=== PATIENT | female | born 1940 | race Caucasian/White ===

== ENCOUNTER 2024-03-30 16:44 | Inpatient (IN) ==
--- NOTE | 2024-03-30 17:56 | XRay Report ---
EXAM: Radiograph of the Chest 1 View INDICATION: CHF. TECHNIQUE: Frontal view of the chest. COMPARISON: 11/11/2023 FINDINGS: Lungs and pleural spaces: Small to moderate right pleural effusion present. There is moderate prominent pulmonary vasculature. There is compressive consolidation of the lung bases right greater than left. No pneumothorax. Heart: Stable prominent cardiac shadow and mitral annular calcification. Mediastinum: Normal contour. Bones/joints: No fracture, erosion or dislocation. Soft tissues: No abnormality noted. No radiopaque foreign body noted. Upper abdomen: No abnormality noted. IMPRESSION: 1. Small to moderate right pleural effusion with compressive consolidation in the right lung base. Pneumonia with or without airway plugging considered. 2. Mild prominent pulmonary vasculature similar to the previous likely reflects mild congestion. ACT 112: Negative or not required by law. Electronically signed by Lori Hobbs 03-30-2024 5:56 PM
--- NOTE | 2024-03-30 18:01 | Emergency Department Note ---
Impression & Plan Acute decompensated heart failure, Bilateral edema of lower extremity, Moderate sized pleural effusion ED Provider Note NAME: LEWIS CURTIS AGE: 83 SEX: F : 1940 ARRIVES VIA: Walk-In INFORMANT: Patient, ED PROVIDER(S): Suyapa Garcia MD CHIEF COMPLAINT: Fluid overload HPI: This is a 83-year-old female presenting for fluid overload. Patient went to her [employer] office today told that she has 30 extra pounds of fluid. She has noted increasing fluid in her bilateral lower extremities like as well as increasing exertional dyspnea for the past 1 month. She notes that she has had difficulty with ambulation as result of this. She has orthopnea as well. She has no chest pain. No fever, chills, nausea or vomiting. ROS: See above HPI for pertinent positives & negatives. A total of 10 systems reviewed and were otherwise negative. PAST MEDICAL HISTORY: See Below PAST SURGICAL HISTORY: See Below FAMILY HISTORY: See Below SOCIAL HISTORY: See Below HOME MEDICATIONS: See Below ALLERGIES: See Below VITALS: See Below PHYSICAL EXAMINATION: General: Chronically ill-appearing Head: Normocephalic and atraumatic Eyes: Normal inspection, extraocular muscles intact Ear, nose, throat: Normal external exam Neck: Normal range of motion Respiratory: Diminished right lung sounds Cardiovascular: Regular rate/rhythm, no murmur GI: soft, nontender, no guarding or rebound Extremities: nontender, moves all extremities, 2+ pitting edema to bilateral lower extremities Neuro: The patient awake and alert, appropriately conversive, no focal deficits, symmetric faces Skin: Warm, dry, and intact MEDICAL DECISION MAKING: This is an 83-year-old female present for fluid overload. Overall patient appears fluid overloaded in her lungs, lower extremities. Consider CHF. Consider ACS, A-fib, pleural effusion, pneumonia -Will get chest x-ray, basic blood work, BNP -Chest Xray independently interpreted by me showing no pneumothorax, focal opacity, but does reveal a moderate size right pleural effusion - labs reviewed showing no leukocytosis, stable anemia creatinine 1.9.. BNP significant elevated at 576. -Will give IV Lasix here, 40 mg. -Discussed care with hospitalist service, admitted under Dr. Olivas Differential diagnosis: Consider CHF. Consider ACS, A-fib, pleural effusion, pneumonia ER treatment provided: See below Independent History obtained from: Daughter Diagnostics interpreted by me: ECG: ECG independently interpreted by me with atrial fibrillation with a rate of 97, left axis deviation, RBBB, normal QTc, no ST segment elevations consistent with STEMI criteria Cardiac Monitoring: An order was placed for continuous cardiac monitoring. The monitor shows a rate of 81 with atrial fibrillation rhythm. Laboratory studies: As stated above and show below. Imaging studies: See below. Past Med/Surg History Problem List (Updated 03/30/24 @ 19:22 by Suyapa Garcia MD) Moderate sized pleural effusion (Acute) Bilateral edema of lower extremity (Acute) Acute decompensated heart failure (Acute) Medical History Hypothyroidism CKD (chronic kidney disease), stage III Dyslipidemia DM (diabetes mellitus), type 2 Hypertension Atrial fibrillation Surgical History S/P cholecystectomy Family History Other Diabetes Hypertension Social History Smoking Status: Never smoker Hx Alcohol Use: No Hx Substance Use: No Preferred Language: Belarusian Feels Safe at Home: Yes Results & Data (ED) Vital Signs Vital Signs - 24 hr 03/30/24 16:46 03/30/24 19:00 Temperature 36.5 C Temperature Source Temporal Artery Scan Pulse Rate 96 H Pulse Rate [Right Brachial] 81 Pulse Rhythm [Right Brachial] Regular Pulse Strength [Right Brachial] Normal Respiratory Rate 18 22 Respiratory Effort / Characteristics Non-Labored Spontaneous Respiratory Depth Normal Normal Blood Pressure 146/102 H Blood Pressure [Right Arm] 124/78 Blood Pressure Mean 116 Blood Pressure Mean [Right Arm] 93 Blood Pressure Position Sitting Pulse Oximetry 93 90 Oxygen Delivery Method Room Air Room Air Sepsis Recent Fever Within 48 Hours No Sepsis New/Unexplained Change in Mental Status No Sepsis Action Taken by Nursing No Action Required Laboratory Data 03/30/24 18:06 03/30/24 18:06 Lab Results 03/30/24 Range/Units 18:06 WBC 7.48 (4.8-10.8) K/ul RBC 4.98 (4.20-5.40) M/uL Hgb 11.9 L (12.0-16.0) g/dl Hct 38.6 (37.0-47.0) % MCV 77.5 L (80.0-100.0) fL MCH 23.9 L (25.0-34.0) pg MCHC 30.8 L (32.0-36.0) g/dL RDW Std Deviation 49.1 H (36.4-46.3) fL RDW Coeff of Vinny 18.0 H (11.5-14.5) % Plt Count 189 (130-400) K/uL MPV 11.4 (9.4-12.4) fL Immature Gran % (Auto) 0.3 % Neut % (Auto) 69.7 % Lymph % (Auto) 15.9 % [place] % (Auto) 11.8 % Eos % (Auto) 1.6 % Baso % (Auto) 0.7 % Neut # (Auto) 5.22 (1.40-6.50) K/uL Lymph # (Auto) 1.19 L (1.20-3.40) K/uL [place] # (Auto) 0.88 H (0.11-0.59) K/uL Eos # (Auto) 0.12 (0.00-0.50) K/uL Baso # (Auto) 0.05 (0.00-0.20) K/uL Immature Gran # (Auto) 0.02 (0.01-0.20) K/uL Sodium 140 (136-145) mmol/L Potassium 5.1 (3.5-5.1) mmol/L Chloride 103 (98-107) mmol/L Carbon Dioxide 27 (21-32) mmol/L Anion Gap 10 (3-11) BUN 43 H (6-23) mg/dl Creatinine 1.89 H (0.6-1.2) mg/dl Est Cr Clr Drug Dosing Not Reportable eGFR 25.72 BUN/Creatinine Ratio 22.8 H (10-20) Glucose 162 H (70-99(Fasting)) mg/dl Calcium 9.5 (8.6-10.3) mg/dl Total Bilirubin 0.8 (0.2-1.0) mg/dl Direct Bilirubin TNP AST 29 (13-39) U/L ALT 18 (7-52) U/L Alkaline Phosphatase 143 H (34-104) U/L B-Natriuretic Peptide 576 H (0-100) pg/ml Total Protein 7.3 (6.0-8.3) gm/dl Albumin 3.8 (3.4-5.0) gm/dl Administered Medications Discontinued Medications Furosemide (Furosemide 40 Mg/4 Ml Vial) 40 mg IV ONE ONE Stop: 03/30/24 18:46 Last Admin: 03/30/24 18:58 Dose: 40 mg Documented By: NISHI Imaging Data Radiologist's Impression: Chest X-Ray 03/30/24 17:17 EXAM: Radiograph of the Chest 1 View INDICATION: CHF. TECHNIQUE: Frontal view of the chest. COMPARISON: 11/11/2023 FINDINGS: Lungs and pleural spaces: Small to moderate right pleural effusion present. There is moderate prominent pulmonary vasculature. There is compressive consolidation of the lung bases right greater than left. No pneumothorax. Heart: Stable prominent cardiac shadow and mitral annular calcification. Mediastinum: Normal contour. Bones/joints: No fracture, erosion or dislocation. Soft tissues: No abnormality noted. No radiopaque foreign body noted. Upper abdomen: No abnormality noted. IMPRESSION: 1. Small to moderate right pleural effusion with compressive consolidation in the right lung base. Pneumonia with or without airway plugging considered. 2. Mild prominent pulmonary vasculature similar to the previous likely reflects mild congestion. ACT 112: Negative or not required by law. Electronically signed by Lori Hobbs 03-30-2024 5:56 PM Discharge Plan Visit Data Chief Complaint: Swelling/Edema to Extremity Stated Complaint: SWELLING AND FLUID THROUGH OUT BODY ED Provider: Suyapa Garcia Discharge Problem: Acute decompensated heart failure, Bilateral edema of lower extremity, Moderate sized pleural effusion Forms Stand Alone Forms: My [facility] Referrals Referrals: Nadia Cuevas PA-C [Primary Care Provider] -
[2024-03-30 18:29] LABS: Basophils # (auto) 0.05 K/uL (0.00-0.20); Basophils % (auto) 0.7 %; Eosinophils # (auto) 0.12 K/uL (0.00-0.50); Eosinophils % (auto) 1.6 %; Hematocrit (blood only) 38.6 % (37.0-47.0); Hemoglobin 11.9 g/dl (12.0-16.0); Immature Granulocytes # (auto) 0.02 K/uL (0.01-0.20); Immature Granulocytes % (auto) 0.3 %; Lymphocytes # (auto) 1.19 K/uL (1.20-3.40); Lymphocytes % (auto) 15.9 %; Mean Corpuscular Hemoglobin 23.9 pg (25.0-34.0); Mean Corpuscular Hgb Conc 30.8 g/dL (32.0-36.0); Mean Corpuscular Volume 77.5 fL (80.0-100.0); Mean Platelet Volume 11.4 fL (9.4-12.4); Monocytes # (auto) 0.88 K/uL (0.11-0.59); Monocytes % (auto) 11.8 %; Neutrophils # (auto) 5.22 K/uL (1.40-6.50); Neutrophils % (auto) 69.7 %; Platelet Count 189 K/uL (130-400); RDW Standard Deviation 49.1 fL (36.4-46.3); Red Blood Count 4.98 M/uL (4.20-5.40); White Blood Count 7.48 K/ul (4.8-10.8)
[2024-03-30 18:45] LABS: Alanine Aminotransferase 18 U/L (7-52); Albumin Level 3.8 gm/dl (3.4-5.0); Alkaline Phosphatase 143 U/L (34-104); Anion Gap 10 (3-11); Aspartate Aminotransferase 29 U/L (13-39); BUN Creatinine Ratio 22.8 (10-20); Bilirubin,Total 0.8 mg/dl (0.2-1.0); Blood Urea Nitrogen 43 mg/dl (6-23); Calcium 9.5 mg/dl (8.6-10.3); Carbon Dioxide 27 mmol/L (21-32); Chloride 103 mmol/L (98-107); Glucose 162 mg/dl (70-99(Fasting)); Potassium 5.1 mmol/L (3.5-5.1); Sodium 140 mmol/L (136-145); Total Protein 7.3 gm/dl (6.0-8.3)
[2024-03-30] MEDS: FUROSEMIDE 40 MG/4 ML VIAL IV ONE (18:58)
--- NOTE | 2024-03-30 19:11 | History & Physical Report ---
Date of Service March 30, 2024 Assessment & Plan (1) Acute decompensated heart failure: (2) DM (diabetes mellitus), type 2: (3) Atrial fibrillation: (4) Dyslipidemia: (5) CKD (chronic kidney disease), stage III: (6) Hypertension: (7) Hypothyroidism: Plan This is an 83yo F with a PMH of HFpEF, atrial fibrillation on coumadin, bifascicular block, DM II, CKD III and other medical problems listed below who presents with swelling of lower extremities over the past few weeks and was found to have acutely decompensated diastolic heart failure. Acute decompensated diastolic heart failure Sent over from Dr. De Dios's office with profound BLE edema, moderate R pleural effusion on CXR, >20# wt gain Echo from [facility] from Jan 2024 with LV ejection fraction is 55 - 60%, RA and LA severely dilated, severe AV sclerosis without stenosis, severe TR regurg, severe MV regurg Home regimen includes Bumex 1mg BID, Toprol 100mg BID, lisinopril 20mg daily Given 40mg IV Lasix in ED - giving add'l 60mg IV this evening Strict I&Os, daily weights, low sodium diet Cardiology consulted Persistent atrial fibrillation HR controlled Continue diltiazem, Toprol DM II A1c 8.8 in July 2023, repeat in AM Hold home agents Basal/bolus insulin while in-patient BSG AC HS CKD III Cr 1.89 (last known Cr 1.8 in October 2023, unknown baseline) Hold lisinopril for now Repeat BMP in AM Dyslipidemia Continue statin DVT Ppx: coumadin Code status: FULL PCP: [facility] Dispo: admitted to PCU Patient seen in collaboration with Dr. Olivas. Please see addendum. I spent a total of 75 minutes coordinating, documenting, and providing care for this patient excluding time spent in the performance of separately billed services. Admission and Anticipated Discharge Date Admission Date: 03/30/2024 History of Present Illness Chief Complaint: SOB, BLE edema Primary Care Provider: Nadia Cuevas PA-C This is an 83yo F with a PMH of HFpEF, atrial fibrillation on coumadin, DM II, CKD III and other medical problems listed below who presents with swelling of lower extremities over the past few weeks. Patient notes that she has had fluid accumulating in legs over the past month. Endorses SOB at all times, occasional cough. Sleeping in a chair, + orthopnea and PND. Has been compliant with Bumex 1mg PO BID. Was seen by Dr. De Dios in cardiology clinic today and he sent her to ED for diuresis of decompensated heart failure. No F/C, CP, N/V, abd pain, dysuria, diarrhea or constipation. Occasional lightheadedness. Ambulates with a walker at baseline. Per cardiology note today, patient was admitted at [facility] in early February with R heart failure, requiring 11 lb weight loss. Since discharge has continued to have difficulty with>20# from baseline. Home Medications Medication Instructions Recorded Confirmed Type atorvastatin 20 mg tablet 20 mg PO DAILY 03/30/24 03/30/24 History bumetanide 1 mg tablet 1 mg PO BID 03/30/24 03/30/24 History diltiazem HCl 120 mg 240 mg PO DAILY 03/30/24 03/30/24 History capsule,extended release 24 hr, controlled (DILT-XR) insulin aspar prot-insulin aspart 25 unit subcut BID 03/30/24 03/30/24 History 100 unit/mL (70-30) subcutaneous pen (Novolog Mix 70-30FlexPen U-100) levothyroxine 88 mcg tablet 88 mcg PO DAILY 03/30/24 03/30/24 History lisinopril 20 mg tablet 20 mg PO DAILY 03/30/24 03/30/24 History metoprolol succinate 100 mg 100 mg PO BID 03/30/24 03/30/24 History tablet,extended release 24 hr potassium chloride 20 mEq 20 meq PO DAILY 03/30/24 03/30/24 History tablet,extended release warfarin 1 mg tablet 2 mg PO DAILY 03/30/24 03/30/24 History Past Med/Surg History Problem List (Updated 03/30/24 @ 19:22 by Suyapa Garcia MD) Moderate sized pleural effusion (Acute) Bilateral edema of lower extremity (Acute) Acute decompensated heart failure (Acute) Medical History Hypothyroidism CKD (chronic kidney disease), stage III Dyslipidemia DM (diabetes mellitus), type 2 Hypertension Atrial fibrillation Surgical History S/P cholecystectomy Family History Other Diabetes Hypertension Social History Smoking Status: Never smoker Hx Alcohol Use: No Hx Substance Use: No Preferred Language: Faroese Feels Safe at Home: Yes Review of Systems Review of Systems: At least ten systems reviewed and negative except as noted in the HPI. Physical Exam Physical Exam: Please see Dr. Olivas's addendum for physical exam. Results & Data Results & Data Vital Signs (Past 12 Hours) Vital Signs Temp Pulse Pulse Resp BP BP Pulse Ox 03/30/24 19:00 81 22 124/78 90 03/30/24 16:46 36.5 C 96 H 18 146/102 H 93 O2 Del Method 03/30/24 19:00 Room Air 03/30/24 16:46 Room Air Laboratory Results Short CBC 03/30/24 Range/Units 18:06 WBC 7.48 (4.8-10.8) K/ul Hgb 11.9 L (12.0-16.0) g/dl Hct 38.6 (37.0-47.0) % Plt Count 189 (130-400) K/uL BMP 03/30/24 18:06 Sodium 140 Potassium 5.1 Chloride 103 Carbon Dioxide 27 BUN 43 H Creatinine 1.89 H Glucose 162 H Calcium 9.5 Liver Function 03/30/24 Range/Units 18:06 Total Bilirubin 0.8 (0.2-1.0) mg/dl Direct Bilirubin TNP AST 29 (13-39) U/L ALT 18 (7-52) U/L Alkaline Phosphatase 143 H (34-104) U/L Albumin 3.8 (3.4-5.0) gm/dl Diagnostic Findings Chest X-Ray 03/30/24 17:17 EXAM: Radiograph of the Chest 1 View INDICATION: CHF. TECHNIQUE: Frontal view of the chest. COMPARISON: 11/11/2023 FINDINGS: Lungs and pleural spaces: Small to moderate right pleural effusion present. There is moderate prominent pulmonary vasculature. There is compressive consolidation of the lung bases right greater than left. No pneumothorax. Heart: Stable prominent cardiac shadow and mitral annular calcification. Mediastinum: Normal contour. Bones/joints: No fracture, erosion or dislocation. Soft tissues: No abnormality noted. No radiopaque foreign body noted. Upper abdomen: No abnormality noted. IMPRESSION: 1. Small to moderate right pleural effusion with compressive consolidation in the right lung base. Pneumonia with or without airway plugging considered. 2. Mild prominent pulmonary vasculature similar to the previous likely reflects mild congestion. ACT 112: Negative or not required by law. Electronically signed by Lori Hobbs 03-30-2024 5:56 PM ECG Additional Comments: atrial fibrillation at 97 bpm, LAD, RBBB Supervising Physician Co-Signing Physician Notes Patient is an 83-year-old female with history of HFpEF, permanent atrial fibrillation on chronic anticoagulation with Coumadin, CKD stage III, diabetes mellitus on insulin, bifascicular block, hypothyroidism, hyperlipidemia and other medical problems presents with history of worsening shortness of breath associated with worsening leg edema, increased weight gain, intermittent cough, orthopnea and PND which has been worsening over the past 1 month duration. She also reports ongoing palpitations. Patient denies any chest pain, fever, chills. Patient was evaluated by cardiology Dr. De Dios as outpatient and was recommended to go to ED for further evaluation. Patient admits to take her diuretics regularly. Please review HPI for complete details of presentation. I personally reviewed blood work, imaging studies and prior echo. Creatinine elevated at 1.8, glucose elevated 162, BNP 5726. Chest x-ray suggestive of moderate right pleural effusion with possible consolidation of right lung base. EKG showed A-fib, left axis deviation, right bundle branch block, QTc 490. Physical Exam: Vitals signs as noted above General Appearance:Moderately built and nourished, no apparent distress Head: normocephalic, Atraumatic Eyes: normal inspection, EOMI Neck: supple, Trachea midline Respiratory/Chest: Significantly decreased breath sounds, CTA, No accessory muscle use Cardiovascular: Irregularly irregular, +murmur Abdomen/GI:Soft, Non tender, protuberant, bowel sounds present Extremities/Musculoskeletal:normal inspection, 2=3+ B/L LE edema Neurologic/Psych:AAOX3, grossly no focal neurological deficits Skin: normal color, warm Acute on chronic HFpEF Valvular heart disease Right pleural effusion secondary to above CKD stage III Permanent A-fib on Coumadin DM II Supratherapeutic INR Agree with IV Lasix, I's and O's, daily weight, monitor volume status Consult cardiology If poor diuresis, may need thoracentesis Continue fluid restriction Continue metoprolol, diltiazem Hold Coumadin monitor INR Continue insulin for management of diabetes mellitus Check abdomen for ascites Monitor renal function, electrolytes I personally interviewed and examined at bedside. Patient's care is coordinated with Sayra Brewer PA-C. I have reviewed the advanced practitioner's documentation, and I agree with plan of care. Please refer to the documentation above for details of patient's presentation and for discussion of other issues. I spent a total [id number] coordinating, documenting, and providing care for this patient excluding time spent in the performance of separately billed services.
[2024-03-30 20:23] LABS: INR 4.5 (0.9-1.1); Prothrombin Time 42.9 Seconds (9.0-12.0)
[2024-03-30] MEDS ORDERED: GLUCOSE 10 TAB/TUBE PO PRN (21:15)
[2024-03-30] MEDS ORDERED: ACETAMINOPHEN 325 MG TAB PO PRN (21:15)
[2024-03-30] MEDS ORDERED: GLUCAGON FOR INJ 1 MG VIAL SQ PRN (21:15)
[2024-03-30] MEDS ORDERED: CARBOHYDRATES FOR HYPOGLYCEMIA PO PRN (21:15)
[2024-03-30] MEDS ORDERED: DEXTROSE 50% 50 ML SYRINGE IV PRN (21:15)
[2024-03-30] MEDS ORDERED: GLUCOSE 40% GEL 15 GM TUBE PO PRN (21:15)
[2024-03-30] MEDS ORDERED: POLYETHYLENE (MIRALAX) 17 GM PACK PO PRN (21:15)
[2024-03-30] MEDS: METOPROLOL SUCC 50MG EXT REL TAB PO SCH (21:49)
[2024-03-30] MEDS: FUROSEMIDE 40 MG/4 ML VIAL IV SCH (21:49)
[2024-03-30] MEDS: LANTUS PER UNIT CHARGE SQ SCH (21:49)
[2024-03-30] MEDS: INSULIN ASPART PER UNIT CHARGE SC SCH (21:50)
[2024-03-31] MEDS: LEVOTHYROXINE SODIUM 88 MCG TABLET PO SCH (06:11)
[2024-03-31 06:38] LABS: Hematocrit (blood only) 37.2 % (37.0-47.0); Hemoglobin 11.5 g/dl (12.0-16.0); Mean Corpuscular Hgb Conc 30.9 g/dL (32.0-36.0); Mean Corpuscular Volume 77.5 fL (80.0-100.0); Platelet Count 192 K/uL (130-400); RDW Coefficient of Variation 18.1 % (11.5-14.5); RDW Standard Deviation 49.3 fL (36.4-46.3); White Blood Count 7.27 K/ul (4.8-10.8)
[2024-03-31 06:45] LABS: BUN Creatinine Ratio 21.2 (10-20); Calcium 9.6 mg/dl (8.6-10.3); Creatinine Clr Calc Pharmacy 21.3 ml/min; Potassium 4.2 mmol/L (3.5-5.1)
[2024-03-31 06:46] LABS: INR 5.4 (0.9-1.1); Prothrombin Time 50.2 Seconds (9.0-12.0)
[2024-03-31 07:00] LABS: Thyroid Stimulating Hormone 2.957 uIu/ml (0.300-4.500)
[2024-03-31 07:12] LABS: Estimated Average Glucose 160 mg/dl; Hemoglobin A1C 7.2 % (4.5-5.6)
--- OUTSIDE RECORDS SUMMARY | 2024-03-31 07:41 | External Medical Summary ---
Author Name Unknown Address Unknown Organization [facility] [address] [place] [address] Laboratory Report Ordering Provider Test Date Status JORJE EVANS 03/03/2024 11:07:00 Final Observation Date Value Abnormality Reference (Units ) Status WBC 03/03/2024 12:40 7.6 4.0-10.0 (X10E+09/L) Final RBC 03/03/2024 12:40 4.15 3.9-5.2 (X10E+12/L) Final Hemoglobin 03/03/2024 12:40 10.7 Below low normal 11.2-15.7 (g/dL) Final Hematocrit 03/03/2024 12:40 33.2 Below low normal 34-45 (%) Final MCV 03/03/2024 12:40 79.9 79-98 (fL) Final MCH 03/03/2024 12:40 25.8 Below low normal 26.0-32.0 (pg) Final MCHC 03/03/2024 12:40 32.3 32-36 (g/dL) Final Platelets 03/03/2024 12:40 253 150-370 (X10E+09/L) Final RDW 03/03/2024 12:40 17.0 (%) Final Neutrophils 03/03/2024 12:40 76.4 Above high normal 34.0-71.1 (%) Final Lymphocytes 03/03/2024 12:40 11.7 Below low normal 19.3-51.7 (%) Final Monocytes 03/03/2024 12:40 9.5 4.7-12.5 (%) Final Eosinophils 03/03/2024 12:40 1.7 0.7-5.8 (%) Final Basophils 03/03/2024 12:40 0.7 0.1-1.2 (%) Final Absolute Neutrophils 03/03/2024 12:40 5.80 1.6-6.1 (X10E+09/L) Final Absolute Lymphocytes 03/03/2024 12:40 0.90 Below low normal 1.2-3.7 (X10E+09/L) Final Absolute Monocytes 03/03/2024 12:40 0.70 0.2-0.9 (X10E+09/L) Final Absolute Eosinophils 03/03/2024 12:40 0.10 0.0-0.4 (X10E+09/L) Final Absolute Basophils 03/03/2024 12:40 0.10 0.0-0.1 (X10E+09/L) Final Performing Location [facility] [address] [place] [address]
--- OUTSIDE RECORDS SUMMARY | 2024-03-31 07:41 | External Medical Summary | Summary of Care ---
Author Name Unknown Organization [facility] Address [address] [facility] [place] [place] [address] Phone [phone] Care Team Providers Care Operations Inspector Name Role Phone Nura Mckay Primary Care Provider [phone] Reason for Visit * Reason Onset Date Comments Information 03/13/2024 Encounter Details Date Type Department Care Team (Late st Contact Info) Description 03/13/2024 Telephone Cardiology, [facility] [address] [place] [address] Angel De Dios MD [address] [facility] [place] [address] Information Allergies Active Allergy Reactions Criticality Noted Date Comments Sulfa Antibiotics 11/14/2004 documented as of this encounter (statuses as of 03/15/2024) Medications Medication Sig Dispensed Refills Start Date End Date Status levothyroxine (LEVOXYL) 88 MCG Tablet Take 1 Tablet by mouth daily first thing in the morning. 06/28/2018 Active Insulin Syringe 27G X 1/2" 0.5 ML Inject 1 Each under the skin 2 times a day. 04/23/2020 Active Multi-Vitamins Oral Tablet Take 1 Tablet by mouth in the morning. Active [employer] Test In Vitro Strip (Glucose Blood) Inject 1 Strip as directed in the morning and 1 Strip at noon and 1 Strip before bedtime. 02/02/2019 Active Insulin Aspart Prot & Aspart (70-30) 100 UNIT/ML Suspension Pen-injector Inject 25 Units under the skin in the morning. 08/28/2020 Active Fifty50 Pen [place] 32G X 4 MM (Insulin Pen Needle) Inject 1 Each under the skin in the morning. 02/08/2019 Active OneTouch Delica Plus [id number] Inject 1 Each under the skin 3 times a day. 07/05/2020 Active Warfarin Sodium 1 MG Oral Tablet Take 3 Tablets by mouth daily except on . Active Warfarin Sodium 1 MG Oral Tablet (Coumadin) Take 2 Tablets by mouth every . Active Insulin Aspart Prot & Aspart (70-30) 100 UNIT/ML Suspension Pen-injector Inject 25 Units under the skin daily with dinner. Active Lisinopril 20 MG Oral Tablet (Prinivil) Take 1 Tablet by mouth in the morning. Active Vitamin D3 50 MCG (1999 UT) Oral Capsule Take 1 Capsule by mouth in the morning. Active Atorvastatin Calcium 20 MG Oral Tablet (Lipitor) Take 1 Tablet by mouth in the morning. 90 Tablet 3 08/30/2023 Active dilTIAZem HCl ER Coated Beads 240 MG Oral Capsule Extended Release 24 Hour (Cardizem CD) Take 1 Capsule by mouth in the morning. 90 Capsule 3 11/18/2023 Active Bumetanide 1 MG Oral Tablet (Bumex) Take 1 Tablet by mouth in the morning and 1 Tablet before bedtime. 9am and 1pm. 03/02/2024 Active Potassium Chloride ER 20 MEQ Oral Tablet Extended Release Take 1 Tablet by mouth in the morning. 03/03/2024 Active Metoprolol Succinate ER 100 MG Oral Tablet Extended Release 24 Hour (toPROL XL)Indications:(H FpEF) heart failure with preserved ejection fraction (HCC),Essential hypertension with goal blood pressure less than 140/90,Paroxysmal atrial fibrillation (HCC) Take 1 Tablet by mouth in the morning and 1 Tablet before bedtime. 03/13/2024 Active Metoprolol Succinate ER 100 MG Oral Tablet Extended Release 24 Hour (toPROL XL)Indications:(H FpEF) heart failure with preserved ejection fraction (HCC),Essential hypertension with goal blood pressure less than 140/90,Paroxysmal atrial fibrillation (HCC) Take 1.5 Tablets by mouth in the morning. 135 Tablet 3 07/06/2023 03/13/20 24 Discontinued Furosemide 40 MG Oral Tablet (Lasix)Indication s:Hypertensive heart disease with chronic diastolic congestive heart failure (HCC),Chronic right-sided heart failure (HCC),Persistent atrial fibrillation (HCC),HTN, goal below 140/90 Take 1 Tablet by mouth in the morning. 90 Tablet 3 11/18/2023 03/13/20 24 Discontinued(Med ication/Dose Changed) documented as of this encounter (statuses as of 03/15/2024) Active Problems Problem Noted Date Diagnosed Date Paroxysmal atrial fibrillation 05/20/2023 (HFpEF) heart failure with preserved ejection fr action 02/17/2023 Hypertension associated with stage 3 chronic kidney disease due to type 2 diabetes mellitus 11/23/2017 Status post total right knee replacement 018 Generalized osteoarthritis 11/07/2017 Recurrent major depressive disorder, in full rem ission 11/07/2017 Impaired mobility and ADLs 11/07/2017 Abnormality of gait 11/07/2017 Essential hypertension with goal blood pressure less than 140/90 05/12/2016 Kidney disease, chronic, stage III (GFR 30-59 ml /min) 07/17/2013 Overview: Per CKD protocol #1 Obesity, Class II, BMI 35-39.9, isolated (see ac tual BMI) 03/08/2012 Gout 08/21/2010 Dyslipidemia, goal LDL below 100 05/08/2009 Overview: Per Lipid Taxonomy. Type 2 diabetes mellitus wit h hemoglobin A1c goal of less than 7.0% 03/21/2009 Overview: Per Diabetes Taxonomy. ICD-10 update of inactive term Hypothyroidism 02/24/2005 ADVANCE DIRECTIVE INFORMATION 12/01/2004 Overview: No, Advance Directive brochure given to patient. documented as of this encounter (statuses as of 03/15/2024) Resolved Problems Problem Noted Date Diagnosed Date Resolved Date Acute respiratory failure due to COVID-19 05/20/2023 05/25/2023 Pneumonia due to COVID-19 virus 05/20/2023 05/25/2023 Sepsis due to COVID-19 05/20/202305/25 Atrial fibrillation with RVR 02/17/2023 05/25/2023 Pain in both knees 02/17/2023 Hypertensive urgency 02/17/2023 023 Leukocytosis 02/17/2023 03/01/2023 Elevated troponin 02/17/2023 05/20/2023 Anxiety state 11/07/2017 03/02/2023 Nephrolithiasis 11/07/2017 11/08/2017 History of uncontrolled hypertension 11/07/2017 05/20/2023 History of uterine fibroid 11/07/2017 0 11/08/2017 H/O tubal ligation 11/07/2017 8 Generalized weakness 11/07/2017 023 assisted resident 11/07/20172017 HTN, goal below 140/90 11/04/201511/07 Overview: Per HTN Protocol Anxiety 01/16/2015 11/07/2017 Hypertension goal BP (blood pressure) < 140/80 03/08/2012 11/07/2015 Overview: Per HTN Protocol Kidney disease, chronic, sta ge III (GFR 30-59 ml/min) 10/12/2011 06/08/2012 Overview: Per CKD protocol #1 Kidney disease, chronic, sta ge III (GFR 30-59 ml/min) 12/12/2009 08/21/2010 Overview: Per CKD Protocol, #1 HTN, goal below 130/80 06/19/200903/08 Overview: Per HTN Taxonomy. Kidney disease, chronic, sta ge III (GFR 30-59 ml/min) 07/26/2007 10/02/2008 Overview: Added per CKD clinical protocol 1 Type 2 diabetes mellitus wit h hemoglobin A1c goal of less than 7.0% 07/22/2007 03/21/2009 Overview: Per Diabetes Taxonomy. ICD-10 update of inactive term Dyslipidemia, goal to be determined 07/22/2007 05/08/2009 Overview: Per Lipid Taxonomy. DIFFUS CYSTIC MASTOPATHY 03/19/2006 Lichenified Face Rash 12/16/20052017 HTN, goal below 140/90 02/24/200506/19 Overview: Per HTN Taxonomy. documented as of this encounter (statuses as of 03/15/2024) Immunizations Name Administration Dates Next Due Pneumococcal Polysaccharide PPV23 (Pneumovax) 06/10/2012,02/27/2011(Deferred: Patient Refused) Seasonal Influenza Vac., MDV , IM, 0.5 mL (Fluzone) 01/30/2014,05/31/2013,03/08/2012,02/27(Deferred: Patient Refused),03/19/2006 Seasonal Influenza, Quadriva lent, No Preserve, IM 05/18/2017,04/03/2016,03/16/2015 Varicella Zoster Vaccine (Adult) 01/20/2013 documented as of this encounter Social History Tobacco Use Types Packs/Day Years Used Date Smoking Tobacco: Never Smokeless Tobacco: Never Alcohol Use Standard Drinks/Week Comments No 0 (1 standard drink = 0.6 oz pur e alcohol) PHQ-2 Answer Date Recorded PHQ-2 Score -1 03/30/2018 Utilities Answer Date Recorded Do you have trouble paying y our heating, water, or electric bill? (Adult - for ages 18 years and over) Not on file 11/09/2023 Is your family able to pay t he heat, water, or electric bill? (Household - for ages 0-17 years) Not on file 11/09/2023 Does your family have access to good internet? (Household - for ages 0-17 years) Not on file 11/09/2023 Social Connections Answer Date Recorded How often do you feel lonely or isolated from those around you? (Adult - for ages 18 years and over) Not on file 11/09/2023 Sex and Gender Information Value Date Recorded Sex Assigned at Not on file Gender Identity Not on file Sexual Orientation Not on file Job Start Date Occupation Industry Not on file Not on file Not on file documented as of this encounter Functional Status Functional Status Response Date of Assess ment Are you deaf or do you have serious difficulty h earing? No 05/20/2023 Are you blind or do you have serious difficulty seeing, even when wearing glasses? No 05/20/2023 Do you have serious difficul ty walking or climbing stairs? (5 years old or older) No 05/20/2023 Do you have difficulty dress ing or bathing? (5 years old or older) No 05/20/2023 Because of a physical, menta l, or emotional condition, do you have difficulty doing errands alone such as visiting a doctor s office or shopping? (15 years old or older) No 05/20/20 23 Cognitive Status Response Date of Assessm ent Because of a physical, menta l, or emotional condition, do you have serious difficulty concentrating, remembering, or making decisions? (5 years old or older) No 05/20/2023 documented as of this encounter Miscellaneous Notes * Telephone Encounter - Tracie Fuentes LPN - 03/13/2024 10:41 AM EDT Son, Froilan, calling to report pt is having bilateral lower extremity edema and SOB/dyspnea. On 02/20 pt c/o to PCP of edema x3 weeks. Advised to go to ED. Pt admitted to [facility] 02/20to 02/26/24. (Discharge summary from Care Everywhere attached below) Still having difficulty breathing with minimal activity. Cannot walk short distance without becoming SOB, cannot lay down to elevate legs d/t difficulty breathing. Son reports that upon discharge lower extremity edema was just as bad as when she was admitted and the same today. Monitoring SpO2 at home consistently in 90% Currently 96% and HR 76 03/02/24 med changes at PCP appointment (Care Everywhere & attached below) and reported by son. Bumex 1mg twice daily at 9am and 1pm, furosemide discontinued. Metoprolol 100mg was taking 1.5 tabs once daily now taking 100mg twice daily. Potassium Chloride 20 mEq. 1 tab daily Still taking diltiazem 240mg daily Med list updated Weight gain: does not monitor at home weight on 02/25 d/c 177.3 lb. 03/02/24 PCP appt 180.9 lb. Abdminal distention No denies Lack of appetite No good appetite Recent home weights: Does not know her weight today, does not monitor at home. Exacerbating factors: Has the patient missed any medications? No Has there been a change in medications? Yes Has there been any recent steroid use? No Has there been any dietary indiscretions? unknown Patient is currently taking: med list updated per 03/02/24 pcp note. Dose the patient have a DTP (Diuretic Titration Plan? No Yes- Follow DTP and ensure a follow up call is made No- Pend DTP with message to the provider Advised pt to await return call, but if symptoms worsen or become emergent, seek treatment at nearest emergency department. Son agreed 03/02/24 PCP notes from care everywhere Zarina Dang MD - 03/02/2024 3:00 PM EDT Subjective: Patient ID: Lc Cantrell is an 83 year old female. HPI: I saw Lc today for 5 day TCM after a 5 day hospitalization at [facility] secondary to acute on chronic diastolic CHF. She presented to the ER with c/o shortness of breath, leg swellingthat had started 3 weeks earlier. In the ER, she was hemodynamically stable and did not require oxygen supplementation. Her EKG showed atrial fibrillation with a rate of 70 with RBBB. Echocardiogram showed: 1. normal global function of the left ventricle; 2. no left ventricular regional wall motionabnormalities; 3. LV ejection fraction 55 - 60%; 4. normal right ventricular size and systolic function; 5. right atrium severely dilated; 6. left atrium severely dilated; 7. 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 severe tricuspid regurgitation; 9. severe mitral annular calcification; 10. Severe mitral valve regurgitation. Troponin was not elevated. Procalcitonin was not significantlyelevated at 0.14. Chest x-ray showed a right pleural effusion. BNP was elevated to 466. She also had an REFUGIO versus chronic kidney disease, with a creatinine of 1.87. She was given a dose of 40 mg IV Lasix. She was admitted to observation under hospital medicine service for further evaluation and treatment of presumed heart failure exacerbation. She was seen in consultation by Cardiology on hospital day#1 and they recommended bumetanide 1 mg IV bid for diuresis to resolve the fluid overload. Patient lost 11 pounds with diuresis and renal function remained stable. Patient discharged on furosemide 40 mg po bid. Her weight on the day of discharge was 177.3 lbs. She is feeling better but taking furosemide at bedtime as prescribed has kept her up at night. She has been elevated her legs as muchas possible. Assessment & Plan: Diagnosis ICD-10-CM Plan 1. Chronic diastolic CHF (congestive heart failure) (HCC) I50.32 As Cardiology recommended Bumex secondary to CKD and she was given this in the hospital and it worked well, I will change furosemide to Bumex 1 mg po q0900 and q1300. She will continue LE elevation. 2. Stage 3b chronic kidney disease (HCC) N18.32 CBC (INCLUDES DIFFERENTIAL AND PLATELETS) COMPREHENSIVE METABOLIC PANEL (CMP) 3. Chronic atrial fibrillation (HCC) I48.20 MAGNESIUM PROTHROMBIN TIME/INR Nocturnal desaturation study on RA. 4. Other specified hypothyroidism E03.8 THYROID-STIMULATING HORMONE (TSH) T4 (THYROXINE), FREE 02/26/24 - Discharge summary. Document Name: Discharge Summary/Day of DC Note Service Date/Time: 02/26/24 3:50:00 PM EDT Result Status: Final Author: SADIE HERRERA, DARIO GUTHRIE (02/26/24 3:51:01 PM EDT) Signer: DARIO CUNHA MD (02/27/24 11:30:06 AM EDT) Discharge Summary/Day of DC Note [facility] Patient: LC CANTRELL Age: 83 years Sex: Female : 1940 Associated Diagnoses: None Author: DARIO CUNHA MD Discharge Information Discharge Summary: Discharge Date: 02/26/2024. PROVIDERS PCP: Nadia Cuevas Attending: Dario Cunha Referring: Physician Nonassigned Consulting: Cardiology Michael; Discharge Medications: (As of 02/26/24 15:50) ATORVASTATIN (20 MG ORAL TABLET) 1 TAB BY MOUTH EVERY EVENING CHOLECALCIFEROL (25 MCG (1000 INTL UNITS) ORAL CAPSULE) 1 CAP BY MOUTH ONCE A DAY DILTIAZEM ((EQV-CARDIZEM CD) 240 MG/24 HOURS ORAL CAPSULE, EXTENDED RELEASE) 1 CAP BY MOUTH EVERY EVENING; COMMENT: TAKES IN EVENING. CONFIRMED WITH PATIENT 02/21/2024 FUROSEMIDE (LASIX 40 MG ORAL TABLET) 1 TAB BY MOUTH 2 TIMES A DAY; Dispense Quantity: 60 TABS; Prescription Electronically Submitted to [facility] 8540 INSULIN ASPART-INSULIN ASPART PROTAMINE (NOVOLOG MIX 70/30) (RELION NOVOLOG MIX 70/30 FLEXPEN SUBCUTANEOUS SUSPENSION) 25 UNITS BENEATH THE SKIN 2 TIMES A DAY (AFTER MEALS) LEVOTHYROXINE (88 MCG (0.088 MG) ORAL TABLET) 1 TAB BY MOUTH ONCE A DAY LISINOPRIL (20 MG ORAL TABLET) 1 TAB BY MOUTH ONCE A DAY METOPROLOL (SUCCINATE ER 100 MG ORAL TABLET, EXTENDED RELEASE) 1.5 TABS BY MOUTH ONCE A DAY MULTIVITAMIN (MULTI VITAMIN+) 1 TAB ONCE A DAY WARFARIN (1 MG ORAL TABLET) 2 TABS BY MOUTH ONCE A DAY Hospital Course Patient admitted for volume overload, increased LE edema and diastolic heart failure. Seen in consultation by Cardiology. Patient lost 11 pounds with diuresis and renal function remained stable. Patient discharged to care of her daughter in the afternoon. I spoke with daughter on the phone on 02/27/2024 to see how her mother was doing. Patient with continued good response to home Lasix, increased from 40 mg daily to 40 mg BID. Patient has follow up appointment with PCP this week. Instructed daughter for patient to have INR and BMP checked at PCP visit. Please see my progress note for details of her exam and problem list. Call me with any questions or concerns. Document Name: Discharge Summary/Day of DC Note Service Date/Time: 02/26/24 3:50:00 PM EDT Weights (Last 5 in past 7 days) Date / Time Weight(kg) Dosing Wt = 85.8 kg (As of: 02/21 20:30) 02/25 06:00 80.6 02/24 06:33 84.6 02/24 06:00 84.6 02/23 06:00 84.8 02/22 08:00 85.6 documented in this encounter Plan of Treatment Upcoming Encounters Date Type Department Care Team (Late st Contact Info) Description 03/30/2024 3:00 PM EST Office Visit [facility] [address] [place] [address] Angel De Dios MD [address] [place] [address] 05/09/2024 11:00 AM EST Office Visit [facility] [address] [place] [address] Nisha Arellano, ARJUN [address] [place] [address] Health Maintenance Due Date Last Done Comments DTap/Tdap Vaccines (1 - Tdap) 1959 Zoster Vaccines (2 of 3) 03/17/2013 01/20/2013 Pneumococcal Vaccine: 65+ Years (2 of 2 - PCV) 06/10/2013 06/10/2012 Albumin/Creatinine Ratio 10/27/2016 016, 10/05/2014, 09/21/2013, Additional history exists Diabetic Foot Exam 05/12/2017 05/12/2016, 1 07/07/2014, 06/15/2014, Additional history exists Depression Monitoring 11/23/2018 11/23/2017 COVID-19 Vaccine ( season) 2024 07/31/2020, 07/10/2020 Influenza Vaccine (FLU shot) (#1) 2024 02/26/2022, 03/09/2019, 03/11/2018, Additional history exists Diabetic Eye Exam 02/06/2024 02/05/2023, , 11/30/2016, Additional history exists HbA1c 02/17/2024 08/17/2023, 05/25, 05/21/2023, Additional history exists TSH 02/18/2024 02/17/2023, 01/23, 11/10/2017, Additional history exists CKD PHOS USE SMARTSET 13433 02/21/2025 10/0 05/2023, 11/02/2023, 10/30/2023, Additional history exists CKD HGB USE SMARTSET 26593 03/03/202503/03, 02/26/2024, 02/25/2024, Additional history exists HPV (Gardasil) Vaccine Aged Out No lo nger eligible based on patient's age to complete this topic Hepatitis B Vaccine Aged Out No longe r eligible based on patient's age to complete this topic MENINGOCOCCAL (MENACTRA/MENVEO) Aged Out No longer eligible based on patient's age to complete this topic documented as of this encounter Medical Devices Not on filedocumented as of this encounter Visit Diagnoses Diagnosis (HFpEF) heart failure with preserved ejection fraction (HCC) Essential hypertension with goal blood pressure less than 140/90 Paroxysmal atrial fibrillation (HCC) Atrial fibrillation documented in this encounter Advance Directives * Limited Code (Latest Code Status on File) Date Activated Date Inactivated Comments 05/20/2023 1:42 PM 05/25/2023 5:20 PM This order r eflects the patients wishes and were consensually agreed upon. Question Answer Comments Discussion of Advance Directives occurred with: Family Does the patient have a Living Will? No Bag Valve Device? Yes Intubation? No Cardiac Compressions? Yes Defibrillation? Yes Synchronized Cardioversion? Yes External Pacemaker? Yes Cardiac Drugs? Yes * Full Code Date Activated Date Inactivated Comments 02/17/2023 3:58 AM 02/18/2023 9:02 PM This order r eflects the patients wishes and were consensually agreed upon. Question Answer Comments Discussion of Advance Directives occurred with: Patient Does the patient have a Living Will? No Does the patient have Health Care Power of Attor himanshu? No Care Teams Operations Inspector Relationship Specialty Start Date End Date Nura Mckay DO PCP - General Family Medicine 12/15/17 documented as of this encounter
--- OUTSIDE RECORDS SUMMARY | 2024-03-31 07:41 | External Medical Summary | Summary of Care ---
Author Name Unknown Organization [facility] Address [address] [place] [address] Phone [phone] Care Team Providers Care Sports Manager Name Role Phone Nura Mckay Primary Care Provider [phone] Reason for Visit * Reason Onset Date Comments [facility]: Engagement 02/29/2024 Encounter Details Date Type Department Care Team (Late st Contact Info) Description 02/29/2024 Telephone [facility] [place] [address] [place] [address] Марина Gomez VAMSHI [address] [place] [address] [facility]: Engagement Allergies Active Allergy Reactions Criticality Noted Date Comments Sulfa Antibiotics 11/14/2004 documented as of this encounter (statuses as of 02/29/2024) Medications Medication Sig Dispensed Refills Start Date [...] in the morning. 08/28/2020 Active Fifty50 Pen [place] 32G X 4 MM (Insulin Pen Needle) Inject 1 Each under the skin in the morning. 02/08/2019 Active OneTouch Delica Plus [id number] Inject 1 Each under the skin 3 [...] the morning. Active Vitamin D3 50 MCG (2000 UT) Oral Capsule Take 1 Capsule by mouth in the morning. Active Metoprolol Succinate ER 100 MG Oral Tablet Extended Release 24 Hour (toPROL XL)Indications:(HFpEF ) heart failure with preserved ejection fraction (HCC),Essential hypertension with goal blood pressure less than 140/90,Paroxysmal atrial fibrillation (HCC) Take 1.5 Tablets by mouth in the morning. 135 Tablet 3 07/06/2023 Active Atorvastatin Calcium 20 MG Oral Tablet (Lipitor) Take 1 Tablet by mouth in the morning. 90 Tablet 3 08/30/2023 Active Furosemide 40 MG Oral Tablet (Lasix)Indications:Hy pertensive heart disease with chronic diastolic congestive heart failure (HCC),Chronic right-sided heart failure (HCC),Persistent atrial fibrillation (HCC),HTN, goal below 140/90 Take 1 Tablet by mouth in the morning. 90 Tablet 3 11/18/2023 Active dilTIAZem HCl ER Coated Beads 240 MG Oral Capsule Extended Release 24 Hour (Cardizem CD) Take 1 Capsule by mouth in the morning. 90 Capsule 3 11/18/2023 Active documented as of this encounter (statuses as of 02/29/2024) Active Problems Problem Noted Date Diagnosed Date [...] as of this encounter (statuses as of 02/29/2024) Resolved Problems Problem Noted Date Diagnosed Date [...] ligation 11/07/2017 8 Generalized weakness 11/07/2017 023 residential resident 11/07/20172017 HTN, goal below 140/90 11/04/201511/07 [...] as of this encounter (statuses as of 02/29/2024) Immunizations Name Administration Dates Next Due Pneumococcal [...] (15 years old or older) No 05/20/20 Cognitive Status Response Date of Assessm ent Because of a physical, menta l, or emotional condition, do you have serious difficulty concentrating, remembering, or making decisions? (5 years old or older) No 05/20/2023 documented as of this encounter Miscellaneous Notes * Telephone Encounter - Марина Gomez OSA - 02/29/2024 9:22 AM EDT Outreach to patient for [facility] scheduling. Patient declined appointment scheduling at this time documented in this encounter Plan of Treatment Upcoming Encounters Date Type Department Care Team (Late st Contact Info) Description 05/09/2024 11:00 AM EST Office Visit Cardiology, [facility] [address] [place] [address] Nisha Arellano CRNP [address] [place] [address] Health Maintenance Due Date Last Done Comments [...] Additional history exists CKD PHOS USE SMARTSET 01439 02/21/2025 10/0 05/2023, 11/02/2023, 10/30/2023, Additional history exists CKD HGB USE SMARTSET 01022 02/24/202502/24, 02/24/2024, 02/23/2024, Additional history exists HPV (Gardasil) Vaccine Aged [...] Not on filedocumented as of this encounter Advance Directives * Limited Code [...] Power of Attor himanshu? No Care Teams Sports Manager Relationship Specialty Start Date End Date Nura Mckay DO PCP - General Family Medicine 12/15/17 documented as of this encounter
--- OUTSIDE RECORDS SUMMARY | 2024-03-31 07:41 | External Medical Summary ---
Author Name Unknown Address Unknown Organization R1WR:[facility] [address] [place] [address] Laboratory Report Ordering Provider Test Date Status SHELLY GRIFFITH 02/24/2024 04:24:00 Final Observation Date Value Abnormality Reference (Units ) Status Prothrombin Time 02/24/2024 05:11 30.1 Above high alanna l 11.9-14.5 (Sec) Final INR 02/24/2024 05:11 2.8 Fin al Performing Location [facility] [address] [place] [address]
--- OUTSIDE RECORDS SUMMARY | 2024-03-31 07:41 | External Medical Summary ---
Author Name Unknown Address Unknown Organization R4LH:[facility] [address] [place] [address] Laboratory Report Ordering Provider Test Date Status JORJE EVANS 03/03/2024 11:07:00 Final Observation Date Value Abnormality Reference (Units ) Status Prothrombin Time 03/03/2024 11:56 26.4 Above high alanna l 11.9-14.5 (Sec) Final INR 03/03/2024 11:56 2.5 Fin al Performing Location [facility] [address] [place] [address]
--- OUTSIDE RECORDS SUMMARY | 2024-03-31 07:41 | External Medical Summary ---
Author Name Unknown Address Unknown Organization R1WR:[facility] [address] [place] [address] Laboratory Report Ordering Provider Test Date Status SADIE BENAVIDES 02/25/2024 10:37:00 Fin al Observation Date Value Abnormality Reference (Units ) Status Glucose, POC 02/25/2024 10:44 183 Above high normal 70 -99 (mg/dL) Final Performing Location [facility] [address] [place] [address]
--- OUTSIDE RECORDS SUMMARY | 2024-03-31 07:41 | External Medical Summary ---
Author Name Unknown Address Unknown Organization [id number]:[facility] [address] [place] [address] Laboratory Report Ordering Provider Test Date Status JORJE EVANS 03/03/2024 11:07:00 Final Observation Date Value Abnormality Reference (Units ) Status Magnesium 03/03/2024 12:54 1.8 1.7-2.8 (mg/d L) Final Performing Location [facility] [address] [place] [address]
--- OUTSIDE RECORDS SUMMARY | 2024-03-31 07:41 | External Medical Summary ---
Author Name Unknown Address Unknown Organization R4:[facility] [address] [place] [address] Laboratory Report Ordering Provider Test Date Status JORJE EVANS 03/03/2024 11:07:00 Final Observation Date Value Abnormality Reference (Units ) Status Glucose 03/03/2024 12:54 190 Above high normal 70-99 (mg/dL) Final BUN 03/03/2024 12:54 31 Above high normal 7-18 (mg/dL) Final Creatinine 03/03/2024 12:54 1.52 Above high normal 0.60 -1.30 (mg/dL) Final eGFR 03/03/2024 12:54 33 Below low normal >59 (m L/min/1.73m2) Final eGFR = 142 X [min(Scr/k,1)]* *a [max(Scr/k,1)-1.200x0.9938age X 1.012 [if female] Where Scr is serum creatinine; k is 0.7 for females and 0.9 males; a is -0.241 for females and -0.302 for males; min indicates the minimum of Scr/k or 1, max indicates the maximum of Scr/k or 1 Sodium 03/03/2024 12:54 139 136-145 (mmol /L) Final Potassium 03/03/2024 12:54 3.1 Below low normal 3.6-5. 0 (mmol/L) Final Chloride 03/03/2024 12:54 97 Below low normal 101-11 1 (mmol/L) Final CO2 03/03/2024 12:54 29 21-31 (mmol/L ) Final Anion Gap 03/03/2024 12:54 16 6-16 (mmol/L) Final Calcium 03/03/2024 12:54 8.9 8.4-10.5 (mg/ dL) Final Total Protein 03/03/2024 12:54 6.9 6.0-8.3 ( g/dL) Final Albumin 03/03/2024 12:54 3.4 3.2-5.5 (g/dL ) Final Bilirubin, Total 03/03/2024 12:54 0.8 0.2-1. 0 (mg/dL) Final AST 03/03/2024 12:54 35 10-42 (U/L) F inal ALT 03/03/2024 12:54 31 10-60 (U/L) F inal Alkaline Phosphatase 03/03/2024 12:54 136 Above high n ormal 42-121 (U/L) Final Performing Location [facility] [address] [place] [address]
--- OUTSIDE RECORDS SUMMARY | 2024-03-31 07:41 | External Medical Summary ---
Author Name Unknown Address Unknown Organization R1WR:[facility] [address] [place] [address] Laboratory Report Ordering Provider Test Date Status SADIE BENAVIDES 02/24/2024 10:46:00 Fin al Observation Date Value Abnormality Reference (Units ) Status Glucose, POC 02/24/2024 10:52 156 Above high normal 70 -99 (mg/dL) Final Performing Location [facility] [address] [place] [address]
--- OUTSIDE RECORDS SUMMARY | 2024-03-31 07:41 | External Medical Summary ---
Author Name Unknown Address Unknown Organization R4LH:[facility] [address] [place] [address] Laboratory Report Ordering Provider Test Date Status JORJE EVANS 03/13/2024 11:49:00 Final Observation Date Value Abnormality Reference (Units ) Status Prothrombin Time 03/13/2024 12:22 26.1 Above high alanna l 11.9-14.5 (Sec) Final INR 03/13/2024 12:22 2.5 Fin al Performing Location [facility] [address] [place] [address]
--- OUTSIDE RECORDS SUMMARY | 2024-03-31 07:41 | External Medical Summary ---
Author Name Unknown Address Unknown Organization R1WR:[facility] [address] [place] [address] Laboratory Report Ordering Provider Test Date Status SADIE BENAVIDES 02/24/2024 07:05:00 Fin al Observation Date Value Abnormality Reference (Units ) Status Glucose, POC 02/24/2024 07:11 78 70-99 (mg/ dL) Final Performing Location [facility] [address] [place] [address]
--- OUTSIDE RECORDS SUMMARY | 2024-03-31 07:41 | External Medical Summary ---
Author Name Unknown Address Unknown Organization R4:[facility] [address] [place] [address] Laboratory Report Ordering Provider Test Date Status JORJE EVANS 03/13/2024 11:49:00 Final Observation Date Value Abnormality Reference (Units ) Status Glucose 03/13/2024 12:30 160 Above high normal 70-99 (mg/dL) Final BUN 03/13/2024 12:30 35 Above high normal 7-18 (mg/dL) Final Creatinine 03/13/2024 12:30 1.93 Above high normal 0.60 -1.30 (mg/dL) Final eGFR 03/13/2024 12:30 25 Below low normal >59 (m L/min/1.73m2) Final eGFR = 142 X [min(Scr/k,1)]* *a [max(Scr/k,1)-1.200x0.9938age X 1.012 [if female] Where Scr is serum creatinine; k is 0.7 for females and 0.9 males; a is -0.241 for females and -0.302 for males; min indicates the minimum of Scr/k or 1, max indicates the maximum of Scr/k or 1 Sodium 03/13/2024 12:30 139 136-145 (mmol /L) Final Potassium 03/13/2024 12:30 4.3 3.6-5.0 (mmol /L) Final Chloride 03/13/2024 12:30 100 Below low normal 101-11 1 (mmol/L) Final CO2 03/13/2024 12:30 29 21-31 (mmol/L ) Final Anion Gap 03/13/2024 12:30 14 6-16 (mmol/L) Final Calcium 03/13/2024 12:30 9.4 8.4-10.5 (mg/ dL) Final Total Protein 03/13/2024 12:30 7.2 6.0-8.3 ( g/dL) Final Albumin 03/13/2024 12:30 3.6 3.2-5.5 (g/dL ) Final Bilirubin, Total 03/13/2024 12:30 0.7 0.2-1. 0 (mg/dL) Final AST 03/13/2024 12:30 27 10-42 (U/L) F inal ALT 03/13/2024 12:30 23 10-60 (U/L) F inal Alkaline Phosphatase 03/13/2024 12:30 144 Above high n ormal 42-121 (U/L) Final Performing Location [facility] [address] [place], [place] [address]
--- OUTSIDE RECORDS SUMMARY | 2024-03-31 07:41 | External Medical Summary ---
Author Name Unknown Address Unknown Organization R1WR:[facility] [address] [place] [address] Laboratory Report Ordering Provider Test Date Status SADIE BENAVIDES 02/25/2024 06:08:00 Fin al Observation Date Value Abnormality Reference (Units ) Status Glucose, POC 02/25/2024 06:14 69 Below low normal 70- 99 (mg/dL) Final Performing Location [facility] [address] [place] [address]
--- OUTSIDE RECORDS SUMMARY | 2024-03-31 07:41 | External Medical Summary | Summary of Care ---
Author Name Unknown Organization [facility] Ambulatory Address [address] [place] [address] Phone Care Team Providers Care Critical Care Nurse Name Role Phone Nadia VerduzcoC Primary Care Provider Provider, Abstract Unavailable Unavailabl rocio Garber Jr., MD, Arthur Toscano Unavailable [phone] Provider, Generic External Data Unavailable Unavailable Yousif Pedraza MD Unavailable [phone] Benson Lutz MD Unavailable [phone] Iram Duong Unavailable External, Provider Unavailable Unavailable Tracie Griggs Unavailable Cecelia Florian Unavailable Serge Mayers MD Unavailable [phone] Berta SchmidtC Unavailable [phone] Troy Corley MD Unavailable Darleen Barrera Unavailable Nura Mckay DO Unavailable [phone] Candy Moreno PA-C Unavailable [phone] Source Comments This information has been disclosed to you from records protected by federal confidentiality rules (42 CFR part 2). The federal rules prohibit you from making any further disclosure of information inthis record that identifies a patient as having or having had a substance use disorder either directly, by reference to publicly available information, or through verification of such identification by another person unless further disclosure is expressly permitted by the written consent of the individual whose information is being disclosed or as otherwise permitted by 42 CFR part 2. A general authorization for the release of medical or other information is NOT sufficient for this purpose (seesection 2.31). The federal rules restrict any use of the information to investigate or prosecute with regard to a crime any patient with a substance use disorder, except as provided at sections 2.12(c)(5) and 2.65.[facility] Ambulatory Reason for Visit * Reason Comments Transitional Care Management Encounter Details Date Type Department Care Team (Late st Contact Info) Description 03/02/2024 3:00 PM EDT Office Visit Family [facility] [address] [place] [address] [employer] Supervisor: Tiffanie Crump Rosemary A, MD [address] [facility] [address] Chronic diastolic CHF (congestive heart failure) (HCC) (Primary Dx); Stage 3b chronic kidney disease (HCC); Chronic atrial fibrillation (HCC); Other specified hypothyroidism Allergies Active Allergy Reactions Criticality Noted Date Comments Sulfa (Sulfonamide Antibiotics) Nausea & Vomiting,Dizziness Low 11/14/2004 documented as of this encounter (statuses as of 03/02/2024) Medications Medication Sig Dispensed Refills Start Date End Date Status multivitamin (MULTIPLE VITAMINS DAILY ORAL) Take 1 tablet by mouth daily Active cholecalciferol, vitamin D3, 1,000 unit oral capsule Take 1 capsule by mouth daily Active B-D 0.3 ML ULTRA FINE INSULIN SYRINGE SHORTIndications: Type 2 diabetes mellitus with hemoglobin A1c goal of less than 7.0% ([facility]) Use as directed 1 Box 1 04/23/2020 Active ONETOUCH ULTRA2 METER [facility] USE DIRECTED 12/16/2020 Active acetaminophen (TYLENOL) 500 mg oral tablet Take 1,000 mg by mouth every 8 hours as needed Active atorvastatin (LIPITOR) 20 mg oral tablet Take 1 tablet by mouth once daily 90 tablet 3 07/31/2022 Active diltiazem 240 mg oral extended-release capsule Take 1 capsule by mouth once daily 90 capsule 3 04/19/2023 Active blood glucose test strip (ONETOUCH ULTRA TEST) USE 1 STRIP BY MISCELLANEOUS ROUTE THREE TIMES DAILY BEFORE MEALS DX E11.9 300 each 1 04/22/2023 Active lancets (ONE TOUCH DELICA) 33 gauge USE TO TEST BLOOD SUGARS THREE TIMES DAILY BEFORE MEALS 300 each 1 04/22/2023 Active warfarin (COUMADIN) 1 mg oral tablet Take 2 tablets by mouth daily TAKE 2 TABLETS BY MOUTH DAILY 60 tablet 3 11/26/2023 Active insulin [place], Disposable, (BD SAMIRA 2ND GEN PEN NEEDLE) 32 gauge x 5/32" [facility] needleIndications :Type 2 diabetes mellitus with hemoglobin A1c goal of less than 7.0% (HCC) USE 1 TWICE DAILY DIRECTED 100 each 1 12/01/2023 Active levothyroxine 88 mcg oral tablet TAKE 1 TABLET BY MOUTH ONCE DAILY BEFORE A MEAL 90 tablet 1 01/21/2024 Active insulin aspar prot-insulin aspart 100 unit/mL (70-30) subcutaneous pen (NovoLOG Mix 70-30FlexPen U-100)Indications :Type 2 diabetes mellitus with hemoglobin A1c goal of less than 7.0% (HCC) Inject 25 units with breakfast and 25 units with supper subQ 45 mL 2 02/16/2024 Active lisinopriL 20 mg oral tablet Take 1 tablet by mouth once daily 90 tablet 1 02/16/2024 Active metoprolol succinate (TOPROL-XL) 100 mg oral extended-release tablet Take 1 tablet by mouth see admin instructions Take 1 tablet by mouth twice a day 90 tablet 3 03/02/2024 Active bumetanide (BUMEX) 1 mg oral tablet Take 1 tablet by mouth 2 times a day Take at 9 am and 1 pm daily 180 tablet 3 03/02/2024 Active furosemide (LASIX) 40 mg oral tablet Take 40 mg by mouth 2 times a day 4 Discontinu ed(Dose adjustment ) metoprolol tartrate (LOPRESSOR) 50 mg oral tablet Take 100 mg by mouth 2 times a day 11/05/2023 4 Discontinu ed(Dose adjustment ) metoprolol succinate (TOPROL-XL) 100 mg oral extended-release tablet Take 150 mg by mouth daily Take one and a half tablets in am 12/24/2023 4 Discontinu ed(Dose adjustment ) documented as of this encounter (statuses as of 03/02/2024) Active Problems Patient Care Coordination No te Formatting of this note migh t be different from the original. Please address these codes for accuracy, including them in the office visit note if current. Leanne Westbrook RN, NN 1. K74.60, R18.8 - Cirrhosis of liver with ascites (HCC) 2. F33.42 - Recurrent major depressive disorder, in full remission (HCC) 3. I24.89 - Other forms of acute ischemic heart disease (HCC) Problem Noted Date Diagnosed Date Vitamin D deficiency 01/20/2024 Chronic diastolic CHF (congestive heart failure) 01/20/2024 Chronic atrial fibrillation 01/20/2024 Anxiety and depression 01/20/2024 Hypertension associated with stage 3 chronic kidney disease due to type 2 diabetes mellitus 11/23/2017 Generalized osteoarthritis 11/07/2017 Status post total right knee replacement 018 Essential hypertension with goal blood pressure less than 140/90 05/12/2016 Kidney disease, chronic, stage III (GFR 30-59 ml /min) 07/17/2013 Overview (06/30/2018): Overview: Per CKD protocol #1 Gout 08/21/2010 Dyslipidemia, goal LDL below 100 05/08/2009 Overview (06/30/2018): Overview: Per Lipid Taxonomy. Type 2 diabetes mellitus wit h hemoglobin A1c goal of less than 7.0% 03/21/2009 Overview (06/30/2018): Overview: Per Diabetes Taxonomy. ICD-10 update of inactive term Hypothyroidism 02/24/2005 documented as of this encounter (statuses as of 03/02/2024) Resolved Problems Problem Noted Date Diagnosed Date Resolved Date Anxiety state 11/07/2017 01/20/2024 Generalized weakness 11/07/2017 024 Recurrent major depressive d isorder, in full remission 11/07/2017 01/20/2024 documented as of this encounter (statuses as of 03/02/2024) Immunizations Name Administration Dates Next Due Influenza 02/26/2022, 8,05/18/2017,2015,03/16/2015,01/30/2014,05/31/2013,1 Influenza (Flublok) 03/09/2019,03/11/2018 Influenza Quad 0.5mL Preserv e Free Syringe 05/18/2017,04/03/2016,03/16/2015 Pneumococcal PPSV 23 06/10/2012 SARS-CoV-2 (Purple Cap, With Diluent) Pfizer 07/31/2020,07/10/2020 Zoster Live Vaccine (Zostavax) 01/20/2013 documented as of this encounter Social History Tobacco Use Types Packs/Day Years Used Date Smoking Tobacco: Never Passive Smoke Exposure: Never Smokeless Tobacco: Never Alcohol Use Standard Drinks/Week Comments Not Currently 0 (1 standard drink = 0.6 oz pur e alcohol) B1300 Health Literacy Answer Date Recor ded How often do you need to hav e someone help you when you read instructions, pamphlets, or other written material from your doctor or pharmacy? Sometimes 09/28/2023 AUDIT-C Answer Date Recorded Q1: How often do you have a drink containing alcohol? Never 09/28/2023 Q2: How many drinks containi ng alcohol do you have on a typical day when you are drinking? Patient does not drink Q3: How often do you have si x or more drinks on one occasion? Never 09/28/2023 Overall Financial Resource Strain (CARDIA) Answe r Date Recorded How hard is it for you to pa y for the very basics like food, housing, medical care, and heating? Not hard at all 09/28/2023 [facility] of Occupat ional Health - Occupational Stress Questionnaire Answer Date Recorded Do you feel stress - tense, restless, nervous, or anxious, or unable to sleep at night because your mind is troubled all the time - these days? Not at all 09/30/2020 Exercise Vital Sign Answer Date Recorde d On average, how many days pe r week do you engage in moderate to strenuous exercise (like a brisk walk)? 0 days 09/30/2020 On average, how many minutes do you engage in exercise at this level? 0 min 09/30/2020 Hunger Vital Sign Answer Date Recorded Within the past 12 months, y ou worried that your food would run out before you got the money to buy more. Never true 09/28/19 24 Within the past 12 months, t he food you bought just didn't last and you didn't have money to get more. Never true 09/28/2023 PRAPARE - Transportation Answer Date Re corded In the past 12 months, has l ack of transportation kept you from medical appointments or from getting medications? No 11/2023 In the past 12 months, has l ack of transportation kept you from meetings, work, or from getting things needed for daily living? No 09/28/2023 Depression Answer Date Recorded PHQ-2 Screening Result Negative PHQ Result Negative 01/21/2024 Substance Use Answer Date Recorded DAST Result Not on file 09/28/2023 How many times in the past y ear have you used an illegal drug or used a prescription medication for non-medical reasons (for example, because of the experience or feeling it caused)? 0 09/28/2023 Sex and Gender Information Value Date Recorded Sex Assigned at Not on file Gender Identity Not on file Sexual Orientation Not on file documented as of this encounter Last Filed Vital Signs Vital Sign Reading Time Taken Comments Blood Pressure 120/74 03/02/2024 3:17 PM EDT Pulse 74 03/02/2024 3:17 PM EDT Temperature 35.6 C (96.1 F) 03/02/2024 3:17 PM ED T Respiratory Rate 18 03/02/2024 3:17 PM EDT Oxygen Saturation 98% 03/02/2024 3:17 PM EDT Inhaled Oxygen Concentration - - Weight 81.9 kg (180 lb 9.6 oz) 03/02/2024 3:17 P M EDT Height - - Body Mass Index 33.03 01/21/2024 12:41 PM EDT documented in this encounter Progress Notes * Zarina Dang MD - 03/02/2024 3:00 PM EDT Subjective: Patient ID: Lc Cantrell is an 83 year old female. HPI: I saw Lc today for 5 day TCM after a 5 day hospitalization at [facility] secondary to acute on chronic [...] been elevated her legs as muchas possible. Review of Systems Constitutional: Positive for weakness. Negative for chills, diaphoresis and fever. Skin: Negative for itching and rash. Cardiovascular: Positive for palpitations (no change in baseline) and leg swelling. Negative for chest pain. Respiratory: Positive for cough. Negative for sputum production, wheezing and shortness of breath. Gastrointestinal: Negative for abdominal pain, constipation, diarrhea, heartburn, nausea and vomiting. Genitourinary: Positive for frequency. Negative for dysuria, hematuria and urgency. Neurological: Positive for dizziness, difficulty balancing and Confusion. Negative for headaches. Musculoskeletal: Positive for decreased range of motion and walking unsteadily. Negative for falls. Objective: BP 120/74 | Pulse 74 | Temp 96.1 F (35.6 C) (Temporal) | Resp 18 | Wt 180 lb 9.6 oz (81.9 kg) |SpO2 98% | BMI 33.03 kg/m Physical Exam Vitals and nursing note reviewed. Constitutional: General: She is not in acute distress. Appearance: Normal appearance. She is not ill-appearing. HENT: Head: Normocephalic and atraumatic. Eyes: General: No scleral icterus. Conjunctiva/sclera: Conjunctivae normal. Neck: Vascular: No carotid bruit. Cardiovascular: Rate and Rhythm: Rhythm irregular. Heart sounds: Murmur (2/6 holosystolic murmur LUSB) heard. No friction rub. No gallop. Pulmonary: Effort: Pulmonary effort is normal. No respiratory distress. Breath sounds: Normal breath sounds. No wheezing, rhonchi or rales. Abdominal: General: Bowel sounds are normal. There is no distension. Palpations: Abdomen is soft. There is no mass. Tenderness: There is no abdominal tenderness. Musculoskeletal: Cervical back: Neck supple. Right lower leg: Edema (+1) present. Left lower leg: Edema (+1) present. Neurological: Mental Status: She is alert. Psychiatric: Mood and Affect: Mood normal. Behavior: Behavior normal. Thought Content: Thought content normal. Judgment: Judgment normal. Assessment & Plan: Diagnosis ICD-10-CM Plan 1. [...] E03.8 THYROID-STIMULATING HORMONE (TSH) T4 (THYROXINE), FREE No follow-ups on file. documented in this encounter Nursing Notes * Moon Abdi LPN - 03/02/2024 3:00 PM EDT Transitional care management Feeling better documented in this encounter Plan of Treatment Scheduled Orders Name Type Priority Associated Diagnoses Orde r Schedule CBC (INCLUDES DIFFERENTIAL AND PLATELETS) Lab Routine Stage 3b chronic kidney disease (HCC) 1 Occurrences starting 03/02/2024 until 03/01/2025 MAGNESIUM Lab Routine Chronic atrial fibrillation (HCC) 1 Occurrences starting 03/02/2024 until 03/01/2025 THYROID-STIMULATING HORMONE (TSH) Lab Routine Other specified hypothyroidism 1 Occurrences starting 03/02/2024 until 03/01/2025 PROTHROMBIN TIME/INR Lab Routine Chronic atrial fibrillation (HCC) 1 Occurrences starting 03/02/2024 until 03/01/2025 COMPREHENSIVE METABOLIC PANEL (CMP) Lab Routine Stage 3b chronic kidney disease (HCC) 1 Occurrences starting 03/02/2024 until 03/01/2025 T4 (THYROXINE), FREE Lab Routine Other specified hypothyroidism 1 Occurrences starting 03/02/2024 until 03/01/2025 Health Maintenance Due Date Last Done Comments Hepatitis B Vaccine (1 of 3 - Risk 3-dose series) 1998 25-OH Vitamin D 06/03/2023 06/03/2022, 01/23, 10/17/2021, Additional history exists Urine Albumin Battery 07/20/2023 07/20/2022 , 05/27/2021, 04/05/2021, Additional history exists Billable Depression Screen 12/04/202312/03, 10/23/2021, 07/02/2020 COVID-19 Vaccine ( season) 2024 07/31/2020, 07/10/2020 HbA1c 02/17/2024 08/17/2023, 05/25, 11/23/2022, Additional history exists Flu Vaccine (#1) 02/22/2024 02/26/2022, , 03/11/2018, Additional history exists Diabetic Foot Exam 08/05/2024 08/06/2023, 0 12/03/2022, 06/04/2021, Additional history exists Lipid Profile 08/16/2024 08/17/2023, 07/0 07/2022, 06/03/2022, Additional history exists Advance Directives 09/27/2024 09/28/2023, 0 12/31/2022, 07/06/2022, Additional history exists DTaP/Tdap/Td Vaccine (1 - Tdap) 09/27/2024 Postponed from 1959 (Recommended Yet Declined) Medicare Annual Wellness Visit 09/27/2024 09/28/2023, 09/28/2023, 12/03/2022, Additional history exists Shingles Vaccine (Recombinant) (1 of 2) 09/27/2024 Postponed from 03/17/2013 (Recommended Yet Declined) TSH 12/09/2024 12/10/2023, 0612/2023, 10/30/2023, Additional history exists Diabetic Retinal Exam 01/20/2025 10/01/2020 , 12/07/2019, 08/26/2018 Postponed from 10/01/2021 (Recommended) Pneumococcal Vaccine (2 of 2 - PCV) 01/20/2025 06/10/2012 Postponed from 06/10/2013 (Recommended Yet Declined) Basic Metabolic Panel 02/25/2025 02/26/2024 , 02/25/2024, 02/24/2024, Additional history exists Creatinine Serum 02/25/2025 02/26/2024, 08/2023, 02/24/2024, Additional history exists Hemoglobin 02/25/2025 02/26/2024, 10/0 08/2023, 02/24/2024, Additional history exists Potassium 02/25/2025 02/26/2024, 10/0 08/2023, 02/24/2024, Additional history exists Vision Exam 04/02/2025 04/02/2020 Dexa Scan 12/23/2027 12/22/2022, 02/10/2019 Hearing Screening 09/27/2028 09/28/2023, 02/07/2019 Controlled Substance Agreement Discontinued 06/04/2022, 06/04/2022, 04/10/2021 Depression Screening Completed 01/21/2024, 09/28/2023, 12/03/2022 Colorectal Cancer Screening Discussion Discontinued Full Body Skin Exam Discontinued documented as of this encounter Visit Diagnoses Diagnosis Chronic diastolic CHF (congestive heart failure) (HCC)- Primary Chronic diastolic heart failure Stage 3b chronic kidney disease (HCC) Chronic atrial fibrillation (HCC) Atrial fibrillation Other specified hypothyroidism documented in this encounter Care Teams Critical Care Nurse Relationship Specialty Start Date End Date Nadia Verduzco PAZaneC [address] [place] [address] PCP - General Family Medicine 03/11/18 Provider, MD VALARIE Fitzgerald PROVIDER 09/08/18 Arthur Garber Jr., MD [address] [facility] [address] [place] [address] Orthopaedic Surgery 11/15/18 Provider, Generic External Data 01/30/20 Yousif Pedraza MD [address] [facility] [address] [place] [address] Cardiology 02/05/20 Benson Lutz MD [address] [place] [phone] Endocrinology 04/02/20 Iram Duong [address] [place] [phone] Nutrition 04/29/20 External, Provider 05/08/20 Tracie Griggs [address] [place] [address] Nutrition 07/03/20 Cecelia Florian CRNP [address] [place] [address] Endocrinology 07/05/20 Serge Mayers MD [address] [place] [facility] Allergy 09/29/21 Berta Schmidt PA-C [address] [place] [phone] General Surgery 02/03/22 Troy Corley MD [address] [place] [address] Nephrology 07/02/22 Darleen Barrera [address] [place] [facility] Registered Nurse 05/11/23 Nura Mckay DO [address] [place] [address] Family Medicine 06/01/23 Candy Mroeno PA-C [address] [place] [address] Cardiology 11/15/23 documented as of this encounter
--- OUTSIDE RECORDS SUMMARY | 2024-03-31 07:41 | External Medical Summary ---
Author Name Unknown Address Unknown Organization [id number]:[facility] [address] [place] [address] Laboratory Report Ordering Provider Test Date Status JORJE EVANS 03/03/2024 11:07:00 Final Observation Date Value Abnormality Reference (Units ) Status Free T4 03/03/2024 12:20 1.50 0.89-1.76 (ng /dL) Final Performing Location [facility] [address] [place] [address]
--- OUTSIDE RECORDS SUMMARY | 2024-03-31 07:41 | External Medical Summary | Summary of Care ---
Author Name Unknown Organization [facility] Address [address] [place] [address] Phone [phone] Care Team Providers Care Motorcycle Riding Instructor Name Role Phone Nura Mckay Primary Care Provider [phone] Reason for Visit * Reason Onset Date Comments Appointment 02/23/2024 Encounter Details Date Type Department Care Team (Late st Contact Info) Description 02/23/2024 Telephone [facility] [place] [address] [place] [address] Pradeep Mendez, VAMSHI [address] [place] [address] Appointment (/) Allergies Active Allergy Reactions Criticality Noted Date Comments Sulfa Antibiotics 11/14/2004 documented as of this encounter (statuses as of 02/23/2024) Medications Medication Sig Dispensed Refills Start Date [...] in the morning. 08/28/2020 Active Fifty50 [place] 32G X 4 MM (Insulin Pen Needle) Inject 1 Each under the skin in the morning. 02/08/2019 Active OneTouch Delica Plus [id number] Inject 1 Each under the skin 3 [...] as of this encounter (statuses as of 02/23/2024) Active Problems Problem Noted Date Diagnosed Date [...] as of this encounter (statuses as of 02/23/2024) Resolved Problems Problem Noted Date Diagnosed Date [...] ligation 11/07/2017 8 Generalized weakness 11/07/2017 023 custodial resident 11/07/20172017 HTN, goal below 140/90 11/04/201511/07 [...] as of this encounter (statuses as of 02/23/2024) Immunizations Name Administration Dates Next Due Pneumococcal [...] encounter Miscellaneous Notes * Telephone Encounter - Pradeep Mendez OSA - 02/23/2024 8:29 AM EDT Call to son about [employer] enrollment, he stated his mother is still admitted to [facility] documented in this encounter Plan of Treatment Upcoming Encounters Date Type Department Care Team (Escobar st Contact Info) Description 05/09/2024 11:00 AM EST Office Visit Cardiology, [facility] [address] [place] [address] Nisha Arellano CRNP [address] [place] [address] Health Maintenance Due Date Last Done Comments [...] Additional history exists CKD PHOS USE SMARTSET 07563 11/01/202410/22, 10/30/2023, 02/16/2023, Additional history exists CKD HGB USE SMARTSET 76983 11/04/202411/04, 11/04/2023, 11/03/2023, Additional history exists HPV (Gardasil) Vaccine Aged [...] Power of Attor himanshu? No Care Teams Motorcycle Riding Instructor Relationship Specialty Start Date End Date Nura Mckay DO PCP - General Family Medicine 12/15/17 documented as of this encounter
--- OUTSIDE RECORDS SUMMARY | 2024-03-31 07:41 | External Medical Summary ---
Author Name Unknown Address Unknown Organization R1WR:[facility] [address] [place] [address] Laboratory Report Ordering Provider Test Date Status SHELLY GRIFFITH 02/24/2024 04:24:00 Final Observation Date Value Abnormality Reference (Units ) Status WBC 02/24/2024 05:02 8.0 4.0-10.0 (X10 E+09/L) Final RBC 02/24/2024 05:02 4.35 3.9-5.2 (X10E +12/L) Final Hemoglobin 02/24/2024 05:02 11.2 11.2-15.7 (g /dL) Final Hematocrit 02/24/2024 05:02 35.5 34-45 (%) Fi nal MCV 02/24/2024 05:02 81.6 79-98 (fL) Fi nal MCH 02/24/2024 05:02 25.7 Below low normal 26.0-3 2.0 (pg) Final MCHC 02/24/2024 05:02 31.5 Below low normal 32-36 (g/dL) Final Platelets 02/24/2024 05:02 189 150-370 (X10E +09/L) Final RDW 02/24/2024 05:02 15.5 Above high normal 11.7- 14.4 (%) Final Performing Location [facility] [address] [place] [address]
--- OUTSIDE RECORDS SUMMARY | 2024-03-31 07:41 | External Medical Summary ---
Author Name Unknown Address Unknown Organization R1WR:[facility] [address] [place] [address] Laboratory Report Ordering Provider Test Date Status SADIE BENAVIDES 02/23/2024 20:47:00 Fin al Observation Date Value Abnormality Reference (Units ) Status Glucose, POC 02/23/2024 20:53 173 Above high normal 70 -99 (mg/dL) Final Performing Location [facility] [address] [place] [address]
--- OUTSIDE RECORDS SUMMARY | 2024-03-31 07:41 | External Medical Summary ---
Author Name Unknown Address Unknown Organization R1WR:[facility] [address] [place] [address] Laboratory Report Ordering Provider Test Date Status SADIE BENAVIDES 02/24/2024 21:33:00 Fin al Observation Date Value Abnormality Reference (Units ) Status Glucose, POC 02/24/2024 21:40 73 70-99 (mg/ dL) Final Performing Location [facility] [address] [place] [address]
--- OUTSIDE RECORDS SUMMARY | 2024-03-31 07:41 | External Medical Summary | Summary of Care ---
Author Name Unknown Organization [facility] Address [address] [place] [address] Phone [phone] Care Team Providers Care Snowblower Mechanic Name Role Phone Nura Mckay Primary Care Provider [phone] Reason for Visit * Reason Onset Date Comments [facility]: Engagement 02/28/2024 Encounter Details Date Type Department Care Team (Late st Contact Info) Description 02/28/2024 Telephone [facility] [place] [address] [place] [address] Марина Gomez VAMSHI [address] [place] [address] [facility]: Engagement Allergies Active Allergy Reactions Criticality Noted Date Comments Sulfa Antibiotics 11/14/2004 documented as of this encounter (statuses as of 02/28/2024) Medications Medication Sig Dispensed Refills Start Date [...] in the morning. 08/28/2020 Active Fifty50 Pen [place] 32G X 4 MM (Insulin Pen Needle) Inject 1 Each under the skin in the morning. 02/08/2019 Active OneTouch Delica Plus [id number] Inject 1 Each under the skin 3 [...] as of this encounter (statuses as of 02/28/2024) Active Problems Problem Noted Date Diagnosed Date [...] as of this encounter (statuses as of 02/28/2024) Resolved Problems Problem Noted Date Diagnosed Date [...] ligation 11/07/2017 8 Generalized weakness 11/07/2017 023 senior care resident 11/07/20172017 HTN, goal below 140/90 11/04/201511/07 [...] as of this encounter (statuses as of 02/28/2024) Immunizations Name Administration Dates Next Due Pneumococcal [...] Telephone Encounter - Марина Gomez OSA - 02/28/2024 10:51 AM EDT [facility] outreach 02/27 - [facility] 1 Looking at [place] 03/03 documented in this encounter Plan of Treatment Upcoming Encounters Date Type Department Care Team (Late st Contact Info) Description 05/09/2024 11:00 AM EST Office Visit Cardiology, [facility] [address] [place] [address] Nisha Arellano CRNP [address] [place] [address] Health Maintenance Due Date Last Done Comments DTap/Tdap Vaccines (1 - Tdap) 1959 Zoster Vaccines (2 of 3) 03/17/2013 01/20/2013 Pneumococcal Vaccine: 65+ Years (2 of 2 - PCV) 06/10/2013 06/10/2012 Albumin/Creatinine Ratio 10/27/2016 016, 10/05/2014, 09/21/2013, Additional history exists Diabetic Foot Exam 05/12/2017 05/12/2016, 1 07/07/2014, 06/15/2014, Additional history exists Depression Monitoring 11/23/2018 11/23/2017 COVID-19 Vaccine ( - season) 2024 07/31/2020, 07/10/2020 Influenza Vaccine (FLU shot) (#1) 2024 02/26/2022, 03/09/2019, 03/11/2018, Additional history exists Diabetic Eye Exam 02/06/2024 02/05/2023, , 11/30/2016, Additional history exists HbA1c 02/17/2024 08/17/2023, 05/25, 05/21/2023, Additional history exists TSH 02/18/2024 02/17/2023, 01/23, 11/10/2017, Additional history exists CKD PHOS USE SMARTSET 21360 02/21/2025 10/0 05/2023, 11/02/2023, 10/30/2023, Additional history exists CKD HGB USE SMARTSET 22438 02/24/202502/24, 02/24/2024, 02/23/2024, Additional history exists HPV [...] Power of Attor himanshu? No Care Teams Snowblower Mechanic Relationship Specialty Start Date End Date Nura Mckay DO PCP - General Family Medicine 12/15/17 documented as of this encounter
--- OUTSIDE RECORDS SUMMARY | 2024-03-31 07:41 | External Medical Summary ---
Author Name Unknown Address Unknown Organization R1WR:[facility] [address] [place] [address] Laboratory Report Ordering Provider Test Date Status SADIE BENAVIDES 02/23/2024 15:55:00 Fin al Observation Date Value Abnormality Reference (Units ) Status Glucose, POC 02/23/2024 16:01 186 Above high normal 70 -99 (mg/dL) Final Performing Location [facility] [address] [place] [address]
--- OUTSIDE RECORDS SUMMARY | 2024-03-31 07:41 | External Medical Summary ---
Author Name Unknown Address Unknown Organization R1WR:[facility] [address] [place] [facility] [place] [address] Laboratory Report Ordering Provider Test Date Status SHELLY GRIFFITH 02/25/2024 06:46:00 Final Observation Date Value Abnormality Reference (Units ) Status Glucose 02/25/2024 07:19 77 70-99 (mg/dL) Final The reference interval for F asting glucose is 70 to 99. The reference interval for Random Glucose is 70 to 139. BUN 02/25/2024 07:19 24 Above high normal 9-23 (mg/dL) Final Creatinine 02/25/2024 07:19 1.57 Above high normal 0.55 -1.02 (mg/dL) Final eGFR 02/25/2024 07:19 32 Below low normal >59 (m L/min/1.73m2) Final eGFR = 142 X [min(Scr/k,1)]* *a [max(Scr/k,1)-1.200x0.9938age X 1.012 [if female] Where Scr is serum creatinine; k is 0.7 for females and 0.9 males; a is -0.241 for females and -0.302 for males; min indicates the minimum of Scr/k or 1, max indicates the maximum of Scr/k or 1 Sodium 02/25/2024 07:19 140 136-145 (mmol /L) Final Potassium 02/25/2024 07:19 3.6 3.4-5.0 (mmol /L) Final Chloride 02/25/2024 07:19 101 98-112 (mmol/ L) Final CO2 02/25/2024 07:19 31 20-31 (mmol/L ) Final Anion Gap 02/25/2024 07:19 12 6-15 (mmol/L) Final Calcium 02/25/2024 07:19 9.8 8.3-10.6 (mg/ dL) Final Performing Location [facility] [address] [place] [address]
--- OUTSIDE RECORDS SUMMARY | 2024-03-31 07:41 | External Medical Summary ---
Author Name Unknown Address Unknown Organization R1WR:[facility] [address] [place] [address] Laboratory Report Ordering Provider Test Date Status SHELLY GRIFFITH 02/24/2024 04:24:00 Final Observation Date Value Abnormality Reference (Units ) Status Glucose 02/24/2024 05:17 94 70-99 (mg/dL) Final The reference interval for F asting glucose is 70 to 99. The reference interval for Random Glucose is 70 to 139. BUN 02/24/2024 05:17 26 Above high normal 9-23 (mg/dL) Final Creatinine 02/24/2024 05:17 1.57 Above high normal 0.55 -1.02 (mg/dL) Final eGFR 02/24/2024 05:17 32 Below low normal >59 (m L/min/1.73m2) Final eGFR = 142 X [min(Scr/k,1)]* *a [max(Scr/k,1)-1.200x0.9938age X 1.012 [if female] Where Scr is serum creatinine; k is 0.7 for females and 0.9 males; a is -0.241 for females and -0.302 for males; min indicates the minimum of Scr/k or 1, max indicates the maximum of Scr/k or 1 Sodium 02/24/2024 05:17 140 136-145 (mmol /L) Final Potassium 02/24/2024 05:17 3.7 3.4-5.0 (mmol /L) Final Chloride 02/24/2024 05:17 102 98-112 (mmol/ L) Final CO2 02/24/2024 05:17 32 Above high normal 20-31 (mmol/L) Final Anion Gap 02/24/2024 05:17 10 6-15 (mmol/L) Final Calcium 02/24/2024 05:17 9.2 8.3-10.6 (mg/ dL) Final Performing Location [facility] [address] [place] [address]
--- OUTSIDE RECORDS SUMMARY | 2024-03-31 07:41 | External Medical Summary ---
Author Name Unknown Address Unknown Organization R4LH:[facility] [address] [place] [address] Laboratory Report Ordering Provider Test Date Status JORJE EVANS 03/03/2024 11:07:00 Final Observation Date Value Abnormality Reference (Units ) Status TSH 03/03/2024 12:19 2.04 0.45-5.33 (uI U/mL) Final Performing Location [facility] [address] [place] [address]
--- OUTSIDE RECORDS SUMMARY | 2024-03-31 07:41 | External Medical Summary ---
Author Name Unknown Address Unknown Organization R1WR:[facility] [address] [place] [address] Laboratory Report Ordering Provider Test Date Status SHELLY GRIFFITH 02/25/2024 06:46:00 Final Observation Date Value Abnormality Reference (Units ) Status WBC 02/25/2024 07:01 10.0 4.0-10.0 (X10 E+09/L) Final RBC 02/25/2024 07:01 4.45 3.9-5.2 (X10E +12/L) Final Hemoglobin 02/25/2024 07:01 11.6 11.2-15.7 (g /dL) Final Hematocrit 02/25/2024 07:01 36.7 34-45 (%) Fi nal MCV 02/25/2024 07:01 82.5 79-98 (fL) Fi nal MCH 02/25/2024 07:01 26.1 26.0-32.0 (pg ) Final MCHC 02/25/2024 07:01 31.6 Below low normal 32-36 (g/dL) Final Platelets 02/25/2024 07:01 201 150-370 (X10E +09/L) Final RDW 02/25/2024 07:01 15.7 Above high normal 11.7- 14.4 (%) Final Performing Location [facility] [address] [place] [address]
--- OUTSIDE RECORDS SUMMARY | 2024-03-31 07:41 | External Medical Summary ---
Author Name Unknown Address Unknown Organization [facility] [address] [place] [address] Laboratory Report Ordering Provider Test Date Status JORJE EVANS 03/13/2024 11:49:00 Final Observation Date Value Abnormality Reference (Units ) Status WBC 03/13/2024 12:10 6.7 4.0-10.0 (X10E+09/L) Final RBC 03/13/2024 12:10 4.60 3.9-5.2 (X10E+12/L) Final Hemoglobin 03/13/2024 12:10 11.8 11.2-15.7 (g/dL) Final Hematocrit 03/13/2024 12:10 36.2 34-45 (%) Final MCV 03/13/2024 12:10 78.6 Below low normal 79-98 (fL) Final MCH 03/13/2024 12:10 25.6 Below low normal 26.0-32.0 (pg) Final MCHC 03/13/2024 12:10 32.6 32-36 (g/dL) Final Platelets 03/13/2024 12:10 273 150-370 (X10E+09/L) Final RDW 03/13/2024 12:10 17.0 (%) Final Neutrophils 03/13/2024 12:10 73.8 Above high normal 34.0-71.1 (%) Final Lymphocytes 03/13/2024 12:10 12.9 Below low normal 19.3-51.7 (%) Final Monocytes 03/13/2024 12:10 10.6 4.7-12.5 (%) Final Eosinophils 03/13/2024 12:10 1.4 0.7-5.8 (%) Final Basophils 03/13/2024 12:10 1.3 Above high normal 0.1-1.2 (%) Final Absolute Neutrophils 03/13/2024 12:10 4.90 1.6-6.1 (X10E+09/L) Final Absolute Lymphocytes 03/13/2024 12:10 0.90 Below low normal 1.2-3.7 (X10E+09/L) Final Absolute Monocytes 03/13/2024 12:10 0.70 0.2-0.9 (X10E+09/L) Final Absolute Eosinophils 03/13/2024 12:10 0.10 0.0-0.4 (X10E+09/L) Final Absolute Basophils 03/13/2024 12:10 0.10 0.0-0.1 (X10E+09/L) Final Performing Location [facility] [address] [place] [address]
--- OUTSIDE RECORDS SUMMARY | 2024-03-31 07:41 | External Medical Summary ---
Author Name Unknown Address Unknown Organization R1WR:[facility] [address] [place] [address] Laboratory Report Ordering Provider Test Date Status SADIE BENAVIDES 02/25/2024 15:51:00 Fin al Observation Date Value Abnormality Reference (Units ) Status Glucose, POC 02/25/2024 15:58 102 Above high normal 70 -99 (mg/dL) Final Performing Location [facility] [address] [place] [address]
--- OUTSIDE RECORDS SUMMARY | 2024-03-31 07:41 | External Medical Summary | Summary of Care ---
Author Name Unknown Organization [facility] Address [address] [place] [address] Phone [phone] Care Team Providers Care Information Security Specialist Name Role Phone Nura Mckay Primary Care Provider [phone] Reason for Visit * Reason Onset Date Comments [facility]: Maintenance 02/28/2024 Encounter Details Date Type Department Care Team (Late st Contact Info) Description 02/28/2024 Telephone [facility], [place] [address] [place] [address] Viri Nugent, JERI [address] [place] [address] [facility]: Maintenance Allergies Active Allergy Reactions Criticality Noted Date [...] in the morning. 08/28/2020 Active Fifty50 Pen [place] 32G X 4 MM (Insulin Pen Needle) Inject 1 Each under the skin in the morning. 02/08/2019 Active OneTouch Delica Plus [id number] Inject 1 Each under the skin 3 [...] ligation 11/07/2017 8 Generalized weakness 11/07/2017 023 [facility] resident 11/07/20172017 HTN, goal below 140/90 11/04/201511/07 [...] encounter Miscellaneous Notes * Telephone Encounter - Viri Nugent LPN - 02/28/2024 7:53 AM EDT Call to [facility] States she was d/c Changed to DREW on [employer]IC[employer] dashboard documented in this encounter Plan of Treatment Upcoming Encounters Date Type Department Care Team (Late st Contact Info) Description 05/09/2024 11:00 AM EST Office Visit Cardiology, [facility] [address] [place] [address] Nisha Arellano CRNP [address] [place] [address] Health Maintenance Due Date Last Done Comments [...] Additional history exists CKD PHOS USE SMARTSET 32887 02/21/2025 10/0 05/2023, 11/02/2023, 10/30/2023, Additional history exists CKD HGB USE SMARTSET 31858 02/24/202502/24, 02/24/2024, 02/23/2024, Additional history exists HPV [...] Power of Attor himanshu? No Care Teams Information Security Specialist Relationship Specialty Start Date End Date Nura Mckay DO PCP - General Family Medicine 12/15/17 documented as of this encounter
--- OUTSIDE RECORDS SUMMARY | 2024-03-31 07:42 | External Medical Summary ---
Author Name Unknown Address Unknown Organization R1WR:[facility] [address] [place] [address] Laboratory Report Ordering Provider Test Date Status SHELLY GRIFFITH 02/22/2024 11:03:00 Final Observation Date Value Abnormality Reference (Units ) Status Glucose, POC 02/22/2024 11:10 185 Above high normal 70 -99 (mg/dL) Final Performing Location [facility] [address] [place] [address]
--- OUTSIDE RECORDS SUMMARY | 2024-03-31 07:42 | External Medical Summary ---
Author Name Unknown Address Unknown Organization R1WR:[facility] [address] [place] [address] Laboratory Report Ordering Provider Test Date Status SHELLY GRIFFITH 02/22/2024 15:37:00 Final Observation Date Value Abnormality Reference (Units ) Status Glucose, POC 02/22/2024 15:54 169 Above high normal 70 -99 (mg/dL) Final Performing Location [facility] [address] [place] [address]
--- OUTSIDE RECORDS SUMMARY | 2024-03-31 07:42 | External Medical Summary ---
Author Name Unknown Address Unknown Organization R1WR:[facility] [address] [place] [address] Laboratory Report Ordering Provider Test Date Status VIKTOR CABRAL 02/21/2024 07:14:00 Final Observation Date Value Abnormality Reference (Units ) Status WBC 02/21/2024 07:23 7.0 4.0-10.0 (X10E+09/L) Final RBC 02/21/2024 07:23 4.46 3.9-5.2 (X10E+12/L) Final Hemoglobin 02/21/2024 07:23 11.4 11.2-15.7 (g/dL) Final Hematocrit 02/21/2024 07:23 37.2 34-45 (%) Final MCV 02/21/2024 07:23 83.4 79-98 (fL) Final MCH 02/21/2024 07:23 25.6 Below low normal 26.0-32.0 (pg) Final MCHC 02/21/2024 07:23 30.6 Below low normal 32-36 (g/dL) Final Platelets 02/21/2024 07:23 204 150-370 (X10E+09/L) Final RDW 02/21/2024 07:23 15.5 Above high normal 11.7-14.4 (%) Final Neutrophils 02/21/2024 07:23 68.7 34.0-71.1 (%) Final Lymphocytes 02/21/2024 07:23 16.7 Below low normal 19.3-51.7 (%) Final Monocytes 02/21/2024 07:23 12.5 4.7-12.5 (%) Final Eosinophils 02/21/2024 07:23 1.4 0.7-5.8 (%) Final Basophils 02/21/2024 07:23 0.7 0.1-1.2 (%) Final Absolute Neutrophils 02/21/2024 07:23 4.77 1.6-6.1 (X10E+09/L) Final Absolute Lymphocytes 02/21/2024 07:23 1.16 Below low normal 1.2-3.7 (X10E+09/L) Final Absolute Monocytes 02/21/2024 07:23 0.87 0.2-0.9 (X10E+09/L) Final Absolute Eosinophils 02/21/2024 07:23 0.10 0.0-0.4 (X10E+09/L) Final Absolute Basophils 02/21/2024 07:23 0.05 0.0-0.1 (X10E+09/L) Final Absolute NRBC 02/21/2024 07:23 0.00 0 (X10E+09/L) Final Nucleated RBC 02/21/2024 07:23 0.0 0.0-0.2 (/100 WBC) Final Performing Location [facility] [address] [place] [address]
--- OUTSIDE RECORDS SUMMARY | 2024-03-31 07:42 | External Medical Summary ---
Author Name Unknown Address Unknown Organization R1WR:[facility] [address] [place] [address] Laboratory Report Ordering Provider Test Date Status SHELLY GRIFFITH 02/23/2024 08:22:00 Final Observation Date Value Abnormality Reference (Units ) Status Prothrombin Time 02/23/2024 09:12 30.5 Above high alanna l 11.9-14.5 (Sec) Final INR 02/23/2024 09:12 2.9 Fin al Performing Location [facility] [address] [place] [address]
--- OUTSIDE RECORDS SUMMARY | 2024-03-31 07:42 | External Medical Summary ---
Author Name Unknown Address Unknown Organization R1WR:[facility] [address] [facility] [place] [address] Laboratory Report Ordering Provider Test Date Status SHELLY GRIFFITH 02/23/2024 08:22:00 Final Observation Date Value Abnormality Reference (Units ) Status Glucose 02/23/2024 09:21 100 Above high normal 70-99 (mg/dL) Final The reference interval for F asting glucose is 70 to 99. The reference interval for Random Glucose is 70 to 139. BUN 02/23/2024 09:21 24 Above high normal 9-23 (mg/dL) Final Creatinine 02/23/2024 09:21 1.63 Above high normal 0.55 -1.02 (mg/dL) Final eGFR 02/23/2024 09:21 31 Below low normal >59 (m L/min/1.73m2) Final eGFR = 142 X [min(Scr/k,1)]* *a [max(Scr/k,1)-1.200x0.9938age X 1.012 [if female] Where Scr is serum creatinine; k is 0.7 for females and 0.9 males; a is -0.241 for females and -0.302 for males; min indicates the minimum of Scr/k or 1, max indicates the maximum of Scr/k or 1 Sodium 02/23/2024 09:21 138 136-145 (mmol /L) Final Potassium 02/23/2024 09:21 4.2 3.4-5.0 (mmol /L) Final Hemolysis: Results may be ad versely affected. Recommend recollect. Chloride 02/23/2024 09:21 101 98-112 (mmol/ L) Final CO2 02/23/2024 09:21 26 20-31 (mmol/L ) Final Anion Gap 02/23/2024 09:21 15 6-15 (mmol/L) Final Calcium 02/23/2024 09:21 9.7 8.3-10.6 (mg/ dL) Final Performing Location [facility] [address] [facility] [place] [address]
--- OUTSIDE RECORDS SUMMARY | 2024-03-31 07:42 | External Medical Summary | Summary of Care ---
Author Name Unknown Organization [facility] Address [address] [place] [address] Phone [phone] Care Team Providers Care Projection Technician Name Role Phone Nely Nura Knowles DO Primary Care Provider [phone] [phone] Reason for Visit * Reason Onset Date Comments [facility]: Screening 02/22/2024 Encounter Details Date Type Department Care Team (Late st Contact Info) Description 02/22/2024 Telephone [facility] [place] [address] [place], [place] [id number] Viri Nugent, UPFITTER [address] [place] [address] [facility]: Screening Allergies Active Allergy Reactions Criticality Noted Date Comments Sulfa Antibiotics 11/14/2004 documented as of this encounter (statuses as of 02/22/2024) Medications Medication Sig Dispensed Refills Start Date [...] in the morning. 08/28/2020 Active Fifty50 Pen [place] 32G X 4 MM (Insulin Pen Needle) Inject 1 Each under the skin in the morning. 02/08/2019 Active OneTouch Delica Plus [id number] Inject 1 Each under the skin 3 [...] as of this encounter (statuses as of 02/22/2024) Active Problems Problem Noted Date Diagnosed Date [...] as of this encounter (statuses as of 02/22/2024) Resolved Problems Problem Noted Date Diagnosed Date [...] ligation 11/07/2017 8 Generalized weakness 11/07/2017 023 [facility] 11/07/20172017 HTN, goal below 140/90 11/04/201511/07 [...] as of this encounter (statuses as of 02/22/2024) Immunizations Name Administration Dates Next Due Pneumococcal [...] Telephone Encounter - Viri Nugent LPN - 02/22/2024 10:34 AM EDT [facility] in the past for [facility] Will try again Lc Cantrell was referred as a potential candidate for enrollment for [facility]. A review of this chart was completed and: Lc meets criteria for [facility]. Jump to Initiation Referring care team was notified via : Epic communication documented in this encounter Plan of Treatment Upcoming Encounters Date Type Department Care Team (Late st Contact Info) Description 05/09/2024 11:00 AM EST Office Visit Cardiology, [facility] [address] [place] [address] Nisha Arellano CRNP [address] [place] [address] Health Maintenance Due Date Last Done Comments DTap/Tdap Vaccines (1 - Tdap) 1959 Zoster Vaccines (2 of 3) 03/17/2013 01/20/2013 Pneumococcal Vaccine: 65+ Years (2 of 2 - PCV) 06/10/2013 06/10/2012 Albumin/Creatinine Ratio 10/27/2016 016, 10/05/2014, 09/21/2013, Additional history exists Diabetic Foot Exam 05/12/2017 05/12/2016, 1 07/07/2014, 06/15/2014, Additional history exists Depression Monitoring 11/23/2018 11/23/2017 COVID-19 Vaccine (3 - season) 2024 07/31/2020, 07/10/2020 Influenza Vaccine (FLU shot) (#1) 2024 02/26/2022, 03/09/2019, 03/11/2018, Additional history exists Diabetic Eye Exam 02/06/2024 02/05/2023, , 11/30/2016, Additional history exists HbA1c 02/17/2024 08/17/2023, 05/25, 05/21/2023, Additional history exists TSH 02/18/2024 02/17/2023, 01/23, 11/10/2017, Additional history exists CKD PHOS USE SMARTSET 34751 11/01/202410/22, 10/30/2023, 02/16/2023, Additional history exists CKD HGB USE SMARTSET 78769 11/04/202411/04, 11/04/2023, 11/03/2023, Additional history exists HPV [...] Power of Attor himanshu? No Care Teams Projection Technician Relationship Specialty Start Date End Date Nura Mckay DO PCP - General Family Medicine 12/15/17 documented as of this encounter
--- OUTSIDE RECORDS SUMMARY | 2024-03-31 07:42 | External Medical Summary ---
Author Name Unknown Address Unknown Organization R1WR:[facility] [address] [place] [address] Laboratory Report Ordering Provider Test Date Status SHELLY GRIFFITH 02/23/2024 06:52:00 Final Observation Date Value Abnormality Reference (Units ) Status Glucose, POC 02/23/2024 06:58 65 Below low normal 70- 99 (mg/dL) Final Performing Location [facility] [address] [place] [address]
--- OUTSIDE RECORDS SUMMARY | 2024-03-31 07:42 | External Medical Summary ---
Author Name Unknown Address Unknown Organization R1WR:[facility] [address] [place] [address] Laboratory Report Ordering Provider Test Date Status SHELLY GRIFFITH 02/23/2024 07:15:00 Final Observation Date Value Abnormality Reference (Units ) Status Glucose, POC 02/23/2024 07:22 74 70-99 (mg/ dL) Final Performing Location [facility] [address] [place] [address]
--- OUTSIDE RECORDS SUMMARY | 2024-03-31 07:42 | External Medical Summary ---
Author Name Unknown Address Unknown Organization R1WR:[facility] [address] [place] [address] Laboratory Report Ordering Provider Test Date Status SHELLY GRIFFITH 02/22/2024 21:04:00 Final Observation Date Value Abnormality Reference (Units ) Status Glucose, POC 02/22/2024 21:10 135 Above high normal 70 -99 (mg/dL) Final Performing Location [facility] [address] [place] [address]
--- OUTSIDE RECORDS SUMMARY | 2024-03-31 07:42 | External Medical Summary | Summary of Care ---
Author Name Unknown Organization [facility] Address [address] [place] [address] Phone [phone] Care Team Providers Care Barge Worker Name Role Phone Nura Mckay DO Primary Care Provider [phone] [phone] Encounter Details Date Type Department Care Team (Late st Contact Info) Description 02/22/2024 Population Health External Data Unspecified Department Allergies Active Allergy Reactions Criticality Noted Date [...] in the morning. 08/28/2020 Active Fifty50 Pen [place] 32G X 4 MM (Insulin Pen Needle) Inject 1 Each under the skin in the morning. 02/08/2019 Active OneTouch Delica Plus [id number] Inject 1 Each under the skin 3 [...] ligation 11/07/2017 8 Generalized weakness 11/07/2017 023 [facility] resident 11/07/20172017 HTN, goal below 140/90 11/04/201511/07 [...] Polysaccharide PPV23 (Pneumovax) 06/10/2012,02/27/2011(Deferred: Patient Refused) Seasonal Influenza, Quadriva lent, No Preserve, IM 05/18/2017,04/03/2016,03/16/2015 Seasonal Influenza, Trivalen t, (IIV3), with Preserv, (Fluzone) 01/30/2014,05/31/2013,03/08/2012,02/27(Deferred: Patient Refused),03/19/2006 Varicella Zoster Vaccine (Adult) 01/20/2013 documented as [...] No 05/20/2023 documented as of this encounter Plan of Treatment Upcoming Encounters Date Type Department Care Team (Late st Contact Info) Description 05/09/2024 11:00 AM EST Office Visit Cardiology, [facility] [address] [place] [address] Nisha Arellano CRNP [address] [place] [address] Health Maintenance Due Date Last Done Comments DTap/Tdap Vaccines ( Tdap) 1959 Zoster Vaccines (2 of 3) [...] Additional history exists CKD PHOS USE SMARTSET 12008 11/01/202410/22, 10/30/2023, 02/16/2023, Additional history exists CKD HGB USE SMARTSET 16061 11/04/202411/04, 11/04/2023, 11/03/2023, Additional history exists HPV [...] Power of Attor himanshu? No Care Teams Barge Worker Relationship Specialty Start Date End Date Nura Mckay DO PCP - General Family Medicine 12/15/17 documented as of this encounter
--- OUTSIDE RECORDS SUMMARY | 2024-03-31 07:42 | External Medical Summary ---
Author Name Unknown Address Unknown Organization R1WR:[facility] [address] [place] [address] Laboratory Report Ordering Provider Test Date Status SHELLY GRIFFITH 02/23/2024 08:22:00 Final Observation Date Value Abnormality Reference (Units ) Status WBC 02/23/2024 09:00 11.4 Above high normal 4.0-1 0.0 (X10E+09/L) Final RBC 02/23/2024 09:00 4.73 3.9-5.2 (X10E +12/L) Final Hemoglobin 02/23/2024 09:00 12.3 11.2-15.7 (g /dL) Final Hematocrit 02/23/2024 09:00 40.0 34-45 (%) Fi nal MCV 02/23/2024 09:00 84.6 79-98 (fL) Fi nal MCH 02/23/2024 09:00 26.0 26.0-32.0 (pg ) Final MCHC 02/23/2024 09:00 30.8 Below low normal 32-36 (g/dL) Final Platelets 02/23/2024 09:00 216 150-370 (X10E +09/L) Final RDW 02/23/2024 09:00 15.7 Above high normal 11.7- 14.4 (%) Final Performing Location [facility] [address] [place] [address]
--- OUTSIDE RECORDS SUMMARY | 2024-03-31 07:42 | External Medical Summary ---
Author Name Unknown Address Unknown Organization R1WR:[facility] [address] [place] [address] Laboratory Report Ordering Provider Test Date Status SHELLY GRIFFITH 02/23/2024 07:41:00 Final Observation Date Value Abnormality Reference (Units ) Status Glucose, POC 02/23/2024 07:48 110 Above high normal 70 -99 (mg/dL) Final Performing Location [facility] [address] [place] [address]
--- OUTSIDE RECORDS SUMMARY | 2024-03-31 07:42 | External Medical Summary ---
Author Name Unknown Address Unknown Organization R1WR:[facility] [address] [place] [address] Laboratory Report Ordering Provider Test Date Status SADIE BENAVIDES 02/23/2024 11:09:00 Fin al Observation Date Value Abnormality Reference (Units ) Status Glucose, POC 02/23/2024 11:15 163 Above high normal 70 -99 (mg/dL) Final Performing Location [facility] [address] [place] [address]
--- OUTSIDE RECORDS SUMMARY | 2024-03-31 07:42 | External Medical Summary | Summary of Care ---
Author Name Unknown Organization [facility] Address [address] [place] [address] Phone [phone] Care Team Providers Care Director Peoplesoft Name Role Phone Nura Mckay Primary Care Provider [phone] Reason for Visit * Reason Onset Date Comments [facility]: Engagement 02/22/2024 Encounter Details Date Type Department Care Team (Late st Contact Info) Description 02/22/2024 Telephone [facility], [place] [address] [place] [id number] Марина Gomez VAMSHI [address] [place] [address] [facility]: Engagement Allergies [...] in the morning. 08/28/2020 Active Fifty50 Pen Mcclelland 32G X 4 MM (Insulin Pen Needle) Inject 1 Each under the skin in the morning. 02/08/2019 Active OneTouch Delica Plus [id number] Inject 1 Each under the skin 3 [...] Telephone Encounter - Марина Gomez OSA - 02/22/2024 11:53 AM EDT [facility] outreach 02/21 - [facility] 1 [place] at [place] 02/27 documented in this encounter Plan of Treatment Upcoming Encounters Date Type Department Care Team (Late st Contact Info) Description 05/09/2024 11:00 AM EST Office Visit Cardiology, [facility] [address] [place] [address] Nisha Arellano CRNP [address] [place] [address] Health Maintenance Due Date Last Done Comments [...] Additional history exists CKD PHOS USE SMARTSET 85929 11/01/202410/22, 10/30/2023, 02/16/2023, Additional history exists CKD HGB USE SMARTSET 71352 11/04/202411/04, 11/04/2023, 11/03/2023, Additional history exists HPV [...] Power of Attor himanshu? No Care Teams Director Peoplesoft Relationship Specialty Start Date End Date Nura Mckay DO PCP - General Family Medicine 12/15/17 documented as of this encounter
--- OUTSIDE RECORDS SUMMARY | 2024-03-31 07:42 | External Medical Summary ---
Author Name Unknown Address Unknown Organization R1WR:[facility] [address] [place] [address] Laboratory Report Ordering Provider Test Date Status SHELLY GRIFFITH 02/22/2024 08:19:00 Final Observation Date Value Abnormality Reference (Units ) Status Glucose, POC 02/22/2024 08:26 132 Above high normal 70 -99 (mg/dL) Final Performing Location [facility] [address] [place] [address]
--- OUTSIDE RECORDS SUMMARY | 2024-03-31 07:43 | External Medical Summary | Summary of Care ---
Author Name Unknown Organization [facility] Ambulatory Address [address] [place] [address] Phone Care Team Providers Care Claims Examiner Name Role Phone Nadia VerduzcoC Primary Care Provider Provider, Abstract Unavailable Unavailabl rocio Garber Jr., MD, Arthur Toscano Unavailable [phone] Provider, Generic External Data Unavailable Unavailable Yousif Pedraza MD Unavailable Benson Lutz MD Unavailable Iram Duong Unavailable External, Provider Unavailable Unavailable Tracie Griggs Unavailable Cecelia Florian Unavailable Serge Mayers MD Unavailable [phone] Berta SchmidtC Unavailable [phone] Troy Corley MD Unavailable Darleen Barrera Unavailable Nura Mckay DO Unavailable [phone] Candy Moreno PA-C Unavailable [phone] Source Comments This information has been disclosed [...] except as provided at sections 2.12(c)(5) and 2.65.[facility] Ambulatory Reason for Visit * Reason Comments Diabetes Fall Encounter Details Date Type Department Care Team (Late st Contact Info) Description 01/21/2024 12:30 PM EDT Office Visit Family [facility] [address] [place] [address] Crusher And Binder Operator: Tiffanie Crump Rosemary A, MD [address] [place] [address] Dyslipidemia, goal LDL below 100 (Primary Dx); Type 2 diabetes mellitus with hemoglobin A1c goal of less than 7.0% (HCC); Hypertension associated with stage 3 chronic kidney disease due to type 2 diabetes mellitus (HCC); Other specified hypothyroidism; Vitamin D deficiency; Generalized osteoarthritis; Chronic diastolic CHF (congestive heart failure) (HCC); Chronic atrial fibrillation (HCC); Anxiety and depression; History of fall Allergies Active Allergy Reactions Criticality Noted Date Comments Sulfa (Sulfonamide Antibiotics) Nausea & Vomiting,Dizziness Low 11/14/2004 documented as of this encounter (statuses as of 01/21/2024) Medications Medication Sig Dispensed Refills Start Date End Date Status multivitamin (MULTIPLE VITAMINS DAILY ORAL) Take 1 tablet by mouth daily Active cholecalciferol, vitamin D3, 1,000 unit oral capsule Take 1 capsule by mouth daily Active B-D 0.3 ML ULTRA FINE INSULIN SYRINGE SHORTIndications: Type 2 diabetes mellitus with hemoglobin A1c goal of less than 7.0% (HCC) Use as directed 1 Box 1 0 Active ONETOUCH ULTRA2 METER misc USE DIRECTED 1 Active acetaminophen (TYLENOL) 500 mg oral tablet Take 1,000 mg by mouth every 8 hours as needed Active atorvastatin (LIPITOR) 20 mg oral tablet Take 1 tablet by mouth once daily 90 tablet 3 3 Active insulin aspar prot-insulin aspart 100 unit/mL (70-30) subcutaneous pen (NovoLOG Mix 70-30FlexPen U-100)Indications :Type 2 diabetes mellitus with hemoglobin A1c goal of less than 7.0% (HCC) Inject 43 units with breakfast and 45 units with supper subQ 75 mL 3 3 Active Additional Information Patient taking differently: Inject 25 units with breakfast and 25 units with supper subQ, Reported on 06/11/2023 lisinopriL 20 mg oral tablet Take 20 mg by mouth daily In the am 3 Active diltiazem 240 mg oral extended-release capsule Take 1 capsule by mouth once daily 90 capsule 3 3 Active blood glucose test strip (OKDJ.fm ULTRA TEST) USE 1 STRIP BY MISCELLANEOUS ROUTE THREE TIMES DAILY BEFORE MEALS DX E11.9 300 each 1 3 Active lancets (ONE TOUCH DELICA) 33 gauge USE TO TEST BLOOD SUGARS THREE TIMES DAILY BEFORE MEALS 300 each 1 3 Active furosemide (LASIX) 40 mg oral tablet Take 40 mg by mouth daily Twice weekly, not sure of exact dose Active metoprolol tartrate (LOPRESSOR) 50 mg oral tablet Take 100 mg by mouth 2 times a day 4 Active warfarin (COUMADIN) 1 mg oral tablet Take 2 tablets by mouth daily TAKE 2 TABLETS BY MOUTH DAILY 60 tablet [address], Disposable, (BD SAMIRA 2ND GEN PEN NEEDLE) 32 gauge x 5/32" [facility] [place] needleIndications :Type 2 diabetes mellitus with hemoglobin A1c goal of less than 7.0% (HCC) USE 1 TWICE DAILY DIRECTED 100 each 1 4 Active levothyroxine 88 mcg oral tablet TAKE 1 TABLET BY MOUTH ONCE DAILY BEFORE A MEAL 90 tablet 1 4 01/21/20 24 Discontinued documented as of this encounter (statuses as of 01/21/2024) Active Problems Patient Care Coordination No te Formatting of this note migh t be different from the original. Please address these codes for accuracy, including them in the office visit note if current. Thanks, Leanne RN, NN 1. K74.60, R18.8 - Cirrhosis [...] as of this encounter (statuses as of 01/21/2024) Resolved Problems Problem Noted Date Diagnosed Date Resolved Date Anxiety state 11/07/2017 01/20/2024 Generalized weakness 11/07/2017 024 Recurrent major depressive d isorder, in full remission 11/07/2017 01/20/2024 documented as of this encounter (statuses as of 01/21/2024) Immunizations Name Administration Dates Next Due Influenza [...] and heating? Not hard at all 09/28/2023 [facility] - Occupational Stress [...] Sign Reading Time Taken Comments Blood Pressure 118/64 01/21/2024 12:41 PM EDT Pulse 66 01/21/2024 12:41 PM EDT Temperature 36.9 C (98.4 F) 01/21/2024 12:41 PM E DT Respiratory Rate 18 01/21/2024 12:41 PM EDT Oxygen Saturation 98% 01/21/2024 12:41 PM EDT Inhaled Oxygen Concentration - - Weight 82.6 kg (182 lb) 01/21/2024 12:41 PM EDT Height 157.5 cm (5' 2") 01/21/2024 12:41 PM EDT Body Mass Index 33.29 01/21/2024 12:41 PM EDT documented in this encounter Progress Notes * Zarina Dang MD - 01/21/2024 12:30 PM EDT Subjective: Patient ID: Lc Cantrell is an 83 year old female. HPI: I saw Lc today for f/u of HTN, vitamin D deficiency, osteoarthritis, anxiety and depression. She is followed by Endocrinology for type 2 DM, hypothyroidism and hyperlipidemia and by Cardiology for CAF and chronic diastolic CHF. 9 days ago she fell when she was at the hospital to have herINR done. She hit her chin and did have some bleeding. She was taken to the ER and CT scans of her head, C-spine and facial bones were negative. She is now having very painful flank pain, both in thefront and the back. She has been taking acetaminophen with little improvement in the pain. Since the fall, the LE edema has worsened slightly. Review of Systems Constitutional: Negative for chills, diaphoresis, fever, malaise/fatigue, weight gain, weight loss and weakness. HENT: Negative for congestion and nosebleeds. Eyes: Negative for discharge. Cardiovascular: Positive for chest pain (musculoskeletal secondary to fall), palpitations (occasional with no recent changes) and leg swelling. Respiratory: Negative for cough, wheezing and shortness of breath. Psychiatric/Behavioral: Negative for depression, hallucinations, substance abuse, suicidal ideas, eating problems and mood swings. The patient has insomnia (no change from baseline). The patient is not nervous/anxious. Gastrointestinal: Negative for abdominal pain, blood in stool, change in bowel habit, constipation,diarrhea, heartburn, nausea, vomiting, Change in appetite and change in stool. Genitourinary: Positive for Flank pain (from the fall). Negative for dysuria, frequency, hematuria and urgency. Endo: Negative for polydipsia, polyphagia and hair changes. Heme: Negative for adenopathy and bruises/bleeds easily. Neurological: Positive for dizziness and difficulty balancing. Negative for tingling, tremors, sensory change, speech change, focal weakness, seizures and headaches. Musculoskeletal: Positive for back pain, falls, joint pain, myalgias, decreased range of motion andwalking unsteadily. Negative for neck pain. Objective: BP 118/64 | Pulse 66 | Temp 98.4 F (36.9 C) (Temporal) | Resp 18 | Ht 5' 2" (157.5 cm) | Wt 182lb (82.6 kg) | SpO2 98% | No | BMI 33.29 kg/m Physical Exam Vitals and nursing note reviewed. Constitutional: General: She is not in acute distress. Appearance: Normal appearance. HENT: Head: Normocephalic. Comments: Resolving ecchymosis over chin Eyes: General: No scleral icterus. Conjunctiva/sclera: Conjunctivae normal. Neck: Vascular: No carotid bruit. Cardiovascular: Rate and Rhythm: Normal rate. Rhythm irregular. Heart sounds: Normal heart sounds. No murmur heard. No friction rub. No gallop. Comments: Carotid pulses +1 bilaterally, DP pulses trace bilaterally Pulmonary: Effort: Pulmonary effort is normal. No respiratory distress. Breath sounds: Normal breath sounds. No wheezing, rhonchi or rales. Abdominal: General: Bowel sounds are normal. There is no distension. Palpations: Abdomen is soft. There is no mass. Tenderness: There is no abdominal tenderness. Musculoskeletal: Cervical back: Neck supple. No rigidity. Right lower leg: Edema (+1 in ankle) present. Left lower leg: Edema (+1 in ankle) present. Comments: + tenderness to lateral aspect of mid-ribs bilaterally, no crepitus, no ecchymosis, no erythema, no edema. Lymphadenopathy: Cervical: No cervical adenopathy. Skin: General: Skin is warm and dry. Neurological: Mental Status: She is alert and oriented to person, place, and time. Psychiatric: Mood and Affect: Mood normal. Behavior: Behavior normal. Thought Content: Thought content normal. Judgment: Judgment normal. Assessment & Plan: Diagnosis ICD-10-CM Plan 1. Dyslipidemia, goal LDL below 100 E78.5 Continue atorvastatin and f/u with Endocrinology. 2. Type 2 diabetes mellitus with hemoglobin A1c goal of less than 7.0% ([facility]) E11.9 Continue Jnuenrt28/30 insulin and f/u with Endocrinology. 3. Hypertension associated with stage 3 chronic kidney disease due to type 2 diabetes mellitus ([facility]) E11.22 Her last GFR was stable at 32. Continue furosemide, lisinopril, diltiazem ER and metoprololtartrate. I12.9 N18.30 4. Other specified hypothyroidism E03.8 Continue levothyroxine and f/u with Endocrinology. 5. Vitamin D deficiency E55.9 Continue vitamin D supplement. 6. Generalized osteoarthritis M15.9 Continue supportive care. 7. Chronic diastolic CHF (congestive heart failure) ([facility]) I50.32 Continue furosemide and LE elevation and add compression stocking while she is less active. 8. Chronic atrial fibrillation ([facility]) I48.20 Continue metoprolol tartrate, diltiazem ER and warfarin. F/U as scheduled with Cardiology. 9. Anxiety and depression F41.9 Stable at present, call if new symptoms develop. F32.A 10. History of fall Z91.81 I recommended lidocaine patches for the rib contusions. She declined further x-rays. Return in about 3 months (around 04/22/2024) for 30 min f/u of medical problems. . documented in this encounter Nursing Notes * Rhonda Urban LPN - 01/21/2024 12:30 PM EDT Patient her for 3 month follow up. On 01-12-24 was at the [facility]LAB and fell. Was taken to the [facility]/ED,CT scan of head and spine was done, no fractures. C/o pain bilateral ribs and back. Bruises are fading. Patient takes Lasix 40 mg, daily and continues to c/o edema BLE. documented in this encounter Plan of Treatment Health Maintenance Due Date Last Done Comments Hepatitis B Vaccine (1 of 3 - Risk 3-dose series) 1998 25-OH Vitamin D 06/03/2023 06/03/2022, 01/23, 10/17/2021, Additional history exists Urine Albumin Battery 07/20/2023 07/20/2022 , 05/27/2021, 04/05/2021, Additional history exists Billable Depression Screen 12/04/202312/03, 10/23/2021, 07/02/2020 HbA1c 02/17/2024 08/17/2023, 05/25, 11/23/2022, Additional history exists Flu Vaccine (#1) 02/22/2024 02/26/2022, , 03/11/2018, Additional history exists Diabetic Foot Exam 08/05/2024 08/06/2023, 0 12/03/2022, 06/04/2021, Additional history exists Lipid Profile 08/16/2024 08/17/2023, 07/0 07/2022, 06/03/2022, Additional history exists Advance Directives 09/27/2024 09/28/2023, 0 12/31/2022, 07/06/2022, Additional history exists COVID-19 Vaccine (3 - 2022- season) 2024 07/31/2020, 07/10/2020 Postponed from 01/22/2023 (Recommended Yet Declined) DTaP/Tdap/Td Vaccine (1 - Tdap) 09/27/2024 Postponed from 1959 (Recommended Yet Declined) Medicare Annual Wellness Visit 09/27/2024 09/28/2023, 09/28/2023, 12/03/2022, Additional history exists Shingles Vaccine (Recombinant) (1 of 2) 09/27/2024 Postponed from 03/17/2013 (Recommended Yet Declined) Basic Metabolic Panel 11/04/2024 11/05/2023 , 11/04/2023, 11/03/2023, Additional history exists Creatinine Serum 11/04/2024 11/05/2023, , 11/03/2023, Additional history exists Hemoglobin 11/04/2024 11/05/2023, 10/22, 11/03/2023, Additional history exists Potassium 11/04/2024 11/05/2023, 10/22, 11/03/2023, Additional history exists TSH 12/09/2024 12/10/2023, 06/0 12/2023, 10/30/2023, Additional history exists Diabetic Retinal Exam 01/20/2025 10/01/2020 , 12/07/2019, 08/26/2018 Postponed from 10/01/2021 (Recommended) Pneumococcal Vaccine (2 of 2 - PCV) 01/20/2025 06/10/2012 Postponed from 06/10/2013 (Recommended Yet Declined) Vision Exam 04/02/2025 04/02/2020 Dexa Scan 12/23/2027 12/22/2022, 02/10/2019 Hearing Screening 09/27/2028 09/28/2023, 02/07/2019 Controlled Substance Agreement Discontinued 06/04/2022, 06/04/2022, 04/10/2021 Depression Screening Completed 01/21/2024, 09/28/2023, 12/03/2022 Colorectal Cancer Screening Discussion Discontinued Full Body Skin Exam Discontinued documented as of this encounter Visit Diagnoses Diagnosis Dyslipidemia, goal LDL below 100- Primary Other and unspecified hyperlipidemia Type 2 diabetes mellitus with hemoglobin A1c goal of less than 7.0% (HCC) Hypertension associated with stage 3 chronic kidney disease due to type 2 diabetes mellitus (HCC) Other specified hypothyroidism Vitamin D deficiency Unspecified vitamin D deficiency Generalized osteoarthritis Generalized osteoarthrosis, unspecified site Chronic diastolic CHF (congestive heart failure) (HCC) Chronic diastolic heart failure Chronic atrial fibrillation (HCC) Atrial fibrillation Anxiety and depression Dysthymic disorder History of fall Personal history of fall documented in this encounter Care Teams Claims Examiner Relationship Specialty Start Date End Date Nadia Verduzco PA-C [address] [facility] [place] [address] PCP - General Family Medicine 03/11/18 Provider, MD VALARIE Fitzgerald PROVIDER 09/08/18 Arthur Garber Jr., MD [address] [facility] [phone] [place] [address] Orthopaedic Surgery 11/15/18 Provider, Generic External Data 01/30/20 Yousif Pedraza MD [address] [facility] [address] [place] [address] Cardiology 02/05/20 Benson Lutz MD [address] [facility] [place] [address] Endocrinology 04/02/20 Iram Duong [address] [facility] [place] [address] Nutrition 04/29/20 External, Provider 05/08/20 Tracie Griggs [address] [facility] [place] [address] Nutrition 07/03/20 Cecelia Florian CRNP [address] [place] [address] Endocrinology 07/05/20 Serge Mayers MD [address] [place] [facility] Allergy 09/29/21 Berta Schmidt PA-C [address] [facility] [address] [place] [id number] General Surgery 02/03/22 Troy Corley MD [address] [place] [address] Nephrology 07/02/22 Darleen Barrera [address] [place] [facility] Registered Nurse 05/11/23 Nura Mckay DO [address] [place] [facility] Family Medicine 06/01/23 Candy Moreno PA-C [address] [facility] [facility] [facility] [address] [place] [address] Cardiology 11/15/23 documented as of this encounter
--- OUTSIDE RECORDS SUMMARY | 2024-03-31 07:43 | External Medical Summary ---
Author Name Unknown Address Unknown Organization R1WR:[facility] [address] [place] [address] Laboratory Report Ordering Provider Test Date Status VIKTOR CABRAL 02/21/2024 07:14:00 Final Observation Date Value Abnormality Reference (Units ) Status High Sensitivity Troponin I 02/21/2024 07:40 21 <45 (ng/L) Final [employer] hs-Trop onin I assay measured using the Siemens immunoassay. (Atellica analyzer, Siemens, [facility]) Performing Location [facility] [address] [place] [address]
--- OUTSIDE RECORDS SUMMARY | 2024-03-31 07:43 | External Medical Summary ---
Author Name Unknown Address Unknown Organization R1WR:[facility] [address] [place] [address] Laboratory Report Ordering Provider Test Date Status VIKTOR CABRAL 02/21/2024 07:14:00 Final Observation Date Value Abnormality Reference (Units ) Status Prothrombin Time 02/21/2024 07:33 29.6 Above high alanna l 11.9-14.5 (Sec) Final INR 02/21/2024 07:33 2.8 Fin al Performing Location [facility] [address] [place] [address]
--- OUTSIDE RECORDS SUMMARY | 2024-03-31 07:43 | External Medical Summary ---
Author Name Unknown Address Unknown Organization R4LH:[facility] [address] [place] [address] Laboratory Report Ordering Provider Test Date Status LINUS VeenaYAIMAMARCELL 12/29/2023 10:23:00 Final Observation Date Value Abnormality Reference (Units ) Status Prothrombin Time 12/29/2023 10:45 20.5 Above high alanna l 11.9-14.5 (Sec) Final INR 12/29/2023 10:45 1.8 Fin al Performing Location [facility] [address] [place] [address]
--- OUTSIDE RECORDS SUMMARY | 2024-03-31 07:43 | External Medical Summary | Summary of Care ---
Author Name Unknown Organization [facility] Address [address] [address] Phone [phone] Care Team Providers Care Asian Art Curator Name Role Phone NelyNura Primary Care Provider [phone] Reason for Visit * Reason Comments Hospital Follow-Up ER follow up. Pt rep orted feeling sick when Cardizem dose was lowered from 240mg to 120mg. Pt continued to take 240mg. Pt denies SOB, angina, edema, palps. Encounter Details Date Type Department Care Team (Late st Contact Info) Description 11/18/2023 10:00 AM EDT Office Visit Cardiology, [facility] [address] [place] [address] Nisha Arellano CRNP [address] [place] [address] Hospital discharge follow-up*; Persistent atrial fibrillation (HCC); Hypertensive heart disease with chronic diastolic congestive heart failure (HCC); Chronic right-sided heart failure (HCC); HTN, goal below 140/90 Allergies Active Allergy Reactions Criticality Noted Date Comments Sulfa Antibiotics 11/14/2004 documented as of this encounter (statuses as of 11/25/2023) Medications Medication Sig Dispensed Refills Start Date [...] in the morning. 08/28/2020 Active Fifty50 Pen [place] 32G X 4 MM (Insulin Pen Needle) Inject 1 Each under the skin in the morning. 02/08/2019 Active OneTouch Delica Plus [id number] Inject 1 Each under the skin 3 [...] Oral Tablet Extended Release 24 Hour (toPROL XL)Indications:(HF pEF) heart failure with preserved ejection fraction (HCC),Essential hypertension with goal blood pressure less than 140/90,Paroxysmal atrial fibrillation (HCC) Take 1.5 Tablets by mouth in the morning. 135 Tablet 3 07/06/2023 Active Atorvastatin Calcium 20 MG Oral Tablet (Lipitor) Take 1 Tablet by mouth in the morning. 90 Tablet 3 08/30/2023 Active Furosemide 40 MG Oral Tablet (Lasix)Indications :Hypertensive heart disease with chronic diastolic congestive heart failure (HCC),Chronic right-sided heart failure (HCC),Persistent atrial fibrillation (HCC),HTN, goal below 140/90 Take 1 Tablet by mouth in the morning. 90 Tablet 3 11/18/2023 Active dilTIAZem HCl ER Coated Beads 240 MG Oral Capsule Extended Release 24 Hour (Cardizem CD) Take 1 Capsule by mouth in the morning. 90 Capsule 3 11/18/2023 Active cloNIDine HCl 0.2 MG Oral Tablet (Catapres) Take 1 Tablet by mouth in the morning and 1 Tablet at noon and 1 Tablet before bedtime. 90 Tablet 3 02/18/2023 11/18/2023 Discontinue d(Medicatio n List Clean Up) Spironolactone 25 MG Oral Tablet (Aldactone) Take 0.5 Tablets by mouth in the morning. 45 Tablet 5 04/08/2023 11/18/2023 Discontinue d(Medicatio n List Clean Up) guaiFENesin-DM 100-10 MG/5ML Oral Syrup (Robitussin DM) Take 10 mL by mouth 4 times a day as needed for Cough. 120 mL 05/25/2023 11/18/2023 Discontinue d(Medicatio n List Clean Up) Furosemide 40 MG Oral Tablet (Lasix)Indications :Hypertensive heart disease with chronic diastolic congestive heart failure (HCC),Chronic right-sided heart failure (HCC),Persistent atrial fibrillation (HCC),HTN, goal below 140/90 TAKE 20 MG BY MOUTH EVERY DAY 10/11/2023 11/18/2023 Discontinue d(Refill) dilTIAZem HCl ER 120 MG Oral Capsule Extended Release 24 HourIndications:Pe rsistent atrial fibrillation (HCC) Take 1 Capsule by mouth in the morning. 90 Capsule 3 10/22/2023 11/18/2023 Discontinue d(Medicatio n/Dose Changed) documented as of this encounter (statuses as of 11/25/2023) Active Problems Problem Noted Date Diagnosed Date [...] as of this encounter (statuses as of 11/25/2023) Resolved Problems Problem Noted Date Diagnosed Date [...] ligation 11/07/2017 8 Generalized weakness 11/07/2017 023 [facility] resident 11/07/20172017 HTN, goal below 140/90 11/04/201511/07 [...] as of this encounter (statuses as of 11/25/2023) Immunizations Name Administration Dates Next Due Pneumococcal Polysaccharide PPV23 (Pneumovax) 06/10/2012,02/27/2011(Deferred: Patient Refused) Seasonal Influenza, Quadriva lent, No Preserve, IM 05/18/2017,04/03/2016,03/16/2015 Seasonal Influenza, Split, I IV3, With Preserve, Inj 01/30/2014,05/31/2013,03/08/2012,02/27(Deferred: Patient Refused),03/19/2006 Varicella Zoster Vaccine (Adult) [...] Sign Reading Time Taken Comments Blood Pressure 108/64 11/18/2023 10:03 AM EDT Pulse 52 11/18/2023 10:03 AM EDT Temperature - - Respiratory Rate 12 11/18/2023 10:03 AM EDT Oxygen Saturation - - Inhaled Oxygen Concentration - - Weight - - Height - - Body Mass Index - - documented in this encounter Functional Status Functional Status Response [...] No 05/20/2023 documented as of this encounter Progress Notes * Nisha Arellano CRNP - 11/18/2023 10:00 AM EDT 11/18/2023 Cardiology Follow Up Primary Review Assistant: Dr. 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 Last seen in our office 10/01/23 by ARJUN Bowers with complaints of fatigue, "very low HR at home", and Labile BP readings. EKG at that time demonstrated A- fib with slow ventriclar response, Right BBB, LAFB, bifascicular block and HR of 48 bpm. Plan at that time with to obtain an echocardiogram for surveillance, continue Metoprolol and Cardizem, but discontinue Digoxin. Continue Coumadin [id number] score of 4, and have a 7 day ZIO. Echo as noted below suggested concern for fluid overload and she was to increase her diuretic to 3 x per week and have labs. Since that time, patient ended up hospitalized at [facility] due taking increased Cardizem. Patient had thought that it would bring her HR up and clearly did quite the opposite. Patient's HR and symptoms improved after a wash out and eventually she was restarted on Cardizem, initially 120mg ER daily and then 240mg Daily. She is no longer on her Digoxin or her Spironolactone. She is on Metoprolol EKG today demonstrates A-fib, Right BBB, Left anterior fascicular block Rate 86 bpm She presents today feeling well overall. She has since remained in persistent A- fib, rate controlled. She does report that for some reason the 120mg tabs make her very sick in the stomach. She is asking since she is back at 240mg if she can have the 240mg capsule instead. BP well controlled. Denies chest pain, pressure, palpitations, SOB, PND, pre-syncope, syncope or edema REVIEW OF SYSTEMS: See HPI for pertinent positives. All others negative other than those noted in the HPI. CONSTITUTIONAL: No change in weight, No weakness, No fatigue and No fevers, No sweats or chills. PULMONARY: No cough, sputum, or hemoptysis, No wheezing, No shortness or breath and No recent change in breathing. CARDIOVASCULAR: No chest pain, No dyspnea on exertion, No edema, No palpitations and No syncope. GASTROINTESTINAL: No abdominal pain, No change in bowel habits, No significant heartburn, No nausea, No vomiting, No diarrhea, No constipation, No blood in stools or black tarry stools. No dysphagia. HEMATOLOGIC: No abnormal bleeding and No bruising. NEUROLOGICAL: Normal balance, No headaches and No weakness. Review of patient's allergies indicates: Allergen Reactions Sulfa [Sulfa Antibiotics] Current Outpatient Medications Medication Sig Dispense Refill levothyroxine (LEVOXYL) 88 MCG Tablet Take 1 Tablet by mouth daily first thing in the morning. Multi-Vitamins Oral Tablet Take 1 Tablet by mouth in the morning. Warfarin Sodium 1 MG Oral Tablet Take 3 Tablets by mouth daily except on . Warfarin Sodium 1 MG Oral Tablet (Coumadin) Take 2 Tablets by mouth every . Lisinopril 20 MG Oral Tablet (Prinivil) Take 1 Tablet by mouth in the morning. Vitamin D3 50 MCG (2000 UT) Oral Capsule Take 1 Capsule by mouth in the morning. Metoprolol Succinate ER 100 MG Oral Tablet Extended Release 24 Hour (toPROL XL) Take 1.5 Tablets bymouth in the morning. 135 Tablet 3 Atorvastatin Calcium 20 MG Oral Tablet (Lipitor) Take 1 Tablet by mouth in the morning. 90 Tablet 3 Furosemide 40 MG Oral Tablet (Lasix) Take 1 Tablet by mouth in the morning. 90 Tablet 3 dilTIAZem HCl ER Coated Beads 240 MG Oral Capsule Extended Release 24 Hour (Cardizem CD) Take 1 Capsule by mouth in the morning. 90 Capsule 3 Insulin Syringe 27G X 1/2" 0.5 ML Inject 1 Each under the skin 2 times a day. [employer] Test In Vitro Strip (Glucose Blood) Inject 1 Strip as directed in the morning and 1 Strip atnoon and 1 Strip before bedtime. Insulin Aspart Prot & Aspart (70-30) 100 UNIT/ML Suspension Pen-injector Inject 25 Units under the skin in the morning. Fifty50 Pen [place] 32G X 4 MM (Insulin Pen Needle) Inject 1 Each under the skin in the morning. [employer] Plus [id number] Inject 1 Each under the skin 3 times a day. Insulin Aspart Prot & Aspart (70-30) 100 UNIT/ML Suspension Pen-injector Inject 25 Units under the skin daily with dinner. No current facility-administered medications for this visit. 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 H/O tubal ligation 11/07/2017 History of uterine fibroid 11/07/2017 HTN, goal below 140/90 Hypothyroidism Lichenified Face Rash 12/16/2005 Nephrolithiasis 11/07/2017 Pain in both knees 02/17/2023 Family History Problem Relation Name Age of Onset Arthritis Mother Diabetes Mother Heart Disorder Mother Cancer Grandmother (Maternal) stomach Social History Socioeconomic History Marital status: Tobacco Use Smoking status: Never Smokeless tobacco: Never Vaping Use Vaping status: Never Used Substance and Sexual Activity Alcohol use: No Drug use: No Sexual activity: Yes Social Determinants of Health Financial Resource Strain: Low Risk (09/28/2023) [facility] Overall Financial Resource Strain (CARDIA) Difficulty of Paying Living Expenses: Not hard at all Food Insecurity: No Food Insecurity (09/28/2023) Re[facility] from [facility] Hunger Vital Sign Worried About Running Out of Food in the Last Year: Never true Ran Out of Food in the Last Year: Never true Transportation Needs: No Transportation Needs (09/28/2023) Received from [facility], [facility] PRAPARE - Transportation Lack of Transportation (Medical): No Lack of Transportation (Non-Medical): No Social Connections OBJECTIVE/PHYSICAL EXAMINATION: BP 108/64 | Pulse 52 | Resp 12 General: No acute distress. A+Ox3. HEENT: Normocephalic. Atraumatic. PERRL. EOMI. Conjunctiva and sclera clear. NECK: No carotid bruits. No JVD. Carotid upstrokes are brisk. Heart: Irregularly irregular. S1 and S2 noted. No murmur. No rubs or gallops. PMI non displaced. Lungs: Clear to auscultation. No wheezes.No rhonchi. No rales. Abdomen: Normal bowel sounds. Soft. Nontender. No masses or organomegaly. No abdominal bruits. Extremities: No edema. No clubbing or cyanosis. Pulses: radial=2/4, posterior tibial=2/4, dorsalis pedis = 2/4. NEURO: No focal deficits. PSYCH: Appropriate affect and insight. DATA Labs & Imagng Reviewed Below: ZIO Monitor 09/2023 CONCLUSIONS: Duration: 7 days, 12 hours Atrial Fibrillation occurred continuously (100% burden), ranging from 33- 97 bpm (avg of 56 bpm). Isolated VEs were rare (<1.0%), VE Couplets were rare (<1.0%), and no VE Triplets were present. MD notification criteria for Slow Atrial Fibrillation met - report posted prior to notification per account request(MC). Three symptomatic events reported correlating with atrial fibrillation, heart rate 39-82 beats per minute. Echo 10/06/2023 LVEF hyperdynamic >70%. Severe concentric LVH Biatrial enlargement consistent with persistent AFIB Moderate to severe mitral insufficiency Severe tricuspid regurgitation is present. (Previously moderate) Severe pulmonary hypertension is present. The estimated pulmonary artery systolic pressure is >60mm Hg. (Similar to prior). BP elevated during study. Echo 02/17/2023 The examination is adequate to evaluate the referral indication. The qualitative LV ejection fraction is 65-69% (normal). No LV segmental wall motion abnormalities. The right ventricular cavity is mildly dilated. The right ventricular systolic function is qualitatively normal. Moderate secondary mitral regurgitation is present. Moderate tricuspid regurgitation is present. The estimated pulmonary artery systolic pressure is 60mm Hg ASSESSMENT/PLAN: 83 year old year old female 1. Hospital discharge follow-up 2. Persistent atrial fibrillation (HCC) -Continue Diltiazem 240mg Daily, Metoprolol and Warfarin - Furosemide 40 MG Oral Tablet (Lasix); Take 1 Tablet by mouth in the morning. Dispense: 90 Tablet;Refill: 3 - BASIC METABOLIC PANEL; Future 3. Hypertensive heart disease with chronic diastolic congestive heart failure (HCC) 4. Chronic right-sided heart failure (HCC) - Continue Furosemide 40mg Daily -labs, pended to assess renal function and electrolytes - Furosemide 40 MG Oral Tablet (Lasix); Take 1 Tablet by mouth in the morning. Dispense: 90 Tablet;Refill: 3 - BASIC METABOLIC PANEL; Future 5. HTN, goal below 140/90 -Well controlled. -Continue Furosemide, Diltiazem, Metoprolol, and Lisinopril - Furosemide 40 MG Oral Tablet (Lasix); Take 1 Tablet by mouth in the morning. Dispense: 90 Tablet;Refill: 3 DISPOSITION: Follow up 6 months or if symptoms worsen/fail to improve. All questions were answered to the patients satisfaction. Patient advised to report to ED with any and all emergencies. The patient agrees to the above plan and will call with additional questions or concerns. ARJUN Kapoor [facility], [address] [place] [address] I spent a total of 35 minutes on the date of service in preparation, delivery, and documentation ofthe care provided to Lc Cantrell excluding any time spent in the performance of separately billed services. This chart was completed in part utilizing [employer] Speech Voice Recognition Software. Grammatical errors, random word insertions, pronoun errors, and incomplete sentences are an occasional consequence of this system due to software limitations, ambient noise, and hardware issues. Any formal questions or concerns about the content, text, or information contained within the body of this dictation should be directly addressed to the provider for clarification. documented in this encounter Procedure Notes * Angel De Dios MD - 11/18/2023 10:14 AM EDTAssociated Order(s): EKG REASON FOR STUDY: ER discharge;ER discharge CONCLUSIONS: Atrial fibrillation Right bundle branch block Left anterior fascicular block Bifascicular block Left ventricular hypertrophy When compared with ECG of 01-Oct-2023 14:49, slow ventricular response has resolved Ventricular Rate: 86 Atrial Rate: 147 QRS Duration: 156 QT/QTc: 432/516 ms P-R-T [place]: 0 : -64 : 6 degrees documented in this encounter Nursing Notes * Chantal Woods MED ASSIST - 11/18/2023 9:58 AM EDT Chief Complaint Patient presents with Hospital Follow-Up ER follow up. Pt reported feeling sick when Cardizem dose was lowered from 240mg to 120mg. Pt continued to take 240mg. Pt denies SOB, angina, edema, palps. Examination Room: 2 Name: Lc Cantrell Date of : (1940). Reason for Visit: ER follow up Interim Hospitalization(s): ER 11/04 cardizem OD Problems/Concerns: denies Chest Pain/SOB: denies [facility] Discussed: Not applicable [facility] is a way you can talk to your provider online through e-mail. Would you like to sign up? I can activate it for you? ALREADY ACTIVE Patient was instructed to not get up on the exam table until directed and assisted by their provider; patient is to remain seated in the chair/ wheelchair/ exam table for fall prevention and safety reasons. Patient is aware to have assistance to step down off exam table with personnel. Patient voiced full comprehension of instructions. documented in this encounter Plan of Treatment Upcoming Encounters Date Type Department Care Team (Late st Contact Info) Description 05/09/2024 11:00 AM EST Office Visit Cardiology, [facility] [address] [place] [address] Nisha Arellano CRNP [address] [place] [address] Scheduled Orders Name Type Priority Associated Diagnoses Orde r Schedule BASIC METABOLIC PANEL Lab Routine Chronic right-sided heart failure (HCC) Persistent atrial fibrillation (HCC) Expected: 11/18/2023, Expires: 11/17/2024 Health Maintenance Due Date Last Done Comments DTaP,Tdap,and Td Vaccines (1 - Tdap) 1959 Zoster Vaccines (2 of 3) 03/17/2013 01/20/2013 Pneumococcal Vaccine: 65+ Years (2 of 2 - PCV) 06/10/2013 06/10/2012 Albumin/Creatinine Ratio 10/27/2016 016, 10/05/2014, 09/21/2013, Additional history exists Diabetic Foot Exam 05/12/2017 05/12/2016, 1 07/07/2014, 06/15/2014, Additional history exists Depression Monitoring 11/23/2018 11/23/2017 COVID-19 Vaccine ( season) 2023 07/31/2020, 07/10/2020 Influenza Vaccine (FLU shot) (#1) 2024 02/26/2022, 03/09/2019, 03/11/2018, Additional history exists Diabetic Eye Exam 02/06/2024 02/05/2023, , 11/30/2016, Additional history exists HbA1c 02/17/2024 08/17/2023, 05/25, 05/21/2023, Additional history exists TSH 02/18/2024 02/17/2023, 01/23, 11/10/2017, Additional history exists CKD PHOS USE SMARTSET 56358 11/01/202410/22, 10/30/2023, 02/16/2023, Additional history exists CKD HGB USE SMARTSET 52683 11/04/202411/04, 11/04/2023, 11/03/2023, Additional history exists HPV [...] Not on filedocumented as of this encounter Procedures Procedure Name Priority Date/Time Associated Diagnosis Comments TX ECG ROUTINE ECG W/LEAST 12 LDS W/I&R Routine 11/18/2023 10:14 AM EDT documented in this encounter Results * EKG (11/18/2023 10:14 AM EDT) 11/18/2023 10:1 4 AM EDT Narrative Procedure Note Angel De Dios MD - 11/18/2023 10:14 AM EDT REASON FOR STUDY: ER discharge;ER discharge CONCLUSIONS: Atrial fibrillation Right bundle branch block Left anterior fascicular block Bifascicular block Left ventricular hypertrophy When compared with ECG of 01-Oct-2023 14:49, slow ventricular response has resolved Ventricular Rate: 86 Atrial Rate: 147 QRS Duration: 156 QT/QTc: 432/516 ms P-R-T [place]: 0 : -64 : 6 degrees Nisha Arellano ARJUN EKG [facility] documented in this encounter Visit Diagnoses Diagnosis Hospital discharge follow-up- Primary Other follow-up examination Persistent atrial fibrillation (HCC) Atrial fibrillation Hypertensive heart disease with chronic diastolic congestive heart failure (HCC) Chronic right-sided heart failure (HCC) Congestive heart failure, unspecified HTN, goal below 140/90 Unspecified essential hypertension documented in this encounter Advance Directives * [...] Power of Attor himanshu? No Care Teams Asian Art Curator Relationship Specialty Start Date End Date Nura Mckay DO [address] [address] [place] [address] PCP - General Family Medicine 12/15/17 documented as of this encounter
--- OUTSIDE RECORDS SUMMARY | 2024-03-31 07:43 | External Medical Summary | Summary of Care ---
Author Name Unknown Organization [facility] Ambulatory Address [address] [place] [address] Phone Care Team Providers Care Technologist Infectious Disease Name Role Phone Nadia VerduzcoC Primary Care Provider Provider, Lia HERRERA Unavailable Unavailabl rocio Garber Jr., MD, Arthur Toscano Unavailable [phone] Provider, Generic External Data Unavailable Unavailable Yousif Pedraza MD Unavailable [phone] Benson Lutz MD Unavailable [phone] Iram Duong Unavailable External, Provider Unavailable Unavailable Tracie Griggs Unavailable Cecelia Florian Unavailable Serge Mayers MD Unavailable [phone] Berta SchmidtC Unavailable [phone] Troy Corley MD Unavailable Darleen Barrera Unavailable Nura Mckay DO Unavailable [phone] Candy MorenoC Unavailable [phone] Source Comments This information has been disclosed [...] except as provided at sections 2.12(c)(5) and 2.65.[facility] Ambulatory Reason for Visit * Reason Comments Transitional Care Management Was in Hosp ital and then had to go to ER after . Encounter Details Date Type Department Care Team (Latest Contact Info) Description 11/15/2023 10:00 AM EDT Office Visit Family [facility] [address] Jennifer, [address] [place] [address] Stained Glass Glazier: Tiffanie Crump Chelsea M, PA-C [address] [place] [address] Inpatient hospitalization within last 30 days (Primary Dx); Atrial fibrillation, unspecified type (HCC); Bradycardia; Acute hypoxemic respiratory failure (HCC); Acute kidney injury (HCC); Hypothyroidism, unspecified type; Type 2 diabetes mellitus with hemoglobin A1c goal of less than 7.0% (HCC); Acute diastolic CHF (congestive heart failure) (HCC); Essential hypertension with goal blood pressure less than 140/90; Hyperkalemia Allergies Active Allergy Reactions Criticality Noted Date Comments Sulfa (Sulfonamide Antibiotics) Nausea & Vomiting,Dizziness Low 11/14/2004 documented as of this encounter (statuses as of 11/18/2023) Medications Medication Sig Dispensed Refills Start Date End Date Status multivitamin (MULTIPLE VITAMINS DAILY ORAL) Take 1 tablet by mouth daily Active cholecalciferol, vitamin D3, 1,000 unit oral capsule Take 1 capsule by mouth daily Active B-D 0.3 ML ULTRA FINE INSULIN SYRINGE SHORTIndications:T ype 2 diabetes mellitus with hemoglobin A1c goal of less than 7.0% (HCC) Use as directed 1 Box 1 04/23/2020 Active ONETOUCH ULTRA2 METER misc USE DIRECTED 12/16/2020 Active acetaminophen (TYLENOL) 500 mg oral tablet Take 1,000 mg by mouth every 8 hours as needed Active atorvastatin (LIPITOR) 20 mg oral tablet Take 1 tablet by mouth once daily 90 tablet 3 07/31/2022 Active insulin aspar prot-insulin aspart 100 unit/mL (70-30) subcutaneous pen (NovoLOG Mix 70-30FlexPen U-100)Indications: Type 2 diabetes mellitus with hemoglobin A1c goal of less than 7.0% (HCC) Inject 43 units with breakfast and 45 units with supper subQ 75 mL 3 11/23/2022 Active Additional Information Patient taking differently: Inject 25 units with breakfast and 25 units with supper subQ, Reported on 06/11/2023 BD SAMIRA 2ND GEN PEN NEEDLE 32 gauge x 5/32" [facility] needle[place]ications: Type 2 diabetes mellitus with hemoglobin A1c goal of less than 7.0% (HCC) USE TWICE DAILY DIRECTED 100 each 5 01/11/2023 Active lisinopriL 20 mg oral tablet Take 20 mg by mouth daily In the am 03/02/2023 Active diltiazem 240 mg oral extended-release capsule Take 1 capsule by mouth once daily 90 capsule 3 04/19/2023 Active warfarin (COUMADIN) 1 mg oral tablet TAKE 3 TABLETS BY MOUTH ON WEDNESDAY, WEDNESDAY, WEDNESDAY, WEDNESDAY, WEDNESDAY, AND WEDNESDAY. TAKE 2 TABLETS ON WEDNESDAY. 225 tablet 04/16/2023 Active Additional Information Patient taking differently: 2 mg oral Daily, TAKE 2 TABLETS BY MOUTH DAILY, Reported on 11/15/2023 blood glucose test strip (ONETOUCH ULTRA TEST) USE 1 STRIP BY MISCELLANEOUS ROUTE THREE TIMES DAILY BEFORE MEALS DX E11.9 300 each 1 04/22/2023 Active lancets (ONE TOUCH DELICA) 33 gauge USE TO TEST BLOOD SUGARS THREE TIMES DAILY BEFORE MEALS 300 each 1 04/22/2023 Active furosemide (LASIX) 40 mg oral tablet Take 40 mg by mouth daily Twice weekly, not sure of exact dose Active levothyroxine 88 mcg oral tablet TAKE 1 TABLET BY MOUTH ONCE DAILY BEFORE A MEAL 90 tablet 1 09/03/2023 Active metoprolol tartrate (LOPRESSOR) 50 mg oral tablet Take 100 mg by mouth 2 times a day 11/05/2023 Active documented as of this encounter (statuses as of 11/18/2023) Active Problems Patient Care Coordination No te Formatting of this note migh t be different from the original. Please address these codes for accuracy, including them in the office visit note if current. Thanks, Chop[place] RN, NN Previous Diagnoses 1. F33.42 - Recurrent major depressive disorder, in full remission (HCC) Problem Noted Date Diagnosed Date Hypertension associated with stage 3 chronic kidney disease due to type 2 diabetes mellitus 11/23/2017 Anxiety state 11/07/2017 Generalized osteoarthritis 11/07/2017 Generalized weakness 11/07/2017 Status post total right knee replacement 018 Recurrent major depressive disorder, in full rem ission 11/07/2017 Essential hypertension with goal blood pressure less than 140/90 05/12/2016 Kidney disease, chronic, stage III (GFR 30-59 ml /min) 07/17/2013 Overview: Overview: Per CKD protocol #1 Gout 08/21/2010 Dyslipidemia, goal LDL below 100 05/08/2009 Overview: Overview: Per Lipid Taxonomy. Type 2 diabetes mellitus wit h hemoglobin A1c goal of less than 7.0% 03/21/2009 Overview: Overview: Per Diabetes Taxonomy. ICD-10 update of inactive term Hypothyroidism 02/24/2005 documented as of this encounter (statuses as of 11/18/2023) Immunizations Name Administration Dates Next Due Influenza [...] and heating? Not hard at all 09/28/2023 [facility] - Occupational Stress Questionnaire Answer Date Recorded [...] PHQ-2 Screening Result Negative PHQ Result Negative 09/28/2023 Substance Use Answer Date Recorded DAST Result [...] Sign Reading Time Taken Comments Blood Pressure 120/60 11/15/2023 10:01 AM EDT Pulse 94 11/15/2023 10:01 AM EDT Temperature 36.3 C (97.4 F) 11/15/2023 10:01 AM E DT Respiratory Rate 18 11/15/2023 10:01 AM EDT Oxygen Saturation 98% 11/15/2023 10:01 AM EDT Inhaled Oxygen Concentration - - Weight 73 kg (161 lb) 11/15/2023 10:01 AM EDT Height 157.5 cm (5' 2") 11/15/2023 10:01 AM EDT Body Mass Index 29.45 11/15/2023 10:01 AM EDT documented in this encounter Progress Notes * Nadia Verduzco PA-C - 11/15/2023 10:00 AM EDT CC: Lc Cantrell 83 year old year old female who is coming to see me today for their first officevisit after hospitalization for bradycardia and CCB overdose (unintentional). Date of discharge: 11/05/23. Hospital Course: patient presented to [place] ED with complaint of feeling unwell, nausea and abdominal pian. She was found to be in slow afib with HR in 30's. Per her hx, she recently had cardizem dose decreased from 240mg to 120mg by cardiology but pt continued to take 240mg daily in additiaon to toprol-XL 150mg daily and clonidine 0.2mg twice daily. Her labs revewed REFUGIO with creatinine of2.5 as well as hyperkalemia with K of 5.7. she was also noted to have elevated troponins with an elevated leukocytosis of 14.7. she was given 1mg of atropine as EKG showed slow afib. Overnight she went from slow afib to afib with RVR. She was also noted to become hypoxic due to decompensated heart f ailure. She had cardiology consult and at present toprol-xl had been d/c'd and switched to metoprolol tartrate 100mg BID, cardizem was also increased to 240mg with improved HR. Given hyperkalemia andborderline low BP, her spironolactone was d/c'd and all other medications including lisinopril and clonidine were also held. She was diureses with IV lasix, seen in consult by nephro for SKI. She was started on lasix 40mg daily. She had suspected pneumonia and was treated with 5 day course of abx. She was subsequently weaned off oxygen and was fine on room air. She was discharged home in stable condition. She did end up in [facility] ER on 11/11/23 due to suspect high heart rate from home health and elevated blood glucose. After further evaluation at [facility] ED, her vitals were stable and no medicationchanges were made at that time. She was advised to follow up with cardiology as directed. Tests/Studies: Tests done while in the hospital:blood work, EKG, blood cultures, CT chest without contrast, retroperitoneal US, chest xray, CT abd/pelvis Tests/Results pending at the time of discharge: none; however, she did have BMP and INR drawn Wednesday11/13/23 and there are no results back for this yet. Course Since Hospitalization: She notes that she feels "warn out" however, is slowly recovering. She is getting services with home health and home PT and this has been going well for her. She is currently staying at her daughter's house. She notes that she has been having trouble with her freestyle mari and her son has called the company to get a refill and she still hasn't had it. She and son are aware to talk to Dr. Lutz about this. She's not sure what her fasting labs were for this morning, but I did confirm with her that she does have a glucometer if she needs to check and advised she should when freestyle mari notattached. When asked what she ate yesterday she reports maxim[employer] cereal for breakfast, nothing f or lunch and a hot dog/pasta salad/few pieces of zucchini for dinner. Home Care: The following home care services were ordered on discharge: PT and Home nursing. Community Base Services: I am referring the patient to the following community- based resources: No community based resources indicated at this time. Medication reconciliation: I reviewed the hospital discharge medication list and reconciled it withthe patient's outpatient active medication list, updating the medical record. Physical Exam: BP 120/60 | Pulse 94 | Temp 97.4 F (36.3 C) (Temporal) | Resp 18 | Ht 5' 2" (157.5 cm) | Wt 161lb (73 kg) | SpO2 98% | No | BMI 29.45 kg/m Body mass index is 29.45 kg/m. Physical Exam Constitutional: Comments: Fatigued and lethargic, but getting around ok HENT: Head: Normocephalic and atraumatic. Right Ear: Tympanic membrane, ear canal and external ear normal. Left Ear: Tympanic membrane, ear canal and external ear normal. Eyes: Conjunctiva/sclera: Conjunctivae normal. Pupils: Pupils are equal, round, and reactive to light. Cardiovascular: Rate and Rhythm: Normal rate and regular rhythm. Heart sounds: Normal heart sounds. Pulmonary: Effort: Pulmonary effort is normal. Breath sounds: Normal breath sounds. Abdominal: General: Bowel sounds are normal. Palpations: Abdomen is soft. Musculoskeletal: General: Normal range of motion. Cervical back: Normal range of motion and neck supple. Skin: General: Skin is warm and dry. Neurological: Mental Status: She is oriented to person, place, and time. She is lethargic. Psychiatric: Mood and Affect: Mood normal. *patient's daughter present with her at today's appt. A/P: Diagnosis ICD-10-CM Plan 1. Inpatient hospitalization within last 30 days Z78.9 2. Atrial fibrillation, unspecified type ([facility]) -f/u with cardiology today for phone visit. Our office to call for BMP/INR results I48.91 3. Bradycardia -improved. R00.1 4. Acute hypoxemic respiratory failure ([facility]) -improved J96.01 5. Acute kidney injury ([facility]) -improved N17.9 6. Hypothyroidism, unspecified type -stable E03.9 7. Type 2 diabetes mellitus with hemoglobin A1c goal of less than 7.0% ([facility]) - uncontrolled; discussed trying to avoid excess sugar/carbs. Encouraged more protein in daily regimen. Advised to continueto follow with endocrinology as directed. E11.9 8. Acute diastolic CHF (congestive heart failure) ([facility]) -stable I50.31 9. Essential hypertension with goal blood pressure less than 140/90 -stable on present medication regimen; continue as rx'd I10 10. Hyperkalemia -[facility] on BMP [facility] E[facility].5 Goals of Care: If appropriate, was the [employer] Wishes Packet given? no Was code status discussed? no Was a POLST completed? no Note: The patient received a successfully completed transition phone call or two attempts at outreach from a staff person under my supervision within 2 business days of discharge. No follow-ups on file. documented in this encounter Nursing Notes * Juju Gresham LPN - 11/15/2023 10:00 AM EDT She is here for her TCM today after going to hospital for CCB overdose and Bradycardia . Then she also went to ER after getting out for BS , levels off just not feeling well . She states she is stillwar out . documented in this encounter Plan of Treatment Health Maintenance Due Date Last Done Comments 25-OH Vitamin D 06/03/2023 06/03/2022, 01/23, 10/17/2021, Additional history exists Urine Albumin Battery 07/20/2023 07/20/2022 , 05/27/2021, 04/05/2021, Additional history exists Billable Depression Screen 12/04/202312/03, 10/23/2021, 07/02/2020 Hepatitis B Vaccine (1 of 3 - Risk 3-dose series) 12/04/2023 Postponed from 1998 (Recommended Yet Declined) Pneumococcal Vaccine (2 of 2 - PCV) 12/04/2023 06/10/2012 Postponed from 06/10/2013 (Recommended Yet Declined) Diabetic Retinal Exam 01/04/2024 10/01/2020 , 12/07/2019, 08/26/2018 Postponed from 10/01/2021 (Medical Reason) HbA1c 02/17/2024 08/17/2023, 05/25, 11/23/2022, Additional history exists Flu Vaccine (Season Ended) 02/22/202402/26, 03/09/2019, 03/11/2018, Additional history exists Diabetic Foot Exam 08/05/2024 08/06/2023, 0 12/03/2022, 06/04/2021, Additional history exists Lipid Profile 08/16/2024 08/17/2023, 07/0 07/2022, 06/03/2022, Additional history exists Advance Directives 09/27/2024 09/28/2023, 0 12/31/2022, 07/06/2022, Additional history exists COVID-19 Vaccine ( season) 2024 07/31/2020, 07/10/2020 Postponed from 01/22/2023 (Recommended Yet Declined) DTaP/Tdap/Td Vaccine (1 - Tdap) 09/27/2024 Postponed from 1957 (Recommended Yet Declined) Medicare Annual Wellness Visit 09/27/2024 09/28/2023, 09/28/2023, 12/03/2022, Additional history exists Shingles Vaccine (Recombinant) (1 of 2) 09/27/2024 Postponed from 03/17/2013 (Recommended Yet Declined) TSH 10/29/2024 10/30/2023, 06/0 12/2023, 08/17/2023, Additional history exists Basic Metabolic Panel 11/04/2024 11/05/2023 , 11/04/2023, 11/03/2023, Additional history exists Creatinine Serum 11/04/2024 11/05/2023, , 11/03/2023, Additional history exists Hemoglobin 11/04/2024 11/05/2023, 10/22, 11/03/2023, Additional history exists Potassium 11/04/2024 11/05/2023, 10/22, 11/03/2023, Additional history exists Vision Exam 04/02/2025 04/02/2020 Dexa Scan 12/23/2027 12/22/2022, 02/10/2019 Hearing Screening 09/27/2028 09/28/2023, 02/07/2019 Controlled Substance Agreement Discontinued 06/04/2022, 06/04/2022, 04/10/2021 Depression Screening Completed 09/28/2023, 12/04/19 23 Colorectal Cancer Screening Discussion Discontinued Full Body Skin Exam Discontinued documented as of this encounter Visit Diagnoses Diagnosis Inpatient hospitalization within last 30 days- Primary Atrial fibrillation, unspecified type (HCC) Bradycardia Other specified cardiac dysrhythmias Acute hypoxemic respiratory failure (HCC) Acute kidney injury (HCC) Acute kidney failure, unspecified Hypothyroidism, unspecified type Type 2 diabetes mellitus with hemoglobin A1c goal of less than 7.0% (HCC) Acute diastolic CHF (congestive heart failure) (HCC) Acute diastolic heart failure Essential hypertension with goal blood pressure less than 140/90 Hyperkalemia Hyperpotassemia documented in this encounter Care Teams Technologist Infectious Disease Relationship Specialty Start Date End Date Nadia Verduzco PAZaneC [address] [place] [address] PCP - General Family Medicine 03/11/18 Provider, MD VALARIE Fitzgerald PROVIDER 09/08/18 Arthur Garber Jr., MD [address] [facility] [address] [place] [address] Orthopaedic Surgery 11/15/18 Provider, Generic External Data 01/30/20 Yousif Pedraza MD [address] [place] [address] Cardiology 02/05/20 Benson Lutz MD [address] [place] [id number] Endocrinology 04/02/20 Iram Duong [address] [place] [phone] Nutrition 04/29/20 External, Provider 05/08/20 Tracie Griggs [address] [place] [address] Nutrition 07/03/20 Cecelia Florian CRNP [address] [place] [address] Endocrinology 07/05/20 Serge Mayers MD [address] [place] [address] Allergy 09/29/21 Berta Schmidt PA-C [address] [facility] [address] [place] [phone] General Surgery 02/03/22 Troy Corley MD [address] [place] [address] Nephrology 07/02/22 Darleen Barrera [address] [place] [address] Registered Nurse 05/11/23 Nura Mckay DO [address] [facility] [address] [place] [phone] Family Medicine 06/01/23 Candy Moreno PA-C [address] [place] [address] Cardiology 11/15/23 documented as of this encounter
--- OUTSIDE RECORDS SUMMARY | 2024-03-31 07:43 | External Medical Summary ---
Author Name Unknown Address Unknown Organization [facility] [address] [facility] [place] [address] Laboratory Report Ordering Provider Test Date Status VIKTOR CABRAL 02/21/2024 07:14:00 Final Observation Date Value Abnormality Reference (Units ) Status Glucose 02/21/2024 07:40 192 Above high normal 70-99 (mg/dL) Final The reference interval for F asting glucose is 70 to 99. The reference interval for Random Glucose is 70 to 139. BUN 02/21/2024 07:40 28 Above high normal 9-23 (mg/dL) Final Creatinine 02/21/2024 07:40 1.87 Above high normal 0.55 -1.02 (mg/dL) Final eGFR 02/21/2024 07:40 26 Below low normal >59 (m L/min/1.73m2) Final eGFR = 142 X [min(Scr/k,1)]* *a [max(Scr/k,1)-1.200x0.9938age X 1.012 [if female] Where Scr is serum creatinine; k is 0.7 for females and 0.9 males; a is -0.241 for females and -0.302 for males; min indicates the minimum of Scr/k or 1, max indicates the maximum of Scr/k or 1 Sodium 02/21/2024 07:40 139 136-145 (mmol /L) Final Potassium 02/21/2024 07:40 3.9 3.4-5.0 (mmol /L) Final Chloride 02/21/2024 07:40 103 98-112 (mmol/ L) Final CO2 02/21/2024 07:40 29 20-31 (mmol/L ) Final Anion Gap 02/21/2024 07:40 11 6-15 (mmol/L) Final Calcium 02/21/2024 07:40 9.9 8.3-10.6 (mg/ dL) Final Total Protein 02/21/2024 07:40 7.3 5.7-8.2 ( g/dL) Final Albumin 02/21/2024 07:40 3.6 3.4-5.0 (g/dL ) Final Bilirubin, Total 02/21/2024 07:40 0.8 0.0-0. 8 (mg/dL) Final AST 02/21/2024 07:40 31 13-40 (U/L) F inal ALT 02/21/2024 07:40 30 7-40 (U/L) Fi nal Alkaline Phosphatase 02/21/2024 07:40 177 Above high n ormal 46-116 (U/L) Final Performing Location [facility] [address] [place] [address]
--- OUTSIDE RECORDS SUMMARY | 2024-03-31 07:43 | External Medical Summary | Summary of Care ---
Author Name Unknown Organization [facility] Address [address] [place] [place] [address] Phone [phone] Care Team Providers Care Operator Cavity Pump Name Role Phone NelyCarlinNurachaka Knowles DO Primary Care Provider [phone] Reason for Visit * Reason Onset Date Comments Test Results 11/08/2023 Encounter Details Date Type Department Care Team (Late st Contact Info) Description 11/08/2023 Telephone Cardiology, [facility] [address] [place] [address] Renee Quintana CRNP [address] [facility] [place] [address] Test Results Allergies Active Allergy Reactions Criticality Noted Date Comments Sulfa Antibiotics 11/14/2004 documented as of this encounter (statuses as of 02/07/2024) Medications Medication Sig Dispensed Refills Start Date [...] in the morning. 08/28/2020 Active Fifty50 Pen Joliet 32G X 4 MM (Insulin Pen Needle) Inject 1 Each under the skin in the morning. 02/08/2019 Active OneTouch Delica Plus [id number] Inject 1 Each under the skin 3 [...] the morning. 90 Tablet 3 08/30/2023 Active cloNIDine HCl 0.2 MG Oral Tablet [...] as of this encounter (statuses as of 02/07/2024) Active Problems Problem Noted Date Diagnosed Date [...] as of this encounter (statuses as of 02/07/2024) Resolved Problems Problem Noted Date Diagnosed Date [...] 11/07/2017 8 Generalized weakness 11/07/2017 023 senior living resident 11/07/20172017 HTN, goal below 140/90 11/04/201511/07 [...] as of this encounter (statuses as of 02/07/2024) Immunizations Name Administration Dates Next Due Pneumococcal [...] encounter Miscellaneous Notes * Telephone Encounter - Nisha Arellano CRNP - 11/09/2023 3:14 PM EDT Oh my gosh, no wonder she felt so terrible. Thank you for confirming med dosage with daughter. We will plan to follow up at her scheduled appointment, will plan for EKG at that time of that visit to check on her HR response with prescribed doses. Thank you, Nisha * Telephone Encounter - Darrick Cotto RN - 11/09/2023 11:49 AM EDT Patient's daughter returned call to the clinic and stated she will notify her mother's PCP in regards to her blood sugar. She stated her mother was admitted to [facility] last week due to taking 240 mg Cardizem instead of 120 mg as ordered. He hert rate was in the 20's when she arrived at ED. Daughter states she is doing much better now and is at home. Explained she is to be only taking the 120 mg Cardizem. Daughter stated that I what she is doing. * Telephone Encounter - Cachorro Cadena LPN - 11/08/2023 1:40 PM EDT Called and left a message for a return call on an unidentified voicemail. Awaiting call back. ----- Message from Nisha Arellano sent at 11/08/2023 1:34 PM EDT ----- Labs reviewed in coverage or ARJUN Bowers Kidney function is declined and blood sugar is way above target. Has seen been having blood sugar issues? If so, is her family doctor aware?? I saw that she was to urgent care of 10/29 for dizziness and shortness of breath. Is she still having these symptoms? The same? Worse? documented in this encounter Plan of Treatment Upcoming Encounters Date Type Department Care Team (Late st Contact Info) Description 05/09/2024 11:00 AM EST Office Visit Cardiology, [facility] [address] [place] [address] Nisha Arellano CRNP [address] [place] [address] Health Maintenance Due Date Last Done Comments [...] Additional history exists CKD PHOS USE SMARTSET 77983 11/01/202410/22, 10/30/2023, 02/16/2023, Additional history exists CKD HGB USE SMARTSET 14778 11/04/202411/04, 11/04/2023, 11/03/2023, Additional history exists HPV [...] Power of Attor himanshu? No Care Teams Operator Cavity Pump Relationship Specialty Start Date End Date Nura Mckay DO PCP - General Family Medicine 12/15/17 documented as of this encounter
--- OUTSIDE RECORDS SUMMARY | 2024-03-31 07:43 | External Medical Summary ---
Author Name UNSPECIFIED Address Unknown Organization [facility] History of Encounters Reason for Assessment: Start of care - f urther visits planned Inpatient discharge facility: Past 14 Da ys: Discharged From Short Stay Acute Hospital Most Recent Inpatient Discharge Date: Functional Assessment Patient Living Situation: Patient lives with other person(s) in the home: Around the clock Bowel Incontinence Frequency: Very rarel y or never has bowel incontinence When Anxious (Reported or Observed): Les s often than daily Cognitive and Behavioral and Psychiatric Symptoms: None Current Ability: Bathing: able to partic ipate in bathing self in shower or tub, but requires presence of another person throughout the bath for assistance or supervision. Current Ability: Ambulation: Able to wal k only with the supervision or assistance of another person at all times. Current: Management Of Oral Medications: Able to take medication(s) at the correct times if: (a) individual dosages are prepared in advance by another person; OR (b) another person develops a drug diary or chart Current: Management Of Injec table Medications: Able to take injectable medication(s) at the correct times if: (a) individual syringes are prepared in advance by another person; OR (b) another person develops a drug diary or chart. 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
--- OUTSIDE RECORDS SUMMARY | 2024-03-31 07:43 | External Medical Summary ---
Author Name Unknown Address Unknown Organization R4LH:[place] [address] [address] [place] [address] Laboratory Report Ordering Provider Test Date Status YAIMA FORRESTERMARCELL 12/15/2023 10:12:00 Final Observation Date Value Abnormality Reference (Units ) Status Prothrombin Time 12/15/2023 11:07 17.7 Above high alanna l 11.9-14.5 (Sec) Final INR 12/15/2023 11:07 1.5 Fin al Performing Location [place] [address] [place] [address]
--- OUTSIDE RECORDS SUMMARY | 2024-03-31 07:43 | External Medical Summary | Summary of Care ---
Author Name Unknown Organization [facility] Address [address] [place] [address] Phone [phone] Care Team Providers Care Grain And Yeast Plants Supervisor Name Role Phone Nely Nura Knowles DO Primary Care Provider +1 [phone] Encounter Details Date Type Department Care Team (Late st Contact Info) Description 01/14/2024 Population Health External Data Unspecified Department Allergies Active Allergy Reactions Criticality Noted Date Comments Sulfa Antibiotics 11/14/2004 documented as of this encounter (statuses as of 01/14/2024) Medications Medication Sig Dispensed Refills Start Date [...] in the morning. 08/28/2020 Active Fifty50 Pen [place] 32G X 4 MM (Insulin Pen Needle) Inject 1 Each under the skin in the morning. 02/08/2019 Active OneTouch Delica Plus [id number] Inject 1 Each under the skin 3 [...] as of this encounter (statuses as of 01/14/2024) Active Problems Problem Noted Date Diagnosed Date [...] as of this encounter (statuses as of 01/14/2024) Resolved Problems Problem Noted Date Diagnosed Date [...] ligation 11/07/2017 8 Generalized weakness 11/07/2017 023 shelter resident 11/07/20172017 HTN, goal below 140/90 11/04/201511/07 [...] as of this encounter (statuses as of 01/14/2024) Immunizations Name Administration Dates Next Due Pneumococcal [...] 05/09/2024 11:00 AM EST Office Visit Cardiology, [facility] [address] [place] [address] Nisha Arellano CRNP [address] [place] [address] Health Maintenance Due Date Last Done Comments [...] Additional history exists CKD PHOS USE SMARTSET 64298 11/01/202410/22, 10/30/2023, 02/16/2023, Additional history exists CKD HGB USE SMARTSET 31850 11/04/202411/04, 11/04/2023, 11/03/2023, Additional history exists HPV [...] Power of Attor himanshu? No Care Teams Grain And Yeast Plants Supervisor Relationship Specialty Start Date End Date Nura Mckay DO PCP - General Family Medicine 12/15/17 documented as of this encounter
--- OUTSIDE RECORDS SUMMARY | 2024-03-31 07:43 | External Medical Summary ---
Author Name Unknown Address Unknown Organization R1WR:[facility] [address] [place] [address] Laboratory Report Ordering Provider Test Date Status VIKTOR CABRAL 02/21/2024 07:14:00 Final Observation Date Value Abnormality Reference (Units ) Status B-Type Natriuretic Peptide 02/21/2024 07:48 466 Above high normal <100 (pg/mL) Final Performing Location [facility] [address] [place] [address]
--- OUTSIDE RECORDS SUMMARY | 2024-03-31 07:43 | External Medical Summary ---
Author Name Unknown Address Unknown Organization R1WR:[facility] [address] [place] [address] Laboratory Report Ordering Provider Test Date Status VIKTOR CABRAL 02/21/2024 07:14:00 Final Observation Date Value Abnormality Reference (Units ) Status aPTT 02/21/2024 07:34 38.9 Above high normal 22.6- 34.3 (SEC) Final Performing Location [facility] [address] [place] [address]
--- OUTSIDE RECORDS SUMMARY | 2024-03-31 07:43 | External Medical Summary ---
Author Name Unknown Address Unknown Organization R1WR:[facility] [address] [place] [address] Laboratory Report Ordering Provider Test Date Status VIKTOR CABRAL 02/21/2024 07:14:00 Final Observation Date Value Abnormality Reference (Units ) Status Procalcitonin 02/21/2024 07:46 0.14 Above high normal < 0.10 (ng/mL) Final Performing Location [facility] [address] [place] [address]
--- OUTSIDE RECORDS SUMMARY | 2024-03-31 07:43 | External Medical Summary ---
Author Name Unknown Address Unknown Organization R4LH:[facility] [address] [place] [address] Laboratory Report Ordering Provider Test Date Status DIANE FORRESTER 01/12/2024 11:46:00 Final Observation Date Value Abnormality Reference (Units ) Status Prothrombin Time 01/12/2024 12:05 24.4 Above high alanna l 11.9-14.5 (Sec) Final INR 01/12/2024 12:05 2.3 Fin al Performing Location [facility] [address] [place] [address]
--- OUTSIDE RECORDS SUMMARY | 2024-03-31 07:43 | External Medical Summary ---
Author Name Unknown Address Unknown Organization R1WR:[facility] [address] [place] [address] Laboratory Report Ordering Provider Test Date Status HUEY PAPPAS 12/10/2023 13:17:00 Final Observation Date Value Abnormality Reference (Units ) Status TSH 12/10/2023 17:17 2.45 0.550-4.780 ( uIU/mL) Final Performing Location [facility] [address] [place] [address]
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
--- OUTSIDE RECORDS SUMMARY | 2024-03-31 07:43 | External Medical Summary ---
Author Name Unknown Address Unknown Organization R4LH:[facility] [address] [place] [address] Laboratory Report Ordering Provider Test Date Status DIANE FORRESTER 02/14/2024 09:22:00 Final Observation Date Value Abnormality Reference (Units ) Status Prothrombin Time 02/14/2024 10:01 29.4 Above high alanna l 11.9-14.5 (Sec) Final INR 02/14/2024 10:01 2.9 Fin al Performing Location [facility] [address] [place] [address]
--- OUTSIDE RECORDS SUMMARY | 2024-03-31 07:43 | External Medical Summary | Summary of Care ---
Author Name Unknown Organization [facility] Address [address] [facility] [place] [address] Phone [phone] Care Team Providers Care Director Of Teacher Education Name Role Phone Nura Mckay DO Primary Care Provider [phone] [phone] Encounter Details Date Type Department Care Team (Late st Contact Info) Description 11/20/2023 Orders Only PATIENT PORTAL DO NOT DELETE THIS DEPT USED BY [place] [address] Allergies Active Allergy Reactions Criticality Noted Date Comments Sulfa Antibiotics 11/14/2004 documented as of this encounter (statuses as of 11/20/2023) Medications Medication Sig Dispensed Refills Start Date [...] in the morning. 08/28/2020 Active Fifty50 Pen [place] 32G X 4 MM (Insulin Pen Needle) Inject 1 Each under the skin in the morning. 02/08/2019 Active OneTouch Delica Plus Endwif14T Inject 1 Each under the skin 3 [...] Oral Capsule Extended Release 24 Hour (Cardizem CD)Indications:Atrial fibrillation with RVR (HCC) Take 1 Capsule by mouth in the morning. 90 Capsule 3 11/18/2023 Active documented as of this encounter (statuses as of 11/20/2023) Active Problems Problem Noted Date Diagnosed Date [...] as of this encounter (statuses as of 11/20/2023) Resolved Problems Problem Noted Date Diagnosed Date [...] ligation 11/07/2017 8 Generalized weakness 11/07/2017 023 jail resident 11/07/20172017 HTN, goal below 140/90 11/04/201511/07 [...] as of this encounter (statuses as of 11/20/2023) Immunizations Name Administration Dates Next Due Pneumococcal [...] 05/09/2024 11:00 AM EST Office Visit Cardiology, [facility] [address] [address] Nisha Arellano CRNP [address] [address] Health Maintenance Due Date Last Done Comments [...] 2023 07/31/2020, 07/10/2020 Influenza Vaccine (FLU shot) (Season Ended) 2024 02/26/2022, 03/09/2019, 03/11/2018, Additional history exists Diabetic Eye Exam 02/06/2024 02/05/2023, , 11/30/2016, Additional history exists HbA1c 02/17/2024 08/17/2023, 05/25, 05/21/2023, Additional history exists TSH 02/18/2024 02/17/2023, 01/23, 11/10/2017, Additional history exists CKD PHOS USE SMARTSET 39562 11/01/202410/22, 10/30/2023, 02/16/2023, Additional history exists CKD HGB USE SMARTSET 30497 11/04/202411/04, 11/04/2023, 11/03/2023, Additional history exists GARDASIL-HPV IMMUNIZATION SERIES Aged Out No longer eligible based on patient's age to complete this topic Hepatitis B Aged Out No longer eligi ble based on patient's age to complete this [...] of Attor himanshu? No Care Teams Director Of Teacher Education Relationship Specialty Start Date End Date Nura Mckay DO [address] [place] [address] [place] [address] PCP - General Family Medicine 12/15/17 documented as of this encounter
--- OUTSIDE RECORDS SUMMARY | 2024-03-31 07:43 | External Medical Summary ---
Author Name UNSPECIFIED Address Unknown Organization [facility] History of Encounters Reason for Assessment: Discharge from [facility] Inpatient Facility where the patient been admitted: No inpatient facility admission Discharge Disposition: Patient remained in the community (without formal assistive services) Functional Assessment Bowel Incontinence Frequency: Very rarel y or never has bowel incontinence Cognitive and Behavioral and Psychiatric Symptoms: None Current: Management Of Oral Medications: Able to take medication(s) at the correct times if: (a) individual dosages are prepared in advance by another person; OR (b) another person develops a drug diary or chart
--- OUTSIDE RECORDS SUMMARY | 2024-03-31 07:44 | External Medical Summary ---
Author Name Unknown Address Unknown Organization R1WR:[facility] [address] [place] [address] Laboratory Report Ordering Provider Test Date Status KELSEA GÓMEZ 11/05/2023 04:37:00 Final Observation Date Value Abnormality Reference (Units ) Status Glucose 11/05/2023 06:09 134 Above high normal 70-99 (mg/dL) Final The reference interval for F asting glucose is 70 to 99. The reference interval for Random Glucose is 70 to 139. BUN 11/05/2023 06:09 50 Above high normal 9-23 (mg/dL) Final Creatinine 11/05/2023 06:09 1.57 Above high normal 0.55 -1.02 (mg/dL) Final eGFR 11/05/2023 06:09 32 Below low normal >59 (m L/min/1.73m2) Final eGFR = 142 X [min(Scr/k,1)]* *a [max(Scr/k,1)-1.200x0.9938age X 1.012 [if female] Where Scr is serum creatinine; k is 0.7 for females and 0.9 males; a is -0.241 for females and -0.302 for males; min indicates the minimum of Scr/k or 1, max indicates the maximum of Scr/k or 1 Sodium 11/05/2023 06:09 137 136-145 (mmol /L) Final Potassium 11/05/2023 06:09 3.8 3.4-5.0 (mmol /L) Final Chloride 11/05/2023 06:09 96 Below low normal 98-112 (mmol/L) Final CO2 11/05/2023 06:09 32 Above high normal 20-31 (mmol/L) Final Anion Gap 11/05/2023 06:09 12 7-15 (mmol/L) Final Calcium 11/05/2023 06:09 9.6 8.3-10.6 (mg/ dL) Final Phosphorus 11/05/2023 06:09 4.0 2.5-4.6 (mg/ dL) Final Albumin 11/05/2023 06:09 3.1 Below low normal 3.4-5. 0 (g/dL) Final Performing Location [facility] [address] [place] [address]
--- OUTSIDE RECORDS SUMMARY | 2024-03-31 07:44 | External Medical Summary ---
Author Name Unknown Address Unknown Organization R1WR:[facility] [address] [place] [address] Laboratory Report Ordering Provider Test Date Status MARK MILLS 11/04/2023 11:11:00 Final Observation Date Value Abnormality Reference (Units ) Status Glucose, POC 11/04/2023 11:17 255 Above high normal 70 -99 (mg/dL) Final Performing Location [facility] [address] [place] [address]
--- OUTSIDE RECORDS SUMMARY | 2024-03-31 07:44 | External Medical Summary | Summary of Care ---
Author Name Unknown Organization [facility] Address [address] [place] [address] Phone [phone] Care Team Providers Care Medical Receptionist Assistant Name Role Phone NelyCarlinNurachaka Knowles DO Primary Care Provider [phone] [phone] Encounter Details Date Type Department Care Team (Late st Contact Info) Description 11/11/2023 Population Health External Data Unspecified Department Allergies Active Allergy Reactions Criticality Noted Date Comments Sulfa Antibiotics 11/14/2004 documented as of this encounter (statuses as of 11/11/2023) Medications Medication Sig Dispensed Refills Start Date [...] in the morning. 08/28/2020 Active Fifty50 Pen [place] 32G X 4 MM (Insulin Pen Needle) Inject 1 Each under the skin in the morning. 02/08/2019 Active OneTouch Delica Plus [id number] Inject 1 Each under the skin 3 [...] Capsule by mouth in the morning. Active cloNIDine HCl 0.2 MG Oral Tablet (Catapres) Take 1 Tablet by mouth in the morning and 1 Tablet at noon and 1 Tablet before bedtime. 90 Tablet 3 02/18/2023 Active Spironolactone 25 MG Oral Tablet (Aldactone) Take 0.5 Tablets by mouth in the morning. 45 Tablet 5 04/08/2023 Active guaiFENesin-DM 100-10 MG/5ML Oral Syrup (Robitussin DM) Take 10 mL by mouth 4 times a day as needed for Cough. 120 mL 05/25/2023 Active Additional Information Patient not taking.Reported on 10/01/2023 Metoprolol Succinate ER 100 MG Oral Tablet Extended Release 24 Hour (toPROL XL)Indications:(HFp EF) heart failure with preserved ejection fraction (HCC),Essential hypertension with goal blood pressure less than 140/90,Paroxysmal atrial fibrillation (HCC) Take 1.5 Tablets by mouth in the morning. 135 Tablet 3 07/06/2023 Active Atorvastatin Calcium 20 MG Oral Tablet (Lipitor) Take 1 Tablet by mouth in the morning. 90 Tablet 3 08/30/2023 Active Furosemide 40 MG Oral Tablet (Lasix)Indications: Hypertensive heart disease with chronic diastolic congestive heart failure (HCC),Chronic right-sided heart failure (HCC),Persistent atrial fibrillation (HCC),HTN, goal below 140/90 TAKE 20 MG BY MOUTH THREE DAYS PER WEEK 10/11/2023 Active dilTIAZem HCl ER 120 MG Oral Capsule Extended Release 24 HourIndications:Per sistent atrial fibrillation (HCC) Take 1 Capsule by mouth in the morning. 90 Capsule 3 10/22/2023 Active documented as of this encounter (statuses as of 11/11/2023) Active Problems Problem Noted Date Diagnosed Date [...] as of this encounter (statuses as of 11/11/2023) Resolved Problems Problem Noted Date Diagnosed Date [...] ligation 11/07/2017 8 Generalized weakness 11/07/2017 023 [facility] resident 11/07/20172017 HTN, goal below 140/90 11/04/201511/07 [...] as of this encounter (statuses as of 11/11/2023) Immunizations Name Administration Dates Next Due Pneumococcal [...] 11/18/2023 10:00 AM EDT Office Visit Cardiology, [facility] [address] [place] [address] Nisha Arellano CRNP [address] [place] [address] Health Maintenance Due Date Last Done Comments [...] 02/06/2024 02/05/2023, , 11/30/2016, Additional history exists CKD PHOS USE SMARTSET 57196 02/17/202401/23, 01/13/2022, 01/12/2022, Additional history exists HbA1c 02/17/2024 08/17/2023, 05/25, 05/21/2023, Additional history exists TSH 02/18/2024 02/17/2023, 01/23, 11/10/2017, Additional history exists CKD HGB USE SMARTSET 66604 09/02/202409/02, 06/08/2023, 05/20/2023, Additional history exists GARDASIL-HPV IMMUNIZATION SERIES Aged [...] Power of Attor himanshu? No Care Teams Medical Receptionist Assistant Relationship Specialty Start Date End Date Nura Mckay DO [address] [place] [address] [place] [address] PCP - General Family Medicine 12/15/17 documented as of this encounter
--- OUTSIDE RECORDS SUMMARY | 2024-03-31 07:44 | External Medical Summary ---
Author Name Unknown Address Unknown Organization K0G:[facility] [address] [place] [address] Laboratory Report Ordering Provider Test Date Status DYLAN TORREZKYRIE 11/06/2023 11:38:10 Final Warfarin Therapy
INR: 2 .0-3.0 conventional anticoagulation
INR: 2.5- 3.5 high intensity anticoagulation Observation Date Value Abnormality Reference (Units ) Status PT 11/06/2023 11:38:10 23.3 Above high normal 11 .6-15.2 (seconds) Final INR 11/06/2023 11:38:10 2.1 Above high normal 0. 8-1.2 Final Performing Location [facility] [address] [place] [address]
--- OUTSIDE RECORDS SUMMARY | 2024-03-31 07:44 | External Medical Summary | Summary of Care ---
Author Name Unknown Organization [facility] Address [address] [place] [address] Phone [phone] Care Team Providers Care C.O.D. Audit Clerk Name Role Phone Nely Nura Knowles DO Primary Care Provider +1 [phone] Reason for Visit * Reason Onset Date Comments Appointment 11/11/2023 Encounter Details Date Type Department Care Team (Late st Contact Info) Description 11/11/2023 Telephone [facility] [place] [address] [place], [place] [id number] Services, Scheduling [address] [place] [address] Appointment (//) Allergies Active Allergy Reactions Criticality Noted Date [...] in the morning. 08/28/2020 Active Fifty50 Pen [place] 32G X 4 MM (Insulin Pen Needle) Inject 1 Each under the skin in the morning. 02/08/2019 Active OneTouch Delica Plus [id number] Inject 1 Each under the skin 3 [...] Telephone Encounter - Pradeep Mendez OSA - 11/11/2023 4:17 PM EDT [facility] Eng[facility] Attempt Engagement: Engagement Attempt 1: Unable to contact Engagement Attempt 2: No data was found Home Information: No data was found Advance Care Planning (ACP): No data was found Has Living Will or Advance Directive: No data was found Anticipated Sub-Program: Focused Care Management (3-9 months) Confirmation of Sub-Program Type (by care steam crane operator): No data was found Handoff Information: Current care team notified via: in[employer]arvo communication, [employer] Current telemonitoring equipment: No data was found 11/10-lmom Looking at [place] 11/15 documented in this encounter Plan of Treatment Upcoming Encounters Date Type Department Care Team (Late st Contact Info) Description 11/18/2023 10:00 AM EDT Office Visit Cardiology, [facility] [address] [place] [address] Nisha Arellano CRNP [address] [place] [address] Health Maintenance Due Date Last Done Comments [...] Additional history exists CKD PHOS USE SMARTSET 51030 11/01/202410/22, 10/30/2023, 02/16/2023, Additional history exists CKD HGB USE SMARTSET 46578 11/04/202411/04, 11/04/2023, 11/03/2023, Additional history exists GARDASIL-HPV [...] Power of Attor himanshu? No Care Teams C.O.D. Audit Clerk Relationship Specialty Start Date End Date Nura Mckay DO [address] [place] [address] [place] [address] PCP - General Family Medicine 12/15/17 documented as of this encounter
--- OUTSIDE RECORDS SUMMARY | 2024-03-31 07:44 | External Medical Summary ---
Author Name Unknown Address Unknown Organization R1WR:[facility] [address] [place] [address] Laboratory Report Ordering Provider Test Date Status MARK MILLS 11/05/2023 10:42:00 Final Observation Date Value Abnormality Reference (Units ) Status Glucose, POC 11/05/2023 10:49 216 Above high normal 70 -99 (mg/dL) Final Performing Location [facility] [address] [place] [address]
--- OUTSIDE RECORDS SUMMARY | 2024-03-31 07:44 | External Medical Summary ---
Author Name Unknown Address Unknown Organization K01:[facility] [place][note 2] [address] [facility] [address] Laboratory Report Ordering Provider Test Date Status JN HINKLE 11/06/2023 11:38:10 Final Observation Date Value Abnormality Reference (Units ) Status BUN 11/06/2023 11:38:10 54 Above high normal 6-20 (mg/dL) Final Creatinine 11/06/2023 11:38:10 1.8 Above high normal 0.5-1.0 (mg/dL) Final Glomerular filtration rate/1.73 sq M.predicted [Volume Rate/Area] in Serum, Plasma or Blood by Creatinine-based formula (CKD-EPI) 11/06/2023 11:38:10 28 Below low normal >=60 (mL/min) Final eGFR is calculated based on the CKD-EPI 2020 equation Sodium 11/06/2023 11:38:10 138 135-146 (m mol/L) Final Potassium 11/06/2023 11:38:10 3.9 3.5-5.1 (m mol/L) Final Cl 11/06/2023 11:38:10 91 Below low normal 98- 107 (mmol/L) Final CO2 11/06/2023 11:38:10 31 22-32 (mmo l/L) Final Anion gap 11/06/2023 11:38:10 16 Above high normal 7- 15 (mmol/L) Final Glucose 11/06/2023 11:38:10 256 Above high normal 70 -120 (mg/dL) Final Calcium 11/06/2023 11:38:10 9.7 8.4-10.2 ( mg/dL) Final Performing Location [facility] - [address] [facility] [address]
--- OUTSIDE RECORDS SUMMARY | 2024-03-31 07:44 | External Medical Summary ---
Author Name Unknown Address Unknown Organization R1WR:[facility] [address] [place] [address] Laboratory Report Ordering Provider Test Date Status MARK MILLS 11/05/2023 07:00:00 Final Observation Date Value Abnormality Reference (Units ) Status Glucose, POC 11/05/2023 07:06 160 Above high normal 70 -99 (mg/dL) Final Performing Location [facility] [address] [place] [address]
--- OUTSIDE RECORDS SUMMARY | 2024-03-31 07:44 | External Medical Summary ---
Author Name Unknown Address Unknown Organization R1WR:[facility] [address] [place] [address] Laboratory Report Ordering Provider Test Date Status MARK MILLS 11/04/2023 04:43:00 Final Observation Date Value Abnormality Reference (Units ) Status WBC 11/04/2023 04:57 14.2 Above high normal 4.0-10.0 (X10E+09/L) Final RBC 11/04/2023 04:57 4.74 3.9-5.2 (X10E+12/L) Final Hemoglobin 11/04/2023 04:57 13.4 11.2-15.7 (g/dL) Final Hematocrit 11/04/2023 04:57 41.0 34-45 (%) Final MCV 11/04/2023 04:57 86.5 79-98 (fL) Final MCH 11/04/2023 04:57 28.3 26.0-32.0 (pg) Final MCHC 11/04/2023 04:57 32.7 32-36 (g/dL) Final Platelets 11/04/2023 04:57 224 150-370 (X10E+09/L) Final RDW 11/04/2023 04:57 15.7 Above high normal 11.7-14.4 (%) Final Neutrophils 11/04/2023 04:57 77.5 Above high normal 34.0-71.1 (%) Final Lymphocytes 11/04/2023 04:57 12.5 Below low normal 19.3-51.7 (%) Final Monocytes 11/04/2023 04:57 9.0 4.7-12.5 (%) Final Eosinophils 11/04/2023 04:57 0.8 0.7-5.8 (%) Final Basophils 11/04/2023 04:57 0.2 0.1-1.2 (%) Final Absolute Neutrophils 11/04/2023 04:57 10.97 Above high normal 1.6-6.1 (X10E+09/L) Final Absolute Lymphocytes 11/04/2023 04:57 1.77 1.2-3.7 (X10E+09/L) Final Absolute Monocytes 11/04/2023 04:57 1.27 Above high normal 0.2-0.9 (X10E+09/L) Final Absolute Eosinophils 11/04/2023 04:57 0.11 0.0-0.4 (X10E+09/L) Final Absolute Basophils 11/04/2023 04:57 0.03 0.0-0.1 (X10E+09/L) Final Absolute NRBC 11/04/2023 04:57 0.00 0 (X10E+09/L) Final Nucleated RBC 11/04/2023 04:57 0.0 0.0-0.2 (/100 WBC) Final Performing Location [facility] [address] [place] [address]
--- OUTSIDE RECORDS SUMMARY | 2024-03-31 07:44 | External Medical Summary ---
Author Name Unknown Address Unknown Organization R1WR:[facility] [address] [place] [address] Laboratory Report Ordering Provider Test Date Status MARK MILLS 11/04/2023 04:43:00 Final Observation Date Value Abnormality Reference (Units ) Status Glucose 11/04/2023 05:05 151 Above high normal 70-99 (mg/dL) Final The reference interval for F asting glucose is 70 to 99. The reference interval for Random Glucose is 70 to 139. BUN 11/04/2023 05:05 46 Above high normal 9-23 (mg/dL) Final Creatinine 11/04/2023 05:05 1.63 Above high normal 0.55 -1.02 (mg/dL) Final eGFR 11/04/2023 05:05 31 Below low normal >59 (m L/min/1.73m2) Final eGFR = 142 X [min(Scr/k,1)]* *a [max(Scr/k,1)-1.200x0.9938age X 1.012 [if female] Where Scr is serum creatinine; k is 0.7 for females and 0.9 males; a is -0.241 for females and -0.302 for males; min indicates the minimum of Scr/k or 1, max indicates the maximum of Scr/k or 1 Sodium 11/04/2023 05:05 136 136-145 (mmol /L) Final Potassium 11/04/2023 05:05 4.1 3.4-5.0 (mmol /L) Final Hemolysis: Results may be ad versely affected. Recommend recollect. Chloride 11/04/2023 05:05 100 98-112 (mmol/ L) Final CO2 11/04/2023 05:05 29 20-31 (mmol/L ) Final Anion Gap 11/04/2023 05:05 11 7-15 (mmol/L) Final Calcium 11/04/2023 05:05 9.4 8.3-10.6 (mg/ dL) Final Performing Location [facility] [address] [place] [address]
--- OUTSIDE RECORDS SUMMARY | 2024-03-31 07:44 | External Medical Summary ---
Author Name Unknown Address Unknown Organization R1WR:[facility] [address] [place] [address] Laboratory Report Ordering Provider Test Date Status MARK MILLS 11/04/2023 20:31:00 Final Observation Date Value Abnormality Reference (Units ) Status Glucose, POC 11/04/2023 20:38 156 Above high normal 70 -99 (mg/dL) Final Performing Location [facility] [address] [place] [address]
--- OUTSIDE RECORDS SUMMARY | 2024-03-31 07:44 | External Medical Summary | Summary of Care ---
Author Name Unknown Organization [facility] Address [address] [place] [address] Phone [phone] Care Team Providers Care Director Of Media Name Role Phone Nura Mckay Primary Care Provider [phone] [phone] Reason for Visit * Reason Onset Date Comments [facility]: Screening 11/11/2023 Encounter Details Date Type Department Care Team ([facility] st Contact Info) Description 11/11/2023 Telephone [facility], [facility] [address] [place] [address] [facility], Nurse [facility] [address] [place] [address] [facility]: Screening Allergies Active Allergy [...] in the morning. 08/28/2020 Active Fifty50 Pen [place] 32G X 4 MM (Insulin Pen Needle) Inject 1 Each under the skin in the morning. 02/08/2019 Active OneTouch Delica Plus [id number] Inject 1 Each under the skin 3 [...] ligation 11/07/2017 8 Generalized weakness 11/07/2017 023 snf resident 11/07/20172017 HTN, goal below 140/90 11/04/201511/07 [...] encounter Miscellaneous Notes * Telephone Encounter - Bárbara France LPN - 11/11/2023 2:13 PM EDT Lc Cantrell was referred as a potential candidate for enrollment for [facility]. A review of this chart was completed and: Lc meets criteria for [facility]. Jump to Initiation Referring care team was notified via : [employer] and [employer] Received TT from Ju Atwood for referral. Bárbara France LPN [facility] 11/11/2023 documented in this encounter Plan of Treatment Upcoming Encounters Date Type Department Care Team (Late st Contact Info) Description 11/18/2023 10:00 AM EDT Office Visit Cardiology, [facility] [address] [place] [address] Nisha Arellano CRNP [address] [facility] [place] [address] Health Maintenance Due Date Last Done Comments [...] Additional history exists CKD PHOS USE SMARTSET 09621 11/01/202410/22, 10/30/2023, 02/16/2023, Additional history exists CKD HGB USE SMARTSET 40067 11/04/202411/04, 11/04/2023, 11/03/2023, Additional history exists GARDASIL-HPV [...] Attor himanshu? No Care Teams Director Of Media Relationship Specialty Start Date End Date Nura Mckay DO [address] [address] [place] [address] PCP - General Family Medicine 12/15/17 documented as of this encounter
--- OUTSIDE RECORDS SUMMARY | 2024-03-31 07:44 | External Medical Summary | Summary of Care ---
Author Name Unknown Organization [facility] Address [address] [place] [address] Phone [phone] Care Team Providers Care Gas Station Operator Name Role Phone NelyCarlinNurachaka Knowles DO Primary Care Provider [phone] Reason for Visit * Reason Onset Date Comments Appointment 11/12/2023 Encounter Details Date Type Department Care Team (Late st Contact Info) Description 11/12/2023 Telephone [facility], [place] [address] [place], [place] [id number] Services, Scheduling [address] [place] [address] Appointment Allergies Active Allergy Reactions Criticality Noted Date Comments Sulfa Antibiotics 11/14/2004 documented as of this encounter (statuses as of 11/12/2023) Medications Medication Sig Dispensed Refills Start Date [...] in the morning. 08/28/2020 Active Fifty50 Pen [place] 32G X 4 MM (Insulin Pen Needle) Inject 1 Each under the skin in the morning. 02/08/2019 Active OneTouch Delica Plus [id number] Inject 1 Each under the skin 3 [...] as of this encounter (statuses as of 11/12/2023) Active Problems Problem Noted Date Diagnosed Date [...] as of this encounter (statuses as of 11/12/2023) Resolved Problems Problem Noted Date Diagnosed Date [...] ligation 11/07/2017 8 Generalized weakness 11/07/2017 023 skilled nursing resident 11/07/20172017 HTN, goal below 140/90 11/04/201511/07 [...] as of this encounter (statuses as of 11/12/2023) Immunizations Name Administration Dates Next Due Pneumococcal [...] Telephone Encounter - Pradeep Mendez OSA - 11/12/2023 8:07 AM EDT [facility] Engagement Attempt Engagement: Engagement Attempt 1: Unable to contact Engagement Attempt 2: Unable to contact Engagement Attempt 3: No data was found Home Information: No data was found Advance Care Planning (ACP): No data was found Has Living Will or Advance Directive: No data was found Anticipated Sub-Program: Focused Care Management (3-9 months) Confirmation of Sub-Program Type (by care cleaning team member): No data was found Handoff Information: Current care team notified via: [employer], [employer] Current telemonitoring equipment: No data was found 11/11-lmom Looking at zephyr 11/15 documented in this encounter Plan of Treatment Upcoming Encounters Date Type Department Care Team (Late st Contact Info) Description 11/18/2023 10:00 AM EDT Office Visit Cardiology, [facility] [address] [place] [address] Nisha Arellano CRNP [address] [facility] [place] [address] Health Maintenance Due Date Last Done Comments [...] Additional history exists CKD PHOS USE SMARTSET 22903 11/01/202410/22, 10/30/2023, 02/16/2023, Additional history exists CKD HGB USE SMARTSET 05538 11/04/202411/04, 11/04/2023, 11/03/2023, Additional history exists GARDASIL-HPV [...] Power of Attor himanshu? No Care Teams Gas Station Operator Relationship Specialty Start Date End Date Nura Mckay DO [address] [address] [place] [address] PCP - General Family Medicine 12/15/17 documented as of this encounter
--- OUTSIDE RECORDS SUMMARY | 2024-03-31 07:44 | External Medical Summary ---
Author Name Unknown Address Unknown Organization R1WR:[facility] [address] [place] [address] Laboratory Report Ordering Provider Test Date Status MARK MILLS 11/04/2023 07:06:00 Final Observation Date Value Abnormality Reference (Units ) Status Glucose, POC 11/04/2023 07:13 156 Above high normal 70 -99 (mg/dL) Final Performing Location [facility] [address] [place] [address]
--- OUTSIDE RECORDS SUMMARY | 2024-03-31 07:44 | External Medical Summary | Summary of Care ---
Author Name Unknown Organization [facility] Address [address] [place] [address] Phone [phone] Care Team Providers Care Dining Room Host Name Role Phone Nura Mckay Primary Care Provider [phone] Reason for Visit * Reason Onset Date Comments [facility]: Screening 11/11/2023 Encounter Details Date Type Department Care Team ([facility] st Contact Info) Description 11/11/2023 Telephone [facility], [facility] [address] [place] [facility] [place] [address] [facility], Nurse [facility] [address] [place] [address] [facility]: Screening Allergies Active Allergy [...] in the morning. 08/28/2020 Active Fifty50 Pen [place] 32G X 4 MM (Insulin Pen Needle) Inject 1 Each under the skin in the morning. 02/08/2019 Active OneTouch Delica Plus [id number] Inject 1 Each under the skin 3 [...] ligation 11/07/2017 8 Generalized weakness 11/07/2017 023 prison resident 11/07/20172017 HTN, goal below 140/90 11/04/201511/07 [...] Referring care team was notified via : [employer] Received TT from Ju Atwood for referral. Bárbara France LPN [facility] 11/11/2023 documented in this encounter Plan of Treatment Upcoming Encounters Date Type Department Care Team (Late st Contact Info) Description 11/18/2023 10:00 AM EDT Office Visit Cardiology, [facility] [address] [place] [address] Nisha Arellano CRNP [address] [facility] [place] [address] Health Maintenance Due Date Last Done Comments [...] Additional history exists CKD PHOS USE SMARTSET 17601 11/01/202410/22, 10/30/2023, 02/16/2023, Additional history exists CKD HGB USE SMARTSET 31764 11/04/202411/04, 11/04/2023, 11/03/2023, Additional history exists GARDASIL-HPV [...] Power of Attor himanshu? No Care Teams Dining Room Host Relationship Specialty Start Date End Date Nura Mckay DO [address] [address] [place] [address] PCP - General Family Medicine 12/15/17 documented as of this encounter
--- OUTSIDE RECORDS SUMMARY | 2024-03-31 07:44 | External Medical Summary ---
Author Name Unknown Address Unknown Organization R1WR:[facility] [address] [place] [address] Laboratory Report Ordering Provider Test Date Status MARK MILLS 11/05/2023 04:37:00 Final Observation Date Value Abnormality Reference (Units ) Status WBC 11/05/2023 05:42 12.8 Above high normal 4.0-10.0 (X10E+09/L) Final RBC 11/05/2023 05:42 4.90 3.9-5.2 (X10E+12/L) Final Hemoglobin 11/05/2023 05:42 14.2 11.2-15.7 (g/dL) Final Hematocrit 11/05/2023 05:42 42.0 34-45 (%) Final MCV 11/05/2023 05:42 85.7 79-98 (fL) Final MCH 11/05/2023 05:42 29.0 26.0-32.0 (pg) Final MCHC 11/05/2023 05:42 33.8 32-36 (g/dL) Final Platelets 11/05/2023 05:42 255 150-370 (X10E+09/L) Final RDW 11/05/2023 05:42 15.8 Above high normal 11.7-14.4 (%) Final Neutrophils 11/05/2023 05:42 71.7 Above high normal 34.0-71.1 (%) Final Lymphocytes 11/05/2023 05:42 16.4 Below low normal 19.3-51.7 (%) Final Monocytes 11/05/2023 05:42 10.0 4.7-12.5 (%) Final Eosinophils 11/05/2023 05:42 1.6 0.7-5.8 (%) Final Basophils 11/05/2023 05:42 0.3 0.1-1.2 (%) Final Absolute Neutrophils 11/05/2023 05:42 9.16 Above high normal 1.6-6.1 (X10E+09/L) Final Absolute Lymphocytes 11/05/2023 05:42 2.09 1.2-3.7 (X10E+09/L) Final Absolute Monocytes 11/05/2023 05:42 1.28 Above high normal 0.2-0.9 (X10E+09/L) Final Absolute Eosinophils 11/05/2023 05:42 0.20 0.0-0.4 (X10E+09/L) Final Absolute Basophils 11/05/2023 05:42 0.04 0.0-0.1 (X10E+09/L) Final Absolute NRBC 11/05/2023 05:42 0.02 Above high normal 0 (X10E+09/L) Final Nucleated RBC 11/05/2023 05:42 0.2 0.0-0.2 (/100 WBC) Final Performing Location [facility] [address] [place] [address]
--- OUTSIDE RECORDS SUMMARY | 2024-03-31 07:44 | External Medical Summary | Summary of Care ---
Author Name Unknown Organization [facility] Address [address] [place] [address] Phone [phone] Care Team Providers Care Iuss Acoustic Analyst Name Role Phone NelyCarlinNurachaka Knowles DO Primary Care Provider [phone] Reason for Visit * Reason Onset Date Comments Appointment 11/15/2023 Encounter Details Date Type Department Care Team (Late st Contact Info) Description 11/15/2023 Telephone [facility], [place] [address] [place], [place] [id number] Services, Scheduling [address] [place] [address] Appointment Allergies Active Allergy Reactions Criticality Noted Date Comments Sulfa Antibiotics 11/14/2004 documented as of this encounter (statuses as of 11/15/2023) Medications Medication Sig Dispensed Refills Start Date [...] in the morning. 08/28/2020 Active Fifty50 Pen [place] 32G X 4 MM (Insulin Pen Needle) Inject 1 Each under the skin in the morning. 02/08/2019 Active OneTouch Delica Plus [id number] Inject 1 Each under the skin 3 [...] as of this encounter (statuses as of 11/15/2023) Active Problems Problem Noted Date Diagnosed Date [...] as of this encounter (statuses as of 11/15/2023) Resolved Problems Problem Noted Date Diagnosed Date [...] as of this encounter (statuses as of 11/15/2023) Immunizations Name Administration Dates Next Due Pneumococcal [...] encounter Miscellaneous Notes * Telephone Encounter - Moon Ledbetter OSA - 11/15/2023 12:13 PM EDT [facility] Engagement Attempt Engagement: Engagement Attempt 1: Unable to contact Engagement Attempt 2: Unable to contact Engagement Attempt 3: No data was found Left message, will close out and send letter Home Information: No data was found Advance Care Planning (ACP): No data was found Has Living Will or Advance Directive: No data was found Anticipated Sub-Program: Focused Care Management (3-9 months) Confirmation of Sub-Program Type (by care meat service team member): No data was found Handoff Information: Current care team notified via: [employer], [employer] Current telemonitoring equipment: No data was found documented in this encounter Plan of Treatment Upcoming Encounters Date Type Department Care Team (Late st Contact Info) Description 11/18/2023 10:00 AM EDT Office Visit Cardiology, [facility] [address] [place] [address] Nisha Arellano CRNP [address] [place] [address] Health Maintenance Due Date Last Done Comments [...] Additional history exists CKD PHOS USE SMARTSET 26465 11/01/202410/22, 10/30/2023, 02/16/2023, Additional history exists CKD HGB USE SMARTSET 04330 11/04/202411/04, 11/04/2023, 11/03/2023, Additional history exists GARDASIL-HPV [...] Power of Attor himanshu? No Care Teams Iuss Acoustic Analyst Relationship Specialty Start Date End Date Nura Mckay DO [address] [address] [place] [address] PCP - General Family Medicine 12/15/17 documented as of this encounter
--- OUTSIDE RECORDS SUMMARY | 2024-03-31 07:44 | External Medical Summary ---
Author Name Unknown Address Unknown Organization R1WR:[facility] [address] [place] [address] Laboratory Report Ordering Provider Test Date Status SHAN ACHARANMADIHA 11/05/2023 04:37:00 Final Observation Date Value Abnormality Reference (Units ) Status Prothrombin Time 11/05/2023 06:02 28.8 Above high alanna l 11.9-14.5 (Sec) Final INR 11/05/2023 06:02 2.7 Fin al Performing Location [facility] [address] [place] [address]
--- OUTSIDE RECORDS SUMMARY | 2024-03-31 07:44 | External Medical Summary | Summary of Care ---
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 08/28/2020 Active Fifty50 Pen [place] 32G X 4 MM (Insulin Pen Needle) Inject 1 Each under the skin in the morning. 02/08/2019 Active OneTouch Delica Plus [id number] Inject 1 Each under the skin 3 [...] MG Oral Capsule Extended Release 24 HourIndications:Per francescatent atrial fibrillation (HCC) Take 1 Capsule by mouth in the morning. 90 Capsule 3 10/22/2023 Active documented as of this encounter (statuses as of 11/06/2023) Active Problems Problem Noted Date Diagnosed Date [...] as of this encounter (statuses as of 11/06/2023) Resolved Problems Problem Noted Date Diagnosed Date [...] as of this encounter (statuses as of 11/06/2023) Immunizations Name Administration Dates Next Due Pneumococcal [...] Answer Date Recorded PHQ-2 Score -1 03/30/2018 Sex and Gender Information Value Date Recorded [...] 11/18/2023 10:00 AM EDT Office Visit Cardiology, [facility] [address] [place] [address] Nisha Arellano CRNP [address] [place] [address] Pending Results Name Type Priority Associated Diagnoses Date /Time BASIC METABOLIC PANEL Lab Routine Hypertensive heart disease with chronic diastolic congestive heart failure (HCC) Chronic right-sided heart failure (HCC) Persistent atrial fibrillation (HCC) HTN, goal below 140/90 11/06/2023 11:38 AM EDT PT INR Lab Routine Chronic kidney disease (CKD) Anticoagulation management encounter 11/06/2023 11:38 AM EDT Health Maintenance Due Date Last Done Comments DTaP,Tdap,and Td Vaccines (1 - Tdap) 1959 Zoster Vaccines (2 of 3) 03/17/2013 01/20/2013 Pneumococcal Vaccine: 65+ Years (2 of 2 - PCV) 06/10/2013 06/10/2012 Albumin/Creatinine Ratio 10/27/2016 016, 10/05/2014, 09/21/2013, Additional history exists Diabetic Foot Exam 05/12/2017 05/12/2016, 1 07/07/2014, 06/15/2014, Additional history exists Depression Monitoring 11/23/2018 11/23/2017 COVID-19 Vaccine ( - season) 2023 07/31/2020, 07/10/2020 Influenza Vaccine (FLU shot) (Season Ended) 2024 02/26/2022, 03/09/2019, 03/11/2018, Additional history exists Diabetic Eye Exam 02/06/2024 02/05/2023, , 11/30/2016, Additional history exists CKD PHOS USE SMARTSET 72491 02/17/2024 09/2 10/2022, 01/13/2022, 01/12/2022, Additional history exists HbA1c 02/17/2024 08/17/2023, 05/25, 05/21/2023, Additional history exists TSH 02/18/2024 02/17/2023, 01/23, 11/10/2017, Additional history exists CKD HGB USE SMARTSET 79812 09/02/202409/02, 06/08/2023, 05/20/2023, Additional history exists GARDASIL-HPV [...] as of this encounter Visit Diagnoses Diagnosis 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 No Care Teams Lozenge Maker Relationship Specialty Start Date End Date Nura Mckay DO [address] [place] [address] [place] [address] PCP - General Family Medicine 12/15/17 documented as of this encounter
--- OUTSIDE RECORDS SUMMARY | 2024-03-31 07:44 | External Medical Summary ---
Author Name Unknown Address Unknown Organization R1WR:[facility] [address] [place] [address] Laboratory Report Ordering Provider Test Date Status MARK MILLS 11/03/2023 20:39:00 Final Observation Date Value Abnormality Reference (Units ) Status Glucose, POC 11/03/2023 20:45 120 Above high normal 70 -99 (mg/dL) Final Performing Location [facility] [address] [place] [address]
--- OUTSIDE RECORDS SUMMARY | 2024-03-31 07:44 | External Medical Summary ---
Author Name Unknown Address Unknown Organization R1WR:[facility] [address] [place] [address] Laboratory Report Ordering Provider Test Date Status MARK MILLS 11/04/2023 16:01:00 Final Observation Date Value Abnormality Reference (Units ) Status Glucose, POC 11/04/2023 16:08 226 Above high normal 70 -99 (mg/dL) Final Performing Location [facility] [address] [place] [address]
--- OUTSIDE RECORDS SUMMARY | 2024-03-31 07:44 | External Medical Summary | Summary of Care ---
Author Name Unknown Organization [facility] Address [address] [place] [address] Phone [phone] Care Team Providers Care Theatre Manager Name Role Phone Nura Mckay DO Primary Care Provider [phone] Encounter Details Date Type Department Care Team (Late st Contact Info) Description 11/06/2023 Orders Only Laboratory, [facility] [address] [facility] [address] Wilmer Parnell MD [address] [place], [place] [id number] Chronic kidney disease (CKD)*; Anticoagulation management encounter Allergies Active Allergy Reactions [...] in the morning. 08/28/2020 Active Fifty50 Pen [place] 32G X 4 MM (Insulin Pen Needle) Inject 1 Each under the skin in the morning. 02/08/2019 Active OneTouch Delica Plus [id number] Inject 1 Each under the skin 3 [...] ligation 11/07/2017 8 Generalized weakness 11/07/2017 023 group home resident 11/07/20172017 HTN, goal below 140/90 11/04/201511/07 [...] 11/18/2023 10:00 AM EDT Office Visit Cardiology, [facility] [address] [place] [address] Nisha Arellano CRNP [address] [place] [address] Pending Results Name Type Priority Associated Diagnoses Date /Time PT INR Lab Routine Chronic kidney disease (CKD) Anticoagulation management encounter 11/06/2023 11:38 AM EDT Scheduled Orders Name Type Priority Associated Diagnoses Orde r Schedule PT INR Lab Routine Chronic kidney disease (CKD) Anticoagulation management encounter Expected: 11/06/2023, Expires: 11/05/2024 Health Maintenance Due Date Last Done Comments [...] Additional history exists CKD PHOS USE SMARTSET 93802 02/17/202401/23, 01/13/2022, 01/12/2022, Additional history exists HbA1c 02/17/2024 08/17/2023, 05/25, 05/21/2023, Additional history exists TSH 02/18/2024 02/17/2023, 01/23, 11/10/2017, Additional history exists CKD HGB USE SMARTSET 60534 09/02/202409/02, 06/08/2023, 05/20/2023, Additional history exists GARDASIL-HPV [...] of this encounter Visit Diagnoses Diagnosis Chronic kidney disease (CKD)- Primary Chronic kidney disease, unspecified Anticoagulation management encounter [...] Power of Attor himanshu? No Care Teams Theatre Manager Relationship Specialty Start Date End Date Nura Mckay DO [address] [facility] [address] [facility] [place] [address] PCP - General Family Medicine 12/15/17 documented as of this encounter
--- OUTSIDE RECORDS SUMMARY | 2024-03-31 07:44 | External Medical Summary ---
Author Name Unknown Address Unknown Organization R1WR:[facility] [address] [place] [address] Laboratory Report Ordering Provider Test Date Status SHAN NileshCHARANMADIHA 11/04/2023 04:43:00 Final Observation Date Value Abnormality Reference (Units ) Status Prothrombin Time 11/04/2023 05:21 31.0 Above high alanna l 11.9-14.5 (Sec) Final INR 11/04/2023 05:21 2.9 Fin al Performing Location [facility] [address] [place] [address]
--- OUTSIDE RECORDS SUMMARY | 2024-03-31 07:45 | External Medical Summary ---
Author Name Unknown Address Unknown Organization R1WR:[facility] [address] [place] [address] Laboratory Report Ordering Provider Test Date Status MARK MILLS 11/03/2023 07:25:00 Final Observation Date Value Abnormality Reference (Units ) Status Glucose, POC 11/03/2023 07:33 169 Above high normal 70 -99 (mg/dL) Final Performing Location [facility] [address] [place] [address]
--- OUTSIDE RECORDS SUMMARY | 2024-03-31 07:45 | External Medical Summary ---
Author Name Unknown Address Unknown Organization R1WR[facility] [address] [place] [address] Laboratory Report Ordering Provider Test Date Status MARK MILLS 11/03/2023 16:15:00 Final Observation Date Value Abnormality Reference (Units ) Status Glucose, POC 11/03/2023 16:22 195 Above high normal 70 -99 (mg/dL) Final Performing Location [facility] [address] [place] [address]
--- OUTSIDE RECORDS SUMMARY | 2024-03-31 07:45 | External Medical Summary ---
Author Name Unknown Address Unknown Organization R1WR:[facility] [address] [place] [address] Laboratory Report Ordering Provider Test Date Status SHELLY GRIFFITH 10/31/2023 14:13:00 Final Observation Date Value Abnormality Reference (Units ) Status Glucose, POC 10/31/2023 14:20 133 Above high normal 70 -99 (mg/dL) Final Performing Location [facility] [address] [place] [address]
--- OUTSIDE RECORDS SUMMARY | 2024-03-31 07:45 | External Medical Summary ---
Author Name Unknown Address Unknown Organization R1WR:[facility] [address] [facility] [place] [address] Laboratory Report Ordering Provider Test Date Status REMA SHIRLEY 11/01/2023 07:23:00 Final Observation Date Value Abnormality Reference (Units ) Status Glucose 11/01/2023 08:37 237 Above high normal 70-99 (mg/dL) Final The reference interval for F asting glucose is 70 to 99. The reference interval for Random Glucose is 70 to 139. BUN 11/01/2023 08:37 41 Above high normal 9-23 (mg/dL) Final Creatinine 11/01/2023 08:37 2.42 Above high normal 0.55 -1.02 (mg/dL) Final eGFR 11/01/2023 08:37 19 Below low normal >59 (m L/min/1.73m2) Final eGFR = 142 X [min(Scr/k,1)]* *a [max(Scr/k,1)-1.200x0.9938age X 1.012 [if female] Where Scr is serum creatinine; k is 0.7 for females and 0.9 males; a is -0.241 for females and -0.302 for males; min indicates the minimum of Scr/k or 1, max indicates the maximum of Scr/k or 1 Sodium 11/01/2023 08:37 139 136-145 (mmol /L) Final Potassium 11/01/2023 08:37 4.8 3.4-5.0 (mmol /L) Final Chloride 11/01/2023 08:37 104 98-112 (mmol/ L) Final CO2 11/01/2023 08:37 23 20-31 (mmol/L ) Final Anion Gap 11/01/2023 08:37 17 Above high normal 7-15 (mmol/L) Final Calcium 11/01/2023 08:37 9.1 8.3-10.6 (mg/ dL) Final Total Protein 11/01/2023 08:37 7.0 5.7-8.2 ( g/dL) Final Albumin 11/01/2023 08:37 3.6 3.4-5.0 (g/dL ) Final Bilirubin, Total 11/01/2023 08:37 0.5 0.0-0. 8 (mg/dL) Final AST 11/01/2023 08:37 46 Above high normal 13-40 (U/L) Final ALT 11/01/2023 08:37 76 Above high normal 7-40 (U/L) Final Alkaline Phosphatase 11/01/2023 08:37 170 Above high n ormal 46-116 (U/L) Final Performing Location [facility] [address] [place] [id number]
--- OUTSIDE RECORDS SUMMARY | 2024-03-31 07:45 | External Medical Summary ---
Author Name Unknown Address Unknown Organization R1WR:[facility] [address] [place] [address] Laboratory Report Ordering Provider Test Date Status REMA SHIRLEY 11/01/2023 07:23:00 Final Observation Date Value Abnormality Reference (Units ) Status WBC 11/01/2023 08:14 15.8 Above high normal 4.0-10.0 (X10E+09/L) Final RBC 11/01/2023 08:14 4.49 3.9-5.2 (X10E+12/L) Final Hemoglobin 11/01/2023 08:14 12.8 11.2-15.7 (g/dL) Final Hematocrit 11/01/2023 08:14 40.2 34-45 (%) Final MCV 11/01/2023 08:14 89.5 79-98 (fL) Final MCH 11/01/2023 08:14 28.5 26.0-32.0 (pg) Final MCHC 11/01/2023 08:14 31.8 Below low normal 32-36 (g/dL) Final Platelets 11/01/2023 08:14 202 150-370 (X10E+09/L) Final RDW 11/01/2023 08:14 15.0 Above high normal 11.7-14.4 (%) Final Neutrophils 11/01/2023 08:14 87.5 Above high normal 34.0-71.1 (%) Final Lymphocytes 11/01/2023 08:14 6.4 Below low normal 19.3-51.7 (%) Final Monocytes 11/01/2023 08:14 5.8 4.7-12.5 (%) Final Eosinophils 11/01/2023 08:14 0.0 Below low normal 0.7-5.8 (%) Final Basophils 11/01/2023 08:14 0.3 0.1-1.2 (%) Final Absolute Neutrophils 11/01/2023 08:14 13.86 Above high normal 1.6-6.1 (X10E+09/L) Final Absolute Lymphocytes 11/01/2023 08:14 1.01 Below low normal 1.2-3.7 (X10E+09/L) Final Absolute Monocytes 11/01/2023 08:14 0.92 Above high normal 0.2-0.9 (X10E+09/L) Final Absolute Eosinophils 11/01/2023 08:14 0.00 0.0-0.4 (X10E+09/L) Final Absolute Basophils 11/01/2023 08:14 0.04 0.0-0.1 (X10E+09/L) Final Absolute NRBC 11/01/2023 08:14 0.00 0 (X10E+09/L) Final Nucleated RBC 11/01/2023 08:14 0.0 0.0-0.2 (/100 WBC) Final Performing Location [facility] [address] [place] [address]
--- OUTSIDE RECORDS SUMMARY | 2024-03-31 07:45 | External Medical Summary ---
Author Name Unknown Address Unknown Organization R1WR:[facility] [address] [place] [address] Laboratory Report Ordering Provider Test Date Status SHELLY GRIFFITH 10/31/2023 21:40:00 Final Observation Date Value Abnormality Reference (Units ) Status Glucose, POC 10/31/2023 21:47 252 Above high normal 70 -99 (mg/dL) Final Performing Location [facility] [address] [place] [address]
--- OUTSIDE RECORDS SUMMARY | 2024-03-31 07:45 | External Medical Summary ---
Author Name Unknown Address Unknown Organization R1WR:[facility] [address] [place] [address] Laboratory Report Ordering Provider Test Date Status SHELLY GRIFFITH 10/31/2023 17:24:00 Final Observation Date Value Abnormality Reference (Units ) Status Glucose, POC 10/31/2023 17:31 128 Above high normal 70 -99 (mg/dL) Final Performing Location [facility] [address] [place] [address]
--- OUTSIDE RECORDS SUMMARY | 2024-03-31 07:45 | External Medical Summary ---
Author Name Unknown Address Unknown Organization R1WR:[facility] [address] [place] [address] Laboratory Report Ordering Provider Test Date Status LARRY BROWNLEE 11/03/2023 07:42:00 Final Observation Date Value Abnormality Reference (Units ) Status Magnesium 11/03/2023 08:47 2.0 1.6-2.6 (mg/d L) Final Performing Location [facility] [address] [place] [address]
--- OUTSIDE RECORDS SUMMARY | 2024-03-31 07:45 | External Medical Summary ---
Author Name Unknown Address Unknown Organization R1WR:[facility] [address] [place] [address] Laboratory Report Ordering Provider Test Date Status SHELLY GRIFFITH 11/02/2023 16:25:00 Final Observation Date Value Abnormality Reference (Units ) Status Glucose, POC 11/02/2023 16:32 216 Above high normal 70 -99 (mg/dL) Final Performing Location [facility] [address] [place] [address]
--- OUTSIDE RECORDS SUMMARY | 2024-03-31 07:45 | External Medical Summary ---
Author Name Unknown Address Unknown Organization R1WR:[facility] [address] [place] [address] Laboratory Report Ordering Provider Test Date Status SHELLY GRIFFITH 11/01/2023 12:13:00 Final Observation Date Value Abnormality Reference (Units ) Status Glucose, POC 11/01/2023 12:34 192 Above high normal 70 -99 (mg/dL) Final Performing Location [facility] [address] [place] [address]
--- OUTSIDE RECORDS SUMMARY | 2024-03-31 07:45 | External Medical Summary ---
Author Name Unknown Address Unknown Organization R1WR:[facility] [address] [place] [address] Laboratory Report Ordering Provider Test Date Status MARK MILLS 11/03/2023 13:15:00 Final Observation Date Value Abnormality Reference (Units ) Status SOURCE: 11/03/2023 10:10 Urine Fin al Legionella Urinary Antige 11/05/2023 10:27 SEE NOTE Final LEGIONELLA ANTIGEN, EIA, URI NE Micro Number: [id number] Test Status: Final Specimen Source: Urine Specimen Quality: Adequate Legionella Ur Ag: Not Detected Legionella pneumophila is responsible for 80-85% of reported cases of Legionella infections in the [place], and most of these cases are caused by L. pneumophila serogroup 1. Detection of L. pneumophila serogroup 1. soluble antigen in urine is a highly sensitive and specific method for the laboratory diagnosis of infection in these cases. L pneumophila serogroup 1 urinary antigen levels typically peak 6-14 days after infection. Elevated antigen levels may persist for several months, depending on the patient's treatment regimen and any underlying illness. A negative result does not rule out infection by other L. pneumophila serogroups or other Legionella species. Other laboratory tools useful in the diagnosis of Legionella infection include culture of respiratory specimens, direct detection of Legionella by DFA or genetic probes, and Legionella antibody detection by IFA. Test performed at [facility] [address] Director: RUPESH AZAR MD Performing Location [facility] [address] [place] [address]
--- OUTSIDE RECORDS SUMMARY | 2024-03-31 07:45 | External Medical Summary ---
Author Name Unknown Address Unknown Organization R1WR:[facility] [address] [place] [address] Laboratory Report Ordering Provider Test Date Status SHELLY GRIFFITH 11/01/2023 21:09:00 Final Observation Date Value Abnormality Reference (Units ) Status Glucose, POC 11/01/2023 21:16 142 Above high normal 70 -99 (mg/dL) Final Performing Location [facility] [address] [place] [address]
--- OUTSIDE RECORDS SUMMARY | 2024-03-31 07:45 | External Medical Summary | Summary of Care ---
Author Name Unknown Organization [facility] Address [address] [facility] [address] Phone [phone] Care Team Providers Care Estimating Engineer Name Role Phone Nura Mckay DO Primary Care Provider [phone] Reason for Visit * Reason Onset Date Comments Advice 10/29/2023 Concern w/Diltia zem Encounter Details Date Type Department Care Team (Late st Contact Info) Description 10/29/2023 Telephone [address]iology, [facility] [address] [place] [address] Renee Quintana CRNP [address] [place] [address] Advice (Concern w/Diltiazem ) Allergies Active Allergy Reactions Criticality Noted Date Comments Sulfa Antibiotics 11/14/2004 documented as of this encounter (statuses as of 11/01/2023) Medications Medication Sig Dispensed Refills Start Date [...] in the morning. 08/28/2020 Active Fifty50 Pen [place] 32G X 4 MM (Insulin Pen Needle) Inject 1 Each under the skin in the morning. 02/08/2019 Active OneTouch Delica Plus [id number] Inject 1 Each under the skin 3 [...] as of this encounter (statuses as of 11/01/2023) Active Problems Problem Noted Date Diagnosed Date [...] as of this encounter (statuses as of 11/01/2023) Resolved Problems Problem Noted Date Diagnosed Date [...] ligation 11/07/2017 8 Generalized weakness 11/07/2017 023 half-way resident 11/07/20172017 HTN, goal below 140/90 11/04/201511/07 [...] as of this encounter (statuses as of 11/01/2023) Immunizations Name Administration Dates Next Due Pneumococcal [...] encounter Miscellaneous Notes * Telephone Encounter - Darrick Cotto RN - 11/01/2023 1:33 PM EDT Called left message on phone to return call too the clinic. * Telephone Encounter - Lydia Dyer OSA - 10/29/2023 2:41 PM EDT Person calling: Lc Relationship to patient: Self Number to return call: [phone] Reason for call (brief): Diltiazem Pharmacy: N/A Provider Name: Renee Detailed message to office: Pt is calling to say she can't take this medication & only wanted to speak to the nurse. Please call her back thank you Outcome: Sent TE documented in this encounter Plan of Treatment Upcoming Encounters Date Type Department Care Team (Late st Contact Info) Description 11/18/2023 10:00 AM EDT Office Visit Cardiology, [facility] [address] [place] [address] Nisha Arellano CRNP [address] [place] [address] Health Maintenance Due Date Last Done Comments [...] Additional history exists CKD PHOS USE SMARTSET 98905 02/17/202401/23, 01/13/2022, 01/12/2022, Additional history exists HbA1c 02/17/2024 08/17/2023, 05/25, 05/21/2023, Additional history exists TSH 02/18/2024 02/17/2023, 01/23, 11/10/2017, Additional history exists CKD HGB USE SMARTSET 58285 09/02/202409/02, 06/08/2023, 05/20/2023, Additional history exists GARDASIL-HPV [...] Power of Attor himanshu? No Care Teams Estimating Engineer Relationship Specialty Start Date End Date Nura Mckay DO [address] [place] [address] [place] [address] PCP - General Family Medicine 12/15/17 documented as of this encounter
--- OUTSIDE RECORDS SUMMARY | 2024-03-31 07:45 | External Medical Summary ---
Author Name Unknown Address Unknown Organization R1WR:[facility] [address] [place] [address] Laboratory Report Ordering Provider Test Date Status SHELLY GRIFFITH 10/31/2023 15:58:00 Final Observation Date Value Abnormality Reference (Units ) Status Glucose 10/31/2023 16:40 57 Below low normal 70-99 (mg/dL) Final The reference interval for F asting glucose is 70 to 99. The reference interval for Random Glucose is 70 to 139. BUN 10/31/2023 16:40 42 Above high normal 9-23 (mg/dL) Final Creatinine 10/31/2023 16:40 2.81 Above high normal 0.55 -1.02 (mg/dL) Final eGFR 10/31/2023 16:40 16 Below low normal >59 (m L/min/1.73m2) Final eGFR = 142 X [min(Scr/k,1)]* *a [max(Scr/k,1)-1.200x0.9938age X 1.012 [if female] Where Scr is serum creatinine; k is 0.7 for females and 0.9 males; a is -0.241 for females and -0.302 for males; min indicates the minimum of Scr/k or 1, max indicates the maximum of Scr/k or 1 Sodium 10/31/2023 16:40 140 136-145 (mmol /L) Final Potassium 10/31/2023 16:40 4.3 3.4-5.0 (mmol /L) Final Chloride 10/31/2023 16:40 105 98-112 (mmol/ L) Final CO2 10/31/2023 16:40 24 20-31 (mmol/L ) Final Anion Gap 10/31/2023 16:40 15 7-15 (mmol/L) Final Calcium 10/31/2023 16:40 9.6 8.3-10.6 (mg/ dL) Final Performing Location [facility] [address] [place] [address]
--- OUTSIDE RECORDS SUMMARY | 2024-03-31 07:45 | External Medical Summary ---
Author Name Unknown Address Unknown Organization R1WR:[facility] [address] [place] [address] Laboratory Report Ordering Provider Test Date Status MARK MILLS 11/03/2023 11:05:00 Final Observation Date Value Abnormality Reference (Units ) Status Glucose, POC 11/03/2023 11:12 263 Above high normal 70 -99 (mg/dL) Final Performing Location [facility] [address] [place] [address]
--- OUTSIDE RECORDS SUMMARY | 2024-03-31 07:45 | External Medical Summary ---
Author Name Unknown Address Unknown Organization R1WR:[facility] [address] [place] [address] Laboratory Report Ordering Provider Test Date Status ERICK MARISSA VillaltaCANDACE 11/03/2023 06:45:00 Final Observation Date Value Abnormality Reference (Units ) Status Prothrombin Time 11/03/2023 07:10 32.7 Above high alanna l 11.9-14.5 (Sec) Final INR 11/03/2023 07:10 3.1 Fin al Performing Location [facility] [address] [place] [address]
--- OUTSIDE RECORDS SUMMARY | 2024-03-31 07:45 | External Medical Summary | Summary of Care ---
Author Name Unknown Organization [facility] Address [address] [facility] [place] [address] Phone [phone] Care Team Providers Care Garbage Collector Name Role Phone Nely Nura Knowles DO Primary Care Provider [phone] Reason for Visit * Reason Comments Other SOB blood pressure i s low Nausea Encounter Details Date Type Department Care Team (Late st Contact Info) Description 10/30/2023 4:00 PM EDT [facility] [address] [place] [address] Lauren Bhatt PA-C [address] [place] [phone] Dizziness*; SOB (shortness of breath); Hypotension, unspecified hypotension type; Bradycardia Allergies Active Allergy Reactions Criticality Noted Date Comments Sulfa Antibiotics 11/14/2004 documented as of this encounter (statuses as of 10/31/2023) Medications Medication Sig Dispensed Refills Start Date [...] in the morning. 08/28/2020 Active Fifty50 Pen Naco 32G X 4 MM (Insulin Pen Needle) Inject 1 Each under the skin in the morning. 02/08/2019 Active OneTouch Delica Plus [id number] Inject 1 Each under the skin 3 [...] MG Oral Capsule Extended Release 24 HourIndications:Per maurizio atrial fibrillation (HCC) Take 1 Capsule by mouth in the morning. 90 Capsule 3 10/22/2023 Active documented as of this encounter (statuses as of 10/31/2023) Active Problems Problem Noted Date Diagnosed Date [...] as of this encounter (statuses as of 10/31/2023) Resolved Problems Problem Noted Date Diagnosed Date [...] ligation 11/07/2017 8 Generalized weakness 11/07/2017 023 longterm resident 11/07/20172017 HTN, goal below 140/90 11/04/201511/07 [...] as of this encounter (statuses as of 10/31/2023) Immunizations Name Administration Dates Next Due Pneumococcal [...] Sign Reading Time Taken Comments Blood Pressure 97/54 10/30/2023 4:15 PM EDT Pulse - - Temperature 36.1 C (97 F) 10/30/2023 4:15 PM EDT Respiratory Rate 18 10/30/2023 4:15 PM EDT Oxygen Saturation - - Inhaled Oxygen [...] as of this encounter Progress Notes * Lauren Bhatt PA-C - 10/30/2023 5:13 PM EDT Subjective: Lc Cantrell is a 83 year old female. Chief Complaint Patient presents with Other SOB blood pressure is low Nausea HPI: Here with her son for complaint of weakness, dizziness, nausea and SOB. Started this morning while her and her family were on their way to [place]. They stopped at a rest stop when she felt very dizzy and had a hard time walking into the store. [place] a little better after resting so she decided to continue on their trip. Once at the park she was very weak and could not walk. Her son brought her home this afternoon and in the car she was slow to respond and nauseous, prompting them to come here to [facility] for eval. She thinks her BP is dropping, and is concerned it is related to her recent medchange. She has heart failure, a fib, HTN, CKD, and DM on insulin. She is on coumadin, takes diltiaz em, lisinopril, metoprolol and spironolactone daily, and takes lasix 3 x per week. Per cardiology notes, she recently had a Zio patch and she was in a fib 100% of the time with her HR ranging from 80s to 39. Her digoxin was discontinued last month and her diltiazem was decreased from 240 mg to 120 mg daily last week. Patient Active Problem List Diagnosis ADVANCE DIRECTIVE INFORMATION Hypothyroidism Type 2 diabetes mellitus with hemoglobin A1c goal of less than 7.0% (HCC) Dyslipidemia, goal LDL below 100 Gout Obesity, Class II, BMI 35-39.9, isolated (see actual BMI) Kidney disease, chronic, stage III (GFR 30-59 ml/min) Essential hypertension with goal blood pressure less than 140/90 Status post total right knee replacement Generalized osteoarthritis Recurrent major depressive disorder, in full remission (HCC) Impaired mobility and ADLs Abnormality of gait Hypertension associated with stage 3 chronic kidney disease due to type 2 diabetes mellitus (HCC) (HFpEF) heart failure with preserved ejection fraction (HCC) Paroxysmal atrial fibrillation (HCC) Current Outpatient Medications Medication Sig Dispense Refill Atorvastatin Calcium 20 MG Oral Tablet (Lipitor) Take 1 Tablet by mouth in the morning. 90 Tablet 3 cloNIDine HCl 0.2 MG Oral Tablet (Catapres) Take 1 Tablet by mouth in the morning and 1 Tablet at noon and 1 Tablet before bedtime. 90 Tablet 3 dilTIAZem HCl ER 120 MG Oral Capsule Extended Release 24 Hour Take 1 Capsule by mouth in the morning. 90 Capsule 3 Fifty50 Pen Naco 32G X 4 MM (Insulin Pen Needle) Inject 1 Each under the skin in the morning. Furosemide 40 MG Oral Tablet (Lasix) TAKE 20 MG BY MOUTH THREE DAYS PER WEEK guaiFENesin-DM 100-10 MG/5ML Oral Syrup (Robitussin DM) Take 10 mL by mouth 4 times a day as neededfor Cough. (Patient not taking: Reported on 10/01/2023) 120 mL 0 Insulin Aspart Prot & Aspart (70-30) 100 UNIT/ML Suspension Pen-injector Inject 25 Units under the skin in the morning. Insulin Aspart Prot & Aspart (70-30) 100 UNIT/ML Suspension Pen-injector Inject 25 Units under the skin daily with dinner. Insulin Syringe 27G X 1/2" 0.5 ML Inject 1 Each under the skin 2 times a day. [employer] Test In Vitro Strip (Glucose Blood) Inject 1 Strip as directed in the morning and 1 Strip atnoon and 1 Strip before bedtime. levothyroxine (LEVOXYL) 88 MCG Tablet Take 1 Tablet by mouth daily first thing in the morning. Lisinopril 20 MG Oral Tablet (Prinivil) Take 1 Tablet by mouth in the morning. Metoprolol Succinate ER 100 MG Oral Tablet Extended Release 24 Hour (toPROL XL) Take 1.5 Tablets bymouth in the morning. 135 Tablet 3 Multi-Vitamins Oral Tablet Take 1 Tablet by mouth in the morning. OneTouch Delica Plus [id number] Inject 1 Each under the skin 3 times a day. Spironolactone 25 MG Oral Tablet (Aldactone) Take 0.5 Tablets by mouth in the morning. 45 Tablet 5 Vitamin D3 50 MCG (2000 UT) Oral Capsule Take 1 Capsule by mouth in the morning. Warfarin Sodium 1 MG Oral Tablet (Coumadin) Take 2 Tablets by mouth every . Warfarin Sodium 1 MG Oral Tablet Take 3 Tablets by mouth daily except on . No current facility-administered medications for this visit. Review of patient's allergies indicates: Allergen Reactions Sulfa [Sulfa Antibiotics] ROS: all areas negative except as mentioned under HPI Physical Exam: BP 97/54 (BP Site: Left Arm, BP Position: Sitting, BP Cuff Size: Regular) | Temp 36.1 C (97 F) (Tympanic) | Resp 18 Physical Exam Vitals and nursing note reviewed. Constitutional: General: She is not in acute distress. Appearance: Normal appearance. She is ill-appearing. Cardiovascular: Rate and Rhythm: Normal rate and regular rhythm. Heart sounds: Normal heart sounds. Pulmonary: Effort: Pulmonary effort is normal. No respiratory distress. Breath sounds: Normal breath sounds. No wheezing, rhonchi or rales. Neurological: Mental Status: She is alert and oriented to person, place, and time. Assessment/Plan: Lc was seen today for other and nausea. Diagnoses and all orders for this visit: Dizziness SOB (shortness of breath) Hypotension, unspecified hypotension type Bradycardia BP is low here and HR in the 40s. Recommend ED eval, pt declines EMS transport, son will drive her via [place]. Will call 911 with any changes en route. Sent to [facility] ED, ER staff made aware. Lauren Bhatt PA-C [facility] [address] [place] [id number] documented in this encounter Nursing Notes * Judie Fang LPN - 10/30/2023 4:10 PM EDT Nursing Notes: CC: Chief Complaint Patient presents with Other SOB blood pressure is low Nausea Brief Hx: Patient is here with complaint of SOB, BP is low and she is nauseated. Patient stated shesaw a new table games manager and they cut her ditiazem from 240 mg a day to 120 mg a day. Patient said that made her really sick. Patient said this morning she felt fine and had breakfast. Patient said they went to [facility] today and when she got there she couldn't walk was having trouble breathing and felt sick. Patient said that she called cardiology yesterday asking to speak with the nurse because the dosage change made her sick at 2:41 and they never called her back. On the way here she tried to eat some crackers and she almost vomited. Her son said she felt the same way last night so she took one of her 240 mg pills and she felt better. Then this morning she took the 240 mg again instead of the 120 mg. Duration/Onset: Patient said this started after they changed their dosage OTC meds: nothing Accompanied by: son documented in this encounter Plan of Treatment Upcoming Encounters Date Type Department Care Team (Late st Contact Info) Description 11/18/2023 10:00 AM EDT Office Visit Cardiology, [facility] [address] [place] [phone] Nisha Arellano CRNP [address] [place] [address] Health Maintenance Due Date Last Done Comments DTaP,Tdap,and Td Vaccines (1 - Tdap) 1959 Zoster Vaccines (2 of 3) 03/17/2013 01/20/2013 Pneumococcal Vaccine: 65+ Years (2 of 2 - PCV) 06/10/2013 06/10/2012 Albumin/Creatinine Ratio 10/27/2016 016, 10/05/2014, 09/21/2013, Additional history exists Diabetic Foot Exam 05/12/2017 05/12/2016, 1 07/07/2014, 06/15/2014, Additional history exists COVID-19 Vaccine (3 - 2022- season) 2023 07/31/2020, 07/10/2020 Influenza Vaccine (FLU shot) (Season Ended) 2024 02/26/2022, 03/09/2019, 03/11/2018, Additional history exists Diabetic Eye Exam 02/06/2024 02/05/2023, , 11/30/2016, Additional history exists CKD PHOS USE SMARTSET 30774 02/17/202401/23, 01/13/2022, 01/12/2022, Additional history exists HbA1c 02/17/2024 08/17/2023, 05/25, 05/21/2023, Additional history exists TSH 02/18/2024 02/17/2023, 01/23, 11/10/2017, Additional history exists CKD HGB USE SMARTSET 52544 09/02/202409/02, 06/08/2023, 05/20/2023, Additional history exists GARDASIL-HPV [...] as of this encounter Visit Diagnoses Diagnosis Dizziness- Primary Dizziness and giddiness SOB (shortness of breath) Shortness of breath Hypotension, unspecified hypotension type Bradycardia Other specified cardiac dysrhythmias documented in this encounter Advance Directives * [...] Power of Attor himanshu? No Care Teams Garbage Collector Relationship Specialty Start Date End Date Nura Mckay DO [address] [place] [address] [place] [address] PCP - General Family Medicine 12/15/17 documented as of this encounter
--- OUTSIDE RECORDS SUMMARY | 2024-03-31 07:45 | External Medical Summary ---
Author Name Unknown Address Unknown Organization R1WR:[facility] [address] [place] [address] Laboratory Report Ordering Provider Test Date Status ERICK AmbarREMA 11/02/2023 04:51:00 Final Observation Date Value Abnormality Reference (Units ) Status Prothrombin Time 11/02/2023 05:53 31.9 Above high alanna l 11.9-14.5 (Sec) Final INR 11/02/2023 05:53 3.0 Fin al Performing Location [facility] [address] [place] [address]
--- OUTSIDE RECORDS SUMMARY | 2024-03-31 07:45 | External Medical Summary ---
Author Name Unknown Address Unknown Organization R1WR:[facility] [address] [place] [address] Laboratory Report Ordering Provider Test Date Status LARRY BROWNLEE 11/03/2023 07:42:00 Final Observation Date Value Abnormality Reference (Units ) Status Glucose 11/03/2023 08:47 190 Above high normal 70-99 (mg/dL) Final The reference interval for F asting glucose is 70 to 99. The reference interval for Random Glucose is 70 to 139. BUN 11/03/2023 08:47 47 Above high normal 9-23 (mg/dL) Final Creatinine 11/03/2023 08:47 1.80 Above high normal 0.55 -1.02 (mg/dL) Final eGFR 11/03/2023 08:47 27 Below low normal >59 (m L/min/1.73m2) Final eGFR = 142 X [min(Scr/k,1)]* *a [max(Scr/k,1)-1.200x0.9938age X 1.012 [if female] Where Scr is serum creatinine; k is 0.7 for females and 0.9 males; a is -0.241 for females and -0.302 for males; min indicates the minimum of Scr/k or 1, max indicates the maximum of Scr/k or 1 Sodium 11/03/2023 08:47 138 136-145 (mmol /L) Final Potassium 11/03/2023 08:47 3.9 3.4-5.0 (mmol /L) Final Chloride 11/03/2023 08:47 99 98-112 (mmol/ L) Final CO2 11/03/2023 08:47 28 20-31 (mmol/L ) Final Anion Gap 11/03/2023 08:47 14 7-15 (mmol/L) Final Calcium 11/03/2023 08:47 9.5 8.3-10.6 (mg/ dL) Final Phosphorus 11/03/2023 08:47 3.8 2.5-4.6 (mg/ dL) Final Albumin 11/03/2023 08:47 3.4 3.4-5.0 (g/dL ) Final Performing Location [facility] [address] [place] [id number]
--- OUTSIDE RECORDS SUMMARY | 2024-03-31 07:45 | External Medical Summary ---
Author Name Unknown Address Unknown Organization R1WR:[facility] [address] [place] [address] Laboratory Report Ordering Provider Test Date Status SHELLY GRIFFITH 11/02/2023 11:28:00 Final Observation Date Value Abnormality Reference (Units ) Status Glucose, POC 11/02/2023 11:34 174 Above high normal 70 -99 (mg/dL) Final Performing Location [facility] [address] [place] [address]
--- OUTSIDE RECORDS SUMMARY | 2024-03-31 07:45 | External Medical Summary ---
Author Name Unknown Address Unknown Organization R1WR:[facility] [address] [place] [address] Laboratory Report Ordering Provider Test Date Status SHELLY GRIFFITH 11/01/2023 16:57:00 Final Observation Date Value Abnormality Reference (Units ) Status Glucose, POC 11/01/2023 17:03 127 Above high normal 70 -99 (mg/dL) Final Performing Location [facility] [address] [place] [address]
--- OUTSIDE RECORDS SUMMARY | 2024-03-31 07:45 | External Medical Summary ---
Author Name Unknown Address Unknown Organization R1WR:[facility] [address] [place] [address] Laboratory Report Ordering Provider Test Date Status REMA SHIRLEY 11/03/2023 06:45:00 Final Observation Date Value Abnormality Reference (Units ) Status WBC 11/03/2023 07:04 14.2 Above high normal 4.0-1 0.0 (X10E+09/L) Final RBC 11/03/2023 07:04 5.08 3.9-5.2 (X10E +12/L) Final Hemoglobin 11/03/2023 07:04 14.2 11.2-15.7 (g /dL) Final Hematocrit 11/03/2023 07:04 44.0 34-45 (%) Fi nal MCV 11/03/2023 07:04 86.6 79-98 (fL) Fi nal MCH 11/03/2023 07:04 28.0 26.0-32.0 (pg ) Final MCHC 11/03/2023 07:04 32.3 32-36 (g/dL) Final Platelets 11/03/2023 07:04 201 150-370 (X10E +09/L) Final RDW 11/03/2023 07:04 15.8 Above high normal 11.7- 14.4 (%) Final Performing Location [facility] [address] [place] [address]
--- OUTSIDE RECORDS SUMMARY | 2024-03-31 07:45 | External Medical Summary ---
Author Name Unknown Address Unknown Organization R1WR:[facility] [address] [place] [address] Laboratory Report Ordering Provider Test Date Status LARRY BROWNLEE 11/02/2023 10:36:00 Final Observation Date Value Abnormality Reference (Units ) Status Phosphorus 11/02/2023 10:59 4.4 2.5-4.6 (mg/ dL) Final Performing Location [facility] [address] [place] [address]
--- OUTSIDE RECORDS SUMMARY | 2024-03-31 07:45 | External Medical Summary ---
Author Name Unknown Address Unknown Organization R1WR:[facility] [address] [place] [address] Laboratory Report Ordering Provider Test Date Status ERICK AmbarREMA 11/01/2023 07:23:00 Final Observation Date Value Abnormality Reference (Units ) Status Prothrombin Time 11/01/2023 08:21 25.0 Above high alanna l 11.9-14.5 (Sec) Final INR 11/01/2023 08:21 2.2 Fin al Performing Location [facility] [address] [place] [address]
--- OUTSIDE RECORDS SUMMARY | 2024-03-31 07:45 | External Medical Summary ---
Author Name Unknown Address Unknown Organization R1WR:[facility] [address] [place] [address] Laboratory Report Ordering Provider Test Date Status DYLAN MILLSKYRIE 11/03/2023 13:15:00 Final Observation Date Value Abnormality Reference (Units ) Status Strep Pneumo AG 11/06/2023 14:21 SEE NOTE Final S. PNEUMONIAE ANTIGENS, URIN E Micro Number: [id number] Test Status: Final Specimen Source: Urine Specimen Quality: Adequate S.pneumo. Ur Ag: Not Detected Reference Range: Not Detected Test performed at [facility] [address] [place] [id number] Director: KERI BONILLA MD SOURCE 11/03/2023 18:27 Urine Fin al Performing Location [facility] [address] [place] [address]
--- OUTSIDE RECORDS SUMMARY | 2024-03-31 07:45 | External Medical Summary ---
Author Name Unknown Address Unknown Organization R1WR:[facility] [address] [place] [address] Laboratory Report Ordering Provider Test Date Status REMA SHIRLEY 11/02/2023 04:51:00 Final Observation Date Value Abnormality Reference (Units ) Status WBC 11/02/2023 05:44 17.2 Above high normal 4.0-10.0 (X10E+09/L) Final RBC 11/02/2023 05:44 4.63 3.9-5.2 (X10E+12/L) Final Hemoglobin 11/02/2023 05:44 13.3 11.2-15.7 (g/dL) Final Hematocrit 11/02/2023 05:44 42.3 34-45 (%) Final MCV 11/02/2023 05:44 91.4 79-98 (fL) Final MCH 11/02/2023 05:44 28.7 26.0-32.0 (pg) Final MCHC 11/02/2023 05:44 31.4 Below low normal 32-36 (g/dL) Final Platelets 11/02/2023 05:44 223 150-370 (X10E+09/L) Final RDW 11/02/2023 05:44 15.2 Above high normal 11.7-14.4 (%) Final Neutrophils 11/02/2023 05:44 82.9 Above high normal 34.0-71.1 (%) Final Lymphocytes 11/02/2023 05:44 7.0 Below low normal 19.3-51.7 (%) Final Monocytes 11/02/2023 05:44 9.7 4.7-12.5 (%) Final Eosinophils 11/02/2023 05:44 0.1 Below low normal 0.7-5.8 (%) Final Basophils 11/02/2023 05:44 0.3 0.1-1.2 (%) Final Absolute Neutrophils 11/02/2023 05:44 14.27 Above high normal 1.6-6.1 (X10E+09/L) Final Absolute Lymphocytes 11/02/2023 05:44 1.20 1.2-3.7 (X10E+09/L) Final Absolute Monocytes 11/02/2023 05:44 1.67 Above high normal 0.2-0.9 (X10E+09/L) Final Absolute Eosinophils 11/02/2023 05:44 0.01 0.0-0.4 (X10E+09/L) Final Absolute Basophils 11/02/2023 05:44 0.05 0.0-0.1 (X10E+09/L) Final Absolute NRBC 11/02/2023 05:44 0.02 Above high normal 0 (X10E+09/L) Final Nucleated RBC 11/02/2023 05:44 0.1 0.0-0.2 (/100 WBC) Final Performing Location [facility] [address] [place] [address]
--- OUTSIDE RECORDS SUMMARY | 2024-03-31 07:45 | External Medical Summary ---
Author Name Unknown Address Unknown Organization R1WR:[facility] [address] [place] [address] Laboratory Report Ordering Provider Test Date Status LARRY BROWNLEE 11/02/2023 10:36:00 Final Observation Date Value Abnormality Reference (Units ) Status Magnesium 11/02/2023 10:59 1.7 1.6-2.6 (mg/d L) Final Performing Location [facility] [address] [place] [address]
--- OUTSIDE RECORDS SUMMARY | 2024-03-31 07:45 | External Medical Summary ---
Author Name Unknown Address Unknown Organization R1WR:[facility] [address] [place] [address] Laboratory Report Ordering Provider Test Date Status SHELLY GRIFFITH 11/01/2023 07:25:00 Final Observation Date Value Abnormality Reference (Units ) Status Glucose, POC 11/01/2023 07:35 226 Above high normal 70 -99 (mg/dL) Final Performing Location [facility] [address] [place] [address]
--- OUTSIDE RECORDS SUMMARY | 2024-03-31 07:45 | External Medical Summary ---
Author Name Unknown Address Unknown Organization R1WR:[facility] [address] [place] [address] Laboratory Report Ordering Provider Test Date Status SHELLY GRIFFITH 11/02/2023 07:27:00 Final Observation Date Value Abnormality Reference (Units ) Status Glucose, POC 11/02/2023 07:33 142 Above high normal 70 -99 (mg/dL) Final Performing Location [facility] [address] [place] [address]
--- OUTSIDE RECORDS SUMMARY | 2024-03-31 07:45 | External Medical Summary ---
Author Name Unknown Address Unknown Organization R1WR:[facility] [address] [place] [address] Laboratory Report Ordering Provider Test Date Status SHELLY GRIFFITH 10/31/2023 16:38:00 Final Observation Date Value Abnormality Reference (Units ) Status Glucose, POC 10/31/2023 16:45 63 Below low normal 70- 99 (mg/dL) Final Performing Location [facility] [address] [place] [address]
--- OUTSIDE RECORDS SUMMARY | 2024-03-31 07:45 | External Medical Summary ---
Author Name Unknown Address Unknown Organization R1WR:[facility] [address] [place] [address] Laboratory Report Ordering Provider Test Date Status SHELLY GRIFFITH 11/01/2023 07:22:00 Final Observation Date Value Abnormality Reference (Units ) Status B-Type Natriuretic Peptide 11/01/2023 08:44 1110 Above high normal <100 (pg/mL) Final Performing Location [facility] [address] [place] [address]
--- OUTSIDE RECORDS SUMMARY | 2024-03-31 07:45 | External Medical Summary ---
Author Name Unknown Address Unknown Organization R1WR:[facility] [address] [place] [address] Laboratory Report Ordering Provider Test Date Status MARK MILLS 11/03/2023 10:50:00 Final Observation Date Value Abnormality Reference (Units ) Status Procalcitonin 11/03/2023 11:43 0.20 Above high normal < 0.10 (ng/mL) Final Performing Location [facility] [address] [place] [address]
--- OUTSIDE RECORDS SUMMARY | 2024-03-31 07:46 | External Medical Summary ---
Author Name Unknown Address Unknown Organization R1WR:[facility] [address] [place] [address] Laboratory Report Ordering Provider Test Date Status JANES JUAREZ 10/30/2023 19:08:00 Final Observation Date Value Abnormality Reference (Units ) Status High Sensitivity Troponin I 10/30/2023 19:43 491 Above upper panic limits <45 (ng/L) Final [facility] CALLED CRITICAL RESUL TS AT 30Oct2023. THE RESULTS WERE READ BACK AND VERIFIED BY: Radha ANTHONY ED [facility] [employer] [facility] hs-Troponin I assay measured using the Siemens immunoassay. (Atellica analyzer, Siemens, [facility]) Performing Location [facility] [address] [place] [address]
--- OUTSIDE RECORDS SUMMARY | 2024-03-31 07:46 | External Medical Summary ---
Author Name Unknown Address Unknown Organization R1WR:[facility] [address] [place] [address] Laboratory Report Ordering Provider Test Date Status JANES JUAREZ 10/30/2023 18:03:00 Final Observation Date Value Abnormality Reference (Units ) Status Phosphorus 10/30/2023 18:47 5.3 Above high normal 2.5- 4.6 (mg/dL) Final Performing Location [facility] [address] [place] [address]
--- OUTSIDE RECORDS SUMMARY | 2024-03-31 07:46 | External Medical Summary ---
Author Name Unknown Address Unknown Organization R1WR:[facility] [address] [place] [address] Laboratory Report Ordering Provider Test Date Status JANES JUAREZ 10/30/2023 18:03:00 Final Observation Date Value Abnormality Reference (Units ) Status Lipase 10/30/2023 18:47 29 12-53 (U/L) F inal Lipase measured using the Si emens colorimetric assay (Atellica analyzer, Siemens, [facility]) Performing Location [facility] [address] [place] [address]
--- OUTSIDE RECORDS SUMMARY | 2024-03-31 07:46 | External Medical Summary ---
Author Name Unknown Address Unknown Organization R1WR:[facility] [address] [place] [address] Laboratory Report Ordering Provider Test Date Status SHELLY GRIFFITH 10/31/2023 10:24:00 Final Observation Date Value Abnormality Reference (Units ) Status Glucose, POC 10/31/2023 10:30 307 Above high normal 70 -99 (mg/dL) Final Performing Location [facility] [address] [place] [address]
--- OUTSIDE RECORDS SUMMARY | 2024-03-31 07:46 | External Medical Summary ---
Author Name Unknown Address Unknown Organization R1WR:[facility] [address] [place] [address] Laboratory Report Ordering Provider Test Date Status JANES JUAREZ 10/30/2023 18:03:00 Final Observation Date Value Abnormality Reference (Units ) Status B-Type Natriuretic Peptide 10/30/2023 18:55 294 Above high normal <100 (pg/mL) Final Performing Location [facility] [address] [place] [address]
--- OUTSIDE RECORDS SUMMARY | 2024-03-31 07:46 | External Medical Summary ---
Author Name Unknown Address Unknown Organization R1WR:[facility] [address] [place] [address] Laboratory Report Ordering Provider Test Date Status REMA SHIRLEY 10/30/2023 19:08:00 Final Observation Date Value Abnormality Reference (Units ) Status Procalcitonin 10/30/2023 21:22 0.10 Above high normal < 0.10 (ng/mL) Final Performing Location [facility] [address] [place] [address]
--- OUTSIDE RECORDS SUMMARY | 2024-03-31 07:46 | External Medical Summary ---
Author Name Unknown Address Unknown Organization R1WR:[facility] [address] [place] [address] Laboratory Report Ordering Provider Test Date Status SHELLY GRIFFITH 10/31/2023 07:28:00 Final Observation Date Value Abnormality Reference (Units ) Status Glucose, POC 10/31/2023 07:44 250 Above high normal 70 -99 (mg/dL) Final Performing Location [facility] [address] [place] [address]
--- OUTSIDE RECORDS SUMMARY | 2024-03-31 07:46 | External Medical Summary ---
Author Name Unknown Address Unknown Organization R1WR:[facility] [address] [place] [address] Laboratory Report Ordering Provider Test Date Status JANES JUAREZ 10/30/2023 18:33:00 Final Observation Date Value Abnormality Reference (Units ) Status ABO/Rh (D) 10/30/2023 19:34 O POSITIVE F inal Antibody Screen 10/30/2023 19:34 NEGATIVE Final Performing Location [facility] [address] [place] [address]
--- OUTSIDE RECORDS SUMMARY | 2024-03-31 07:46 | External Medical Summary ---
Author Name Unknown Address Unknown Organization R1WR:[facility] [address] [place] [address] Laboratory Report Ordering Provider Test Date Status JANES JUAREZ 10/30/2023 18:33:00 Final Observation Date Value Abnormality Reference (Units ) Status Lactic Acid 10/30/2023 18:56 2.5 Above high normal 0.4 -2.0 (mmol/L) Final Clinical correlation advised by the CMS Early Management Bundle for Severe Sepsis and Septic Shock guidelines. If the time between specimen collection and laboratory receipt is 30 minutes or greater, the lactate result may be falsely elevated. The laboratory recommends sample recollection and analysis. Performing Location [facility] [address] [place] [address]
--- OUTSIDE RECORDS SUMMARY | 2024-03-31 07:46 | External Medical Summary ---
Author Name Unknown Address Unknown Organization R1WR:[facility] [address] [place] [place] [address] Laboratory Report Ordering Provider Test Date Status SHELLY GRIFFITH 10/31/2023 10:12:00 Final Observation Date Value Abnormality Reference (Units ) Status UA Culture Screen 10/31/2023 10:24 Positive screen. Culture to be done. Final Urine Clarity 10/31/2023 10:24 Cloudy Abnormal CLER Final Urine Color 10/31/2023 10:24 Yellow YELL Final Specific [place], Urine 10/31/2023 10:24 1.021 1.000-1.025 Final Urine pH 10/31/2023 10:24 5.0 5.0-8.0 Final Urine Leukocyte Esterase 10/31/2023 10:24 Moderate Abnormal NEGAT Final Urine Nitrites 10/31/2023 10:24 Negative NEGAT Final Protein, Urine 10/31/2023 10:24 Small Abnormal NEGAT (mg/dL) Final Glucose, Urine 10/31/2023 10:24 Negative NEGAT (mg/dL) Final Urine Ketones 10/31/2023 10:24 Trace Abnormal NEGAT Final Urine Urobilinogen 10/31/2023 10:24 1.0 0.0-1.0 (mg/dL) Final The total absence of urobili nogen cannot be detected. Values up to 1 mg/dL are usually considered normal. Urine Bilirubin 10/31/2023 10:24 Negative NEGAT Final Blood, Urine 10/31/2023 10:24 Small Abnormal NEGAT Final Urine RBC 10/31/2023 10:24 6 Above high normal 0-4 ( /hpf) Final Urine WBC 10/31/2023 10:24 > 100 0-5 (/hpf) Fi nal Urine Bacteria 10/31/2023 10:24 Rare Abnormal NONE (/h pf) Final Epithelial Cells 10/31/2023 10:24 Greater than 36 0-5 (/lpf) Final Urine Casts 10/31/2023 10:24 14 Above high normal 0 ( /lpf) Final Casts are considered Hyaline Casts unless otherwise noted. Urine Source 10/31/2023 10:12 Straight Cath Final Performing Location [facility] [address] [place] [id number]
--- OUTSIDE RECORDS SUMMARY | 2024-03-31 07:46 | External Medical Summary ---
Author Name Unknown Address Unknown Organization R1WR:[facility] [address] [place] [address] Laboratory Report Ordering Provider Test Date Status ERICK AmbarREMA 10/30/2023 18:03:00 Final Observation Date Value Abnormality Reference (Units ) Status Digoxin 10/30/2023 21:25 0.10 Below low normal 0.80-2 .00 (ng/mL) Final Performing Location [facility] [address] [place] [address]
--- OUTSIDE RECORDS SUMMARY | 2024-03-31 07:46 | External Medical Summary ---
Author Name Unknown Address Unknown Organization R1WR:[facility] [address] [facility] [place] [address] Laboratory Report Ordering Provider Test Date Status JANES JUAREZ 10/30/2023 18:03:00 Final Observation Date Value Abnormality Reference (Units ) Status Glucose 10/30/2023 18:47 305 Above high normal 70-99 (mg/dL) Final The reference interval for F asting glucose is 70 to 99. The reference interval for Random Glucose is 70 to 139. BUN 10/30/2023 18:47 38 Above high normal 9-23 (mg/dL) Final Creatinine 10/30/2023 18:47 2.53 Above high normal 0.55 -1.02 (mg/dL) Final eGFR 10/30/2023 18:47 18 Below low normal >59 (m L/min/1.73m2) Final eGFR = 142 X [min(Scr/k,1)]* *a [max(Scr/k,1)-1.200x0.9938age X 1.012 [if female] Where Scr is serum creatinine; k is 0.7 for females and 0.9 males; a is -0.241 for females and -0.302 for males; min indicates the minimum of Scr/k or 1, max indicates the maximum of Scr/k or 1 Sodium 10/30/2023 18:47 136 136-145 (mmol /L) Final Potassium 10/30/2023 18:47 5.7 Above high normal 3.4-5 .0 (mmol/L) Final Chloride 10/30/2023 18:47 103 98-112 (mmol/ L) Final CO2 10/30/2023 18:47 24 20-31 (mmol/L ) Final Anion Gap 10/30/2023 18:47 15 7-15 (mmol/L) Final Calcium 10/30/2023 18:47 10.1 8.3-10.6 (mg/ dL) Final Total Protein 10/30/2023 18:47 7.8 5.7-8.2 ( g/dL) Final Albumin 10/30/2023 18:47 3.9 3.4-5.0 (g/dL ) Final Bilirubin, Total 10/30/2023 18:47 0.6 0.0-0. 8 (mg/dL) Final AST 10/30/2023 18:47 45 Above high normal 13-40 (U/L) Final ALT 10/30/2023 18:47 63 Above high normal 7-40 (U/L) Final Alkaline Phosphatase 10/30/2023 18:47 170 Above high n ormal 46-116 (U/L) Final Performing Location [facility] [address] [place] [address]
--- OUTSIDE RECORDS SUMMARY | 2024-03-31 07:46 | External Medical Summary ---
Author Name Unknown Address Unknown Organization R1WR:[facility] [address] [place] [address] Laboratory Report Ordering Provider Test Date Status REMA SHIRLEY 10/30/2023 22:23:00 Final Observation Date Value Abnormality Reference (Units ) Status Glucose, POC 10/30/2023 22:30 295 Above high normal 70 -99 (mg/dL) Final Performing Location [facility] [address] [place] [address]
--- OUTSIDE RECORDS SUMMARY | 2024-03-31 07:46 | External Medical Summary ---
Author Name Unknown Address Unknown Organization R1WR:[facility] [address] [place] [address] Laboratory Report Ordering Provider Test Date Status JANES JUAREZ 10/30/2023 19:08:00 Final Observation Date Value Abnormality Reference (Units ) Status Prothrombin Time 10/30/2023 19:27 23.8 Above high alanna l 11.9-14.5 (Sec) Final INR 10/30/2023 19:27 2.1 Fin al Performing Location [facility] [address] [place] [address]
--- OUTSIDE RECORDS SUMMARY | 2024-03-31 07:46 | External Medical Summary | Summary of Care ---
Author Name Unknown Organization [facility] [address] [facility] [address] Phone [phone] Care Team Providers Care School Library Media Program Director Name Role Phone NelyCarlinNurachaka Knowles DO Primary Care Provider [phone] Reason for Visit * Reason Onset Date Comments Test Results 10/21/2023 Medication Management 10/21/2023 Encounter Details Date Type Department Care Team (Late st Contact Info) Description 10/21/2023 Telephone Cardiology, [facility] [address] [place] [id number] Arin Ragsdale CRNP [address] [place] [address] Test Results; Medication Management Allergies Active Allergy Reactions Criticality Noted Date Comments Sulfa Antibiotics 11/14/2004 documented as of this encounter (statuses as of 10/22/2023) Medications Medication Sig Dispensed Refills Start Date [...] in the morning. 08/28/2020 Active Fifty50 Pen [place] 32G X 4 MM (Insulin Pen Needle) Inject 1 Each under the skin in the morning. 02/08/2019 Active OneTouch Delica Plus [id number] Inject 1 Each under the skin 3 [...] 08/30/2023 Active Furosemide 40 MG Oral Tablet (Lasix)Indication s:Hypertensive heart disease with chronic diastolic congestive heart failure (HCC),Chronic right-sided heart failure (HCC),Persistent atrial fibrillation (HCC),HTN, goal below 140/90 TAKE 20 MG BY MOUTH THREE DAYS PER WEEK 10/11/2023 Active dilTIAZem HCl ER 120 MG Oral Capsule Extended Release 24 HourIndications:P ersistent atrial fibrillation (HCC) Take 1 Capsule by mouth in the morning. 90 Capsule 3 10/22/2023 Active dilTIAZem HCl ER 240 MG Oral Capsule Extended Release 24 HourIndications:H ypertensive heart disease with chronic diastolic congestive heart failure (HCC),Chronic right-sided heart failure (HCC),Persistent atrial fibrillation (HCC),HTN, goal below 140/90 Take 1 Capsule by mouth in the morning. 90 Capsule 3 10/01/2023 10/21/19 24 Discontinued dilTIAZem HCl 120 MG Oral Tablet Take 1 Tablet by mouth in the morning. in the morning. Do not cut, crush or chew.. 30 Tablet 11 10/21/2023 10/22/19 24 Discontinued documented as of this encounter (statuses as of 10/22/2023) Active Problems Problem Noted Date Diagnosed Date [...] as of this encounter (statuses as of 10/22/2023) Resolved Problems Problem Noted Date Diagnosed Date [...] as of this encounter (statuses as of 10/22/2023) Immunizations Name Administration Dates Next Due Pneumococcal [...] encounter Miscellaneous Notes * Telephone Encounter - Benito Fuentes LPN - 10/22/2023 3:43 PM EDT Spoke with patient by phone, gave information in this encounter. Verbalized understanding Agreed to plan of care. * Addendum Note - Arin Ragsdale CRNP - 10/22/2023 2:15 PM EDTAddended by: ARIN RAGSDALE on: 10/22/2023 02:15 PM Modules accepted: Orders * Telephone Encounter - Arin Ragsdale CRNP - 10/22/2023 2:15 PM EDT Rx signed. ARJUN Momin * Addendum Note - Benito Fuentes LPN - 10/22/2023 1:59 PM EDTAddended by: BENITO FUENTES on: 10/22/2023 01:59 PM Modules accepted: Orders * Telephone Encounter - Benito Fuentes LPN - 10/22/2023 1:59 PM EDT Attempted pt again. Left add'l message on machine * Telephone Encounter - Jessy Garg sewer contractor - 10/22/2023 11:13 AM EDT [facility] pharmacy calling to request Diltiazem resent as Diltiazem HCL ER 120 mg Oral Capsules Thank You, Jessy Garg, [facility] Field Ironworker III [facility] ([facility]) * Telephone Encounter - Benito Fuentes LPN - 10/21/2023 2:29 PM EDT Attempted pt at both home and mobile numbers. No answers, LMOM at both numbers. * Telephone Encounter - Arin Ragsdale CRNP - 10/21/2023 2:15 PM EDT Please let the patient know that I reviewed her Zio monitor. She was in AFib 100% of the time, thisis known. Her average heart rates are slow in the 50s, but as low as 39 beats per minute. Triggeredsymptoms correlated with atrial fibrillation, rates between 39 and 82 beats per minute. She is on multiple AV aimee blocking agents. At her last appointment I discontinued digoxin. Please make sure she has not taking this medication. I want her to reduce diltiazem to 120 mg daily, I called in a new prescription to the [facility] in [place]. I want her to keep her appointment with Nisha on 11/17--consider discontinuation of diltiazem altogether at this time. ARJUN Momin documented in this encounter Plan of Treatment Upcoming Encounters Date Type Department Care Team (Late st Contact Info) Description 11/18/2023 10:00 AM EDT Office Visit Cardiology, [address] [place] [address] Nisha Arellano CRNP [address] [place] [address] Health Maintenance Due Date Last Done Comments DTaP,Tdap,and Td Vaccines (1 - Tdap) 1959 Zoster Vaccines (2 of 3) 03/17/2013 01/20/2013 Pneumococcal Vaccine: 65+ Years (2 of 2 - PCV) 06/10/2013 06/10/2012 Albumin/Creatinine Ratio 10/27/2016 016, 10/05/2014, 09/21/2013, Additional history exists Diabetic Foot Exam 05/12/2017 05/12/2016, 1 07/07/2014, 06/15/2014, Additional history exists COVID-19 Vaccine ( season) 2023 07/31/2020, 07/10/2020 Influenza Vaccine (FLU shot) (Season Ended) 2024 02/26/2022, 03/09/2019, 03/11/2018, Additional history exists Diabetic Eye Exam 02/06/2024 02/05/2023, , 11/30/2016, Additional history exists CKD PHOS USE SMARTSET 53729 02/17/202401/23, 01/13/2022, 01/12/2022, Additional history exists HbA1c 02/17/2024 08/17/2023, 05/25, 05/21/2023, Additional history exists TSH 02/18/2024 02/17/2023, 01/23, 11/10/2017, Additional history exists CKD HGB USE SMARTSET 47804 09/02/202409/02, 06/08/2023, 05/20/2023, Additional history exists GARDASIL-HPV [...] as of this encounter Visit Diagnoses Diagnosis Persistent atrial fibrillation (HCC)- Primary Atrial fibrillation Hypertensive heart disease with chronic [...] Power of Attor himanshu? No Care Teams School Library Media Program Director Relationship Specialty Start Date End Date Nura Mckay DO [address] [address] [place] [address] PCP - General Family Medicine 12/15/17 documented as of this encounter
--- OUTSIDE RECORDS SUMMARY | 2024-03-31 07:46 | External Medical Summary ---
Author Name Unknown Address Unknown Organization R1WR:[facility] [address] [place] [address] Laboratory Report Ordering Provider Test Date Status REMA SUAREZ 10/31/2023 07:40:00 Final Observation Date Value Abnormality Reference (Units ) Status Specimen Description 10/31/2023 06:53 Blood Final Special Requests 10/31/2023 06:53 None Final Culture 11/05/2023 07:04 No Growth 5 Days Final Report Status 11/05/2023 07:04 Final Result 11/05/2023 Final Performing Location [facility] [address] [place] [address]
--- OUTSIDE RECORDS SUMMARY | 2024-03-31 07:46 | External Medical Summary ---
Author Name Unknown Address Unknown Organization R1WR:[facility] [address] [place] [address] Laboratory Report Ordering Provider Test Date Status REMA SHIRLEY 10/30/2023 18:03:00 Final Observation Date Value Abnormality Reference (Units ) Status Free T4 10/30/2023 21:41 1.35 0.89-1.76 (ng /dL) Final Performing Location [facility] [address] [place] [address]
--- OUTSIDE RECORDS SUMMARY | 2024-03-31 07:46 | External Medical Summary ---
Author Name Unknown Address Unknown Organization R1WR:[facility] [address] [place] [place] [address] Laboratory Report Ordering Provider Test Date Status REMA SUAREZ 10/31/2023 07:47:00 Final Observation Date Value Abnormality Reference (Units ) Status Specimen Description 10/31/2023 06:53 Blood Final Special Requests 10/31/2023 06:53 None Final Culture 11/05/2023 07:04 No Growth 5 Days Final Report Status 11/05/2023 07:04 Final Result 11/05/2023 Final Performing Location [facility] [address] [place] [place] [address]
--- OUTSIDE RECORDS SUMMARY | 2024-03-31 07:46 | External Medical Summary ---
Author Name Unknown Address Unknown Organization R1WR:[facility] [address] [place] [address] Laboratory Report Ordering Provider Test Date Status REMA SHIRLEY 10/30/2023 18:03:00 Final Observation Date Value Abnormality Reference (Units ) Status TSH w/ reflex to Free T4 10/30/2023 21:25 6.66 Above high normal 0.550-4.780 (uIU/mL) Final Performing Location [facility] [address] [place] [address]
--- OUTSIDE RECORDS SUMMARY | 2024-03-31 07:46 | External Medical Summary ---
Author Name Unknown Address Unknown Organization R1WR:[facility] [address] [place] [address] Laboratory Report Ordering Provider Test Date Status JANES JUAREZ 10/30/2023 18:03:00 Final Observation Date Value Abnormality Reference (Units ) Status WBC 10/30/2023 18:34 14.7 Above high normal 4.0-10.0 (X10E+09/L) Final RBC 10/30/2023 18:34 4.86 3.9-5.2 (X10E+12/L) Final Hemoglobin 10/30/2023 18:34 13.7 11.2-15.7 (g/dL) Final Hematocrit 10/30/2023 18:34 43.4 34-45 (%) Final MCV 10/30/2023 18:34 89.3 79-98 (fL) Final MCH 10/30/2023 18:34 28.2 26.0-32.0 (pg) Final MCHC 10/30/2023 18:34 31.6 Below low normal 32-36 (g/dL) Final Platelets 10/30/2023 18:34 259 150-370 (X10E+09/L) Final RDW 10/30/2023 18:34 15.0 Above high normal 11.7-14.4 (%) Final Neutrophils 10/30/2023 18:34 80.2 Above high normal 34.0-71.1 (%) Final Lymphocytes 10/30/2023 18:34 12.7 Below low normal 19.3-51.7 (%) Final Monocytes 10/30/2023 18:34 6.3 4.7-12.5 (%) Final Eosinophils 10/30/2023 18:34 0.3 Below low normal 0.7-5.8 (%) Final Basophils 10/30/2023 18:34 0.5 0.1-1.2 (%) Final Absolute Neutrophils 10/30/2023 18:34 11.76 Above high normal 1.6-6.1 (X10E+09/L) Final Absolute Lymphocytes 10/30/2023 18:34 1.86 1.2-3.7 (X10E+09/L) Final Absolute Monocytes 10/30/2023 18:34 0.93 Above high normal 0.2-0.9 (X10E+09/L) Final Absolute Eosinophils 10/30/2023 18:34 0.05 0.0-0.4 (X10E+09/L) Final Absolute Basophils 10/30/2023 18:34 0.07 0.0-0.1 (X10E+09/L) Final Absolute NRBC 10/30/2023 18:34 0.00 0 (X10E+09/L) Final Nucleated RBC 10/30/2023 18:34 0.0 0.0-0.2 (/100 WBC) Final Performing Location [facility] [address] [place] [address]
--- OUTSIDE RECORDS SUMMARY | 2024-03-31 07:46 | External Medical Summary | Summary of Care ---
Author Name Unknown Organization [facility] Address [address] [facility] [address] Phone [phone] Care Team Providers Care Manager City Name Role Phone NelyCarlinNurachaka Knowles DO Primary Care Provider [phone] Reason for Visit * Reason Onset Date Comments Test Results 10/21/2023 Medication Management 10/21/2023 Encounter Details Date Type Department Care Team (Late st Contact Info) Description 10/21/2023 Telephone Cardiology, [facility] [address] [place] [phone] Arin Ragsdale CRNP [address] [place] [address] Test Results; Medication Management Allergies Active Allergy [...] in the morning. 08/28/2020 Active Fifty50 Pen [place] 32G X 4 MM (Insulin Pen Needle) Inject 1 Each under the skin in the morning. 02/08/2019 Active OneTouch Delica Plus [id number] Inject 1 Each under the skin 3 [...] as of this encounter Miscellaneous Notes * Addendum Note - Arin Ragsdale CRNP - 10/22/2023 2:15 PM EDTAddended by: ARIN RAGSDALE on: 10/22/2023 02:15 PM Modules accepted: Orders * Telephone Encounter - Arin Ragsdale CRNP - 10/22/2023 2:15 PM EDT Rx signed. ARJUN Momin * Addendum Note - Benito Nation LPN - 10/22/2023 1:59 PM EDTAddended by: BENITO NATION on: 10/22/2023 01:59 PM Modules accepted: Orders * Telephone Encounter - Benito Nation LPN - 10/22/2023 1:59 PM EDT Attempted pt again. Left add'l message on machine * Telephone Encounter - Jessy Garg silk weaver - 10/22/2023 11:13 AM EDT [facility] pharmacy calling to request Diltiazem resent as Diltiazem HCL ER 120 mg Oral Capsules Thank You, Jessy Garg, [facility] [employer] Shop Inspector III [facility] ([facility]) * Telephone Encounter - Benito Nation LPN - 10/21/2023 2:29 PM EDT Attempted [...] called in a new prescription to the [facility] in [place]. I want her to keep her appointment with Nisha on 11/17--consider discontinuation of diltiazem altogether at this time. ARJUN Momin documented in this encounter Plan of Treatment Upcoming Encounters Date Type Department Care Team (Late st Contact Info) Description 11/18/2023 10:00 AM EDT Office Visit Cardiology, [facility] [address] [place] [address] Nisha Arellano CRNP [address] [place] [address] Health Maintenance Due Date Last Done Comments [...] Additional history exists CKD PHOS USE SMARTSET 39112 02/17/202401/23, 01/13/2022, 01/12/2022, Additional history exists HbA1c 02/17/2024 08/17/2023, 05/25, 05/21/2023, Additional history exists TSH 02/18/2024 02/17/2023, 01/23, 11/10/2017, Additional history exists CKD HGB USE SMARTSET 48703 09/02/202409/02, 06/08/2023, 05/20/2023, Additional history exists GARDASIL-HPV [...] Power of Attor himanshu? No Care Teams Manager City Relationship Specialty Start Date End Date Nura Mckay DO [address] [place], [place] [address] [address] PCP - General Family Medicine 12/15/17 documented as of this encounter
--- OUTSIDE RECORDS SUMMARY | 2024-03-31 07:47 | External Medical Summary ---
Author Name Unknown Address Unknown Organization R4LH:[facility] [address] [place] [address] Laboratory Report Ordering Provider Test Date Status DIANE FORRESTER 10/07/2023 10:41:00 Final Observation Date Value Abnormality Reference (Units ) Status Prothrombin Time 10/07/2023 11:21 25.4 Above high alanna l 11.9-14.5 (Sec) Final INR 10/07/2023 11:21 2.4 Fin al Performing Location [facility] [address] [place] [address]
--- OUTSIDE RECORDS SUMMARY | 2024-03-31 07:47 | External Medical Summary | Summary of Care ---
Author Name Unknown Organization [facility] [address] [address] Phone [phone] Care Team Providers Care Snaker Name Role Phone NelyCarlinNurachaka Knowles DO Primary Care Provider [phone] Reason for Visit * Reason Onset Date Comments Test Results 10/21/2023 Medication Management 10/21/2023 Encounter Details Date Type Department Care Team (Late st Contact Info) Description 10/21/2023 Telephone Cardiology, [facility] [address] [place] [id number] Renee Quintana CRNP [address] [place] [address] Test Results; Medication Management Allergies Active Allergy [...] in the morning. 08/28/2020 Active Fifty50 Pen Coello 32G X 4 MM (Insulin Pen Needle) Inject 1 Each under the skin in the morning. 02/08/2019 Active OneTouch Delica Plus [id number] Inject 1 Each under the skin 3 [...] DAYS PER WEEK 10/11/2023 Active dilTIAZem HCl 120 MG Oral Tablet Take 1 Tablet by mouth in the morning. in the morning. Do not cut, crush or chew.. 30 Tablet 11 10/21/2023 Active dilTIAZem HCl ER 240 MG Oral Capsule Extended Release 24 HourIndications:H ypertensive heart disease with chronic diastolic congestive heart failure (HCC),Chronic right-sided heart failure (HCC),Persistent atrial fibrillation (HCC),HTN, goal below 140/90 Take 1 Capsule by mouth in the morning. 90 Capsule 3 10/01/2023 10/21/19 24 Discontinued documented as of this encounter [...] ligation 11/07/2017 8 Generalized weakness 11/07/2017 023 alf resident 11/07/20172017 HTN, goal below 140/90 11/04/201511/07 [...] encounter Miscellaneous Notes * Addendum Note - Benito Fuentes LPN - 10/22/2023 1:59 PM EDTAddended by: BENITO FUENTES on: 10/22/2023 01:59 PM Modules accepted: Orders * Telephone Encounter - Benito Fuentes LPN - 10/22/2023 1:59 PM EDT Attempted pt again. Left add'l message on machine * Telephone Encounter - Jessy Garg automobile carpets molder - 10/22/2023 11:13 AM EDT [facility] pharmacy calling to request Diltiazem resent as Diltiazem HCL ER 120 mg Oral Capsules Thank You, Jessy Garg, [facility] Child Nutrition Director III [facility] ([facility]) * Telephone Encounter - Benito Fuentes LPN - 10/21/2023 2:29 PM EDT Attempted pt at both home and mobile numbers. No answers, LMOM at both numbers. * Telephone Encounter - Renee Quintana CRNP - 10/21/2023 2:15 PM EDT Please [...] called in a new prescription to the [facility] in [place]. I want her to keep her appointment with Nisha on 11/17--consider discontinuation of diltiazem altogether at this time. ARJUN Momin documented in this encounter Plan of Treatment Upcoming Encounters Date Type Department Care Team (Late st Contact Info) Description 11/18/2023 10:00 AM EDT Office Visit Cardiology, [facility] [address] [place] [address] Nisha Arellano CRNP [address] [facility] [place] [address] Health Maintenance Due Date Last Done Comments DTaP,Tdap,and Td Vaccines (1 - Tdap) 1959 Zoster Vaccines (2 of 3) 03/17/2013 01/20/2013 Pneumococcal Vaccine: 65+ Years (2 of 2 - PCV) 06/10/2013 06/10/2012 Albumin/Creatinine Ratio 10/27/2016 016, 10/05/2014, 09/21/2013, Additional history exists Diabetic Foot Exam 05/12/2017 05/12/2016, 1 07/07/2014, 06/15/2014, Additional history exists COVID-19 Vaccine (3 - season) 2023 07/31/2020, 07/10/2020 Influenza Vaccine (FLU shot) (Season Ended) 2024 02/26/2022, 03/09/2019, 03/11/2018, Additional history exists Diabetic Eye Exam 02/06/2024 02/05/2023, , 11/30/2016, Additional history exists CKD PHOS USE SMARTSET 16949 02/17/2024 0910/2022, 01/13/2022, 01/12/2022, Additional history exists HbA1c 02/17/2024 08/17/2023, 05/25, 05/21/2023, Additional history exists TSH 02/18/2024 02/17/2023, 01/23, 11/10/2017, Additional history exists CKD HGB USE SMARTSET 24832 09/02/202409/02, 06/08/2023, 05/20/2023, Additional history exists GARDASIL-HPV [...] Power of Attor himanshu? No Care Teams Snaker Relationship Specialty Start Date End Date Nura Mckay DO [address] [place] [address] [place] [address] PCP - General Family Medicine 12/15/17 documented as of this encounter
--- OUTSIDE RECORDS SUMMARY | 2024-03-31 07:47 | External Medical Summary | Summary of Care ---
Author Name Unknown Organization [facility] Address [address] [place] [address] Phone Care Team Providers Care Sportspersons Name Role Phone Nadia Verduzco PA-C Primary Care Provider Provider, Abstract Unavailable Unavailabl rocio Garber Jr., MD, Arthur Toscano Unavailable [phone] Provider, Generic External Data Unavailable Unavailable Yousif Pedraza MD Unavailable [phone] Benson Lutz MD Unavailable [phone] Iram Duong Unavailable External, Provider Unavailable Unavailable Tracie Griggs Unavailable Cecelia Florian Unavailable [phone] Serge Mayers MD Unavailable [phone] Berta Schmidt PA-C Unavailable [phone] Troy Corley MD Unavailable Darleen Barrera Unavailable Nura Mckay DO Unavailable [phone] Source Comments This information has been disclosed [...] except as provided at sections 2.12(c)(5) and 2.65.[facility] Reason for Visit * Reason Comments Wellness Visit Encounter Details Date Type Department Care Team (Latest Contact Info) Description 09/28/2023 1:00 PM EDT Office Visit [facility] [place] [address] [place] [address] Credit Control Administrator: Tiffanie Crump Chelsea M, PA-C [address] [place] [address] Medicare annual wellness visit, subsequent (Primary Dx); Atrial fibrillation, new onset (HCC); termination clerk current use of anticoagulant therapy; Type 2 diabetes mellitus with hemoglobin A1c goal of less than 7.0% (HCC); Gait instability; Congestive heart failure, unspecified HF chronicity, unspecified heart failure type (HCC); Dyslipidemia, goal LDL below 100; Hypothyroidism, unspecified type; Anxiety state; Other fatigue; Essential hypertension with goal blood pressure less than 140/90; Stage 3 chronic kidney disease, unspecified whether stage 3a or 3b CKD (HCC) Allergies Active Allergy Reactions Criticality Noted Date Comments Sulfa (Sulfonamide Antibiotics) Nausea & Vomiting,Dizziness Low 11/14/2004 documented as of this encounter (statuses as of 10/11/2023) Medications Medication Sig Dispensed Refills Start Date [...] mouth every 8 hours as needed Active metoprolol succinate (TOPROL-XL) 100 mg oral extended-release tablet TAKE 1 & 1/2 (ONE & ONE-HALF) TABLETS BY MOUTH DAILY 135 tablet 3 06/26/2022 Active atorvastatin (LIPITOR) 20 mg oral tablet [...] 2ND GEN PEN NEEDLE 32 gauge x " [facility] needleIndications: Type 2 diabetes mellitus with hemoglobin A1c goal of less than 7.0% (HCC) USE TWICE DAILY DIRECTED 100 each 5 01/11/2023 Active lisinopriL 20 mg oral tablet Take 20 mg by mouth daily In the am 03/02/2023 Active digoxin (LANOXIN) 125 mcg oral tablet Take 1 tablet by mouth once daily 90 tablet 03/30/2023 Active diltiazem 240 mg oral extended-release capsule Take 1 capsule by mouth once daily 90 capsule 3 04/19/2023 Active warfarin (COUMADIN) 1 mg oral tablet TAKE 3 TABLETS BY MOUTH ON WEDNESDAY, WEDNESDAY, WEDNESDAY, WEDNESDAY, WEDNESDAY, AND WEDNESDAY. TAKE 2 TABLETS ON WEDNESDAY. 225 tablet 04/16/2023 Active Additional Information Patient taking differently: TAKE 3 TABLETS BY MOUTH ON WEDNESDAY, WEDNESDAY. TAKE 2 TABLETS ON ALL OTHER DAY, Reported on 05/28/2023 blood glucose test strip (ONETOUCH ULTRA TEST) USE 1 STRIP BY MISCELLANEOUS ROUTE THREE TIMES DAILY BEFORE MEALS DX E11.9 300 each 1 04/22/2023 Active lancets (ONE TOUCH DELICA) 33 gauge USE TO TEST BLOOD SUGARS THREE TIMES DAILY BEFORE MEALS 300 each 1 04/22/2023 Active spironolactone (ALDACTONE) 25 mg oral tablet Take 12.5 mg by mouth daily 04/08/2023 Active cloNIDine HCL (CATAPRES) 0.2 mg oral tablet Take 1 tablet by mouth 3 times a day TAKE 1 TABLET BY MOUTH THREE TIMES DAILY (MORNING, NOON & BEFORE BEDTIME) 180 tablet 2 07/10/2023 Active furosemide (LASIX) 40 mg oral tablet Take 20 mg by mouth daily Twice weekly, not sure of exact dose Active levothyroxine 88 mcg oral tablet TAKE 1 TABLET BY MOUTH ONCE DAILY BEFORE A MEAL 90 tablet 1 09/03/2023 Active documented as of this encounter (statuses as of 10/11/2023) Active Problems Patient Care Coordination No te Formatting of this note migh t be different from the original. Please address these codes for accuracy, including them in the office visit note if current. Thanks, Leanne RN, NN Previous Diagnoses 1. F33.42 - [...] as of this encounter (statuses as of 10/11/2023) Immunizations Name Administration Dates Next Due Influenza [...] and heating? Not hard at all 09/28/2023 [facility] [place] [facility] - Occupational Stress [...] Sign Reading Time Taken Comments Blood Pressure 157/66 09/28/2023 2:16 PM EDT dinmap confirmed Pulse 50 09/28/2023 2:16 PM EDT Temperature 36.5 C (97.7 F) 09/28/2023 1 :00 PM EDT Respiratory Rate 16 09/28/2023 1:00 PM EDT Oxygen Saturation 98% 09/28/2023 1:0 0 PM EDT Inhaled Oxygen Concentration - - Weight 70.5 kg (155 lb 8 oz) 09/28/2023 1:00 PM EDT Height 157.5 cm (5' 2") 09/28/2023 1:00 PM EDT Wearing sandals Body Mass Index 28.44 09/28/2023 1:00 PM EDT documented in this encounter Progress Notes * Nadia Verduzco PA-C - 09/28/2023 1:00 PM EDT Name: Lc Cantrell Date of : 1940 Chief Complaint Wellness Visit History of Present Illness Lc Cantrell is a 83 year old female who presents for routine follow up of multiple medical problems and MWV. 1) hyperlipidemia - taking atorvastatin as rx'd. Labs UTD 2) hypothyroidism - taking medication as rx'd. Labs UTD 3) HTN/CHF/A.fib - has been stable. Following with cardiology. We are managing INR though. HR and BP irregular today which hasn't been normal. 4) Type 2 DM - has been doing better with diet and following with endocrinology. 5) OA - stable 6) fatigue - multifactorial, but overall continues to improve. Doing some more things around the house. 7) anemia - labs UTD 8) vit d def - labs UTD. 9) edema - b/l ankles however, hasn't had any issues for quite some time. 10) CKD - stable ; labs UTD I have personally reviewed and updated the patient's problem list, past medical, surgical, family histories, review of systems as well as the patient's medications and allergies. Please refer to the patient's chart for further details. Review of Systems Review of Systems Constitutional: Positive for malaise/fatigue. Skin: Negative for itching, rash and Lumps. HENT: Negative for congestion, ear discharge, ear pain, hoarse voice, sore throat and trouble swallowing. Eyes: Negative for blurred vision, double vision, pain and discharge Cardiovascular: Negative for chest pain, palpitations and leg swelling. Respiratory: Negative for sputum production, wheezing and shortness of breath. Psychiatric/Behavioral: Negative. Gastrointestinal: Negative for constipation, diarrhea, heartburn, nausea and vomiting and pain. Genitourinary: (+) frequency; Negative for dysuria, Flank pain, hematuria and urgency. Endo: Negative. Heme: Negative. Allergies: Positive for environmental allergies. Neurological:Negative for dizziness/lightheadedness and headaches. Negative for tingling, loss of consciousness. Musculoskeletal: Positive for back pain and joint pain; right foot pain. Negative for myalgias, neck pain and walking unsteadily. Social History Socioeconomic History Marital status: Number of children: 4 Years of education: 12 Tobacco Use Smoking status: Never Passive exposure: Never Smokeless tobacco: Never Vaping Use Vaping status: never used Substances: DOES NOT VAPE Substance and Sexual Activity Alcohol use: Not Currently Drug use: Never Sexual activity: Not Currently Current Outpatient Prescriptions Medication Sig acetaminophen (TYLENOL) 500 mg oral tablet Take 1,000 mg by mouth every 8 hours as needed atorvastatin (LIPITOR) 20 mg oral tablet Take 1 tablet by mouth once daily B-D 0.3 ML ULTRA FINE INSULIN SYRINGE SHORT Use as directed BD SAMIRA 2ND GEN PEN NEEDLE 32 gauge x 5/32" misc needle USE TWICE DAILY DIRECTED blood glucose test strip (ONETOUCH ULTRA TEST) USE 1 STRIP BY MISCELLANEOUS ROUTE THREE TIMES DAILYBEFORE MEALS DX E11.9 cholecalciferol, vitamin D3, 1,000 unit oral capsule Take 1 capsule by mouth daily cloNIDine HCL (CATAPRES) 0.2 mg oral tablet Take 1 tablet by mouth 3 times a day TAKE 1 TABLET BY MOUTH THREE TIMES DAILY (MORNING, NOON & BEFORE BEDTIME) digoxin (LANOXIN) 125 mcg oral tablet Take 1 tablet by mouth once daily diltiazem 240 mg oral extended-release capsule Take 1 capsule by mouth once daily furosemide (LASIX) 40 mg oral tablet Take 20 mg by mouth daily Twice weekly, not sure of exact dose insulin aspar prot-insulin aspart 100 unit/mL (70-30) subcutaneous pen (NovoLOG Mix 70-30FlexPen U-100) Inject 43 units with breakfast and 45 units with supper subQ (Patient taking differently: Inject 25 units with breakfast and 25 units with supper subQ) lancets (ONE TOUCH DELZhilian Zhaopin) 33 gauge USE TO TEST BLOOD SUGARS THREE TIMES DAILY BEFORE MEALS levothyroxine 88 mcg oral tablet TAKE 1 TABLET BY MOUTH ONCE DAILY BEFORE A MEAL lisinopriL 20 mg oral tablet Take 20 mg by mouth daily In the am metoprolol succinate (TOPROL-XL) 100 mg oral extended-release tablet TAKE 1 & 1/2 (ONE & ONE-HALF) TABLETS BY MOUTH DAILY multivitamin (MULTIPLE VITAMINS DAILY ORAL) Take 1 tablet by mouth daily ONETOUCH ULTRA2 METER misc USE DIRECTED spironolactone (ALDACTONE) 25 mg oral tablet Take 12.5 mg by mouth daily warfarin (COUMADIN) 1 mg oral tablet TAKE 3 TABLETS BY MOUTH ON WEDNESDAY, WEDNESDAY, WEDNESDAY, WEDNESDAY,WEDNESDAY, AND WEDNESDAY. TAKE 2 TABLETS ON WEDNESDAY. (Patient taking differently: TAKE 3 TABLETS BY MOUTH ON WEDNESDAY, WEDNESDAY. TAKE 2 TABLETS ON ALL OTHER DAY) Physical Exam BP 157/66 | Pulse 50 | Temp 97.7 F (36.5 C) (Temporal) | Resp 16 | Ht 5' 2" (157.5 cm) | Wt 155lb 8 oz (70.5 kg) | SpO2 98% | BMI 28.44 kg/m Physical Exam Constitutional: She is oriented to person, place, and time. She appears well- developed and well-nourished. Eyes: PERRLA w/ EOM B/L Neck: Normal range of motion. Neck supple. Cardiovascular: Normal rate, irregular rhythm and normal heart sounds. Pulmonary/Chest: Effort normal and breath sounds normal. Abdominal: Soft. Bowel sounds are normal. Nontender. Musculoskeletal: Normal range of motion. She exhibits no edema. Neurological: She is alert and oriented to person, place, and time. She has normal reflexes. Skin: Skin is warm and dry. Psychiatric: She has a normal mood and affect. Her behavior is normal. Judgment and thought contentnormal. Extensive counseling discussion; greater than 75% of OV spent counseling of medical problems, personal issues, medication regimen, possible SE/AR and coordinating plan of care. Total time spent 30min. Assessment/Plan Diagnosis ICD-10-CM Plan 1. Medicare annual wellness visit, subsequent Z00.00 SCREENING PERFORMED AND NEGATIVE 2. Atrial fibrillation, new onset (HCC) -stable on present medication regimen; continue as rx'd I48.91 3. termination clerk current use of anticoagulant therapy -recheck INR in 2 weeks Z79.01 4. Type 2 diabetes mellitus with hemoglobin A1c goal of less than 7.0% (HCC) - stable on present medication regimen; continue as rx'd E11.9 5. Gait instability R26.81 6. Congestive heart failure, unspecified HF chronicity, unspecified heart failure type (HCC) I50.9 7. Dyslipidemia, goal LDL below 100 -stable E78.5 8. Hypothyroidism, unspecified type -stable on present medication regimen; continue as rx'd E03.9 9. Anxiety state F41.1 10. Other fatigue R53.83 11. Essential hypertension with goal blood pressure less than 140/90 -recheck of BP after giving her juice there was improvement in this and HR. I10 12. Stage 3 chronic kidney disease, unspecified whether stage 3a or 3b CKD (HCC) -stable, continue to follow with Dr. Corley N18.30 Orders Placed This Encounter SCREENING PERFORMED AND NEGATIVE Return in about 3 months (around 12/29/2023) for routine follow-up. * Nadia Verduzco PA-C - 09/28/2023 1:00 PM EDT Patient Name: Lc Cantrell DOB: 1940 Chief Complaint: Medicare wellness and f/u of chronic complaints History of Present Illness: Patient presents for routine MWV and f/u of chronic conditions. Medicare Preventative Measures - Immunizations: Prevnar (N/A ) Pneumovax (06/10/12 ) Flu (02/26/22) Shingles (decline) COVID-19 (07/10/20 and 07/31/20) - Cancer Screening: Colonoscopy ( decline) Lung (N/A ) Breast (02/07/19 ) Cervical (aged out ) - Other Screenings: DEXA (12/22/22) Diabetes (08/17/23 ) Lipid (08/17/23) Hep C (N/A ) Glaucoma (04/02/20 ) - Advanced directives Discussed advance care plans -- see Advance Directives Snap Shot for details - Tobacco cessation discussion (nonsmoker) Chronic Problems: 1) Type 2 DM 2) A Fib 3)Hypothyroidism 4)Dyslipidemia 5) CKD Review of Systems: Risk Screening: I have reviewed the depression, safety (including fall risk), and functional assessments as completed by the patient on the Patient Self-Assessment Form. The paper version is signed by the patient and provider, and has been scanned to the chart. Fall Risk Screening: Patient was given a fall risk assessment. No history of falls or 1 fall without injury in past year. No plan of care required. Urinary Incontinence Assessment/Plan of Care: Patient was given a UI assessment. Problem with urinary incontinence. The causes of incontinence and plan for evaluation and treatment were discussed. Discussed planned voiding. Depression Screenin09/28/2023 12/03/2022 06/04/2022 10/23/2021 PHQ-9 DOC FLOWSHEET Little interest or pleasure in doing things 0: None 0: None 0: None 0: None Feeling down, depressed, or hopeless 0: None 0: None 0: None 0: None Code Status / Advanced Directives Discussion: Do you have an advanced directive / living will?: yes Patient wishes to be Other: not yet specified; she will bring in copy . Physical Examination: BP 157/66 | Pulse 50 | Temp 97.7 F (36.5 C) (Temporal) | Resp 16 | Ht 5' 2" (157.5 cm) | Wt 155lb 8 oz (70.5 kg) | SpO2 98% | BMI 28.44 kg/m Functional Assessment: Get up and go: Normal Whisper test: Normal Eye Examination: eye exam completed with specialist Cognitive Assessment: Minicog: Pass Assessment/Plan 1) Medicare Wellness: Diagnosis ICD-10-CM Plan 1. Medicare annual wellness visit, subsequent Z00.00 SCREENING PERFORMED AND NEGATIVE 2. Atrial fibrillation, new onset (HCC) I48.91 3. residential current use of anticoagulant therapy Z79.01 4. Type 2 diabetes mellitus with hemoglobin A1c goal of less than 7.0% (HCC) E11.9 5. Gait instability R26.81 6. Congestive heart failure, unspecified HF chronicity, unspecified heart failure type ([facility]) I50.9 7. Dyslipidemia, goal LDL below 100 E78.5 8. Hypothyroidism, unspecified type E03.9 9. Anxiety state F41.1 10. Other fatigue R53.83 11. Essential hypertension with goal blood pressure less than 140/90 I10 12. Stage 3 chronic kidney disease, unspecified whether stage 3a or 3b CKD (HCC) N18.30 Orders Placed This Encounter SCREENING PERFORMED AND NEGATIVE Return in about 3 months (around 12/29/2023) for routine follow-up. Reviewed Medicare Self Assessment, patient was given MPPS. I reviewed and updated the Problem List, Past Medical History, Past Surgical History, Family History, Smoking and Alcohol History nieves and Immunizations in the eRecord. Health Maintenance, which isthe 5 to 10 year Prevention Plan, was reviewed and updated. Race and ethnicity can be found in the demographic section of the electronic health record. Diagnoses that correspond to Risk Factors (such as diabetes, hypertension, etc) are noted in the Problem List. Past Medical History and Family History include diagnoses of depression and other mental illness, if applicable. Interventions for thoserisk factors as needed and for preventative services that are due are noted in the Assessment and Plan section below. The office routinely provides information to patients on how to obtain those services not provided here. documented in this encounter Nursing Notes * Poonam Claire LPN - 09/28/2023 1:00 PM EDT Medicare wellness visit. Pt has no energy at all. Need records for eye exam from Dr Butts at [facility]. documented in this encounter Plan of Treatment [...] 08/17/2023, 07/0 07/2022, 06/03/2022, Additional history exists TSH 08/16/2024 08/17/2023, 07/0 07/2022, 07/20/2022, Additional history exists Basic Metabolic Panel 09/02/2024 09/03/2023 , 08/17/2023, 06/08/2023, Additional history exists Creatinine Serum 09/02/2024 09/03/2023, , 06/08/2023, Additional history exists Hemoglobin 09/02/2024 09/03/2023, 05/24, 07/15/2022, Additional history exists Potassium 09/02/2024 09/03/2023, 07/23, 06/08/2023, Additional history exists Advance Directives 09/27/2024 09/28/2023, 0 12/31/2022, 07/06/2022, Additional history exists COVID-19 Vaccine (3 - season) 2024 07/31/2020, 07/10/2020 Postponed from 01/22/2023 (Recommended Yet Declined) DTaP/Tdap/Td Vaccine (1 - Tdap) 09/27/2024 Postponed from 1959 (Recommended Yet Declined) Medicare Annual Wellness Visit 09/27/2024 09/28/2023, 09/28/2023, 12/03/2022, Additional history exists Shingles Vaccine (Recombinant) (1 of 2) 09/27/2024 Postponed from 03/17/2013 (Recommended Yet Declined) Vision Exam 04/02/2025 04/02/2020 Dexa Scan 12/23/2027 12/22/2022, 02/10/2019 Hearing Screening 09/27/2028 09/28/2023, 02/07/2019 Controlled Substance Agreement Discontinued 06/04/2022, 06/04/2022, 04/10/2021 Depression Screening Completed 09/28/2023, 12/04/19 23 Colorectal Cancer Screening Discussion Discontinued Full Body Skin Exam Discontinued documented as of this encounter Visit Diagnoses Diagnosis Medicare annual wellness visit, subsequent- Primary Routine general medical examination at a [facility] care facility Atrial fibrillation, new onset (HCC) Atrial fibrillation termination clerk current use of anticoagulant therapy Type 2 diabetes mellitus with hemoglobin A1c goal of less than 7.0% (HCC) Gait instability Abnormality of gait Congestive heart failure, unspecified HF chronicity, unspecified heart failure type (HCC) Dyslipidemia, goal LDL below 100 Other and unspecified hyperlipidemia Hypothyroidism, unspecified type Anxiety state Anxiety state, unspecified Other fatigue Essential hypertension with goal blood pressure less than 140/90 Stage 3 chronic kidney disease, unspecified whether stage 3a or 3b CKD (HCC) documented in this encounter Care Teams Sportspersons Relationship Specialty Start Date End Date Nadia Verduzco PAZaneC [address] [place] [address] PCP - General Family Medicine 03/11/18 Provider, MD VALARIE Fitzgerald PROVIDER 09/08/18 Arthur Garber Jr., MD [address] [facility] [phone] [place] [address] Orthopaedic Surgery 11/15/18 Provider, Generic External Data 01/30/20 Yousif Pedraza MD [address] [facility] [address] [place] [address] Cardiology 02/05/20 Benson Lutz MD [address] [place] [address] Endocrinology 04/02/20 Iram Duong [address] [place] [address] Nutrition 04/29/20 External, Provider 05/08/20 Tracie Griggs [address] [place] [address] Nutrition 07/03/20 Cecelia Florian CRNP [address] [place] [address] Endocrinology 07/05/20 Serge Mayers MD [address] [place] [address] Allergy 09/29/21 Berta Schmidt PA-C [address] [facility] [address] [place] [id number] General Surgery 02/03/22 Troy Corley MD [address] [place] [address] Nephrology 07/02/22 Darleen Barrera [address] [place] [address] Registered Nurse 05/11/23 Nura Mckay DO [address] [facility] [address] [place] [id number] Family Medicine 06/01/23 documented as of this encounter
--- OUTSIDE RECORDS SUMMARY | 2024-03-31 07:47 | External Medical Summary | Summary of Care ---
Author Name Unknown Organization [facility] Address [address] [place] [address] Phone [phone] Care Team Providers Care Advanced Seal Delivery System Name Role Phone Nura Mckay DO Primary Care Provider [phone] [phone] Encounter Details Date Type Department Care Team (Late st Contact Info) Description 10/07/2023 Telephone Access Center, [facility] [address] [facility] *DO NOT REMOVE THIS DEPARTMENT* [place] [address] Services, Scheduling [address] [place] [address] Allergies Active Allergy Reactions Criticality Noted Date Comments Sulfa Antibiotics 11/14/2004 documented as of this encounter (statuses as of 10/07/2023) Medications Medication Sig Dispensed Refills Start Date End Date Status levothyroxine (LEVOXYL) 88 MCG Tablet Take 1 Tablet by mouth daily first thing in the morning. 0 06/28/2018 Active Insulin Syringe 27G X 1/2" 0.5 ML Inject 1 Each under the skin 2 times a day. 0 04/23/2020 Active Multi-Vitamins Oral Tablet Take 1 Tablet by mouth in the morning. 0 Active [employer] Test In Vitro Strip (Glucose Blood) Inject 1 Strip as directed in the morning and 1 Strip at noon and 1 Strip before bedtime. 0 02/02/2019 Active Insulin Aspart Prot & Aspart (70-30) 100 UNIT/ML Suspension Pen-injector Inject 25 Units under the skin in the morning. 0 08/28/2020 Active Fifty50 Pen [place] 32G X 4 MM (Insulin Pen Needle) Inject 1 Each under the skin in the morning. 0 02/08/2019 Active OneTouch Delica Plus [id number] Inject 1 Each under the skin 3 times a day. 0 07/05/2020 Active Warfarin Sodium 1 MG Oral Tablet Take 3 Tablets by mouth daily except on . 0 Active Warfarin Sodium 1 MG Oral Tablet (Coumadin) Take 2 Tablets by mouth every . 0 Active Insulin Aspart Prot & Aspart (70-30) 100 UNIT/ML Suspension Pen-injector Inject 25 Units under the skin daily with dinner. 0 Active Lisinopril 20 MG Oral Tablet (Prinivil) Take 1 Tablet by mouth in the morning. 0 Active Vitamin D3 50 MCG (2000 UT) Oral Capsule Take 1 Capsule by mouth in the morning. 0 Active cloNIDine HCl 0.2 MG Oral Tablet [...] day as needed for Cough. 120 mL 0 05/25/2023 Active Additional Information Patient not taking.Reported [...] Tablet 3 08/30/2023 Active dilTIAZem HCl ER 240 MG Oral Capsule Extended Release 24 HourIndications:Hyp ertensive heart disease with chronic diastolic congestive heart failure (HCC),Chronic right-sided heart failure (HCC),Persistent atrial fibrillation (HCC),HTN, goal below 140/90 Take 1 Capsule by mouth in the morning. 90 Capsule 3 10/01/2023 Active Furosemide 40 MG Oral Tablet (Lasix)Indications: Hypertensive heart disease with chronic diastolic congestive heart failure (HCC),Chronic right-sided heart failure (HCC),Persistent atrial fibrillation (HCC),HTN, goal below 140/90 TAKE 20 MG BY MOUTH TWO DAYS PER WEEK 90 Tablet 3 10/01/2023 Active documented as of this encounter (statuses as of 10/07/2023) Active Problems Problem Noted Date Diagnosed Date [...] as of this encounter (statuses as of 10/07/2023) Resolved Problems Problem Noted Date Diagnosed Date [...] as of this encounter (statuses as of 10/07/2023) Immunizations Name Administration Dates Next Due Pneumococcal [...] 11/18/2023 10:00 AM EDT Office Visit Cardiology, [facility] [address] [place] [address] Nisha Arellano CRNP [address] [place] [address] Health Maintenance Due Date Last Done Comments [...] Additional history exists CKD PHOS USE SMARTSET 83731 02/17/202401/23, 01/13/2022, 01/12/2022, Additional history exists HbA1c 02/17/2024 08/17/2023, 05/25, 05/21/2023, Additional history exists TSH 02/18/2024 02/17/2023, 01/23, 11/10/2017, Additional history exists CKD HGB USE SMARTSET 33877 09/02/202409/02, 06/08/2023, 05/20/2023, Additional history exists GARDASIL-HPV [...] filedocumented as of this encounter Advance Directives Latest Code Status on File Code Status Date Activated Date Inactivated Comments Limited Code 05/20/2023 1:42 PM 05/25/2023 5:20 PM This order reflects the patients wishes and were consensually agreed upon. Question Answer Comments Discussion of Advance Directives occurred with: Family Does the patient have a Living Will? No Bag Valve Device? Yes Intubation? No Cardiac Compressions? Yes Defibrillation? Yes Synchronized Cardioversion? Yes External Pacemaker? Yes Cardiac Drugs? Yes Code Status History Code Status Date Activated Date Inactivated Comments Full Code 02/17/2023 3:58 AM 02/18/2023 9:02 PM This order reflects the patients wishes and were consensually agreed upon. Question Answer Comments Discussion of Advance Directives occurred with: Patient Does the patient have a Living Will? No Does the patient have Health Care Power of Strap Machine Operator? No Care Teams Advanced Seal Delivery System Relationship Specialty Start Date End Date Nura Mckay DO [address] [address] [place] [address] PCP - General Family Medicine 12/15/17 documented as of this encounter
--- OUTSIDE RECORDS SUMMARY | 2024-03-31 07:47 | External Medical Summary ---
Author Name Unknown Address Unknown Organization [id number] [address] [place] [address] Laboratory Report Ordering Provider Test Date Status TAMMY DE OLIVEIRA 10/15/2023 09:54:00 Final Observation Date Value Abnormality Reference (Units ) Status Glucose 10/15/2023 10:31 244 Above high normal 70-99 (mg/dL) Final BUN 10/15/2023 10:31 25 Above high normal 7-18 (mg/dL) Final Creatinine 10/15/2023 10:31 1.32 Above high normal 0.60 -1.30 (mg/dL) Final eGFR 10/15/2023 10:31 39 Below low normal >59 (m L/min/1.73m2) Final eGFR = 142 X [min(Scr/k,1)]* *a [max(Scr/k,1)-1.200x0.9938age X 1.012 [if female] Where Scr is serum creatinine; k is 0.7 for females and 0.9 males; a is -0.241 for females and -0.302 for males; min indicates the minimum of Scr/k or 1, max indicates the maximum of Scr/k or 1 Sodium 10/15/2023 10:31 136 136-145 (mmol /L) Final Potassium 10/15/2023 10:31 4.8 3.6-5.0 (mmol /L) Final Chloride 10/15/2023 10:31 97 Below low normal 101-11 1 (mmol/L) Final CO2 10/15/2023 10:31 27 21-31 (mmol/L ) Final Anion Gap 10/15/2023 10:31 17 Above high normal 6-16 (mmol/L) Final Calcium 10/15/2023 10:31 9.4 8.4-10.5 (mg/ dL) Final Performing Location [facility] [address] [place] [address]
--- OUTSIDE RECORDS SUMMARY | 2024-03-31 07:47 | External Medical Summary | Summary of Care ---
Author Name Unknown Organization [facility] Address [address] [place] [address] Phone [phone] Care Team Providers Care Consulting Nurse Name Role Phone NelyNura Benson HOWARD Primary Care Provider [phone] [phone] Reason for Visit * Reason Onset Date Comments Test Results 10/07/2023 Encounter Details Date Type Department Care Team (Late st Contact Info) Description 10/07/2023 Telephone Cardiology, [facility] [address] [place] [place] [address] Renee Quintana CRNP [address] [facility] [place] [address] Test Results Allergies Active Allergy Reactions Criticality [...] in the morning. 08/28/2020 Active Fifty50 Pen [place] 32G X 4 MM (Insulin Pen Needle) Inject 1 Each under the skin in the morning. 02/08/2019 Active OneTouch Delica Plus [id number] Inject 1 Each under the skin 3 [...] 10/01/2023 Active Furosemide 40 MG Oral Tablet (Lasix)Indication s:Hypertensive heart disease with chronic diastolic congestive heart failure (HCC),Chronic right-sided heart failure (HCC),Persistent atrial fibrillation (HCC),HTN, goal below 140/90 TAKE 20 MG BY MOUTH THREE DAYS PER WEEK 10/11/2023 Active Furosemide 40 MG Oral Tablet (Lasix)Indication s:Hypertensive heart disease with chronic diastolic congestive heart failure (HCC),Chronic right-sided heart failure (HCC),Persistent atrial fibrillation (HCC),HTN, goal below 140/90 TAKE 20 MG BY MOUTH TWO DAYS PER WEEK 90 Tablet 3 10/01/2023 10/11/19 24 Discontinued documented as of this encounter (statuses as of 10/11/2023) Active Problems Problem Noted Date Diagnosed Date [...] of this encounter (statuses as of 10/11/2023) Resolved Problems Problem Noted Date Diagnosed Date [...] ligation 11/07/2017 8 Generalized weakness 11/07/2017 023 intermediate resident 11/07/20172017 HTN, goal below 140/90 11/04/201511/07 [...] 10/11/2023) Immunizations Name Administration Dates Next Due Pneumococcal [...] Telephone Encounter - Tracie Fuentes LPN - 10/11/2023 1:31 PM EDT Spoke with patient by phone, gave information in this encounter. Verbalized understanding Agreed to plan of care. * Telephone Encounter - Cachorro Cadena LPN - 10/07/2023 3:56 PM EDT Called and left patient a message to return call on an unidentified voicemail. Awaiting call back. ----- Message from ARJUN Barger sent at 10/06/2023 1:18 PM EDT ----- LVEF hyperdynamic >70%. Severe concentric LVH Biatrial enlargement consistent with persistent AFIB Moderate to severe mitral insufficiency Severe tricuspid regurgitation is present. (Previously moderate) Severe pulmonary hypertension is present. The estimated pulmonary artery systolic pressure is >60mm Hg. (Similar to prior). BP elevated during study. I am concerned patient is holding onto fluid. At her last appt she was hesitant to increase diuretic dose however, I recommend that she increases lasix to 20 mg MWF (currently only taking 2x per week). Repeat a BMP in 1 week. documented in this encounter Plan of Treatment Upcoming Encounters Date Type Department Care Team (Late st Contact Info) Description 11/18/2023 10:00 AM EDT Office Visit Cardiology, [facility] [address] [place] [address] Nisha Arellano CRNP [address] [place] [address] Scheduled Orders Name Type Priority Associated Diagnoses Orde r Schedule BASIC METABOLIC PANEL Lab Routine Hypertensive heart disease with chronic diastolic congestive heart failure (HCC) Chronic right-sided heart failure (HCC) Persistent atrial fibrillation (HCC) HTN, goal below 140/90 Expected: 10/18/2023 (Approximate), Expires: 10/10/2024 Health Maintenance Due Date Last Done Comments [...] Additional history exists CKD PHOS USE SMARTSET 88598 02/17/202401/23, 01/13/2022, 01/12/2022, Additional history exists HbA1c 02/17/2024 08/17/2023, 05/25, 05/21/2023, Additional history exists TSH 02/18/2024 02/17/2023, 01/23, 11/10/2017, Additional history exists CKD HGB USE SMARTSET 05421 09/02/202409/02, 06/08/2023, 05/20/2023, Additional history exists GARDASIL-HPV [...] as of this encounter Visit Diagnoses Diagnosis Hypertensive heart disease with chronic diastolic congestive [...] Power of Attor himanshu? No Care Teams Consulting Nurse Relationship Specialty Start Date End Date Nura Mckay DO [address] [place] [address] [place] [address] PCP - General Family Medicine 12/15/17 documented as of this encounter
--- OUTSIDE RECORDS SUMMARY | 2024-03-31 07:47 | External Medical Summary | Summary of Care ---
Author Name Unknown Organization [facility] Address [address] [facility] [address] Phone [phone] Care Team Providers Care Chief Of Production Name Role Phone NelyCarlinNurachaka Knowles DO Primary Care Provider [phone] [phone] Reason for Visit * Reason Onset Date Comments Test Results 10/21/2023 Medication Management 10/21/2023 Encounter Details Date Type Department Care Team (Late st Contact Info) Description 10/21/2023 Telephone Cardiology, [facility] [address] [place] [id number] Renee Quintana CRNP [address] [place] [address] Test Results; Medication Management Allergies Active Allergy [...] in the morning. 08/28/2020 Active Fifty50 Pen Oc[place] 32G X 4 MM (Insulin Pen Needle) Inject 1 Each under the skin in the morning. 02/08/2019 Active OneTouch Delica Plus [id number] Inject 1 Each under the skin 3 [...] ligation 11/07/2017 8 Generalized weakness 11/07/2017 023 [facility] resident 11/07/20172017 HTN, goal below 140/90 11/04/201511/07 [...] encounter Miscellaneous Notes * Telephone Encounter - Jessy Garg booth usher - 10/22/2023 11:13 AM EDT [facility] pharmacy calling to request Diltiazem resent as Diltiazem HCL ER 120 mg Oral Capsules Thank You, Jessy Garg, [facility] ([facility]) * Telephone Encounter - Tracie Fuentes LPN - 10/21/2023 2:29 PM EDT [...] a new prescription to the [facility] in [place]. I want her to keep her appointment with Nisha on 11/17--consider discontinuation of diltiazem altogether at this time. ARJUN Momin documented in this encounter Plan of Treatment Upcoming Encounters Date Type Department Care Team (Late st Contact Info) Description 11/18/2023 10:00 AM EDT Office Visit Cardiology, [facility] [address] [place] [address] Nisha Arellano CRNP [address] [place] [address] Health Maintenance Due Date Last Done Comments [...] Additional history exists CKD PHOS USE SMARTSET 17352 02/17/202401/23, 01/13/2022, 01/12/2022, Additional history exists HbA1c 02/17/2024 08/17/2023, 05/25, 05/21/2023, Additional history exists TSH 02/18/2024 02/17/2023, 01/23, 11/10/2017, Additional history exists CKD HGB USE SMARTSET 19465 09/02/202409/02, 06/08/2023, 05/20/2023, Additional history exists GARDASIL-HPV [...] Power of Attor himanshu? No Care Teams Chief Of Production Relationship Specialty Start Date End Date Nura Mckay DO [address] [place] [address] [place] [address] PCP - General Family Medicine 12/15/17 documented as of this encounter
--- OUTSIDE RECORDS SUMMARY | 2024-03-31 07:47 | External Medical Summary | Summary of Care ---
Author Name Unknown Organization [facility] Address [address] [facility] [address] Phone [phone] Care Team Providers Care Drying Machine Back Tender Name Role Phone NelyCarlinNurachaka Knowles DO Primary Care Provider [phone] [phone] Reason for Visit * Reason Onset Date Comments Test Results 10/21/2023 Medication Management 10/21/2023 Encounter Details Date Type Department Care Team (Late st Contact Info) Description 10/21/2023 Telephone Cardiology, [facility] [address] [place] [id number] Renee Quintana CRNP [address] [place] [address] Test Results; Medication Management Allergies Active Allergy [...] in the morning. 08/28/2020 Active Fifty50 Pen [place] 32G X 4 MM (Insulin Pen Needle) Inject 1 Each under the skin in the morning. 02/08/2019 Active OneTouch Delica Plus [id number] Inject 1 Each under the skin 3 [...] machine * Telephone Encounter - Jessy Garg fish processing supervisor - 10/22/2023 11:13 AM EDT [facility] pharmacy calling to request Diltiazem resent as Diltiazem HCL ER 120 mg Oral Capsules Thank You, Jessy Garg, [facility] [employer]itter III [facility] ([facility]) * [...] called in a new prescription to the [facility] [place]. I want her to keep her appointment with Nisha on 11/17--consider discontinuation of diltiazem altogether at this time. ARJUN Momin documented in this encounter Plan of Treatment Upcoming Encounters Date Type Department Care Team (Late st Contact Info) Description 11/18/2023 10:00 AM EDT Office Visit Cardiology, [facility] [place] [address] Nisha Arellano CRNP [address] [facility] [place] [address] Health Maintenance Due Date Last Done Comments [...] Additional history exists CKD PHOS USE SMARTSET 72596 02/17/2024 0910/2022, 01/13/2022, 01/12/2022, Additional history exists HbA1c 02/17/2024 08/17/2023, 05/25, 05/21/2023, Additional history exists TSH 02/18/2024 02/17/2023, 01/23, 11/10/2017, Additional history exists CKD HGB USE SMARTSET 11755 09/02/202409/02, 06/08/2023, 05/20/2023, Additional history exists GARDASIL-HPV [...] Power of Attor himanshu? No Care Teams Drying Machine Back Tender Relationship Specialty Start Date End Date Nura Mckay DO [address] [place] [address] [place] [address] PCP - General Family Medicine 12/15/17 documented as of this encounter
--- OUTSIDE RECORDS SUMMARY | 2024-03-31 07:47 | External Medical Summary | Summary of Care ---
Author Name Unknown Organization [facility] Address [address] [facility] [place] [address] Phone [phone] Care Team Providers Care Real Estate Associate Attorney Name Role Phone NelyNura Benson HOWARD Primary Care Provider [phone] [phone] Reason for Visit * Reason Onset Date Comments Test Results 10/21/2023 Encounter Details Date Type Department Care Team (Late st Contact Info) Description 10/21/2023 Telephone Cardiology, [facility] [address] [facility] [place] [address] Renee Quintana CRNP [address] [facility] [place] [address] Test Results Allergies Active Allergy Reactions Criticality [...] in the morning. 08/28/2020 Active Fifty50 Pen [place] 32G X 4 MM (Insulin Pen Needle) Inject 1 Each under the skin in the morning. 02/08/2019 Active OneTouch Delica Plus [id number] Inject 1 Each under the skin 3 [...] called in a new prescription to the [facility] in [place]. I want her to keep her appointment with Nisha on 11/17--consider discontinuation of diltiazem altogether at this time. ARJUN Momin documented in this encounter Plan of Treatment Upcoming Encounters Date Type Department Care Team (Late st Contact Info) Description 11/18/2023 10:00 AM EDT Office Visit Cardiology, [facility] [address] [place] [address] Nisha Arellano CRNP [address] [place] [address] Health Maintenance Due Date Last Done Comments [...] Additional history exists CKD PHOS USE SMARTSET 86779 02/17/202401/23, 01/13/2022, 01/12/2022, Additional history exists HbA1c 02/17/2024 08/17/2023, 05/25, 05/21/2023, Additional history exists TSH 02/18/2024 02/17/2023, 01/23, 11/10/2017, Additional history exists CKD HGB USE SMARTSET 54852 09/02/202409/02, 06/08/2023, 05/20/2023, Additional history exists GARDASIL-HPV [...] Power of Attor himanshu? No Care Teams Real Estate Associate Attorney Relationship Specialty Start Date End Date Nura Mckay DO [address] [place] [address] [place] [address] PCP - General Family Medicine 12/15/17 documented as of this encounter
--- OUTSIDE RECORDS SUMMARY | 2024-03-31 07:47 | External Medical Summary | Summary of Care ---
Author Name Unknown Organization [facility] Address [address] [place] [address] Phone [phone] Care Team Providers Care Electrician Third Name Role Phone Nura Mckay Primary Care Provider [phone] [phone] Reason for Visit * Reason Onset Date Comments Med Request 07/06/2023 Encounter Details Date Type Department Care Team (Late st Contact Info) Description 07/06/2023 Telephone Cardiology, [facility] [address] [place] [id number] Angel De Dios MD [address] [place] [address] Med Request Allergies Active Allergy Reactions Criticality Noted Date Comments Sulfa Antibiotics 11/14/2004 documented as of this encounter (statuses as of 10/05/2023) Medications Medication Sig Dispensed Refills Start Date [...] the morning. 0 08/28/2020 Active Fifty50 Pen [place] 32G X 4 MM (Insulin Pen Needle) Inject 1 Each under the skin in the morning. 0 02/08/2019 Active OneTouch Delica Plus [id number] Inject 1 Each under the skin 3 [...] Tablet by mouth in the morning. 0 06/06/2020 4 Discontinue d(Refill) Digoxin 125 MCG Oral Tablet (Lanoxin) Take 1 Tablet by mouth in the morning. 0 06/06/2020 4 Discontinue d(Refill) dilTIAZem HCl ER 240 MG Oral Capsule Extended Release 24 Hour Take 1 Capsule by mouth in the morning. 0 06/26/2020 4 Discontinue d(Refill) Metoprolol Succinate ER 100 MG Oral Tablet Extended Release 24 Hour (toPROL XL) Take 1.5 Tablets by mouth in the morning. 0 4 Discontinue d(Refill) Furosemide 40 MG Oral Tablet (Lasix) Take 0.5 Tablets by mouth in the morning. TAKE 20 MG BY MOUTH TWO DAYS PER WEEK. 15 Tablet 0 05/25/2023 4 Discontinue d(Refill) documented as of this encounter (statuses as of 10/05/2023) Active Problems Problem Noted Date Diagnosed Date [...] as of this encounter (statuses as of 10/05/2023) Resolved Problems Problem Noted Date Diagnosed Date [...] as of this encounter (statuses as of 10/05/2023) Immunizations Name Administration Dates Next Due Pneumococcal [...] encounter Miscellaneous Notes * Telephone Encounter - Candis William PA-C - 07/06/2023 4:30 PM EST Refill signed. * Telephone Encounter - Manjit Asencio OSA - 07/06/2023 4:12 PM EST Person calling: Froilan Relationship to patient: Son Number to return call: [phone] Reason for call: Calling to have Metoprolol refilled, please advise. Pharmacy: [facility] Provider Name:Dr. De Dios documented in this encounter Plan of Treatment Upcoming Encounters Date Type Department Care Team (Late st Contact Info) Description 10/06/2023 8:00 AM EDT Cardiac Studies Cardiac Studies, [facility] [place] [address] 11/18/2023 10:00 AM EDT Office Visit Cardiology, [facility] [address] [place] [address] Nisha Arellano CRNP [address] [facility] [place] [address] Health Maintenance Due Date Last Done Comments [...] Additional history exists CKD PHOS USE SMARTSET 57056 02/17/202401/23, 01/13/2022, 01/12/2022, Additional history exists HbA1c 02/17/2024 08/17/2023, 05/25, 05/21/2023, Additional history exists TSH 02/18/2024 02/17/2023, 01/23, 11/10/2017, Additional history exists CKD HGB USE SMARTSET 76101 09/02/202409/02, 06/08/2023, 05/20/2023, Additional history exists GARDASIL-HPV [...] as of this encounter Visit Diagnoses Diagnosis Paroxysmal atrial fibrillation (HCC)- Primary Atrial fibrillation (HFpEF) heart failure with preserved ejection fraction (HCC) Essential hypertension with goal blood pressure less than 140/90 documented in this encounter Advance Directives Latest Code Status [...] the patient have Health Care Power of Risk And Insurance Consultant? No Care Teams Electrician Third Relationship Specialty Start Date End Date Nura Mckay DO [address] [address] [place] [address] PCP - General Family Medicine 12/15/17 documented as of this encounter
[2024-03-31] MEDS: ATORVASTATIN 20 MG TAB PO SCH (08:17)
[2024-03-31] MEDS: dilTIAZem HCL 240 MG CAPCR PO SCH (08:18)
--- NOTE | 2024-03-31 08:20 | Cardiology Consultation ---
Date of Consultation March 31, 2024 Assessment & Plan (1) Acute on chronic heart failure with preserved ejection fraction (HFpEF): (2) Moderate sized pleural effusion: (3) Permanent atrial fibrillation: (4) Mitral regurgitation: (5) Tricuspid regurgitation: (6) Supratherapeutic INR: Plan 83-year-old female admitted with acute on chronic heart failure with preserved ejection fraction in the setting of mixed valvular heart disease, CKD, and permanent atrial fibrillation. Rate controlled on telemetry. Recommend continue IV diuresis. Monitor fluid balance, daily weight, GFR, and electrolytes. I would not add spironolactone at this time due to renal insufficiency. Supplement potassium and magnesium as indicated. Monitor telemetry. Moderate to large right-sided pleural effusion noted. May require thoracentesis during hospitalization, however, continue to treat medically at this time. Hold warfarin due to supratherapeutic INR. Repeat PT/INR in AM. History of Present Illness Reason for Consultation: CHF Requesting Physician: Dr. Olivas Attending Physician: Eliana Clark MD History of Present Illness 83-year-old female evaluated in the outpatient clinic 03/30/2024 due to weight gain (20-30lb), lower extreme edema, progressive dyspnea, and orthopnea. Referred to the emergency department for inpatient treatment.X-ray demonstrating large right pleural effusion. Issues with poorly rate controlled atrial fibrillation per outpatient records. Intolerance to calcium channel jennifer therapy documented.Patient received 1 dose of 40 mg furosemide with 1700 cc diuresis. Chronically treated with Bumex as outpatient. Recently hospitalized in [place] due to CHF. Results of echocardiogram noted below. Feeling better since admission. Notes symptoms began nearly 4 weeks ago after a fall and hospitalization. Reports significant orthopnea. Reports states "I cannot lay flat". Currently wearing supplemental oxygen, 1 L nasal cannula although does not require oxygen supplementation at home. Cardiac Problems: 1. Hypertension with hypertensive heart disease and diastolic and right heart failure a. History of hypertensive urgency with acute on chronic diastolic CHF exacerbation, 02/16/2023, December 2023, February 2024 2. Hypertensive kidney disease 3. Longstanding persistent atrial fibrillation; ventricular rates well controlled on multidrug regimen a. [id number] score of 4 (age 1, female, HTN)-- on Coumadin 4. 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 Type 2 diabetes 6. Dyslipidemia 7. CKD stage 3, follows with [facility] nephrology 8. Acute respiratory failure in the setting of COVID-04/2023 Home Medications Medication Instructions Recorded Confirmed Type atorvastatin 20 mg tablet 20 mg PO DAILY 03/30/24 03/30/24 History bumetanide 1 mg tablet 1 mg PO BID 03/30/24 03/30/24 History diltiazem HCl 120 mg 240 mg PO DAILY 03/30/24 03/30/24 History capsule,extended release 24 hr, controlled (DILT-XR) insulin aspar prot-insulin aspart 25 unit subcut BID 03/30/24 03/30/24 History 100 unit/mL (70-30) subcutaneous pen (Novolog Mix 70-30FlexPen U-100) levothyroxine 88 mcg tablet 88 mcg PO DAILY 03/30/24 03/30/24 History lisinopril 20 mg tablet 20 mg PO DAILY 03/30/24 03/30/24 History metoprolol succinate 100 mg 100 mg PO BID 03/30/24 03/30/24 History tablet,extended release 24 hr potassium chloride 20 mEq 20 meq PO DAILY 03/30/24 03/30/24 History tablet,extended release warfarin 1 mg tablet 2 mg PO DAILY 03/30/24 03/30/24 History Patient History Medical History Hypothyroidism CKD (chronic kidney disease), stage III Dyslipidemia DM (diabetes mellitus), type 2 Hypertension Atrial fibrillation Surgical History S/P cholecystectomy Family History Other Diabetes Hypertension Social History Smoking Status: Never smoker Hx Alcohol Use: No Hx Substance Use: No Preferred Language: Vietnamese Communication Ability: Effective Melt Helper Required: No Beliefs That Will Affect Care: None Current Living Situation: Other Current Living Situation Comment: home w/ son Other Information That Helps Us Care for You: No Feels Safe at Home: Yes Safety Concerns: Feels Safe At This Time Assistive Devices: Glasses and Walker Review of Systems Review of Systems: All systems reviewed & are unremarkable except as noted in Subjective Physical Exam Constitutional: well nourished; no acute distress Respiratory: no respiratory distress and no labored breathing Auscultation: + diminished lung sounds (Right base) and + rales (Bilateral) Cardiovascular: Rate/Rhythm: + irregularly irregular Heart Sounds: normal S1, normal S2 and + murmur (2/6 Midsystolic murmur heard at apex and LSB) Vessels: + JVD; no carotid bruit Extremities: + edema (2+ bilateral lower extremity pretibial edema) Gastrointestinal (Abdomen): Inspection/Auscultation: normal bowel sounds; abdomen not distended Percussion/Palpation: abdomen soft; abdomen nontender, no guarding and abdomen not rigid Neurologic: CN's II-XI intact bilaterally and moves all extremities Results & Data Vital Signs (Past 12 Hours) Vital Signs Temp Pulse Pulse Resp BP BP BP 03/31/24 07:38 36.4 C L 84 20 124/77 03/31/24 02:22 36.5 C 91 H 20 108/79 03/30/24 22:49 36.4 C L 75 22 118/69 03/30/24 21:54 75 03/30/24 21:11 77 03/30/24 21:04 36.4 C L 74 22 131/76 03/30/24 20:31 36.5 C 84 20 124/78 Pulse Ox O2 Del Method O2 Flow Rate 03/31/24 07:38 96 Nasal Cannula 1.0 03/31/24 02:22 94 Room Air 2 03/30/24 22:49 94 Nasal Cannula 2 03/30/24 21:54 03/30/24 21:11 03/30/24 21:04 95 Nasal Cannula 2 03/30/24 20:31 98 Nasal Cannula 2 Laboratory Results Cardiac Enzymes 03/30/24 Range/Units 18:06 AST 29 (13-39) U/L B-Natriuretic Peptide 576 H (0-100) pg/ml Coagulation 03/30/24 03/31/24 Range/Units 18:06 06:00 PT 42.9 H 50.2 H (9.0-12.0) Seconds B-Natriuretic Peptide 576 H (0-100) pg/ml CBC 03/30/24 03/31/24 Range/Units 18:06 06:00 WBC 7.48 7.27 (4.8-10.8) K/ul RBC 4.98 4.80 (4.20-5.40) M/uL Hgb 11.9 L 11.5 L (12.0-16.0) g/dl Hct 38.6 37.2 (37.0-47.0) % Plt Count 189 192 (130-400) K/uL Neut # (Auto) 5.22 (1.40-6.50) K/uL Lymph # (Auto) 1.19 L (1.20-3.40) K/uL Lee # (Auto) 0.88 H (0.11-0.59) K/uL Eos # (Auto) 0.12 (0.00-0.50) K/uL Baso # (Auto) 0.05 (0.00-0.20) K/uL Comprehensive Metabolic Panel 03/30/24 03/31/24 Range/Units 18:06 06:00 Sodium 140 144 (136-145) mmol/L Potassium 5.1 4.2 (3.5-5.1) mmol/L Chloride 103 103 (98-107) mmol/L Carbon Dioxide 27 34 H (21-32) mmol/L BUN 43 H 41 H (6-23) mg/dl Creatinine 1.89 H 1.93 H (0.6-1.2) mg/dl Glucose 162 H 79 (70-99(Fasting)) mg/dl Calcium 9.5 9.6 (8.6-10.3) mg/dl Direct Bilirubin TNP AST 29 (13-39) U/L ALT 18 (7-52) U/L Alkaline Phosphatase 143 H (34-104) U/L Total Protein 7.3 (6.0-8.3) gm/dl Albumin 3.8 (3.4-5.0) gm/dl Intake and Output 03/30/24 03/31/24 03/31/24 22:59 06:59 14:59 Output Total 325 / 1700 1375 / 1700 Balance -325 / -1700 -1375 / -1700 Output: Urine 325 / 950 625 / 950 Urine Amount (Catheter) 750 / 750 External 750 / 750 Other: Weight 86.6 kg 86.5 kg Weight Measurement Method [facility] Built in [facility] Diagnostic Findings Echo 10/06/2023 LVEF hyperdynamic >70%. Severe concentric LVH Biatrial enlargement consistent with persistent AFIB Moderate to severe mitral insufficiency Severe tricuspid regurgitation is present. (Previously moderate) Severe pulmonary hypertension is present. The estimated pulmonary artery systolic pressure is >60mm Hg. (Similar to prior). BP elevated during study. Echo 02/17/2023 The examination is adequate to evaluate the referral indication. The qualitative LV ejection fraction is 65-69% (normal). No LV segmental wall motion abnormalities. The right ventricular cavity is mildly dilated. The right ventricular systolic function is qualitatively normal. Moderate secondary mitral regurgitation is present. Moderate tricuspid regurgitation is present. The estimated pulmonary artery systolic pressure is 60mm Hg Echocardiogram [facility] February 21, 2024 1. Normal global function of the left ventricle. 2. No left ventricular regional wall motion abnormalities. 3. LV ejection fraction is 55 - 60%. 4. Normal right ventricular size and systolic function. 5. Right atrium is severely dilated. 6. The left atrium is severely dilated. 7. There is severe aortic valve sclerosis without stenosis. 8. Severe tricuspid regurgitation. 9. Severe mitral annular calcification. 10. Severe mitral valve regurgitation. (4) Mitral regurgitation Cardiac valve disease etiology: nonrheumatic Qualified Code(s): I34.0 - Nonrheumatic mitral (valve) insufficiency (5) Tricuspid regurgitation Cardiac valve disease etiology: nonrheumatic Qualified Code(s): I36.1 - Nonrheumatic tricuspid (valve) insufficiency
--- NOTE | 2024-03-31 11:04 | Ultrasound Report ---
US abdomen ltd ascites HISTORY: 83 years-old Female Abdominal distention acute generalized abdominal pain with distention COMPARISON: None TECHNIQUE: Multiple real-time sonography images of the abdomen were obtained assessing grayscale appe arance FINDINGS/IMPRESSION: There is only trace ascites within the lower abdomen. ACT 112: Negative or not required by law. The above report was generated using voice recognition software. It may contain grammatical, syntax o r spelling errors. Electronically signed by: Morris Andrews M.D. 03/31/2024 11:02 AM
--- NOTE | 2024-03-31 13:01 | Hospitalist Progress Note ---
Date of Service March 31, 2024 Assessment & Plan (1) Acute decompensated heart failure: (2) DM (diabetes mellitus), type 2: (3) Atrial fibrillation: (4) Dyslipidemia: (5) CKD (chronic kidney disease), stage III: (6) Hypertension: (7) Hypothyroidism: Plan This is an 83yo F with a PMH of HFpEF, atrial fibrillation on coumadin, bifascicular block, DM II, CKD III and other medical problems listed below who presents with swelling of lower extremities over the past few weeks and was found to have acutely decompensated diastolic heart failure. Acute decompensated diastolic heart failure Sent over from Dr. De Dios's office with profound BLE edema, moderate R pleural effusion on CXR, >20 ils wt gain in last 1 month Echo from [facility] from Jan 2024 with LV ejection fraction is 55 - 60%, RA and LA severely dilated, severe AV sclerosis without stenosis, severe TR regurg, severe MV regurg Home regimen includes Bumex 1mg BID, Toprol 100mg BID, lisinopril 20mg daily Given 40mg IV Lasix in ED - giving add'l 60mg IV this evening 03/30/2024 Strict I&Os, daily weights, low sodium diet Cardiology consulted -appreciate input and recommendation Has been getting Lasix 40 mg IV twice daily Cumulative fluid balance is -1700 and will continue with the current doses of Lasix Repeat echo on 03/31/2024 showed EF of 60 to 65%, moderate concentric LVH, RV is severely dilated, RV systolic function is qualitatively normal, severe biatrial enlargement, mild to moderate mitral regurgitation and severe tricuspid regurgitation, the estimated systolic pulmonary pressure is 30 cm mercury Feels better and remains stable Right pleural effusion Will observe with IV diuresis Repeat chest x-ray in a day or 2 if no improvement may need thoracentesis Abdominal ultrasound did not show any significant ascites Persistent atrial fibrillation HR controlled Continue diltiazem, Toprol DM II A1c 8.8 in July 2023, repeat in AM Hold home agents Basal/bolus insulin while in-patient BSG AC HS CKD III Cr 1.89 (last known Cr 1.8 in October 2023, unknown baseline) Hold lisinopril for now Repeat BMP in AM - BUN and creatinine remains elevated at 41/1.93 and that is ex pected to rise with dehydration Dyslipidemia Continue statin DVT Ppx: coumadin Code status: FULL PCP: [facility] Dispo: admitted to PCU Admission and Anticipated Discharge Date Admission Date: March 30, 2024 Subjective 03/31/2024 The patient was seen and examined in telemetry unit She has been feeling much better following diuresis Denies any chest pain and/or palpitation and her breathing is much improved Review of Systems Review of Systems: All systems reviewed and are unremarkable except as noted below Physical Exam Physical Exam: Lying in bed with minimal respiratory distress Constitutional: well developed, well nourished, + ill appearing and + obese Eyes: PERRL, conjunctivae normal, anicteric sclerae ENMT: external ear and nose normal, oropharynx normal Neck: trachea midline, no thyromegaly Respiratory: + respiratory distress (Minimal distress at rest) Auscultation: + diminished lung sounds (More on the right side than the left) and + crackles (Bibasilar) Cardiovascular: Rate/Rhythm: + irregularly irregular; not tachycardic Heart Sounds: normal S1 and normal S2; no murmur Extremities: + edema (2+ edema bilaterally) Gastrointestinal (Abdomen): Inspection/Auscultation: + abdomen distended and normal bowel sounds Percussion/Palpation: abdomen soft; abdomen nontender Results & Data Results & Data Vital Signs (Past 12 Hours) Vital Signs Temp Pulse Resp BP BP Pulse Ox O2 Del Method 03/31/24 11:57 36.5 C 79 20 131/69 98 Nasal Cannula 03/31/24 08:00 Nasal Cannula 03/31/24 07:38 36.4 C L 84 20 124/77 96 Nasal Cannula 03/31/24 02:22 36.5 C 91 H 20 108/79 94 Room Air O2 Flow Rate 03/31/24 11:57 1.0 03/31/24 08:00 2 03/31/24 07:38 1.0 03/31/24 02:22 2 Laboratory Results Short CBC 03/30/24 03/31/24 Range/Units 18:06 06:00 WBC 7.48 7.27 (4.8-10.8) K/ul Hgb 11.9 L 11.5 L (12.0-16.0) g/dl Hct 38.6 37.2 (37.0-47.0) % Plt Count 189 192 (130-400) K/uL BMP 03/30/24 03/31/24 18:06 06:00 Sodium 140 144 Potassium 5.1 4.2 Chloride 103 103 Carbon Dioxide 27 34 H BUN 43 H 41 H Creatinine 1.89 H 1.93 H Glucose 162 H 79 Calcium 9.5 9.6 Liver Function 03/30/24 Range/Units 18:06 Total Bilirubin 0.8 (0.2-1.0) mg/dl Direct Bilirubin TNP AST 29 (13-39) U/L ALT 18 (7-52) U/L Alkaline Phosphatase 143 H (34-104) U/L Albumin 3.8 (3.4-5.0) gm/dl Medications Administered Current Inpatient Medications Acetaminophen (Acetaminophen 325 Mg Tab) 650 mg PO Q4H PRN PRN Reason: Pain or Fever Stop: 04/29/24 21:14 Atorvastatin Calcium (Atorvastatin 20 Mg Tab) 20 mg PO DAILY SHAWN Stop: 04/30/24 08:59 Last Admin: 03/31/24 08:17 Dose: 20 mg Dextrose (Dextrose 50% 50 Ml Syringe) 25 - 50 ml IV UD PRN; Protocol PRN Reason: Hypoglycemia Protocol Stop: 04/29/24 21:14 Diltiazem HCl (Diltiazem Hcl 240 Mg Capcr) 240 mg PO DAILY SHAWN Stop: 04/30/24 08:59 Last Admin: 03/31/24 08:18 Dose: 240 mg Furosemide (Furosemide 40 Mg/4 Ml Vial) 60 mg IV BID SHAWN Stop: 04/29/24 21:29 Last Admin: 03/31/24 08:22 Dose: 60 mg Glucagon (Glucagon For Inj 1 Mg Vial) 1 mg SQ UD PRN; Protocol PRN Reason: Hypoglycemia Protocol Stop: 04/29/24 21:14 Glucose (Glucose 40% Gel 15 Gm Tube) 15 - 30 gm PO UD PRN; Protocol PRN Reason: Hypoglycemia Protocol Stop: 04/29/24 21:14 Glucose (Glucose 10 Tab/Tube) 4 - 8 tab PO UD PRN; Protocol PRN Reason: Hypoglycemia Protocol Stop: 04/29/24 21:14 Insulin Aspart (Insulin Aspart Per Unit Charge) 0 units SC ACHS SHAWN Stop: 04/29/24 21:14 Last Admin: 03/31/24 12:00 Dose: 2 units Insulin Glargine (Lantus Per Unit Charge) 7 units SQ BID SHAWN Stop: 04/29/24 21:14 Last Admin: 11/08/24 08:17 Dose: 7 units Levothyroxine Sodium (Levothyroxine Sodium 88 Mcg Tablet) 88 mcg PO DAILYBB [facility] Stop: 04/30/24 06:29 Last Admin: 03/31/24 06:11 Dose: 88 mcg Metoprolol Succinate (Metoprolol Succ 50mg Ext Rel Tab) 100 mg PO BID [facility] Stop: 04/29/24 21:29 Last Admin: 03/31/24 08:18 Dose: 100 mg Miscellaneous (Carbohydrates For Hypoglycemia ) 15 - 30 gm PO UD PRN PRN Reason: Hypoglycemia Protocol Stop: 04/29/24 21:14 Ondansetron HCl (Ondansetron Inj 2 Mg/Ml 2 Ml Vial) 4 mg IV Q6H PRN PRN Reason: Nausea Stop: 04/29/24 21:14 Polyethylene Glycol (Polyethylene (Miralax) 17 Gm Pack) 17 gm PO DAILY PRN PRN Reason: Constipation Stop: 04/29/24 21:14
--- NOTE | 2024-03-31 13:35 | Electrocardiogram Report ---
Test Reason : Blood Pressure : */* mmHG Vent. Rate : 97 BPM Atrial Rate : * BPM P-R Int : * ms QRS Dur : 126 ms QT Int : 386 ms P-R-T Axes : * -45 147 degrees QTcB Int : 490 ms Atrial fibrillation Left axis deviation Right bundle branch block Minimal voltage criteria for LVH, may be normal variant ( R in aVL ) Inferior infarct , age undetermined Anterolateral infarct When compared with ECG of 11-Nov-2023 15:45, Significant changes have occurred Confirmed by Campos Berry ([id number]) on 03/31/2024 1:35:32 PM Referred By: REFERRED SELF Confirmed By: Campos Berry
--- NOTE | 2024-03-31 13:41 | Electrocardiogram Report ---
Test Reason : Blood Pressure : */* mmHG Vent. Rate : 77 BPM Atrial Rate : 241 BPM P-R Int : * ms QRS Dur : 132 ms QT Int : 476 ms P-R-T Axes : * -55 157 degrees QTcB Int : 538 ms Atrial fibrillation Left axis deviation Right bundle branch block Inferior infarct (cited on or before 30-Mar-2024) Cannot rule out Anterior infarct (cited on or before 11-Nov-2023) T wave abnormality, consider lateral ischemia Abnormal ECG When compared with ECG of 30-Mar-2024 17:25, (unconfirmed) Questionable change in initial forces of Lateral leads Confirmed by Campos Berry ([id number]) on 03/31/2024 1:41:17 PM Referred By: REFERRED SELF Confirmed By: Campos Berry
[2024-04-01 07:45] LABS: Basophils # (auto) 0.04 K/uL (0.00-0.20); Basophils % (auto) 0.5 %; Eosinophils # (auto) 0.22 K/uL (0.00-0.50); Hematocrit (blood only) 36.5 % (37.0-47.0); Hemoglobin 11.2 g/dl (12.0-16.0); Immature Granulocytes # (auto) 0.02 K/uL (0.01-0.20); Immature Granulocytes % (auto) 0.3 %; Lymphocytes # (auto) 1.08 K/uL (1.20-3.40); Lymphocytes % (auto) 14.7 %; Mean Corpuscular Hemoglobin 23.7 pg (25.0-34.0); Mean Corpuscular Hgb Conc 30.7 g/dL (32.0-36.0); Mean Corpuscular Volume 77.3 fL (80.0-100.0); Mean Platelet Volume 11.1 fL (9.4-12.4); Monocytes # (auto) 0.99 K/uL (0.11-0.59); Monocytes % (auto) 13.5 %; Neutrophils # (auto) 4.99 K/uL (1.40-6.50); Platelet Count 171 K/uL (130-400); RDW Standard Deviation 48.9 fL (36.4-46.3); Red Blood Count 4.72 M/uL (4.20-5.40); White Blood Count 7.34 K/ul (4.8-10.8)
[2024-04-01 08:13] LABS: BUN Creatinine Ratio 21.7 (10-20); Calcium 9.1 mg/dl (8.6-10.3); Creatinine Clr Calc Pharmacy 21.4 ml/min; Magnesium 1.7 mg/dl (1.7-2.4); Phosphorus 4.3 mg/dl (2.5-4.9); Potassium 3.7 mmol/L (3.5-5.1)
[2024-04-01 08:16] LABS: INR 3.9 (0.9-1.1); Prothrombin Time 37.7 Seconds (9.0-12.0)
--- NOTE | 2024-04-01 08:33 | Cardiology Progress Note ---
Date of Service April 01, 2024 Assessment & Plan (1) Acute on chronic heart failure with preserved ejection fraction (HFpEF): (2) Moderate sized pleural effusion: (3) Permanent atrial fibrillation: (4) Mitral regurgitation: (5) Tricuspid regurgitation: (6) Supratherapeutic INR: Plan 83-year-old female admitted with acute on chronic heart failure with preserved ejection fraction in the setting of mixed valvular heart disease, CKD, and permanent atrial fibrillation. Rate controlled on telemetry. Recommend continue IV diuresis. Monitor fluid balance, daily weight, GFR, and electrolytes. I would not add spironolactone at this time due to renal insufficiency. Supp lement potassium and magnesium as indicated. Monitor telemetry. Moderate to large right-sided pleural effusion noted. May require thoracentesis during hospitalization, however, continue to treat medically at this time. Hold warfarin due to supratherapeutic INR. Repeat PT/INR in AM. 04/01/2024: -Patient demonstrates clinical improvement. diuresing well -2660cc. Creatine with slight improvement -Continue IV diuresis -Strict I&O, Daily weights with standing scale and close monitoring of renal function/serum electrolytes. Goal serum K> 4.0 and serum Mag > 2.0. -Will continue to hold off on starting spironolactone due to renal insufficiency. -Monitor on telemetry. -INR today remains supratherapeutic. Continue to hold warfarin, Repeat PT/INR in the AM Case has been discussed with Dr. Marinelli. Further recommendations regarding plan of care as per his assessment. I spent a total of 30 minutes on the date of service in preparation, delivery, documentation of the care provided to the patient excluding any time spent in the performance of separately billed services. ARJUN Garcia [facility] Cardiology [facility] Admission and Anticipated Discharge Date Admission Date: March 30, 2024 Supervising Physician Co-Signing Physician Notes I have personally performed a history and physical examination on the patient. I have reviewed the advance practitioner's documentation, and I agree with, and take responsibility for the plan of care. 83-year-old female with acute on chronic heart failure with preserved ejection fraction. Volume status improved. Continue IV diuresis. Monitor fluid balance, daily weight, GFR, and electrolytes. Warfarin on hold due to supratherapeutic INR. Repeat PT/INR in AM. I spent a total of 25 minutes on the date of service in preparation, delivery, and documentation of the care provided to this patient, excluding any time spent in the performance of separately billed services. Brayan Marnielli DO, [facility] Subjective 03/31/2024: Patient seen and examined in follow up today. Feeling interval improvement. Denies any chest pain, pressure, palpitations, no near syncope or syncope. Continues to endorse lower extremity swelling, although improved. Labs, vitals, diagnostics, telemetry and documentation reviewed. Telemetry reviewed showing Atrial fibrillation in the 70s Diuresing well. -2660 fluid balance. -2.3kg Review of Systems Review of Systems: All systems reviewed & are unremarkable except as noted in Subjective Physical Exam Constitutional: well developed and well nourished; no acute distress Neck: normal visual inspection and trachea midline Respiratory: normal respiratory effort and + cough (non productive); no respiratory distress and no labored breathing Auscultation: + diminished lung sounds (bilateral bases ); no crackles, no rales, no rhonchi and no wheezes Cardiovascular: Rate/Rhythm: + irregularly irregular Heart Sounds: normal S1 and normal S2 Vessels: dorsalis pedis pulses present; no JVD Ext remities: + edema (+1 BLE) Skin: no rashes, warm and dry Psychiatric: A+Ox3, euthymic affect Results & Data Vital Signs (Past 12 Hours) Vital Signs Temp Pulse Resp BP Pulse Ox O2 Del Method 04/01/24 08:02 36.6 C 75 20 107/72 90 Room Air 04/01/24 02:29 36.6 C 82 17 118/77 93 Room Air 03/31/24 22:23 36.5 C 82 16 121/77 95 Room Air Laboratory Results Coagulation 04/01/24 Range/Units 06:57 PT 37.7 H (9.0-12.0) Seconds CBC 04/01/24 Range/Units 06:57 WBC 7.34 (4.8-10.8) K/ul RBC 4.72 (4.20-5.40) M/uL Hgb 11.2 L (12.0-16.0) g/dl Hct 36.5 L (37.0-47.0) % Plt Count 171 (130-400) K/uL Neut # (Auto) 4.99 (1.40-6.50) K/uL Lymph # (Auto) 1.08 L (1.20-3.40) K/uL Emmons # (Auto) 0.99 H (0.11-0.59) K/uL Eos # (Auto) 0.22 (0.00-0.50) K/uL Baso # (Auto) 0.04 (0.00-0.20) K/uL Comprehensive Metabolic Panel 04/01/24 Range/Units 06:57 Sodium 144 (136-145) mmol/L Potassium 3.7 (3.5-5.1) mmol/L Chloride 102 (98-107) mmol/L Carbon Dioxide 34 H (21-32) mmol/L BUN 41 H (6-23) mg/dl Creatinine 1.89 H (0.6-1.2) mg/dl Glucose 91 (70-99(Fasting)) mg/dl Calcium 9.1 (8.6-10.3) mg/dl Intake and Output 03/31/24 04/01/24 04/01/24 22:59 06:59 14:59 Intake Total 990 / 990 Output Total 2400 / 3650 1250 / 3650 Balance -1410 / -2660 -1250 / -2660 Intake: Oral 990 / 990 Output: Urine 1800 / 1800 Urine Amount (Catheter) 600 / 1850 1250 / 1850 External 600 / 1850 1250 / 1850 # Bowel Movements 0 / 0 Other: Weight 84.22 kg Weight Measurement Method Built in [facility] (4) Mitral regurgitation Cardiac valve disease etiology: nonrheumatic Qualified Code(s): I34.0 - Nonrheumatic mitral (valve) insufficiency (5) Tricuspid regurgitation Cardiac valve disease etiology: nonrheumatic Qualified Code(s): I36.1 - Nonrheumatic tricuspid (valve) insufficiency
--- NOTE | 2024-04-01 10:46 | Hospitalist Progress Note ---
Date of Service April 01, 2024 Assessment & Plan (1) Acute decompensated heart failure: (2) DM (diabetes mellitus), type 2: (3) Atrial fibrillation: (4) Dyslipidemia: (5) CKD (chronic kidney disease), stage III: (6) Hypertension: (7) Hypothyroidism: Plan This is an 83yo F with a PMH of HFpEF, atrial fibrillation on coumadin, bifascicular block, DM II, CKD III and other medical problems listed below who presents with swelling of lower extremities over the past few weeks and was found to have acutely decompensated diastolic heart failure. Acute decompensated diastolic heart failure Sent over from Dr. De Dios's office with profound BLE edema, moderate R pleural effusion on CXR, >20 ils wt gain in last 1 month Echo from [facility] from Jan 2024 with LV ejection fraction is 55 - 60%, RA and LA severely dilated, severe AV sclerosis without stenosis, severe TR regurg, severe MV regurg Home regimen includes Bumex 1mg BID, Toprol 100mg BID, lisinopril 20mg daily Given 40mg IV Lasix in ED - giving add'l 60mg IV this evening 03/30/2024 Strict I&Os, daily weights, low sodium diet Cardiology consulted -appreciate input and recommendation Has been getting Lasix 40 mg IV twice daily Cumulative fluid balance is -1700 and will continue with the current doses of Lasix Repeat echo on 03/31/2024 showed EF of 60 to 65%, moderate concentric LVH, RV is severely dilated, RV systolic function is qualitatively normal, severe biatrial enlargement, mild to moderate mitral regurgitation and severe tricuspid regurgitation, the estimated systolic pulmonary pressure is 30 cm mercury Much better today and denies any shortness of breath or palpitation at rest Electrolytes and kidney function are unremarkable Has had more than 2 L of negative balance and will likely continue intravenous diuresis for now Right pleural effusion Will observe with IV diuresis Repeat chest x-ray in a day or 2 if no improvement may need thoracentesis Abdominal ultrasound did not show any significant ascites Will get chest x-ray PA and lateral view tomorrow to evaluate effusion Persistent atrial fibrillation HR controlled Continue diltiazem, Toprol DM II A1c 8.8 in July 2023, repeat in AM Hold home agents Basal/bolus insulin while in-patient BSG AC HS CKD III Cr 1.89 (last known Cr 1.8 in October 2023, unknown baseline) Hold lisinopril for now Repeat BMP in AM - BUN and creatinine remains elevated at 41/1.93 and that is expected to rise with dehydration Dyslipidemia Continue statin DVT Ppx: coumadin Code status: FULL PCP: [facility] Dispo: admitted to PCU Admission and Anticipated Discharge Date Admission Date: March 30, 2024 Subjective 03/31/2024 The patient was seen and examined in telemetry unit She has been feeling much better following diuresis Denies any chest pain and/or palpitation and her breathing is much improved 04/01/2024 Patient was seen and examined in telemetry unit She has been feeling much better and denies any shortness of breath at rest Denies any chest pain and/or palpitation and the leg swelling has been improving Has had -4360 mLso far Review of Systems Review of Systems: All systems reviewed and are unremarkable except as noted below Physical Exam Physical Exam: Lying in bed with minimal respiratory distress Constitutional: well developed, well nourished, + ill appearing and + obese Eyes: PERRL, conjunctivae normal, anicteric sclerae ENMT: external ear and nose normal, oropharynx normal Neck: trachea midline, no thyromegaly Respiratory: + respiratory distress (Minimal distress at rest) Auscultation: + diminished lung sounds (More on the right side than the left) and + crackles (Bibasilar) Cardiovascular: Rate/Rhythm: + irregularly irregular; not tachycardic Heart Sounds: normal S1 and normal S2; no murmur Extremities: + edema (Improved and is now 1+ edema bilaterally) Gastrointestinal (Abdomen): Inspection/Auscultation: + abdomen distended and normal bowel sounds Percussion/Palpation: abdomen soft; abdomen nontender Musculoskeletal: No acute arthritis involving any of the joint Neurologic: normal touch/pain/proprioception and moves all extremities; no focal motor deficits Psychiatric: A+Ox3, euthymic affect Lymphatic: no cervical or axillary lymphadenopathy Results & Data Results & Data Vital Signs (Past 12 Hours) Vital Signs Temp Pulse Resp BP Pulse Ox O2 Del Method 04/01/24 08:02 36.6 C 75 20 107/72 90 Room Air 04/01/24 02:29 36.6 C 82 17 118/77 93 Room Air Laboratory Results Short CBC 04/01/24 Range/Units 06:57 WBC 7.34 (4.8-10.8) K/ul Hgb 11.2 L (12.0-16.0) g/dl Hct 36.5 L (37.0-47.0) % Plt Count 171 (130-400) K/uL [facility] 04/01/24 06:57 Sodium 144 Potassium 3.7 Chloride 102 Carbon Dioxide 34 H BUN 41 H Creatinine 1.89 H Glucose 91 Calcium 9.1 Medications Administered Current Inpatient Medications Acetaminophen (Acetaminophen 325 Mg Tab) 650 mg PO Q4H PRN PRN Reason: Pain or Fever Stop: 04/29/24 21:14 Atorvastatin Calcium (Atorvastatin 20 Mg Tab) 20 mg PO DAILY [facility] Stop: 04/30/24 08:59 Last Admin: 04/01/24 08:04 Dose: 20 mg Dextrose (Dextrose 50% 50 Ml Syringe) 25 - 50 ml IV UD PRN; Protocol PRN Reason: Hypoglycemia Protocol Stop: 04/29/24 21:14 Diltiazem HCl (Diltiazem Hcl 240 Mg Capcr) 240 mg PO DAILY [facility] Stop: 04/30/24 08:59 Last Admin: 04/01/24 08:04 Dose: 240 mg Furosemide (Furosemide 40 Mg/4 Ml Vial) 60 mg IV BID [facility] Stop: 04/29/24 21:29 Last Admin: 04/01/24 08:12 Dose: 60 mg Glucagon (Glucagon For Inj 1 Mg Vial) 1 mg SQ UD PRN; Protocol PRN Reason: Hypoglycemia Protocol Stop: 04/29/24 21:14 Glucose (Glucose 40% Gel 15 Gm Tube) 15 - 30 gm PO UD PRN; Protocol PRN Reason: Hypoglycemia Protocol Stop: 04/29/24 21:14 Glucose (Glucose 10 Tab/Tube) 4 - 8 tab PO UD PRN; Protocol PRN Reason: Hypoglycemia Protocol Stop: 04/29/24 21:14 Insulin Aspart (Insulin Aspart Per Unit Charge) 0 units SC ACHS [facility] Stop: 04/29/24 21:14 Last Admin: 04/01/24 08:12 Dose: 1 units Insulin Glargine (Lantus Per Unit Charge) 7 units SQ BID [facility] Stop: 04/29/24 21:14 Last Admin: 04/01/24 08:11 Dose: 7 units Levothyroxine Sodium (Levothyroxine Sodium 88 Mcg Tablet) 88 mcg PO DAILYBB [facility] Stop: 04/30/24 06:29 Last Admin: 04/01/24 05:50 Dose: 88 mcg Metoprolol Succinate (Metoprolol Succ 50mg Ext Rel Tab) 100 mg PO BID [facility] Stop: 04/29/24 21:29 Last Admin: 04/01/24 08:04 Dose: 100 mg Miscellaneous (Carbohydrates For Hypoglycemia ) 15 - 30 gm PO UD PRN PRN Reason: Hypoglycemia Protocol Stop: 04/29/24 21:14 Ondansetron HCl (Ondansetron Inj 2 Mg/Ml 2 Ml Vial) 4 mg IV Q6H PRN PRN Reason: Nausea Stop: 04/29/24 21:14 Polyethylene Glycol (Polyethylene (Miralax) 17 Gm Pack) 17 gm PO DAILY PRN PRN Reason: Constipation Stop: 04/29/24 21:14
[2024-04-02] MEDS: ONDANSETRON INJ 2 MG/ML 2 ML VIAL IV PRN (02:46)
[2024-04-02 07:38] LABS: INR 2.5 (0.9-1.1); Prothrombin Time 25.3 Seconds (9.0-12.0)
[2024-04-02 07:44] LABS: BUN Creatinine Ratio 24.1 (10-20); Creatinine Clr Calc Pharmacy 24.9 ml/min; Potassium 3.7 mmol/L (3.5-5.1)
--- NOTE | 2024-04-02 08:15 | Cardiology Progress Note ---
Date of Service April 02, 2024 Assessment & Plan (1) Acute on chronic heart failure with preserved ejection fraction (HFpEF): (2) Moderate sized pleural effusion: (3) Permanent atrial fibrillation: (4) Mitral regurgitation: (5) Tricuspid regurgitation: (6) Supratherapeutic INR: Plan 83-year-old female admitted with acute on chronic heart failure with preserved ejection fraction in the setting of mixed valvular heart disease, CKD, and permanent atrial fibrillation. Rate controlled on telemetry. Recommend continue IV diuresis. Monitor fluid balance, daily weight, GFR, and electrolytes. I would not add spironolactone at this time due to renal insufficiency. Sup plement potassium and magnesium as indicated. Monitor telemetry. Moderate to large right-sided pleural effusion noted. May require thoracentesis during hospitalization, however, continue to treat medically at this time. Hold warfarin due to supratherapeutic INR. Repeat PT/INR in AM. 04/01/2024: -Patient demonstrates clinical improvement. diuresing well -2660cc. Creatine with slight improvement -Continue IV diuresis -Strict I&O, Daily weights with standing scale and close monitoring of renal function/serum electrolytes. Goal serum K> 4.0 and serum Mag > 2.0. -Will continue to hold off on starting spironolactone due to renal insufficiency. -Monitor on telemetry. -INR today remains supratherapeutic. Continue to hold warfarin, Repeat PT/INR in the AM 04/02/2024: -Patient continues to show clinical improvement from a cardiac perspective. - 1160ml. -3kg weight deficit. -Continue IV diuresis, Cr continues to show improvement -Spironolactone on hold, reassess renal function in the AM -Continue to monitor on telemetry. No acute events overnight. -INR 2.5, Resume warfarin. Repeat PT/INR in AM Case has been discussed with Dr. Marinelli. Further recommendations regarding plan of care as per his assessment. I spent a total of 30 minutes on the date of service in preparation, delivery, documentation of the care provided to the patient excluding any time spent in the performance of separately billed services. ARJUN Garcia [facility] Admission and Anticipated Discharge Date Admission Date: March 30, 2024 Supervising Physician Co-Signing Physician Notes I have personally performed a history and physical examination on the patient. I have reviewed the advance practitioner's documentation, and I agree with, and take responsibility for the plan of care. 83-year-old female with acute on chronic heart failure with preserved ejection fraction. Volume status improved, negative 1160cc. Continue IV diuresis. Monitor fluid balance, daily weight, GFR, and electrolytes. Warfarin initially on hold due to supratherapeutic INR. INR today is 2.5. Restart warfarin with repeat lab testing in AM. I spent a total of 25 minutes on the date of service in preparation, delivery, and documentation of the care provided to this patient, excluding any time spent in the performance of separately billed services. Brayan Marinelli DO, [facility] Subjective 04/02/24: Patient seen and examined in follow up today. Feeling tired, but offers no cardiac complaints Labs, vitals, diagnostics, telemetry and documentation reviewed. Telemetry reviewed showing A-fib, rates in the 80's. No acute events overnight -1160 fluid balance. -3kg weight deficit Review of Systems Review of Systems: All systems reviewed & are unremarkable except as noted in HPI & below Physical Exam Constitutional: well developed and well nourished; no acute distress Neck: normal visual inspection and trachea midline Respiratory: normal respiratory effort and + cough (non productive); no respiratory distress and no labored breathing Auscultation: + diminished lung sounds (bilateral bases ); no crackles, no rales, no rhonchi and no wheezes Cardiovascular: Rate/Rhythm: + irregularly irregular Heart Sounds: normal S1 and normal S2 Vessels: dorsalis pedis pulses present; no JVD Extremities: + edema (+1 BLE) Skin: no rashes, warm and dry Psychiatric: A+Ox3, euthymic affect Results & Data Vital Signs (Past 12 Hours) Vital Signs Temp Pulse Pulse Resp BP Pulse Ox O2 Del Method 04/02/24 07:00 36.7 C 85 16 117/74 90 Room Air 04/02/24 02:47 37.3 C 85 20 110/72 90 Nasal Cannula 04/01/24 22:11 37.4 C 86 19 113/75 94 Room Air 04/01/24 21:47 85 O2 Flow Rate 04/02/24 07:00 04/02/24 02:47 2 04/01/24 22:11 04/01/24 21:47 Laboratory Results Coagulation 04/02/24 Range/Units 06:50 PT 25.3 H (9.0-12.0) Seconds Comprehensive Metabolic Panel 04/02/24 Range/Units 06:50 Sodium 142 (136-145) mmol/L Potassium 3.7 (3.5-5.1) mmol/L Chloride 100 (98-107) mmol/L Carbon Dioxide 33 H (21-32) mmol/L BUN 39 H (6-23) mg/dl Creatinine 1.62 H (0.6-1.2) mg/dl Glucose 111 H (70-99(Fasting)) mg/dl Calcium 9.0 (8.6-10.3) mg/dl Intake and Output 04/01/24 04/02/24 04/02/24 22:59 06:59 14:59 Intake Total 240 / 840 120 / 840 Output Total 1300 / 2000 700 / 2000 Balance -1060 / -1160 -580 / -1160 Intake: Oral 240 / 840 120 / 840 Output: Urine 1000 / 1000 Urine Amount (Catheter) 300 / 1000 700 / 1000 External 300 / 1000 700 / 1000 # Bowel Movements 0 / 0 Other: # Unmeasured Voids 1 Weight 83.8 kg Weight Measurement Method Built in [facility] (4) Mitral regurgitation Cardiac valve disease etiology: nonrheumatic Qualified Code(s): I34.0 - Nonrheumatic mitral (valve) insufficiency (5) Tricuspid regurgitation Cardiac valve disease etiology: nonrheumatic Qualified Code(s): I36.1 - Nonrheumatic tricuspid (valve) insufficiency
[2024-04-02] MEDS ORDERED: Patient's ALLERGY Info needs ENTERED STA (09:20)
--- NOTE | 2024-04-02 11:14 | Hospitalist Progress Note ---
Date of Service April 02, 2024 Assessment & Plan (1) Acute decompensated heart failure: (2) DM (diabetes mellitus), type 2: (3) Atrial fibrillation: (4) Dyslipidemia: (5) CKD (chronic kidney disease), stage III: (6) Hypertension: (7) Hypothyroidism: Plan This is an 83yo F with a PMH of HFpEF, atrial fibrillation on coumadin, bifascicular block, DM II, CKD III and other medical problems listed below who presents with swelling of lower extremities over the past few weeks and was found to have acutely decompensated diastolic heart failure. Acute decompensated diastolic heart failure Sent over from Dr. De Dios's office with profound BLE edema, moderate R pleural effusion on CXR, >20 ils wt gain in last 1 month Echo from [facility] from Jan 2024 with LV ejection fraction is 55 - 60%, RA and LA severely dilated, severe AV sclerosis without stenosis, severe TR regurg, severe MV regurg Home regimen includes Bumex 1mg BID, Toprol 100mg BID, lisinopril 20mg daily Given 40mg IV Lasix in ED - giving add'l 60mg IV this evening 03/30/2024 Strict I&Os, daily weights, low sodium diet Cardiology consulted -appreciate input and recommendation Has been getting Lasix 40 mg IV twice daily Cumulative fluid balance is -1700 and will continue with the current doses of Lasix Repeat echo on 03/31/2024 showed EF of 60 to 65%, moderate concentric LVH, RV is severely dilated, RV systolic function is qualitatively normal, severe biatrial enlargement, mild to moderate mitral regurgitation and severe tricuspid regurgitation, the estimated systolic pulmonary pressure is 30 cm mercury Much better today and denies any shortness of breath or palpitation at rest Electrolytes and kidney function are unremarkable Has had more than 2 L of negative balance and will likely continue intravenous diuresis for now Clinically much better but he still feels weak and tired Required oxygen last night to maintain saturation Will continue current doses of diuretics Right pleural effusion Will observe with IV diuresis Repeat chest x-ray in a day or 2 if no improvement may need thoracentesis Abdominal ultrasound did not show any significant ascites Will get chest x-ray PA and lateral view tomorrow to evaluate effusion Will get chest x-ray PA and lateral view to evaluate right pleural effusion further Persistent atrial fibrillation HR controlled Continue diltiazem, Toprol DM II A1c 8.8 in July 2023, repeat in AM Hold home agents Basal/bolus insulin while in-patient BSG AC HS CKD III Cr 1.89 (last known Cr 1.8 in October 2023, unknown baseline) Hold lisinopril for now Repeat BMP in AM - BUN and creatinine remains elevated at 41/1.93 and that is expected to rise with dehydration Dyslipidemia Continue statin DVT Ppx: coumadin Code status: FULL PCP: [facility] Dispo: admitted to PCU Admission and Anticipated Discharge Date Admission Date: March 30, 2024 Subjective 03/31/2024 The patient was seen and examined in telemetry unit She has been feeling much better following diuresis Denies any chest pain and/or palpitation and her breathing is much improved 04/01/2024 Patient was seen and examined in telemetry unit She has been feeling much better and denies any shortness of breath at rest Denies any chest pain and/or palpitation and the leg swelling has been improving Has had -4360 mLso far 04/02/2024 The patient was seen and examined in telemetry unit She has been feeling little weak today and requiring up to 2 L oxygen Denies any chest pain and/or palpitation Her legs are getting better too Review of Systems Review of Systems: All systems reviewed and are unremarkable except as noted below Physical Exam Physical Exam: Lying in bed with minimal respiratory distress Constitutional: well developed, well nourished, + ill appearing and + obese Eyes: PERRL, conjunctivae normal, anicteric sclerae ENMT: external ear and nose normal, oropharynx normal Neck: trachea midline, no thyromegaly Respiratory: + respiratory distress (Minimal distress at rest) Auscultation: + diminished lung sounds (More on the right side than the left) and + crackles (Bibasilar) Cardiovascular: Rate/Rhythm: + irregularly irregular; not tachycardic Heart Sounds: normal S1 and normal S2; no murmur Extremities: + edema (Improved and is now 1+ edema bilaterally) Gastrointestinal (Abdomen): Inspection/Auscultation: + abdomen distended and normal bowel sounds Percussion/Palpation: abdomen soft; abdomen nontender Neurologic: normal touch/pain/proprioception and moves all extremities; no focal motor deficits Psychiatric: A+Ox3, euthymic affect Lymphatic: no cervical or axillary lymphadenopathy Results & Data Results & Data Vital Signs (Past 12 Hours) Vital Signs Temp Pulse Pulse Resp BP Pulse Ox O2 Del Method 04/02/24 10:53 37.0 C 87 16 115/74 96 Room Air 04/02/24 09:57 93 Nasal Cannula 04/02/24 09:15 Nasal Cannula 04/02/24 07:35 83 04/02/24 07:00 36.7 C 85 16 117/74 90 Room Air 04/02/24 02:47 37.3 C 85 20 110/72 90 Nasal Cannula O2 Flow Rate 04/02/24 10:53 04/02/24 09:57 2 04/02/24 09:15 2 04/02/24 07:35 04/02/24 07:00 04/02/24 02:47 2 Laboratory Results BMP 04/02/24 06:50 Sodium 142 Potassium 3.7 Chloride 100 Carbon Dioxide 33 H BUN 39 H Creatinine 1.62 H Glucose 111 H Calcium 9.0 Medications Administered Current Inpatient Medications Acetaminophen (Acetaminophen 325 Mg Tab) 650 mg PO Q4H PRN PRN Reason: Pain or Fever Stop: 04/29/24 21:14 Atorvastatin Calcium (Atorvastatin 20 Mg Tab) 20 mg PO DAILY [facility] Stop: 04/30/24 08:59 Last Admin: 04/02/24 09:07 Dose: 20 mg Dextrose (Dextrose 50% 50 Ml Syringe) 25 - 50 ml IV UD PRN; Protocol PRN Reason: Hypoglycemia Protocol Stop: 04/29/24 21:14 Diltiazem HCl (Diltiazem Hcl 240 Mg Capcr) 240 mg PO DAILY [facility] Stop: 04/30/24 08:59 Last Admin: 04/02/24 09:07 Dose: 240 mg Furosemide (Furosemide 40 Mg/4 Ml Vial) 60 mg IV BID [facility] Stop: 04/29/24 21:29 Last Admin: 04/02/24 09:09 Dose: 60 mg Glucagon (Glucagon For Inj 1 Mg Vial) 1 mg SQ UD PRN; Protocol PRN Reason: Hypoglycemia Protocol Stop: 04/29/24 21:14 Glucose (Glucose 40% Gel 15 Gm Tube) 15 - 30 gm PO UD PRN; Protocol PRN Reason: Hypoglycemia Protocol Stop: 04/29/24 21:14 Glucose (Glucose 10 Tab/Tube) 4 - 8 tab PO UD PRN; Protocol PRN Reason: Hypoglycemia Protocol Stop: 04/29/24 21:14 Insulin Aspart (Insulin Aspart Per Unit Charge) 0 units SC ACHS [facility] Stop: 04/29/24 21:14 Last Admin: 04/02/24 08:41 Dose: Not Given Insulin Glargine (Lantus Per Unit Charge) 7 units SQ BID [facility] Stop: 04/29/24 21:14 Last Admin: 04/02/24 09:07 Dose: 7 units Levothyroxine Sodium (Levothyroxine Sodium 88 Mcg Tablet) 88 mcg PO DAILYBB [facility] Stop: 04/30/24 06:29 Last Admin: 04/02/24 05:14 Dose: 88 mcg Metoprolol Succinate (Metoprolol Succ 50mg Ext Rel Tab) 100 mg PO BID [facility] Stop: 04/29/24 21:29 Last Admin: 04/02/24 09:07 Dose: 100 mg Miscellaneous (Carbohydrates For Hypoglycemia ) 15 - 30 gm PO UD PRN PRN Reason: Hypoglycemia Protocol Stop: 04/29/24 21:14 Ondansetron HCl (Ondansetron Inj 2 Mg/Ml 2 Ml Vial) 4 mg IV Q6H PRN PRN Reason: Nausea Stop: 04/29/24 21:14 Last Admin: 04/02/24 02:46 Dose: 4 mg Polyethylene Glycol (Polyethylene (Miralax) 17 Gm Pack) 17 gm PO DAILY PRN PRN Reason: Constipation Stop: 04/29/24 21:14 Warfarin Sodium (Warfarin Sod 2 Mg Tab) 2 mg PO DAILY@1600 [facility] Stop: 05/02/24 15:59
--- NOTE | 2024-04-02 12:48 | XRay Report ---
XR chest 2V PA/lateral CLINICAL HISTORY: Rt pleural effusion COMPARISON STUDY: Chest radiograph March 30, 2024. FINDINGS: A moderate to large right pleural effusion is unchanged. Cardiomegaly with mild interstitia l pulmonary edema. Asymmetric right lung opacities are again noted. Left lung densities favor atelect asis. There may be a trace left pleural effusion. There is extensive mitral annular calcification. No pneumothorax. IMPRESSION: 1. No significant change in a moderate to large right pleural effusion with asymmetric right lung air space opacity which could reflect atelectasis or pneumonia. Radiographic follow-up is recommended. 2. Cardiomegaly with interstitial pulmonary edema. ACT 112: Negative or not required by law. Electronically signed by: Haris Romero M.D. 04/02/2024 12:46 PM
[2024-04-02] MEDS: WARFARIN SOD 2 MG TAB PO SCH (16:59)
[2024-04-02] MEDS: ALBUT/IPRATROP 3MG/0.5MG NEB 3 ML VIAL NEB STA (22:30)
[2024-04-02] MEDS: POTASSIUM CHLORIDE CRTAB 20 MEQ TABCR PO STA (22:40)
[2024-04-02] MEDS: MAGNESIUM SULFATE / D5W 1 GM/100 ML BAG IV ONE (22:40)
[2024-04-02 23:09] LABS: Base Excess VBG 10.8 mEq/L; HCO3 VBG 37 mmol/L; Oxygen Saturation VBG 64.7 %; PCO2 VBG 54 mmHg (38-50); PO2 VBG 39 mmHg; pH VBG 7.44 (7.36-7.41)
--- NOTE | 2024-04-03 00:25 | XRay Report ---
Exam(s): XR CXR 1 VIEW EXAM: XR Chest, 1 View CLINICAL HISTORY: Reason for exam: worsening sob. TECHNIQUE: Frontal view of the chest. COMPARISON: Earlier the same date FINDINGS: Lungs: There is increased opacity in the right lung. There is some pulmonary vascular congestion.. Pleural space: There is a right pleural effusion. No pneumothorax. Heart: The heart appears top normal in size. Mediastinum: There is uncoiling calcification thoracic aorta.. Bones/joints: There are degenerative changes in the spine.. IMPRESSION: There is a right pleural effusion with infiltrate and/or atelectasis in the right lung. There is mild pulmonary vascular congestion. Findings appears similar to previous examination. Electronically signed by: Torsten rAora MD 04/03/24 00:24 AM
[2024-04-03 00:26] LABS: Appearance Urine Cloudy (Clear); Bacteria Urine Automated None Seen (None Seen); Bilirubin Urine Negative (Negative); Blood Urine Negative (Negative); Color Urine Yellow; Epithelial Cell Urine Auto 0-2 /hpf (0-2); Glucose Urine UA Negative (Negative); Ketones Urine Negative (Negative); Leukocyte Esterase Urine Negative (Negative); Nitrite Urine Negative (Negative); Protein Urine Negative (Negative); RBC Urine Automated 0-2 /hpf (0-2); Urobilinogen Urine Negative (Negative); WBC Urine Automated 0-5 /hpf (0-5)
--- NOTE | 2024-04-03 00:44 | CT Scan Report ---
Exam(s): CT CHEST Without Contrast EXAM: CT Chest Without Intravenous Contrast CLINICAL HISTORY: Reason for exam: sob, pleural effusion. TECHNIQUE: Axial computed tomography images of the chest without intravenous contrast. CTDI is 18.83 mGy and DLP is 543.07 mGy-cm. Automated exposure control was utilized for the study. A dose lowering technique was utilized adhering to the principles of ALARA. COMPARISON: No relevant prior studies available. FINDINGS: Lungs: There is consolidation and/or atelectasis in the right lung.. There is some scarring and/or atelectasis at the left lung base. There are small bilateral pulmonary nodules, the largest of which is in the left upper lobe measuring 9 mm. Pleural space: No pneumothorax. There is a moderate to large right pleural effusion. Heart: The heart is enlarged and contains coronary artery calcifications.. Bones/joints: There are degenerative changes in the spine.. Soft tissues: Unremarkable. Vasculature: There are atherosclerotic changes. No thoracic aortic aneurysm. Lymph nodes: No enlarged mediastinal lymph nodes. IMPRESSION: There is a moderate to large right pleural effusion with consolidation and/or atelectasis in the right lung. There are small bilateral pulmonary nodules. These are of unknown etiology. Recommend follow-up as prescribed by the [employer]. Electronically signed by: Torsten Arora MD 04/03/24 00:42 AM
[2024-04-03 02:36] LABS: Adenovirus PCR Not Detected (NotDetected); Bordetella parapertussis PCR Not Detected (NotDetected); Bordetella pertussis PCR Not Detected (NotDetected); Chlamydia pneumoniae PCR Not Detected (NotDetected); Coronavirus 229E PCR Not Detected (NotDetected); Coronavirus CoV-2 (COVID19)PCR Not Detected (NotDetected); Coronavirus HKU1 PCR Not Detected (NotDetected); Coronavirus NL63 PCR Not Detected (NotDetected); Coronavirus OC43PCR Not Detected (NotDetected); Human Metapneumovirus PCR Not Detected (NotDetected); Influenza A PCR Not Detected (NotDetected); Influenza B PCR Not Detected (NotDetected); Mycoplasma pneumoniae PCR Not Detected (NotDetected); Parainfluenza Virus 1 PCR Not Detected (NotDetected); Parainfluenza Virus 2 PCR Not Detected (NotDetected); Parainfluenza Virus 3 PCR Not Detected (NotDetected); Parainfluenza Virus 4 PCR Not Detected (NotDetected); Respiratory Syncytial VirusPCR Not Detected (NotDetected); Rhinovirus/Enterovirus PCR Not Detected (NotDetected)
[2024-04-03 07:47] LABS: Basophils # (auto) 0.03 K/uL (0.00-0.20); Basophils % (auto) 0.3 %; Eosinophils # (auto) 0.03 K/uL (0.00-0.50); Eosinophils % (auto) 0.3 %; Hematocrit (blood only) 36.5 % (37.0-47.0); Hemoglobin 11.1 g/dl (12.0-16.0); Immature Granulocytes # (auto) 0.05 K/uL (0.01-0.20); Immature Granulocytes % (auto) 0.5 %; Lymphocytes # (auto) 1.06 K/uL (1.20-3.40); Mean Corpuscular Hemoglobin 23.5 pg (25.0-34.0); Mean Corpuscular Hgb Conc 30.4 g/dL (32.0-36.0); Mean Corpuscular Volume 77.3 fL (80.0-100.0); Mean Platelet Volume 10.2 fL (9.4-12.4); Monocytes # (auto) 1.73 K/uL (0.11-0.59); Monocytes % (auto) 17.9 %; Neutrophils # (auto) 6.77 K/uL (1.40-6.50); Platelet Count 160 K/uL (130-400); RDW Coefficient of Variation 17.9 % (11.5-14.5); RDW Standard Deviation 48.7 fL (36.4-46.3); Red Blood Count 4.72 M/uL (4.20-5.40); White Blood Count 9.67 K/ul (4.8-10.8)
[2024-04-03 08:06] LABS: Creatinine Clr Calc Pharmacy 24.8 ml/min
[2024-04-03 08:15] LABS: INR 1.7 (0.9-1.1); Prothrombin Time 17.2 Seconds (9.0-12.0)
[2024-04-03] MEDS: METOPROLOL SUCC 50MG EXT REL TAB PO SCH (09:22)
[2024-04-03] MEDS: dilTIAZem HCL 120 MG CAPCR PO SCH (09:22)
--- NOTE | 2024-04-03 09:45 | Pulmonary Consultation ---
Date of Consultation April 03, 2024 Assessment & Plan (1) Moderate sized pleural effusion: Pleural effusion likely related to diastolic heart failure. Other possibilities remain including infectious etiology of malignancy. Infection unlikely given negative white count and afebrile state. We discussed thoracentesis and patient is agreeable and consents to the procedure. She understands the risk and benefits. Order placed for radiology to perform a right ultrasound-guided thoracentesis 04/04/2024. Continue to hold warfarin. (2) Acute on chronic heart failure with preserved ejection fraction (HFpEF): Continue attempts at diuresis. Defer management to cardiology team. (3) Supratherapeutic INR: Warfarin currently on hold. Discussed with Dr. Clark of hospitalist service. Plan I will continue to follow. Thank you for the consult. History of Present Illness Reason for Consultation: Right-sided pleural effusion Attending Physician: Eliana Clark MD History of Present Illness 83-year-old female with a history of permanent atrial fibrillation on warfarin, diastolic heart failure, hyperlipidemia and hypertension presenting to the hospital due to edema in her lower extremities. She was referred to the hospital by cardiology for concerns of acute on chronic diastolic heart failure exacerbation. Chest x-ray on admission revealed a large right pleural effusion. This effusion was not seen on chest x-ray 11/11/2023. Patient denies any prior history of pleural effusions or thoracentesis. She denies any prior history of respiratory disease. She does note increasing shortness of breath over the last 2 to 3 days and is now using supplemental oxygen while in the hospital. She is not normally on supplemental oxygen. She denies any cough. She does endorse significant lower extremity edema. She denies chest pain, fevers, chills or night sweats. Echo 03/31/2024 revealed an EF of 60 to 65%. Moderate LVH. Right ventricle was severely dilated and right ventricular systolic function was normal. Severe fidel trial enlargement was seen. Estimated systolic pulmonary pressures were 37 mmHg. Allergies Allergy/AdvReac Type Severity Reaction Status Date / Time Sulfa (Sulfonamide Allergy Swelling Verified 04/02/24 09:43 Antibiotics) of the Eye Home Medications Medication Instructions Recorded Confirmed Type atorvastatin 20 mg tablet 20 mg PO DAILY 03/30/24 03/30/24 History bumetanide 1 mg tablet 1 mg PO BID 03/30/24 03/30/24 History diltiazem HCl 120 mg 240 mg PO DAILY 03/30/24 03/30/24 History capsule,extended release 24 hr, controlled (DILT-XR) insulin aspar prot-insulin aspart 25 unit subcut BID 03/30/24 03/30/24 History 100 unit/mL (70-30) subcutaneous pen (Novolog Mix 70-30FlexPen U-100) levothyroxine 88 mcg tablet 88 mcg PO DAILY 03/30/24 03/30/24 History lisinopril 20 mg tablet 20 mg PO DAILY 03/30/24 03/30/24 History metoprolol succinate 100 mg 100 mg PO BID 03/30/24 03/30/24 History tablet,extended release 24 hr potassium chloride 20 mEq 20 meq PO DAILY 03/30/24 03/30/24 History tablet,extended release warfarin 1 mg tablet 2 mg PO DAILY 03/30/24 03/30/24 History Patient History Medical History Hypothyroidism CKD (chronic kidney disease), stage III Dyslipidemia DM (diabetes mellitus), type 2 Hypertension Atrial fibrillation Surgical History S/P cholecystectomy Family History Other Diabetes Hypertension Social History Smoking Status: Never smoker Hx Alcohol Use: No Hx Substance Use: No Preferred Language: Croatian Communication Ability: Effective Senior Trial Attorney Required: No Beliefs That Will Affect Care: None Current Living Situation: Other Current Living Situation Comment: home w/ son Other Information That Helps Us Care for You: No Feels Safe at Home: Yes Safety Concerns: Feels Safe At This Time Assistive Devices: Cane, Walker and Wheelchair Review of Systems Review of Systems: All systems reviewed & are unremarkable except as noted in HPI & below Physical Exam Physical Exam: Constitutional: Patient appears to be of their stated age. Patient is in no apparent distress. Patient is well-developed. Eyes: Pupils are equal round and reactive to light. Conjunctivae are normal. Anicteric sclera. Ears nose, mouth and throat: Mallampati class 2. Normal posterior oropharynx. Uvula is midline. Neck: Trachea is midline. Visual inspection is normal. Respiratory: Diminished lung sounds at the right lung base with crackles positive. No wheezes. Cardiovascular: Regular rate and rhythm. Irregularly irregular. 3+ edema lower extremities. Gastrointestinal: Normal bowel sounds, soft, nontender and nondistended. No hepatosplenomegaly noted. Musculoskeletal: No cyanosis. Patient is able to move all extremities. Strength is 5 out of 5 in the upper and lower extremities. Skin: No rashes, warm dry and intact. Neurologic: No obvious focal neurological deficits seen. Psychiatric: Alert and oriented x3 with a euthymic affect. Results & Data Results & Data Vital Signs (Past 12 Hours) Vital Signs Temp Pulse Pulse Resp BP Pulse Ox O2 Del Method 04/03/24 07:41 37.1 C 93 H 16 117/74 93 Room Air 04/03/24 07:16 81 04/03/24 03:52 37.1 C 80 19 122/82 97 Nasal Cannula 04/02/24 22:30 79 20 97 Nasal Cannula 04/02/24 22:02 36.8 C 83 22 104/69 93 Nasal Cannula 04/02/24 21:47 82 O2 Flow Rate 04/03/24 07:41 04/03/24 07:16 04/03/24 03:52 2 04/02/24 22:30 3 04/02/24 22:02 2 04/02/24 21:47 PG Care Time/CCT Total # of Minutes Spent Total Time Spent with Patient: Total time spent is greater than 50% in coordination of care (as documented) at patient's floor/unit and/or counseling patient: Coding Level of Care Code 21152 INT INP/OBS CARE 2/55MIN Diagnoses Moderate sized pleural effusion J90 Acute on chronic heart failure with preserved ejection fraction (HFpEF) I50.33 Supratherapeutic INR R79.1
--- NOTE | 2024-04-03 10:28 | Cardiology Progress Note ---
Date of Service April 03, 2024 Assessment & Plan (1) Acute on chronic heart failure with preserved ejection fraction (HFpEF): (2) Moderate sized pleural effusion: (3) Permanent atrial fibrillation: (4) Mitral regurgitation: (5) Tricuspid regurgitation: (6) Supratherapeutic INR: Plan 83-year-old female admitted with acute on chronic heart failure with preserved ejection fraction in the setting of mixed valvular heart disease, CKD, and permanent atrial fibrillation. Rate controlled on telemetry. Recommend continue IV diuresis. Monitor fluid balance, daily weight, GFR, and electrolytes. I would not add spironolactone at this time due to renal insufficiency. Sup plement potassium and magnesium as indicated. Monitor telemetry. Moderate to large right-sided pleural effusion noted. May require thoracentesis during hospitalization, however, continue to treat medically at this time. Hold warfarin due to supratherapeutic INR. Repeat PT/INR in AM. 04/01/2024: -Patient demonstrates clinical improvement. diuresing well -2660cc. Creatine with slight improvement -Continue IV diuresis -Strict I&O, Daily weights with standing scale and close monitoring of renal function/serum electrolytes. Goal serum K> 4.0 and serum Mag > 2.0. -Will continue to hold off on starting spironolactone due to renal insufficiency. -Monitor on telemetry. -INR today remains supratherapeutic. Continue to hold warfarin, Repeat PT/INR in the AM 04/02/2024: -Patient continues to show clinical improvement from a cardiac perspective. - 1160ml. -3kg weight deficit. -Continue IV diuresis, Cr continues to show improvement -Spironolactone on hold, reassess renal function in the AM -Continue to monitor on telemetry. No acute events overnight. -INR 2.5, Resume warfarin. Repeat PT/INR in AM 04/03/2024 Issues outlined as above. Concerns today 1. Acute decompensated diastolic heart failure right greater than left, Chronic right heart dilatation with hyperdynamic left ventricular function: Patient improving with diuresis 2. Large right pleural effusion with anticipated thoracentesis: Warfarin placed on hold 3. Atrial fibrillation, persistent with difficult rate control issues: Diltiazem in past has aggravated right heart failure in this patient. Will reduce dose today possibly discontinue if rate can be controlled. Will increase metoprolol succinate to 125 mg p.o. twice daily. Consider addition of digoxin. May ultimately require AV junction ablation pacemaker if rate control issues persist. Heart rate control may improve with thoracentesis, diuresis 4. Anemia with microcytic indices: Iron screen will be ordered Admission and Anticipated Discharge Date Admission Date: March 30, 2024 Subjective Patient seen and examined, chart, medications, telemetry reviewed. Visibly improved since initial hospitalization. Less dyspneic. Lower extremity edema has improved with patient's weight down 5 kg since hospitalization. Still with persistent dyspnea reduced breath sounds with pleural effusions still present No bleeding issues. Atrial fibrillation with variable rate control heart rates increase with minimal activity Review of Systems Review of Systems: All systems reviewed & are unremarkable except as noted in Subjective Physical Exam Constitutional: well developed and well nourished; no acute distress Neck: normal visual inspection and trachea midline Respiratory: normal respiratory effort and + cough (non productive); no respiratory distress and no labored breathing Auscultation: + diminished lung sounds (bilateral bases ); no crackles, no rales, no rhonchi and no wheezes Cardiovascular: Rate/Rhythm: regular rate, regular rhythm and + irregularly irregular Heart Sounds: normal S1, normal S2 and + murmur (2/6 Midsystolic murmur heard at apex and LSB) Vessels: dorsalis pedis pulses present; no JVD and no carotid bruit Extremities: + edema (+1 BLE) Gastrointestinal (Abdomen): Inspection/Auscultation: normal bowel sounds; abdomen not distended Percussion/Palpation: abdomen soft; abdomen nontender, no guarding and abdomen not rigid Skin: no rashes, warm and dry Neurologic: CN's II-XI intact bilaterally and moves all extremities Psychiatric: A+Ox3, euthymic affect Results & Data Vital Signs (Past 12 Hours) Vital Signs Temp Pulse Pulse Resp BP Pulse Ox O2 Del Method 04/03/24 07:41 37.1 C 93 H 16 117/74 93 Room Air 04/03/24 07:16 81 04/03/24 03:52 37.1 C 80 19 122/82 97 Nasal Cannula 04/02/24 22:30 79 20 97 Nasal Cannula O2 Flow Rate 04/03/24 07:41 04/03/24 07:16 04/03/24 03:52 2 04/02/24 22:30 3 Laboratory Results Laboratory Results - last 24 hr 04/02/24 04/02/24 04/02/24 11:11 16:06 20:17 WBC RBC Hgb Hct MCV MCH MCHC RDW Std Deviation RDW Coeff of Vinny Plt Count MPV Immature Gran % (Auto) Neut % (Auto) Lymph % (Auto) Bucks % (Auto) Eos % (Auto) Baso % (Auto) Neut # (Auto) Lymph # (Auto) Bucks # (Auto) Eos # (Auto) Baso # (Auto) Immature Gran # (Auto) PT INR VBG pH VBG pCO2 VBG pO2 VBG HCO3 VBG O2 Saturation VBG Base Excess Sodium Potassium Chloride Carbon Dioxide Anion Gap BUN Creatinine Est Cr Clr Drug Dosing eGFR BUN/Creatinine Ratio Glucose POC Glucose 128 H 151 H 132 H Calcium Magnesium Ammonia Urine Color Urine Appearance Urine pH Ur Specific [place] Urine Protein Urine Glucose (UA) Urine Ketones Urine Blood Urine Nitrite Urine Bilirubin Urine Urobilinogen Ur Leukocyte Esterase Urine WBC (Auto) Urine RBC (Auto) U Hyaline Cast (Auto) U Epithel Cells (Auto) Urine Bacteria (Auto) Adenovirus (PCR) B. pertussis DNA (PCR) B.parapertussis DNA PCR C. pneumoniae DNA (PCR) Coronavirus OC43 (PCR) Coronavirus HKU1 (PCR) Coronavirus 229E (PCR) SARS-CoV-2 (PCR) Coronavirus NL63 (PCR) Human Metapneumovir PCR Influenza Type A (PCR) Influenza Type B (PCR) M. pneumoniae (PCR) Parainfluenza 1 (PCR) Parainfluenza 2 (PCR) Parainfluenza 3 (PCR) Parainfluenza 4 (PCR) RSV (PCR) Entero/Rhino (PCR) 04/02/24 04/03/24 04/03/24 22:54 00:03 01:35 WBC RBC Hgb Hct MCV MCH MCHC RDW Std Deviation RDW Coeff of Vinny Plt Count MPV Immature Gran % (Auto) Neut % (Auto) Lymph % (Auto) Bucks % (Auto) Eos % (Auto) Baso % (Auto) Neut # (Auto) Lymph # (Auto) Bucks # (Auto) Eos # (Auto) Baso # (Auto) Immature Gran # (Auto) PT INR VBG pH 7.44 H VBG pCO2 54 H VBG pO2 39 VBG HCO3 37 VBG O2 Saturation 64.7 VBG Base Excess 10.8 Sodium Potassium Chloride Carbon Dioxide Anion Gap BUN Creatinine Est Cr Clr Drug Dosing eGFR BUN/Creatinine Ratio Glucose POC Glucose Calcium Magnesium 1.7 Ammonia 39.0 Urine Color Yellow Urine Appearance Cloudy A Urine pH 6.0 Ur Specific [place] 1.010 Urine Protein Negative Urine Glucose (UA) Negative Urine Ketones Negative Urine Blood Negative Urine Nitrite Negative Urine Bilirubin Negative Urine Urobilinogen Negative Ur Leukocyte Esterase Negative Urine WBC (Auto) 0-5 Urine RBC (Auto) 0-2 U Hyaline Cast (Auto) 3-5 H U Epithel Cells (Auto) 0-2 Urine Bacteria (Auto) None Seen Adenovirus (PCR) Not Detected B. pertussis DNA (PCR) Not Detected B.parapertussis DNA PCR Not Detected C. pneumoniae DNA (PCR) Not Detected Coronavirus OC43 (PCR) Not Detected Coronavirus HKU1 (PCR) Not Detected Coronavirus 229E (PCR) Not Detected SARS-CoV-2 (PCR) Not Detected Coronavirus NL63 (PCR) Not Detected Human Metapneumovir PCR Not Detected Influenza Type A (PCR) Not Detected Influenza Type B (PCR) Not Detected M. pneumoniae (PCR) Not Detected Parainfluenza 1 (PCR) Not Detected Parainfluenza 2 (PCR) Not Detected Parainfluenza 3 (PCR) Not Detected Parainfluenza 4 (PCR) Not Detected RSV (PCR) Not Detected Entero/Rhino (PCR) Not Detected 04/03/24 04/03/24 07:12 07:21 WBC 9.67 RBC 4.72 Hgb 11.1 L Hct 36.5 L MCV 77.3 L MCH 23.5 L MCHC 30.4 L RDW Std Deviation 48.7 H RDW Coeff of Vinny 17.9 H Plt Count 160 MPV 10.2 Immature Gran % (Auto) 0.5 Neut % (Auto) 70.0 Lymph % (Auto) 11.0 Bucks % (Auto) 17.9 Eos % (Auto) 0.3 Baso % (Auto) 0.3 Neut # (Auto) 6.77 H Lymph # (Auto) 1.06 L Bucks # (Auto) 1.73 H Eos # (Auto) 0.03 Baso # (Auto) 0.03 Immature Gran # (Auto) 0.05 PT 17.2 H INR 1.7 H VBG pH VBG pCO2 VBG pO2 VBG HCO3 VBG O2 Saturation VBG Base Excess Sodium 140 Potassium 4.0 Chloride 97 L Carbon Dioxide 34 H Anion Gap 9 BUN 36 H Creatinine 1.64 H Est Cr Clr Drug Dosing 24.8 eGFR 30.49 BUN/Creatinine Ratio 22.0 H Glucose 84 POC Glucose 104 H Calcium 9.0 Magnesium Ammonia Urine Color Urine Appearance Urine pH Ur Specific [place] Urine Protein Urine Glucose (UA) Urine Ketones Urine Blood Urine Nitrite Urine Bilirubin Urine Urobilinogen Ur Leukocyte Esterase Urine WBC (Auto) Urine RBC (Auto) U Hyaline Cast (Auto) U Epithel Cells (Auto) Urine Bacteria (Auto) Adenovirus (PCR) B. pertussis DNA (PCR) B.parapertussis DNA PCR C. pneumoniae DNA (PCR) Coronavirus OC43 (PCR) Coronavirus HKU1 (PCR) Coronavirus 229E (PCR) SARS-CoV-2 (PCR) Coronavirus NL63 (PCR) Human Metapneumovir PCR Influenza Type A (PCR) Influenza Type B (PCR) M. pneumoniae (PCR) Parainfluenza 1 (PCR) Parainfluenza 2 (PCR) Parainfluenza 3 (PCR) Parainfluenza 4 (PCR) RSV (PCR) Entero/Rhino (PCR) (4) Mitral regurgitation Cardiac valve disease etiology: nonrheumatic Qualified Code(s): I34.0 - Nonrheumatic mitral (valve) insufficiency (5) Tricuspid regurgitation Cardiac valve disease etiology: nonrheumatic Qualified Code(s): I36.1 - Nonrheumatic tricuspid (valve) insufficiency
--- NOTE | 2024-04-03 11:12 | Hospitalist Progress Note ---
Date of Service April 03, 2024 Assessment & Plan (1) Acute decompensated heart failure: (2) DM (diabetes mellitus), type 2: (3) Atrial fibrillation: (4) Dyslipidemia: (5) CKD (chronic kidney disease), stage III: (6) Hypertension: (7) Hypothyroidism: Plan This is an 83yo F with a PMH of HFpEF, atrial fibrillation on coumadin, bifascicular block, DM II, CKD III and other medical problems listed below who presents with swelling of lower extremities over the past few weeks and was found to have acutely decompensated diastolic heart failure. Acute decompensated diastolic heart failure Sent over from Dr. De Dios's office with profound BLE edema, moderate R pleural effusion on CXR, >20 ils wt gain in last 1 month Echo from [facility] from Jan 2024 with LV ejection fraction is 55 - 60%, RA and LA severely dilated, severe AV sclerosis without stenosis, severe TR regurg, severe MV regurg Home regimen includes Bumex 1mg BID, Toprol 100mg BID, lisinopril 20mg daily Given 40mg IV Lasix in ED - giving add'l 60mg IV this evening 03/30/2024 Strict I&Os, daily weights, low sodium diet Cardiology consulted -appreciate input and recommendation Has been getting Lasix 40 mg IV twice daily Cumulative fluid balance is -1700 and will continue with the current doses of Lasix Repeat echo on 03/31/2024 showed EF of 60 to 65%, moderate concentric LVH, RV is severely dilated, RV systolic function is qualitatively normal, severe biatrial enlargement, mild to moderate mitral regurgitation and severe tricuspid regurgitation, the estimated systolic pulmonary pressure is 30 cm mercury Much better today and denies any shortness of breath or palpitation at rest Electrolytes and kidney function are unremarkable Has had more than 2 L of negative balance and will likely continue intravenous diuresis for now Clinically much better but he still feels weak and tired Required oxygen last night to maintain saturation Will continue current doses of diuretics She has been diuresing enough and it still needs to be improved further Remains generally weak and lethargic Will ask for physical therapy evaluation Right pleural effusion Will observe with IV diuresis Repeat chest x-ray in a day or 2 if no improvement may need thoracentesis Abdominal ultrasound did not show any significant ascites Will get chest x-ray PA and lateral view tomorrow to evaluate effusion Will get chest x-ray PA and lateral view to evaluate right pleural effusion f beryl Chest x-ray and CT scan of the chest showed persistence of significant right pleural effusion Will ask for pulmonary evaluation for possible thoracentesis Persistent atrial fibrillation HR controlled Continue diltiazem, Toprol DM II A1c 8.8 in July 2023, repeat in AM Hold home agents Basal/bolus insulin while in-patient BSG AC HS CKD III Cr 1.89 (last known Cr 1.8 in October 2023, unknown baseline) Hold lisinopril for now Repeat BMP in AM - BUN and creatinine remains elevated at 41/1.93 and that is ex pected to rise with dehydration Renal function remains stable with creatinine at 1.64 Dyslipidemia Continue statin DVT Ppx: coumadin Coumadin is on hold Code status: FULL PCP: [facility] Dispo: admitted to PCU Admission and Anticipated Discharge Date Admission Date: March 30, 2024 Subjective 03/31/2024 The patient was seen and examined in telemetry unit She has been feeling much better following diuresis Denies any chest pain and/or palpitation and her breathing is much improved 04/01/2024 Patient was seen and examined in telemetry unit She has been feeling much better and denies any shortness of breath at rest Denies any chest pain and/or palpitation and the leg swelling has been improving Has had -4360 mLso far 04/02/2024 The patient was seen and examined in telemetry unit She has been feeling little weak today and requiring up to 2 L oxygen Denies any chest pain and/or palpitation Her legs are getting better too 04/03/2024 Patient was seen and examined in telemetry unit She remains very weak and lethargic but does not have any shortness of breath at rest Still feels that her legs are heavy even though she has had enough diuresis Denies any chest pain and/or palpitation Review of Systems Review of Systems: All systems reviewed and are unremarkable except as noted below Physical Exam Physical Exam: Lying in bed with minimal respiratory distress Constitutional: well developed, well nourished, + ill appearing and + obese Eyes: PERRL, conjunctivae normal, anicteric sclerae ENMT: external ear and nose normal, oropharynx normal Neck: trachea midline, no thyromegaly Respiratory: + respiratory distress (Minimal distress at rest) Auscultatio n: + diminished lung sounds (More on the right side than the left) and + crackles (Bibasilar) Cardiovascular: Rate/Rhythm: + irregularly irregular; not tachycardic Heart Sounds: normal S1 and normal S2; no murmur Extremities: + edema (Improved and is now 1+ edema bilaterally) Gastrointestinal (Abdomen): Inspection/Auscultation: + abdomen distended and normal bowel sounds Percussion/Palpation: abdomen soft; abdomen nontender Neurologic: normal touch/pain/proprioception and moves all extremities; no focal motor deficits Psychiatric: A+Ox3, euthymic affect Lymphatic: no cervical or axillary lymphadenopathy Results & Data Results & Data Vital Signs (Past 12 Hours) Vital Signs Temp Pulse Pulse Resp BP Pulse Ox O2 Del Method 04/03/24 07:41 37.1 C 93 H 16 117/74 93 Room Air 04/03/24 07:16 81 04/03/24 03:52 37.1 C 80 19 122/82 97 Nasal Cannula O2 Flow Rate 04/03/24 07:41 04/03/24 07:16 04/03/24 03:52 2 Laboratory Results Short CBC 04/03/24 Range/Units 07:12 WBC 9.67 (4.8-10.8) K/ul Hgb 11.1 L (12.0-16.0) g/dl Hct 36.5 L (37.0-47.0) % Plt Count 160 (130-400) K/uL BMP 04/03/24 07:12 Sodium 140 Potassium 4.0 Chloride 97 L Carbon Dioxide 34 H BUN 36 H Creatinine 1.64 H Glucose 84 Calcium 9.0 Urine 04/03/24 Range/Units 00:03 Urine Color Yellow Urine Appearance Cloudy A (Clear) Urine pH 6.0 (4.5-7.5) Ur Specific [place] 1.010 (1.000-1.030) Urine Protein Negative (Negative) Urine Glucose (UA) Negative (Negative) Medications Administered Current Inpatient Medications Acetaminophen (Acetaminophen 325 Mg Tab) 650 mg PO Q4H PRN PRN Reason: Pain or Fever Stop: 04/29/24 21:14 Atorvastatin Calcium (Atorvastatin 20 Mg Tab) 20 mg PO DAILY SHAWN Stop: 04/30/24 08:59 Last Admin: 04/03/24 08:34 Dose: 20 mg Dextrose (Dextrose 50% 50 Ml Syringe) 25 - 50 ml IV UD PRN; Protocol PRN Reason: Hypoglycemia Protocol Stop: 04/29/24 21:14 Diltiazem HCl (Diltiazem Hcl 120 Mg Capcr) 120 mg PO DAILY SHAWN Stop: 05/03/24 08:59 Last Admin: 04/03/24 09:22 Dose: 120 mg Furosemide (Furosemide 40 Mg/4 Ml Vial) 60 mg IV BID SHAWN Stop: 04/29/24 21:29 Last Admin: 04/03/24 08:39 Dose: 60 mg Glucagon (Glucagon For Inj 1 Mg Vial) 1 mg SQ UD PRN; Protocol PRN Reason: Hypoglycemia Protocol Stop: 04/29/24 21:14 Glucose (Glucose 40% Gel 15 Gm Tube) 15 - 30 gm PO UD PRN; Protocol PRN Reason: Hypoglycemia Protocol Stop: 04/29/24 21:14 Glucose (Glucose 10 Tab/Tube) 4 - 8 tab PO UD PRN; Protocol PRN Reason: Hypoglycemia Protocol Stop: 04/29/24 21:14 Insulin Aspart (Insulin Aspart Per Unit Charge) 0 units SC ACHS SHAWN Stop: 04/29/24 21:14 Last Admin: 04/03/24 08:33 Dose: Not Given Insulin Glargine (Lantus Per Unit Charge) 7 units SQ BID SHAWN Stop: 04/29/24 21:14 Last Admin: 04/03/24 08:38 Dose: 7 units Levothyroxine Sodium (Levothyroxine Sodium 88 Mcg Tablet) 88 mcg PO DAILYBB [facility] Stop: 04/30/24 06:29 Last Admin: 04/03/24 05:51 Dose: 88 mcg Metoprolol Succinate (Metoprolol Succ 50mg Ext Rel Tab) 125 mg PO BID SHAWN Stop: 05/03/24 08:59 Last Admin: 04/03/24 09:22 Dose: 125 mg Miscellaneous (Carbohydrates For Hypoglycemia ) 15 - 30 gm PO UD PRN PRN Reason: Hypoglycemia Protocol Stop: 04/29/24 21:14 Ondansetron HCl (Ondansetron Inj 2 Mg/Ml 2 Ml Vial) 4 mg IV Q6H PRN PRN Reason: Nausea Stop: 04/29/24 21:14 Last Admin: 04/02/24 02:46 Dose: 4 mg Polyethylene Glycol (Polyethylene (Miralax) 17 Gm Pack) 17 gm PO DAILY PRN PRN Reason: Constipation Stop: 04/29/24 21:14 Warfarin Sodium (Warfarin Sod 2 Mg Tab) 2 mg PO DAILY@1600 [facility] Stop: 05/02/24 15:59 Last Admin: 04/02/24 16:59 Dose: 2 mg
[2024-04-04 08:04] LABS: Magnesium 1.9 mg/dl (1.7-2.4); Phosphorus 3.6 mg/dl (2.5-4.9)
[2024-04-04 08:06] LABS: INR 1.4 (0.9-1.1); Prothrombin Time 15.1 Seconds (9.0-12.0)
[2024-04-04] MEDS: LANTUS PER UNIT CHARGE SQ SCH (08:14)
--- NOTE | 2024-04-04 10:31 | XRay Report ---
XR chest 1V not portable HISTORY: 83 years-old Female s/p right thora follow-up study in patient with pleural effusion COMPARISON: Chest CT 04/02/2024 TECHNIQUE: AP view of the chest FINDINGS: Cardiac silhouette is enlarged. Mitral annular calcifications. Pulmonary vascular congestion with int erstitial coarsening. Decreased size of the right pleural effusion status post thoracentesis. No post procedural pneumothorax identified. Scattered left lung pulmonary nodules are again noted. Minimal bi basilar consolidation. There is a fourth similar focus of nodular consolidation within the lateral ri ght lung base. Bones appear grossly intact. IMPRESSION: 1. Decreased size of the right pleural effusion status post thoracentesis. 2. No definite pneumothorax. 3. Cardiomegaly with pulmonary vascular congestion. 4. Left lung pulmonary nodules are redemonstrated, better evaluate on prior chest CT. Additionally, t here is a 4 cm focus of nodular consolidation within the right lung base. Attention on follow-up gabe mmended. ACT 112: Negative or not required by law. The above report was generated using voice recognition software. It may contain grammatical, syntax o r spelling errors. Electronically signed by: Morris Andrews M.D. 04/04/2024 10:30 AM
--- NOTE | 2024-04-04 11:36 | CT Scan Report ---
CT OF THE CHEST WITHOUT IV CONTRAST CLINICAL HISTORY: RLL mass s/p thora COMPARISON STUDY: Chest CT April 02, 2024. Chest radiograph performed earlier today. CT DOSE: 460.35 mGy.cm TECHNIQUE: Axial images of the chest were obtained without IV contrast. Images were reviewed in the axial, sagittal, and coronal planes. IV contrast was not administered for this examination. Automat ed exposure control was utilized for the study. A dose lowering technique was utilized adhering to t he principles of ALARA. FINDINGS: No enlarged axillary, mediastinal or hilar lymph nodes are present. A prominent right para tracheal lymph node on image 79 of 233 measures 1.5 x 0.9 cm. The heart is moderately enlarged. There is no pericardial effusion. A 2.4 cm exophytic left lobe thyroid nodule is incidentally noted. There is no pneumothorax following right thoracentesis. The right pleural effusion has significantly decre ased in size since CT of April 02, 2024. There is a small residual right pleural effusion. There i s a trace left pleural effusion. Extensive alveolar opacities within the right middle and right lower lobes with interlobular septal thickening have developed. Aeration of the right lower lobe and right middle lobe has significantly improved. Residual opacities within the right lower lobe favor atelect asis. No right lower lobe mass is identified. There are secretions within right lower lobe and right middle lobe bronchi. Multiple noncalcified solid pulmonary nodules are present. The largest is a 9 mm left upper lobe nodule on image 50 of 233. There are healing bilateral rib fractures. Calcified gran ulomas within the spleen are incidentally noted. IMPRESSION: 1. Significant decrease in size of the right pleural effusion following thoracentesis. Small residual right pleural effusion with no pneumothorax. 2. Alveolar opacities and interlobular septal thickening within the right lower and right middle lobe s suggestive of reexpansion pulmonary edema. 3. No right lower lobe mass identified. Right lower lobe opacities favor residual atelectasis but can be assessed on follow-up chest CT in 3 months to ensure resolution. 4. Multiple indeterminate pulmonary nodules measuring up to 9 mm which can be assessed on follow-up C T to ensure stability. A neoplastic etiology cannot be excluded. ACT 112: Positive. There are findings on this exam that require communication between the performing entity and the patient following Patient Test Result Information Act ([place] Act 112) guidelines. Electronically signed by: Haris Romero M.D. 04/04/2024 11:34 AM
[2024-04-04 12:09] LABS: Total Protein Pleural Fluid 3.1 gm/dl
--- NOTE | 2024-04-04 12:35 | Ultrasound Report ---
Ultrasound-guided right thoracentesis INDICATION: Right pleural effusion PROCEDURE: Procedure and risks were explained. Informed consent was obtained. A final timeout was com pleted. The right posterior thorax was prepped and draped in sterile fashion. 1% lidocaine was utiliz ed for skin anesthesia. Utilizing ultrasound guidance, a 5 German safety centesis catheter was advanced into the right pleura l effusion. Ultrasound images were obtained. 1400 mL of whelan fluid was removed and sent to lab for analysis. The catheter was removed and Band-Aid applied. The patient tolerated the procedure well. A chest x-ray will be obtained and vital signs will be monitored on the floor. IMPRESSION: Right thoracentesis as above. Performed, dictated, and signed by Gera Delgado PA-C; to be co-signed by Dr. Morris Andrews. Electronically signed by: Morris Andrews M.D. 04/04/2024 12:36 PM
[2024-04-04 12:39] LABS: Appearance Pleural Fluid Cloudy; Color Pleural Fluid Yellow; Lymphocytes, Fluid 46 %; Mono,Macrophage,Mesothelial 48 %; Neutrophils, Fluid 6 %; RBC Pleural Fluid Auto 4000 /uL; Source Pleural Fluid Right Lung; WBC Pleural Fluid Auto 366 /uL
[2024-04-04 13:28] LABS: Total Protein 6.5 gm/dl (6.0-8.3)
--- NOTE | 2024-04-04 13:57 | Pulmonology Progress Note ---
Date of Service April 04, 2024 Assessment & Plan (1) Moderate sized pleural effusion: Plan: Patient is status post right thoracentesis radiology. She has some reexpansion pulmonary edema. Chest CT ordered status post thoracentesis due to masslike opacity noted in the right lower lobe status post thoracentesis. No mass identified, but extensive reexpansion edema noted. O2 saturation stable. Pleural fluid studies suggest a transudate. Fluid cytology pending. Suspect effusion secondary to acute on chronic diastolic heart failure. No immediate improvement of dyspnea s/p thoracentesis. (2) Acute on chronic heart failure with preserved ejection fraction (HFpEF): Plan: Continue attempts at diuresis. Defer management to cardiology team. (3) Supratherapeutic INR: Plan: Can likely restart anticoagulation this evening. Admission and Anticipated Discharge Date Admission Date: March 30, 2024 Subjective No substantial improvement of dyspnea with thoracentesis. Remains very weak. Some mild cough associated with deep breathing. No fevers or chills. Remains on low flow oxygen. Review of Systems Review of Systems: All systems reviewed & are unremarkable except as noted in HPI & below Physical Exam Physical Exam: Constitutional: Patient appears to be of their stated age. Patient is in no apparent distress. Patient is well-developed. Eyes: Pupils are equal round and reactive to light. Conjunctivae are normal. Anicteric sclera. Ears nose, mouth and throat: No perioral cyanosis Neck: Trachea is midline. Visual inspection is normal. Respiratory: Diminished lung sounds at the right lung base with crackles p ositive. No wheezes. Cardiovascular: Regular rate and rhythm. Irregularly irregular. 2+ edema lower extremities. Gastrointestinal: Normal bowel sounds, soft, nontender and nondistended. No hepatosplenomegaly noted. Musculoskeletal: No cyanosis. Patient is able to move all extremities. Strength is 5 out of 5 in the upper and lower extremities. Skin: No rashes, warm dry and intact. Neurologic: No obvious focal neurological deficits seen. Psychiatric: Alert and oriented x3 with a euthymic affect. Results & Data Results & Data Vital Signs (Past 12 Hours) Vital Signs Temp Pulse Resp BP Pulse Ox O2 Del Method O2 Flow Rate 04/04/24 11:01 36.7 C 92 H 16 127/84 95 Nasal Cannula 95 04/04/24 08:00 Room Air 04/04/24 07:47 36.5 C 84 16 130/79 97 Nasal Cannula 3 04/04/24 03:27 36.5 C 84 18 116/80 92 Nasal Cannula FiO2 04/04/24 11:01 3 04/04/24 08:00 04/04/24 07:47 04/04/24 03:27 PG Care Time/CCT Total # of Minutes Spent Total Time Spent with Patient: Total time spent is greater than 50% in coordination of care (as documented) at patient's floor/unit and/or counseling patient: Coding Level of Care Code 19046 SUB INP/OBS CARE 2/35MIN Diagnoses Moderate sized pleural effusion J90 Acute on chronic heart failure with preserved ejection fraction (HFpEF) I50.33 Supratherapeutic INR R79.1
--- NOTE | 2024-04-04 14:10 | Hospitalist Progress Note ---
Date of Service April 04, 2024 Assessment & Plan (1) Acute decompensated heart failure: (2) DM (diabetes mellitus), type 2: (3) Atrial fibrillation: (4) Dyslipidemia: (5) CKD (chronic kidney disease), stage III: (6) Hypertension: (7) Hypothyroidism: Plan This is an 83yo F with a PMH of HFpEF, atrial fibrillation on coumadin, bifascicular block, DM II, CKD III and other medical problems listed below who presents with swelling of lower extremities over the past few weeks and was found to have acutely decompensated diastolic heart failure. Acute decompensated diastolic heart failure Sent over from Dr. De Dios's office with profound BLE edema, moderate R pleural effusion on CXR, >20 ils wt gain in last 1 month Echo from [facility] from Jan 2024 with LV ejection fraction is 55 - 60%, RA and LA severely dilated, severe AV sclerosis without stenosis, severe TR regurg, severe MV regurg Home regimen includes Bumex 1mg BID, Toprol 100mg BID, lisinopril 20mg daily Given 40mg IV Lasix in ED - giving add'l 60mg IV this evening 03/30/2024 Strict I&Os, daily weights, low sodium diet Cardiology consulted -appreciate input and recommendation Has been getting Lasix 40 mg IV twice daily Cumulative fluid balance is -1700 and will continue with the current doses of Lasix Repeat echo on 03/31/2024 showed EF of 60 to 65%, moderate concentric LVH, RV is severely dilated, RV systolic function is qualitatively normal, severe biatrial enlargement, mild to moderate mitral regurgitation and severe tricuspid regurgitation, the estimated systolic pulmonary pressure is 30 cm mercury Much better today and denies any shortness of breath or palpitation at rest Electrolytes and kidney function are unremarkable Has had more than 2 L of negative balance and will likely continue intravenous diuresis for now Clinically much better but he still feels weak and tired Required oxygen last night to maintain saturation Will continue current doses of diuretics She has been diuresing enough and it still needs to be improved further Remains generally weak and lethargic Will ask for physical therapy evaluation Clinically much better but he still has significant swelling of the legs and minimal shortness of breath at rest Will continue current management Right pleural effusion Will observe with IV diuresis Repeat chest x-ray in a day or 2 if no improvement may need thoracentesis Abdominal ultrasound did not show any significant ascites Will get chest x-ray PA and lateral view tomorrow to evaluate effusion Will get chest x-ray PA and lateral view to evaluate right pleural effusion further Chest x-ray and CT scan of the chest showed persistence of significant right pleural effusion Will ask for pulmonary evaluation for possible thoracentesis Appreciate pulmonology input and thoracentesis which came out to be transudative Repeat CT scan of the chest did not show any evidence of consolidation/mass in the right lower lobe Repeat CT was advised in 3 months Persistent atrial fibrillation HR controlled Continue diltiazem, Toprol DM II A1c 8.8 in July 2023, repeat in AM Hold home agents Basal/bolus insulin while in-patient BSG AC HS CKD III Cr 1.89 (last known Cr 1.8 in October 2023, unknown baseline) Hold lisinopril for now Repeat BMP in AM - BUN and creatinine remains elevated at 41/1.93 and that is expected to rise with dehydration Renal function remains stable with creatinine at 1.64 Dyslipidemia Continue statin DVT Ppx: coumadin Coumadin is on hold Code status: FULL PCP: [facility] Dispo: admitted to PCU Likely discharge in a day or 2 and has been getting physical therapy Admission and Anticipated Discharge Date Admission Date: March 30, 2024 Subjective 03/31/2024 The patient was seen and examined in telemetry unit She has been feeling much better following diuresis Denies any chest pain and/or palpitation and her breathing is much improved 04/01/2024 Patient was seen and examined in telemetry unit She has been feeling much better and denies any shortness of breath at rest Denies any chest pain and/or palpitation and the leg swelling has been improving Has had -4360 mLso far 04/02/2024 The patient was seen and examined in telemetry unit She has been feeling little weak today and requiring up to 2 L oxygen Denies any chest pain and/or palpitation Her legs are getting better too 04/03/2024 Patient was seen and examined in telemetry unit She remains very weak and lethargic but does not have any shortness of breath at rest Still feels that her legs are heavy even though she has had enough diuresis Denies any chest pain and/or palpitation 04/04/2024 The patient was seen and examined in telemetry unit She has been feeling little better today still has swelling of the legs and some shortness of breath at rest She will have thoracentesis today Review of Systems Review of Systems: All systems reviewed and are unremarkable except as noted below Physical Exam Physical Exam: Lying in bed with minimal respiratory distress Constitutional: well developed, well nourished, + ill appearing and + obese Eyes: PERRL, conjunctivae normal, anicteric sclerae ENMT: external ear and nose normal, oropharynx normal Neck: trachea midline, no thyromegaly Respiratory: + respiratory distress (Minimal distress at rest) Auscultation: + diminished lung sounds (More on the right side than the left) and + crackles (Bibasilar) Cardiovascular: Rate/Rhythm: + irregularly irregular; not tachycardic Heart Sounds: normal S1 and normal S2; no murmur Extremities: + edema (Improved and is now 1+ edema bilaterally) Gastrointestinal (Abdomen): Inspection/Auscultation: + abdomen distended and normal bowel sounds Percussion/Palpation: abdomen soft; abdomen nontender Neurologic: normal touch/pain/proprioception and moves all extremities; no focal motor deficits Psychiatric: A+Ox3, euthymic affect Lymphatic: no cervical or axillary lymphadenopathy Results & Data Results & Data Vital Signs (Past 12 Hours) Vital Signs Temp Pulse Resp BP Pulse Ox O2 Del Method O2 Flow Rate 04/04/24 11:01 36.7 C 92 H 16 127/84 95 Nasal Cannula 95 04/04/24 08:00 Room Air 04/04/24 07:47 36.5 C 84 16 130/79 97 Nasal Cannula 3 04/04/24 03:27 36.5 C 84 18 116/80 92 Nasal Cannula FiO2 04/04/24 11:01 3 04/04/24 08:00 04/04/24 07:47 04/04/24 03:27 Medications Administered Current Inpatient Medications Acetaminophen (Acetaminophen 325 Mg Tab) 650 mg PO Q4H PRN PRN Reason: Pain or Fever Stop: 04/29/24 21:14 Atorvastatin Calcium (Atorvastatin 20 Mg Tab) 20 mg PO DAILY [facility] Stop: 04/30/24 08:59 Last Admin: 04/04/24 10:37 Dose: 20 mg Dextrose (Dextrose 50% 50 Ml Syringe) 25 - 50 ml IV UD PRN; Protocol PRN Reason: Hypoglycemia Protocol Stop: 04/29/24 21:14 Diltiazem HCl (Diltiazem Hcl 120 Mg Capcr) 120 mg PO DAILY [facility] Stop: 05/03/24 08:59 Last Admin: 04/04/24 08:19 Dose: 120 mg Furosemide (Furosemide 40 Mg/4 Ml Vial) 60 mg IV BID [facility] Stop: 04/29/24 21:29 Last Admin: 04/04/24 08:15 Dose: 60 mg Glucagon (Glucagon For Inj 1 Mg Vial) 1 mg SQ UD PRN; Protocol PRN Reason: Hypoglycemia Protocol Stop: 04/29/24 21:14 Glucose (Glucose 40% Gel 15 Gm Tube) 15 - 30 gm PO UD PRN; Protocol PRN Reason: Hypoglycemia Protocol Stop: 04/29/24 21:14 Glucose (Glucose 10 Tab/Tube) 4 - 8 tab PO UD PRN; Protocol PRN Reason: Hypoglycemia Protocol Stop: 04/29/24 21:14 Insulin Aspart (Insulin Aspart Per Unit Charge) 0 units SC ACHS [facility] Stop: 04/29/24 21:14 Last Admin: 04/04/24 13:07 Dose: 3 units Insulin Glargine (Lantus Per Unit Charge) 7 units SQ BID [facility] Stop: 05/04/24 08:59 Last Admin: 04/04/24 08:14 Dose: 7 units Levothyroxine Sodium (Levothyroxine Sodium 88 Mcg Tablet) 88 mcg PO DAILYBB [facility] Stop: 04/30/24 06:29 Last Admin: 04/04/24 05:46 Dose: 88 mcg Metoprolol Succinate (Metoprolol Succ 50mg Ext Rel Tab) 125 mg PO BID [facility] Stop: 05/03/24 08:59 Last Admin: 04/04/24 08:19 Dose: 125 mg Miscellaneous (Carbohydrates For Hypoglycemia ) 15 - 30 gm PO UD PRN PRN Reason: Hypoglycemia Protocol Stop: 04/29/24 21:14 Ondansetron HCl (Ondansetron Inj 2 Mg/Ml 2 Ml Vial) 4 mg IV Q6H PRN PRN Reason: Nausea Stop: 04/29/24 21:14 Last Admin: 04/02/24 02:46 Dose: 4 mg Polyethylene Glycol (Polyethylene (Miralax) 17 Gm Pack) 17 gm PO DAILY PRN PRN Reason: Constipation Stop: 04/29/24 21:14 Warfarin Sodium (Warfarin Sod 2 Mg Tab) 2 mg PO DAILY@1600 [facility] Stop: 05/02/24 15:59 Last Admin: 04/02/24 16:59 Dose: 2 mg
--- NOTE | 2024-04-04 14:28 | Cardiology Progress Note ---
Date of Service April 04, 2024 Assessment & Plan (1) Acute on chronic heart failure with preserved ejection fraction (HFpEF): (2) Moderate sized pleural effusion: (3) Permanent atrial fibrillation: (4) Mitral regurgitation: (5) Tricuspid regurgitation: (6) Supratherapeutic INR: Plan 83-year-old female admitted with acute on chronic heart failure with preserved ejection fraction in the setting of mixed valvular heart disease, CKD, and permanent atrial fibrillation. Rate controlled on telemetry. Recommend continue IV diuresis. Monitor fluid balance, daily weight, GFR, and electrolytes. I would not add spironolactone at this time due to renal insufficiency. Sup plement potassium and magnesium as indicated. Monitor telemetry. Moderate to large right-sided pleural effusion noted. May require thoracentesis during hospitalization, however, continue to treat medically at this time. Hold warfarin due to supratherapeutic INR. Repeat PT/INR in AM. 04/01/2024: -Patient demonstrates clinical improvement. diuresing well -2660cc. Creatine with slight improvement -Continue IV diuresis -Strict I&O, Daily weights with standing scale and close monitoring of renal function/serum electrolytes. Goal serum K> 4.0 and serum Mag > 2.0. -Will continue to hold off on starting spironolactone due to renal insufficiency. -Monitor on telemetry. -INR today remains supratherapeutic. Continue to hold warfarin, Repeat PT/INR in the AM 04/02/2024: -Patient continues to show clinical improvement from a cardiac perspective. - 1160ml. -3kg weight deficit. -Continue IV diuresis, Cr continues to show improvement -Spironolactone on hold, reassess renal function in the AM -Continue to monitor on telemetry. No acute events overnight. -INR 2.5, Resume warfarin. Repeat PT/INR in AM 04/03/2024 Issues outlined as above. Concerns today 1. Acute decompensated diastolic heart failure right greater than left, Chronic right heart dilatation with hyperdynamic left ventricular function: Patient improving with diuresis 2. Large right pleural effusion with anticipated thoracentesis: Warfarin placed on hold 3. Atrial fibrillation, persistent with difficult rate control issues: Diltiazem in past has aggravated right heart failure in this patient. Will reduce dose today possibly discontinue if rate can be controlled. Will increase metoprolol succinate to 125 mg p.o. twice daily. Consider addition of digoxin. May ultimately require AV junction ablation pacemaker if rate control issues persist. Heart rate control may improve with thoracentesis, diuresis 4. Anemia with microcytic indices: Iron screen will be ordered Patient continues to manifest diuresis. Atrial fibrillation rates trending towards slightly better control. Respiratory status stable and patient comfortable having undergone thoracentesis earlier today Will hold IV furosemide until BMP known today Consider treating iron deficiency Admission and Anticipated Discharge Date Admission Date: March 30, 2024 Subjective 04/04/2024 Patient seen and examined, chart, telemetry reviewed. Patient underwent thoracentesis earlier today.1400 cc removed right chest Lying flat without discomfort Moderate cough since procedure. CT scan of the chest without mass or pneumothorax Patient has had persistent diuresis since admission down now 8 kg Review of Systems Review of Systems: All systems reviewed & are unremarkable except as noted in Subjective Physical Exam Constitutional: no acute distress ENMT: external ear and nose normal, oropharynx normal Neck: trachea midline Respiratory: normal respiratory effort and + cough (non productive); no respiratory distress and no labored breathing Auscultation: + diminished lung sounds (bilateral bases ); no crackles, no rales, no rhonchi and no wheezes Cardiovascular: Rate/Rhythm: + irregularly irregular Heart Sounds: normal S1, normal S2 and + murmur (2/6 Midsystolic murmur heard at apex and LSB) Vessels: dorsalis pedis pulses present; no JVD and no carotid bruit Extremities: + edema (+1 BLE) Gastrointestinal (Abdomen): Inspection/Auscultation: normal bowel sounds; abdomen not distended Percussion/Palpation: abdomen soft; abdomen nontender, no guarding and abdomen not rigid Skin: no rashes, warm and dry Neurologic: CN's II-XI intact bilaterally and moves all extremities Results & Data Vital Signs (Past 12 Hours) Vital Signs Temp Pulse Pulse Resp BP Pulse Ox O2 Del Method 04/04/24 14:00 102 H 04/04/24 11:01 36.7 C 92 H 16 127/84 95 Nasal Cannula 04/04/24 08:00 Room Air 04/04/24 07:47 36.5 C 84 16 130/79 97 Nasal Cannula 04/04/24 05:39 86 04/04/24 03:27 36.5 C 84 18 116/80 92 Nasal Cannula O2 Flow Rate FiO2 04/04/24 14:00 04/04/24 11:01 95 3 04/04/24 08:00 04/04/24 07:47 3 04/04/24 05:39 04/04/24 03:27 Laboratory Results Laboratory Results - last 24 hr 04/03/24 04/03/24 04/04/24 16:04 20:25 06:56 PT 15.1 H INR 1.4 H POC Glucose 179 H 179 H Phosphorus 3.6 Magnesium 1.9 Lactate Dehydrogenase 192 Total Protein 6.5 Fluid Neutrophils % Fluid Lymphocytes % Fluid Meso/Macro/Miller % Fluid Comment Pleural Fluid Source Pleural Color Pleural Appearance Pleural pH Pleural WBC (Auto) Pleural RBC (Auto) Pleural Total Protein Pleural LDH Pleural Glucose Pleural Amylase Pleural Cholesterol 04/04/24 04/04/24 04/04/24 07:14 10:00 11:35 PT INR POC Glucose 105 H 163 H Phosphorus Magnesium Lactate Dehydrogenase Total Protein Fluid Neutrophils % 6 Fluid Lymphocytes % 46 Fluid Meso/Macro/Miller % 48 Fluid Comment Pleural Fluid Source Right Lung Pleural Color Yellow Pleural Appearance Cloudy Pleural pH 7.52 H Pleural WBC (Auto) 366 Pleural RBC (Auto) 4000 Pleural Total Protein 3.1 Pleural LDH 75 Pleural Glucose 143 Pleural Amylase 16 Pleural Cholesterol Pending (4) Mitral regurgitation Cardiac valve disease etiology: nonrheumatic Qualified Code(s): I34.0 - Nonrheumatic mitral (valve) insufficiency (5) Tricuspid regurgitation Cardiac valve disease etiology: nonrheumatic Qualified Code(s): I36.1 - Nonrheumatic tricuspid (valve) insufficiency
[2024-04-04 16:14] LABS: BUN Creatinine Ratio 26.3 (10-20); Calcium 8.6 mg/dl (8.6-10.3); Creatinine Clr Calc Pharmacy 25.1 ml/min; Potassium 3.6 mmol/L (3.5-5.1)
[2024-04-04] MEDS: POTASSIUM CHLORIDE CRTAB 20 MEQ TABCR PO ONE (18:29)
[2024-04-04] MEDS: FUROSEMIDE 40 MG/4 ML VIAL IV SCH (19:18)
[2024-04-05 07:59] LABS: Basophils # (auto) 0.04 K/uL (0.00-0.20); Basophils % (auto) 0.4 %; Eosinophils # (auto) 0.26 K/uL (0.00-0.50); Eosinophils % (auto) 2.8 %; Hematocrit (blood only) 35.2 % (37.0-47.0); Immature Granulocytes # (auto) 0.04 K/uL (0.01-0.20); Immature Granulocytes % (auto) 0.4 %; Lymphocytes # (auto) 0.94 K/uL (1.20-3.40); Mean Corpuscular Hemoglobin 23.9 pg (25.0-34.0); Mean Corpuscular Hgb Conc 31.3 g/dL (32.0-36.0); Mean Corpuscular Volume 76.4 fL (80.0-100.0); Mean Platelet Volume 10.5 fL (9.4-12.4); Monocytes # (auto) 0.97 K/uL (0.11-0.59); Monocytes % (auto) 10.3 %; Neutrophils # (auto) 7.14 K/uL (1.40-6.50); Neutrophils % (auto) 76.1 %; Platelet Count 190 K/uL (130-400); RDW Coefficient of Variation 18.2 % (11.5-14.5); RDW Standard Deviation 48.7 fL (36.4-46.3); Red Blood Count 4.61 M/uL (4.20-5.40); White Blood Count 9.39 K/ul (4.8-10.8)
[2024-04-05 08:11] LABS: BUN Creatinine Ratio 25.3 (10-20); Calcium 8.8 mg/dl (8.6-10.3); Potassium 3.7 mmol/L (3.5-5.1)
[2024-04-05 08:30] LABS: INR 1.3 (0.9-1.1); Prothrombin Time 13.9 Seconds (9.0-12.0)
--- NOTE | 2024-04-05 12:36 | Cardiology Progress Note ---
Date of Service April 05, 2024 Assessment & Plan (1) Acute on chronic heart failure with preserved ejection fraction (HFpEF): (2) Moderate sized pleural effusion: (3) Permanent atrial fibrillation: (4) Mitral regurgitation: (5) Tricuspid regurgitation: (6) Supratherapeutic INR: Plan 83-year-old female admitted with acute on chronic heart failure with preserved ejection fraction in the setting of mixed valvular heart disease, CKD, and permanent atrial fibrillation. Rate controlled on telemetry. Recommend continue IV diuresis. Monitor fluid balance, daily weight, GFR, and electrolytes. I would not add spironolactone at this time due to renal insufficiency. Sup plement potassium and magnesium as indicated. Monitor telemetry. Moderate to large right-sided pleural effusion noted. May require thoracentesis during hospitalization, however, continue to treat medically at this time. Hold warfarin due to supratherapeutic INR. Repeat PT/INR in AM. 04/01/2024: -Patient demonstrates clinical improvement. diuresing well -2660cc. Creatine with slight improvement -Continue IV diuresis -Strict I&O, Daily weights with standing scale and close monitoring of renal function/serum electrolytes. Goal serum K> 4.0 and serum Mag > 2.0. -Will continue to hold off on starting spironolactone due to renal insufficiency. -Monitor on telemetry. -INR today remains supratherapeutic. Continue to hold warfarin, Repeat PT/INR in the AM 04/02/2024: -Patient continues to show clinical improvement from a cardiac perspective. - 1160ml. -3kg weight deficit. -Continue IV diuresis, Cr continues to show improvement -Spironolactone on hold, reassess renal function in the AM -Continue to monitor on telemetry. No acute events overnight. -INR 2.5, Resume warfarin. Repeat PT/INR in AM 04/03/2024 Issues outlined as above. Concerns today 1. Acute decompensated diastolic heart failure right greater than left, Chronic right heart dilatation with hyperdynamic left ventricular function: Patient improving with diuresis 2. Large right pleural effusion with anticipated thoracentesis: Warfarin placed on hold 3. Atrial fibrillation, persistent with difficult rate control issues: Diltiazem in past has aggravated right heart failure in this patient. Will reduce dose today possibly discontinue if rate can be controlled. Will increase metoprolol succinate to 125 mg p.o. twice daily. Consider addition of digoxin. May ultimately require AV junction ablation pacemaker if rate control issues persist. Heart rate control may improve with thoracentesis, diuresis 4. Anemia with microcytic indices: Iron screen will be ordered Patient continues to manifest diuresis. Atrial fibrillation rates trending towards slightly better control. Respiratory status stable and patient comfortable having undergone thoracentesis earlier today Will hold IV furosemide until BMP known today Consider treating iron deficiency 04/05/2024 Continues to demonstrate improvement though still with oxygen demands and dyspn ea with minimal activity. Concerns are as listed below 1. Acute decompensated diastolic heart failure right greater than left, Chronic right heart dilatation with hyperdynamic left ventricular function: Patient improving with diuresis. Will plan additional IV diuretic this morning possible switch to torsemide plus or minus spironolactone. Still residual rales at the bases of lungs and presacral edema 2. Large right pleural effusion status postthoracentesis 3. Atrial fibrillation, persistent with difficult rate control issues: Diltiazem in past has aggravated right heart failure in this patient. Heart rates improved postthoracentesis and treatment of heart failure. Will continue increased dose metoprolol succinate and reduced dose diltiazem 4. Anemia with microcytic indices: Supplementation iron oral versus IV suggested Admission and Anticipated Discharge Date Admission Date: March 30, 2024 Subjective Patient seen and examined, chart, medications, telemetry reviewed. Appears clinically improved this morning. Still requiring oxygen with bibasilar crackles present. Heart rate better controlled. No chest pains or discomfort Lower extremity edema markedly improved. Still with presacral and thigh edema Review of Systems Review of Systems: All systems reviewed & are unremarkable except as noted in Subjective Physical Exam Constitutional: well developed and well nourished; no acute distress ENMT: external ear and nose normal, oropharynx normal Neck: normal visual inspection and trachea midline Respiratory: normal respiratory effort and + cough (non productive); no respiratory distress and no labored breathing Auscultation: + diminished lung sounds (bilateral bases ); no crackles, no rales, no rhonchi and no wheezes Cardiovascular: Rate/Rhythm: regular rate, regular rhythm and + irregularly irregular Heart Sounds: normal S1, normal S2 and + murmur (2/6 Midsystolic murmur heard at apex and LSB) Vessels: dorsalis pedis pulses present; no JVD and no carotid bruit Extremities: + edema (Mild presacral) Gastrointestinal (Abdomen): Inspection/Auscultation: normal bowel sounds; abdomen not distended Percussion/Palpation: abdomen soft; abdomen nontender, no guarding and abdomen not rigid Skin: no rashes, warm and dry Neurologic: CN's II-XI intact bilaterally and moves all extremities Psychiatric: A+Ox3, euthymic affect Results & Data Vital Signs (Past 12 Hours) Vital Signs Temp Pulse Resp BP Pulse Ox O2 Del Method O2 Flow Rate 04/05/24 10:59 36.6 C 88 18 114/73 95 Nasal Cannula 1 04/05/24 09:00 Nasal Cannula 3 04/05/24 07:24 36.7 C 81 18 125/76 96 Nasal Cannula 3 04/05/24 03:40 36.9 C 68 20 120/83 94 Nasal Cannula 3 Laboratory Results Laboratory Results - last 24 hr 04/04/24 04/04/24 04/04/24 06:56 10:00 15:19 WBC RBC Hgb Hct MCV MCH MCHC RDW Std Deviation RDW Coeff of Vinny Plt Count MPV Immature Gran % (Auto) Neut % (Auto) Lymph % (Auto) [place] % (Auto) Eos % (Auto) Baso % (Auto) Neut # (Auto) Lymph # (Auto) [place] # (Auto) Eos # (Auto) Baso # (Auto) Immature Gran # (Auto) PT INR Sodium 137 Potassium 3.6 Chloride 96 L Carbon Dioxide 33 H Anion Gap 8 BUN 42 H Creatinine 1.60 H Est Cr Clr Drug Dosing 25.1 eGFR 31.41 BUN/Creatinine Ratio 26.3 H Glucose 133 H POC Glucose Calcium 8.6 Lactate Dehydrogenase 192 Total Protein 6.5 Fluid Neutrophils % 6 Fluid Lymphocytes % 46 Fluid Meso/Macro/Prowers % 48 Pleural Fluid Source Right Lung Pleural Color Yellow Pleural Appearance Cloudy Pleural WBC (Auto) 366 Pleural RBC (Auto) 4000 04/04/24 04/04/24 04/05/24 16:24 20:26 07:01 WBC RBC Hgb Hct MCV MCH MCHC RDW Std Deviation RDW Coeff of Vinny Plt Count MPV Immature Gran % (Auto) Neut % (Auto) Lymph % (Auto) [place] % (Auto) Eos % (Auto) Baso % (Auto) Neut # (Auto) Lymph # (Auto) [place] # (Auto) Eos # (Auto) Baso # (Auto) Immature Gran # (Auto) PT INR Sodium Potassium Chloride Carbon Dioxide Anion Gap BUN Creatinine Est Cr Clr Drug Dosing eGFR BUN/Creatinine Ratio Glucose POC Glucose 143 H 137 H 140 H Calcium Lactate Dehydrogenase Total Protein Fluid Neutrophils % Fluid Lymphocytes % Fluid Meso/Macro/Prowers % Pleural Fluid Source Pleural Color Pleural Appearance Pleural WBC (Auto) Pleural RBC (Auto) 04/05/24 04/05/24 07:28 11:30 WBC 9.39 RBC 4.61 Hgb 11.0 L Hct 35.2 L MCV 76.4 L MCH 23.9 L MCHC 31.3 L RDW Std Deviation 48.7 H RDW Coeff of Vinny 18.2 H Plt Count 190 MPV 10.5 Immature Gran % (Auto) 0.4 Neut % (Auto) 76.1 Lymph % (Auto) 10.0 [place] % (Auto) 10.3 Eos % (Auto) 2.8 Baso % (Auto) 0.4 Neut # (Auto) 7.14 H Lymph # (Auto) 0.94 L [place] # (Auto) 0.97 H Eos # (Auto) 0.26 Baso # (Auto) 0.04 Immature Gran # (Auto) 0.04 PT 13.9 H INR 1.3 H Sodium 138 Potassium 3.7 Chloride 96 L Carbon Dioxide 36 H Anion Gap 6 BUN 39 H Creatinine 1.54 H Est Cr Clr Drug Dosing 26.0 eGFR 32.88 BUN/Creatinine Ratio 25.3 H Glucose 94 POC Glucose 196 H Calcium 8.8 Lactate Dehydrogenase Total Protein Fluid Neutrophils % Fluid Lymphocytes % Fluid Meso/Macro/Prowers % Pleural Fluid Source Pleural Color Pleural Appearance Pleural WBC (Auto) Pleural RBC (Auto) (4) Mitral regurgitation Cardiac valve disease etiology: nonrheumatic Qualified Code(s): I34.0 - Nonrheumatic mitral (valve) insufficiency (5) Tricuspid regurgitation Cardiac valve disease etiology: nonrheumatic Qualified Code(s): I36.1 - Nonrheumatic tricuspid (valve) insufficiency
--- NOTE | 2024-04-05 14:22 | Pulmonology Progress Note ---
Date of Service April 05, 2024 Assessment & Plan (1) Moderate sized pleural effusion: Plan: Status post right thoracentesis 04/04/2024 with 1400 mL of fluid removed. CT chest subsequent to the thoracentesis revealed reexpansion pulmonary edema. She is improved today and her oxygen has been weaned down to 1 L of flow per minute. Pleural fluid studies suggest a transudate. Some lymphocytic predominance noted which may be related to CHF. Fluid cytology pending. Please follow-up on the fluid cytology. (2) Acute on chronic heart failure with preserved ejection fraction (HFpEF): Plan: Continue attempts at diuresis. Defer management to cardiology team. (3) Supratherapeutic INR: Plan: Okay to restart anticoagulation. Plan Pulmonary service to sign off. Thank you for the consult. Please call with questions. Admission and Anticipated Discharge Date Admission Date: March 30, 2024 Subjective She feels better today and has less shortness of breath. She is sitting up in a chair. She denies any significant chest pain, but does endorse a dry cough since her pleural effusion was drained. Review of Systems Review of Systems: All systems reviewed & are unremarkable except as noted in HPI & below Physical Exam Physical Exam: Constitutional: Patient appears to be of their stated age. Patient is in no apparent distress. Patient is well-developed. Eyes: Pupils are equal round and reactive to light. Conjunctivae are normal. Anicteric sclera. Ears nose, mouth and throat: No perioral cyanosis Neck: Trachea is midline. Visual inspection is normal. Respiratory: Bibasilar crackles. No increased work of breathing. Cardiovascular: Regular rate and rhythm. Irregularly irregular. 2+ edema lower extremities. Gastrointestinal: Normal bowel sounds, soft, nontender and nondistended. No hepatosplenomegaly noted. Musculoskeletal: No cyanosis. Patient is able to move all extremities. Strength is 5 out of 5 in the upper and lower extremities. Skin: No rashes, warm dry and intact. Neurologic: No obvious focal neurological deficits seen. Psychiatric: Alert and oriented x3 with a euthymic affect. Results & Data Results & Data Vital Signs (Past 12 Hours) Vital Signs Temp Pulse Resp BP Pulse Ox O2 Del Method O2 Flow Rate 04/05/24 10:59 36.6 C 88 18 114/73 95 Nasal Cannula 1 04/05/24 09:00 Nasal Cannula 3 04/05/24 07:24 36.7 C 81 18 125/76 96 Nasal Cannula 3 04/05/24 03:40 36.9 C 68 20 120/83 94 Nasal Cannula 3 PG Care Time/CCT Total # of Minutes Spent Total Time Spent with Patient: Total time spent is greater than 50% in coordination of care (as documented) at patient's floor/unit and/or counseling patient: Coding Level of Care Code 71659 SUB INP/OBS CARE 2/35MIN Diagnoses Moderate sized pleural effusion J90 Acute on chronic heart failure with preserved ejection fraction (HFpEF) I50.33 Supratherapeutic INR R79.1
--- NOTE | 2024-04-05 16:03 | Hospitalist Progress Note ---
Date of Service April 05, 2024 Assessment & Plan (1) Acute decompensated heart failure: (2) DM (diabetes mellitus), type 2: (3) Atrial fibrillation: (4) Dyslipidemia: (5) CKD (chronic kidney disease), stage III: (6) Hypertension: (7) Hypothyroidism: Plan This is an 83yo F with a PMH of HFpEF, atrial fibrillation on coumadin, bifascicular block, DM II, CKD III and other medical problems listed below who presents with swelling of lower extremities over the past few weeks and was found to have acutely decompensated diastolic heart failure. Acute decompensated diastolic heart failure Admited from cardiology office with profound BLE edema, moderate R pleural effusion on CXR, >20 ils wt gain in last 1 month Echo from [facility] from Jan 2024 with LV ejection fraction is 55 - 60%, RA and LA severely dilated, severe AV sclerosis without stenosis, severe TR regurg, severe MV regurg Home regimen includes Bumex 1mg BID, Toprol 100mg BID, lisinopril 20mg daily Given 40mg IV Lasix in ED - giving add'l 60mg IV this evening 03/30/2024 Strict I&Os, daily weights, low sodium diet Cardiology consulted -appreciate input and recommendation Has been getting Lasix 40 mg IV twice daily Cumulative fluid balance is -1160ml. -3kg weight deficit Repeat echo on 03/31/2024 showed EF of 60 to 65%, moderate concentric LVH, RV is severely dilated, RV systolic function is qualitatively normal, severe biatrial enlargement, mild to moderate mitral regurgitation and severe tricuspid regurgitation, the estimated systolic pulmonary pressure is 30 cm mercury She does feel better today and denies any resting shortness of breath Electrolytes and kidney function are stable Continue intravenous diuresis for now Clinically much better but he still feels weak and tired. Needs two person assist. Discussed rehab. She declines. Will discuss with her son. She has been diuresing enough and it still needs to be improved further Remains generally weak and lethargic Continue physical therapy evaluation Right pleural effusion S/P thoracentesis on 04/04/2024 with 1400 mL of fluid removed. CT chest subsequent to the thoracentesis revealed reexpansion pulmonary edema. Pleural fluid studies suggest a transudate. Some lymphocytic predominance noted which may be related to CHF. Fluid cytology pending. Please follow-up on the fluid cytology. Abdominal ultrasound did not show any significant ascites Repeat CT scan of the chest did not show any evidence of consolidation/mass in the right lower lobe Repeat CT was advised in 3 months Persistent atrial fibrillation HR controlled Continue diltiazem, Toprol DM II A1c 8.8 in July 2023, repeat in AM Hold home agents Basal/bolus insulin while in-patient BSG AC HS CKD III Cr 1.54 today (last known Cr 1.8 in October 2023, unknown baseline) Hold lisinopril for now Dyslipidemia Continue statin DVT Ppx: coumadin Coumadin is on hold. Ok to restart per Pulmonary Code status: FULL PCP: [facility] Dispo: admitted to PCU Will need to consider rehab since she is requiring two person assist. Will discuss with her son. A total of 51 minutes spet in the care and care coordination of this patient. Admission and Anticipated Discharge Date Admission Date: March 30, 2024 Subjective Pt seen at chairside with nursing. Still on 3 liters of O2. Not on O2 at home. Very weak. Needs two person assist. She is sitting up in a chair. Feels better since her pleural effusion was drained. Review of Systems Review of Systems: Constitutional- no fever; no chills ENT- no sinus drainage; no pharyngitis Pulmonary- + dry cough, no wheezing, + shortness of breath Cardiac- no chest pain, no palpitations, no orthopnea, no dependent edema GI- no nausea, no vomiting, no diarrhea, no melena, no hematochezia - no dysuria, no hematuria Neuro- no headaches, no focal neurologic symptoms Psych- no anxiety, no depression Physical Exam Physical Exam: General- adult elderly female seen sitting in chair. Prior to that required two person assist. Chronic ill appearance Eyes- PERRL, EOMI, anicteric ENT- oropharynx clear Neck- supple, no JVD, no adenopathy, no thyromegaly; carotids +2/2, no bruits appreciated Lungs- diminished BS in bases. clear to auscultation and percussion Heart-irregular rhythm with controlled rate; Abdomen- normal bowel sounds, soft, nontender, no masses or hepatosplenomegaly Extremities- no pretibial edema, no calf tenderness; peripheral pulses intact Neuro- alert, oriented x 3; PERRL, EOMI; Skin- warm & dry Results & Data Results & Data Vital Signs (Past 12 Hours) Vital Signs Temp Pulse Resp BP Pulse Ox O2 Del Method O2 Flow Rate 04/05/24 15:40 36.9 C 88 18 125/70 91 Room Air 04/05/24 10:59 36.6 C 88 18 114/73 95 Nasal Cannula 1 04/05/24 09:00 Nasal Cannula 3 04/05/24 07:24 36.7 C 81 18 125/76 96 Nasal Cannula 3 Diagnostic Findings Laboratory Results WBC 9.39 K/ul (4.8-10.8) 04/05/24 07:28 RBC 4.61 M/uL (4.20-5.40) 04/05/24 07:28 Hgb 11.0 g/dl (12.0-16.0) L 04/05/24 07:28 Hct 35.2 % (37.0-47.0) L 04/05/24 07:28 MCV 76.4 fL (80.0-100.0) L 04/05/24 07:28 MCH 23.9 pg (25.0-34.0) L 04/05/24 07:28 MCHC 31.3 g/dL (32.0-36.0) L 04/05/24 07:28 RDW Std Deviation 48.7 fL (36.4-46.3) H 04/05/24 07:28 RDW Coeff of Vinny 18.2 % (11.5-14.5) H 04/05/24 07:28 Plt Count 190 K/uL (130-400) 04/05/24 07:28 MPV 10.5 fL (9.4-12.4) 04/05/24 07:28 Immature Gran % (Auto) 0.4 % 04/05/24 07:28 Neut % (Auto) 76.1 % 04/05/24 07:28 Lymph % (Auto) 10.0 % 04/05/24 07:28 [place] % (Auto) 10.3 % 04/05/24 07:28 Eos % (Auto) 2.8 % 04/05/24 07:28 Baso % (Auto) 0.4 % 04/05/24 07:28 Neut # (Auto) 7.14 K/uL (1.40-6.50) H 04/05/24 07:28 Lymph # (Auto) 0.94 K/uL (1.20-3.40) L 04/05/24 07:28 [place] # (Auto) 0.97 K/uL (0.11-0.59) H 04/05/24 07:28 Eos # (Auto) 0.26 K/uL (0.00-0.50) 04/05/24 07:28 Baso # (Auto) 0.04 K/uL (0.00-0.20) 04/05/24 07:28 Immature Gran # (Auto) 0.04 K/uL (0.01-0.20) 04/05/24 07:28 PT 13.9 Seconds (9.0-12.0) H 04/05/24 07:28 INR 1.3 (0.9-1.1) H 04/05/24 07:28 VBG pH 7.44 (7.36-7.41) H 04/02/24 22:54 VBG pCO2 54 mmHg (38-50) H 04/02/24 22:54 VBG pO2 39 mmHg 04/02/24 22:54 VBG HCO3 37 mmol/L 04/02/24 22:54 VBG O2 Saturation 64.7 % 04/02/24 22:54 VBG Base Excess 10.8 mEq/L 04/02/24 22:54 Sodium 138 mmol/L (136-145) 04/05/24 07:28 Potassium 3.7 mmol/L (3.5-5.1) 04/05/24 07:28 Chloride 96 mmol/L (98-107) L 04/05/24 07:28 Carbon Dioxide 36 mmol/L (21-32) H 04/05/24 07:28 Anion Gap 6 (3-11) 04/05/24 07:28 BUN 39 mg/dl (6-23) H 04/05/24 07:28 Creatinine 1.54 mg/dl (0.6-1.2) H 04/05/24 07:28 Est Cr Clr Drug Dosing 26.0 ml/min 04/05/24 07:28 eGFR 32.88 04/05/24 07:28 BUN/Creatinine Ratio 25.3 (10-20) H 04/05/24 07:28 Glucose 94 mg/dl (70-99(Fasting)) 04/05/24 07:28 POC Glucose 196 mg/dl (70-99) H 04/05/24 11:30 Estimat Average Glucose 160 mg/dl 03/31/24 06:00 Hemoglobin A1c 7.2 % (4.5-5.6) H 03/31/24 06:00 Calcium 8.8 mg/dl (8.6-10.3) 04/05/24 07:28 Phosphorus 3.6 mg/dl (2.5-4.9) 04/04/24 06:56 Magnesium 1.9 mg/dl (1.7-2.4) 04/04/24 06:56 Iron 21 mcg/dl (35-150) L 04/03/24 07:12 TIBC 334 mcg/dl (250-450) 04/03/24 07:12 Unsaturated IBC 313 mcg/dl (155-355) 04/03/24 07:12 Transferrin % Sat 6 % (15-50) L 04/03/24 07:12 Total Bilirubin 0.8 mg/dl (0.2-1.0) 03/30/24 18:06 Direct Bilirubin TNP 03/30/24 18:06 AST 29 U/L (13-39) 03/30/24 18:06 ALT 18 U/L (7-52) 03/30/24 18:06 Alkaline Phosphatase 143 U/L (34-104) H 03/30/24 18:06 Ammonia 39.0 umol/L (18-72) 04/02/24 22:54 Lactate Dehydrogenase 192 U/L (86-244) 04/04/24 06:56 B-Natriuretic Peptide 576 pg/ml (0-100) H 03/30/24 18:06 Total Protein 6.5 gm/dl (6.0-8.3) 04/04/24 06:56 Albumin 3.8 gm/dl (3.4-5.0) 03/30/24 18:06 Procalcitonin 0.12 ng/ml (0-0.5) 03/31/24 06:00 TSH 2.957 uIu/ml (0.300-4.500) 03/31/24 06:00 Urine Color Yellow 04/03/24 00:03 Urine Appearance Cloudy (Clear) A 04/03/24 00:03 Urine pH 6.0 (4.5-7.5) 04/03/24 00:03 Ur Specific [place] 1.010 (1.000-1.030) 04/03/24 00:03 Urine Protein Negative (Negative) 04/03/24 00:03 Urine Glucose (UA) Negative (Negative) 04/03/24 00:03 Urine Ketones Negative (Negative) 04/03/24 00:03 Urine Blood Negative (Negative) 04/03/24 00:03 Urine Nitrite Negative (Negative) 04/03/24 00:03 Urine Bilirubin Negative (Negative) 04/03/24 00:03 Urine Urobilinogen Negative (Negative) 04/03/24 00:03 Ur Leukocyte Esterase Negative (Negative) 04/03/24 00:03 Urine WBC (Auto) 0-5 /hpf (0-5) 04/03/24 00:03 Urine RBC (Auto) 0-2 /hpf (0-2) 04/03/24 00:03 U Hyaline Cast (Auto) 3-5 /lpf (0-2) H 04/03/24 00:03 U Epithel Cells (Auto) 0-2 /hpf (0-2) 04/03/24 00:03 Urine Bacteria (Auto) None Seen (None Seen) 04/03/24 00:03 Fluid Neutrophils % 6 % 04/04/24 10:00 Fluid Lymphocytes % 46 % 04/04/24 10:00 Fluid [place] % 48 % 04/04/24 10:00 Fluid Comment 04/04/24 10:00 Pleural Fluid Source Right Lung 04/04/24 10:00 Pleural Color Yellow 04/04/24 10:00 Pleural Appearance Cloudy 04/04/24 10:00 Pleural pH 7.52 (7.3-7.4) H 04/04/24 10:00 Pleural WBC (Auto) 366 /uL 04/04/24 10:00 Pleural RBC (Auto) 4000 /uL 04/04/24 10:00 Pleural Total Protein 3.1 gm/dl 04/04/24 10:00 Pleural LDH 75 U/L 04/04/24 10:00 Pleural Glucose 143 mg/dl 04/04/24 10:00 Pleural Amylase 16 U/L 04/04/24 10:00 Adenovirus (PCR) Not Detected (NotDetected) 04/03/24 01:35 B. pertussis DNA (PCR) Not Detected (NotDetected) 04/03/24 01:35 B.parapertussis DNA PCR Not Detected (NotDetected) 04/03/24 01:35 C. pneumoniae DNA (PCR) Not Detected (NotDetected) 04/03/24 01:35 Coronavirus OC43 (PCR) Not Detected (NotDetected) 04/03/24 01:35 Coronavirus HKU1 (PCR) Not Detected (NotDetected) 04/03/24 01:35 Coronavirus 229E (PCR) Not Detected (NotDetected) 04/03/24 01:35 SARS-CoV-2 (PCR) Not Detected (NotDetected) 04/03/24 01:35 Coronavirus NL63 (PCR) Not Detected (NotDetected) 04/03/24 01:35 Human Metapneumovir PCR Not Detected (NotDetected) 04/03/24 01:35 Influenza Type A (PCR) Not Detected (NotDetected) 04/03/24 01:35 Influenza Type B (PCR) Not Detected (NotDetected) 04/03/24 01:35 M. pneumoniae (PCR) Not Detected (NotDetected) 04/03/24 01:35 Parainfluenza 1 (PCR) Not Detected (NotDetected) 04/03/24 01:35 Parainfluenza 2 (PCR) Not Detected (NotDetected) 04/03/24 01:35 Parainfluenza 3 (PCR) Not Detected (NotDetected) 04/03/24 01:35 Parainfluenza 4 (PCR) Not Detected (NotDetected) 04/03/24 01:35 RSV (PCR) Not Detected (NotDetected) 04/03/24 01:35 Entero/Rhino (PCR) Not Detected (NotDetected) 04/03/24 01:35 Impressions Abdomen Ultrasound 03/31/24 00:00 US abdomen ltd ascites HISTORY: 83 years-old Female Abdominal distention acute generalized abdominal pain with distention COMPARISON: None TECHNIQUE: Multiple real-time sonography images of the abdomen were obtained assessing grayscale appearance FINDINGS/IMPRESSION: There is only trace ascites within the lower abdomen. ACT 112: Negative or not required by law. The above report was generated using voice recognition software. It may contain grammatical, syntax or spelling errors. Electronically signed by: Morris Andrews M.D. 03/31/2024 11:02 AM Thoracentesis/Paracentesis US 04/04/24 09:30 Ultrasound-guided right thoracentesis INDICATION: Right pleural effusion PROCEDURE: Procedure and risks were explained. Informed consent was obtained. A final timeout was completed. The right posterior thorax was prepped and draped in sterile fashion. 1% lidocaine was utilized for skin anesthesia. Utilizing ultrasound guidance, a 5 [place] safety centesis catheter was advanced into the right pleural effusion. Ultrasound images were obtained. 1400 mL of whelan fluid was removed and sent to lab for analysis. The catheter was removed and Band-Aid applied. The patient tolerated the procedure well. A chest x-ray will be obtained and vital signs will be monitored on the floor. IMPRESSION: Right thoracentesis as above. Performed, dictated, and signed by Gera Delgado PA-C; to be co-signed by Dr. Morris Andrews. Electronically signed by: Morris Andrews M.D. 04/04/2024 12:36 PM Chest X-Ray 04/04/24 09:38 XR chest 1V not portable HISTORY: 83 years-old Female s/p right thora follow-up study in patient with pleural effusion COMPARISON: Chest CT 04/02/2024 TECHNIQUE: AP view of the chest FINDINGS: Cardiac silhouette is enlarged. Mitral annular calcifications. Pulmonary vascular congestion with interstitial coarsening. Decreased size of the right pleural effusion status post thoracentesis. No postprocedural pneumothorax identified. Scattered left lung pulmonary nodules are again noted. Minimal bibasilar consolidation. There is a fourth similar focus of nodular consolidation within the lateral right lung base. Bones appear grossly intact. IMPRESSION: 1. Decreased size of the right pleural effusion status post thoracentesis. 2. No definite pneumothorax. 3. Cardiomegaly with pulmonary vascular congestion. 4. Left lung pulmonary nodules are redemonstrated, better evaluate on prior chest CT. Additionally, there is a 4 cm focus of nodular consolidation within the right lung base. Attention on follow-up recommended. ACT 112: Negative or not required by law. The above report was generated using voice recognition software. It may contain grammatical, syntax or spelling errors. Electronically signed by: Morris Andrews M.D. 04/04/2024 10:[address] 04/04/24 10:46 CT OF THE CHEST WITHOUT IV CONTRAST CLINICAL HISTORY: RLL mass s/p thora COMPARISON STUDY: Chest CT April 02, 2024. Chest radiograph performed earlier today. CT DOSE: 460.35 mGy.cm TECHNIQUE: Axial images of the chest were obtained without IV contrast. Images were reviewed in the axial, sagittal, and coronal planes. IV contrast was not administered for this examination. Automated exposure control was utilized for the study. A dose lowering technique was utilized adhering to the principles of ALARA. FINDINGS: No enlarged axillary, mediastinal or hilar lymph nodes are present. A prominent right paratracheal lymph node on image 79 of 233 measures 1.5 x 0.9 cm. The heart is moderately enlarged. There is no pericardial effusion. A 2.4 cm exophytic left lobe thyroid nodule is incidentally noted. There is no pneumothorax following right thoracentesis. The right pleural effusion has significantly decreased in size since CT of April 02, 2024. There is a small residual right pleural effusion. There is a trace left pleural effusion. Extensive alveolar opacities within the right middle and right lower lobes with interlobular septal thickening have developed. Aeration of the right lower lobe and right middle lobe has significantly improved. Residual opacities within the right lower lobe favor atelectasis. No right lower lobe mass is identified. There are secretions within right lower lobe and right middle lobe bronchi. Mult iple noncalcified solid pulmonary nodules are present. The largest is a 9 mm left upper lobe nodule on image 50 of 233. There are healing bilateral rib fractures. Calcified granulomas within the spleen are incidentally noted. IMPRESSION: 1. Significant decrease in size of the right pleural effusion following thoracentesis. Small residual right pleural effusion with no pneumothorax. 2. Alveolar opacities and interlobular septal thickening within the right lower and right middle lobes suggestive of reexpansion pulmonary edema. 3. No right lower lobe mass identified. Right lower lobe opacities favor residual atelectasis but can be assessed on follow-up chest CT in 3 months to ensure resolution. 4. Multiple indeterminate pulmonary nodules measuring up to 9 mm which can be assessed on follow-up CT to ensure stability. A neoplastic etiology cannot be excluded. ACT 112: Positive. There are findings on this exam that require communication between the performing entity and the patient following Patient Test Result Information Act ([place] Act 112) guidelines. Electronically signed by: Haris Romero M.D. 04/04/2024 11:34 AM
[2024-04-05] MEDS: WARFARIN SOD 2 MG TAB PO SCH (18:10)
[2024-04-06 07:46] LABS: Hematocrit (blood only) 33.4 % (37.0-47.0); Hemoglobin 10.7 g/dl (12.0-16.0); Mean Corpuscular Hemoglobin 24.1 pg (25.0-34.0); Mean Corpuscular Volume 75.2 fL (80.0-100.0); Mean Platelet Volume 9.9 fL (9.4-12.4); Platelet Count 192 K/uL (130-400); RDW Coefficient of Variation 18.6 % (11.5-14.5); RDW Standard Deviation 49.9 fL (36.4-46.3); Red Blood Count 4.44 M/uL (4.20-5.40); White Blood Count 7.86 K/ul (4.8-10.8)
[2024-04-06 08:06] LABS: BUN Creatinine Ratio 28.5 (10-20); Calcium 8.8 mg/dl (8.6-10.3); Creatinine Clr Calc Pharmacy 28.9 ml/min; Magnesium 1.7 mg/dl (1.7-2.4); Potassium 3.6 mmol/L (3.5-5.1)
[2024-04-06 08:07] LABS: INR 1.2 (0.9-1.1); Prothrombin Time 13.1 Seconds (9.0-12.0)
[2024-04-06] MEDS: TORSEMIDE 20 MG TAB PO SCH (09:54)
[2024-04-06] MEDS: SPIRONOLACTONE 12.5 MG TAB PO SCH (09:54)
--- NOTE | 2024-04-06 10:23 | Cardiology Progress Note ---
Date of Service April 06, 2024 Assessment & Plan (1) Acute on chronic heart failure with preserved ejection fraction (HFpEF): (2) Moderate sized pleural effusion: (3) Permanent atrial fibrillation: (4) Mitral regurgitation: (5) Tricuspid regurgitation: (6) Supratherapeutic INR: Plan 83-year-old female admitted with acute on chronic heart failure with preserved ejection fraction in the setting of mixed valvular heart disease, CKD, and permanent atrial fibrillation. Rate controlled on telemetry. Recommend continue IV diuresis. Monitor fluid balance, daily weight, GFR, and electrolytes. I would not add spironolactone at this time due to renal insufficiency. Sup plement potassium and magnesium as indicated. Monitor telemetry. Moderate to large right-sided pleural effusion noted. May require thoracentesis during hospitalization, however, continue to treat medically at this time. Hold warfarin due to supratherapeutic INR. Repeat PT/INR in AM. 04/01/2024: -Patient demonstrates clinical improvement. diuresing well -2660cc. Creatine with slight improvement -Continue IV diuresis -Strict I&O, Daily weights with standing scale and close monitoring of renal function/serum electrolytes. Goal serum K> 4.0 and serum Mag > 2.0. -Will continue to hold off on starting spironolactone due to renal insufficiency. -Monitor on telemetry. -INR today remains supratherapeutic. Continue to hold warfarin, Repeat PT/INR in the AM 04/02/2024: -Patient continues to show clinical improvement from a cardiac perspective. - 1160ml. -3kg weight deficit. -Continue IV diuresis, Cr continues to show improvement -Spironolactone on hold, reassess renal function in the AM -Continue to monitor on telemetry. No acute events overnight. -INR 2.5, Resume warfarin. Repeat PT/INR in AM 04/03/2024 Issues outlined as above. Concerns today 1. Acute decompensated diastolic heart failure right greater than left, Chronic right heart dilatation with hyperdynamic left ventricular function: Patient improving with diuresis 2. Large right pleural effusion with anticipated thoracentesis: Warfarin placed on hold 3. Atrial fibrillation, persistent with difficult rate control issues: Diltiazem in past has aggravated right heart failure in this patient. Will reduce dose today possibly discontinue if rate can be controlled. Will increase metoprolol succinate to 125 mg p.o. twice daily. Consider addition of digoxin. May ultimately require AV junction ablation pacemaker if rate control issues persist. Heart rate control may improve with thoracentesis, diuresis 4. Anemia with microcytic indices: Iron screen will be ordered Patient continues to manifest diuresis. Atrial fibrillation rates trending towards slightly better control. Respiratory status stable and patient comfortable having undergone thoracentesis earlier today Will hold IV furosemide until BMP known today Consider treating iron deficiency 04/05/2024 Continues to demonstrate improvement though still with oxygen demands and dyspn ea with minimal activity. Concerns are as listed below 1. Acute decompensated diastolic heart failure right greater than left, Chronic right heart dilatation with hyperdynamic left ventricular function: Patient improving with diuresis. Will plan additional IV diuretic this morning possible switch to torsemide plus or minus spironolactone. Still residual rales at the bases of lungs and presacral edema 2. Large right pleural effusion status postthoracentesis 3. Atrial fibrillation, persistent with difficult rate control issues: Diltiazem in past has aggravated right heart failure in this patient. Heart rates improved postthoracentesis and treatment of heart failure. Will continue increased dose metoprolol succinate and reduced dose diltiazem 4. Anemia with microcytic indices: Supplementation iron oral versus IV suggested 04/06/2024 Clinically improving. Acute on chronic decompensated diastolic heart failure multifactorial. Will switch to torsemide today at 20 mg daily with spironolactone 12.5 mg daily Continue all other medications as prescribed Admission and Anticipated Discharge Date Admission Date: March 30, 2024 Subjective Patient seen and examined, chart, medications, telemetry reviewed. Much more comfortable today improved since admission still requiring low-dose oxygen for supplementation. Urine output declined overnight per patient but weight stable to trending downward. Atrial fibrillation rates controlled 80s to 90s Review of Systems Review of Systems: All systems reviewed & are unremarkable except as noted in Subjective Physical Exam Constitutional: well developed and well nourished; no acute distress ENMT: external ear and nose normal, oropharynx normal Neck: normal visual inspection and trachea midline Respiratory: normal respiratory effort; no respiratory distress and no labored breathing Auscultation: + diminished lung sounds (Mildly right base); no crackles, no rales, no rhonchi and no wheezes Cardiovascular: Rate/Rhythm: + irregularly irregular Heart Sounds: normal S1, normal S2 and + murmur (2/6 Midsystolic murmur heard at apex and LSB) Vessels: dorsalis pedis pulses present; no JVD and no carotid bruit Extremities: + edema (Mild presacral) Gastrointestinal (Abdomen): Inspection/Auscultation: normal bowel sounds; abdomen not distended Percussion/Palpation: abdomen soft; abdomen nontender, no guarding and abdomen not rigid Skin: no rashes, warm and dry Neurologic: CN's II-XI intact bilaterally and moves all extremities Psychiatric: A+Ox3, euthymic affect Results & Data Vital Signs (Past 12 Hours) Vital Signs Temp Pulse Pulse Resp BP Pulse Ox O2 Del Method 04/06/24 06:51 36.6 C 83 17 118/79 94 Nasal Cannula 04/06/24 02:59 36.8 C 78 20 133/71 93 Nasal Cannula 04/05/24 22:55 36.8 C 91 H 20 117/77 90 Room Air 04/05/24 22:31 90 O2 Flow Rate 04/06/24 06:51 1 04/06/24 02:59 2 04/05/24 22:55 04/05/24 22:31 Laboratory Results Laboratory Results - last 24 hr 04/05/24 04/05/24 04/05/24 11:30 16:23 19:50 WBC RBC Hgb Hct MCV MCH MCHC RDW Std Deviation RDW Coeff of Vinny Plt Count MPV PT INR Sodium Potassium Chloride Carbon Dioxide Anion Gap BUN Creatinine Est Cr Clr Drug Dosing eGFR BUN/Creatinine Ratio Glucose POC Glucose 196 H 185 H 153 H Calcium Magnesium 04/06/24 06:53 WBC 7.86 RBC 4.44 Hgb 10.7 L Hct 33.4 L MCV 75.2 L MCH 24.1 L MCHC 32.0 RDW Std Deviation 49.9 H RDW Coeff of Vinny 18.6 H Plt Count 192 MPV 9.9 PT 13.1 H INR 1.2 H Sodium 140 Potassium 3.6 Chloride 98 Carbon Dioxide 35 H Anion Gap 7 BUN 39 H Creatinine 1.37 H Est Cr Clr Drug Dosing 28.9 eGFR 37.84 BUN/Creatinine Ratio 28.5 H Glucose 83 POC Glucose 82 Calcium 8.8 Magnesium 1.7 (4) Mitral regurgitation Cardiac valve disease etiology: nonrheumatic Qualified Code(s): I34.0 - Nonrheumatic mitral (valve) insufficiency (5) Tricuspid regurgitation Cardiac valve disease etiology: nonrheumatic Qualified Code(s): I36.1 - Nonrheumatic tricuspid (valve) insufficiency
--- NOTE | 2024-04-06 16:39 | Hospitalist Progress Note ---
Date of Service April 06, 2024 Assessment & Plan (1) Acute decompensated heart failure: (2) DM (diabetes mellitus), type 2: (3) Atrial fibrillation: (4) Dyslipidemia: (5) CKD (chronic kidney disease), stage III: (6) Hypertension: (7) Hypothyroidism: Plan This is an 83yo F with a PMH of HFpEF, atrial fibrillation on coumadin, bifascicular block, DM II, CKD III and other medical problems listed below who presents with swelling of lower extremities over the past few weeks and was found to have acutely decompensated diastolic heart failure. Acute decompensated diastolic heart failure Admited from cardiology office with profound BLE edema, moderate R pleural effusion on CXR, >20 ils wt gain in last 1 month Echo from [facility] from Jan 2024 with LV ejection fraction is 55 - 60%, RA and LA severely dilated, severe AV sclerosis without stenosis, severe TR regurg, severe MV regurg Home regimen includes Bumex 1mg BID, Toprol 100mg BID, lisinopril 20mg daily transition to oral diuretics today and monitor. Hold spironolactone Strict I&Os, daily weights, low sodium diet Cardiology consulted -appreciate input and recommendation. Discussed case at length with Dr. Angel De Dios Cumulative fluid balance is for past 24 hrs 1110 mL Total Output 1150 mL Balance -40 mL Urine Output 0.59 (mL/kg/hr) Repeat echo on 03/31/2024 showed EF of 60 to 65%, moderate concentric LVH, RV is severely dilated, RV systolic function is qualitatively normal, severe biatrial enlargement, mild to moderate mitral regurgitation and severe tricuspid regurgitation, the estimated systolic pulmonary pressure is 30 cm mercury Electrolytes and kidney function are stable Continue physical therapy evaluation Right pleural effusion S/P thoracentesis on 04/04/2024 with 1400 mL of fluid removed. CT chest subsequent to the thoracentesis revealed reexpansion pulmonary edema. Pleural fluid studies suggest a transudate. Some lymphocytic predominance noted which may be related to CHF. Fluid cytology pending. Please follow-up on the fluid cytology. Abdominal ultrasound did not show any significant ascites Repeat CT scan of the chest did not show any evidence of consolidation/mass in the right lower lobe Repeat CT was advised in 3 months Persistent atrial fibrillation HR controlled Continue diltiazem, Toprol DM II A1c 8.8 in July 2023, repeat in AM Hold home agents Basal/bolus insulin while in-patient BSG AC HS CKD III Cr 1.54 today (last known Cr 1.8 in October 2023, unknown baseline) Hold lisinopril for now Dyslipidemia Continue statin Iron deficiency anemia Discussed with cardiology. She may benefit from an iron infusion. Will give IV Venofer DVT Ppx: coumadin Coumadin is on hold. Ok to restart per Pulmonary Code status: FULL PCP: [facility] Anticipate discharge home with home health tomorrow if clinically stable Admission and Anticipated Discharge Date Admission Date: March 30, 2024 Anticipated date of discharge: 04/07/24 Subjective Patient seen and examined, chart, medications, reviewed. Pt seen with nursing and cardiology, Dr. De Dios. Much more comfortable today improved since admission still requiring low-dose oxygen for supplementation. On 1 liter. Atrial fibrillation rates controlled 80s to 90s. PT eval reviewed. Pt declines rehab Review of Systems Review of Systems: Constitutional- no fever; no chills ENT- no sinus drainage; no pharyngitis Pulmonary- + dry cough, no wheezing, + shortness of breath Cardiac- no chest pain, no palpitations, no orthopnea, no dependent edema GI- no nausea, no vomiting, no diarrhea, no melena, no hematochezia - no dysuria, no hematuria Neuro- no headaches, no focal neurologic symptoms Psych- no anxiety, no depression Physical Exam Physical Exam: General- adult elderly female seen sitting in chair. Chronic ill appearance Eyes- PERRL, EOMI, anicteric ENT- oropharynx clear Neck- supple, no JVD, no adenopathy, no thyromegaly; carotids +2/2, no bruits appreciated Lungs- diminished BS in bases. clear to auscultation and percussion Heart-irregular rhythm with controlled rate; Abdomen- normal bowel sounds, soft, nontender, no masses or hepatosplenomegaly Extremities- no pretibial edema, no calf tenderness; peripheral pulses intact Neuro- alert, oriented x 3; PERRL, EOMI; Skin- warm & dry Results & Data Results & Data Vital Signs (Past 12 Hours) Vital Signs Temp Pulse Resp BP Pulse Ox O2 Del Method O2 Flow Rate 04/06/24 15:25 37.0 C 86 18 132/82 93 Room Air 04/06/24 08:00 Nasal Cannula 1 04/06/24 06:51 36.6 C 83 17 118/79 94 Nasal Cannula 1 Diagnostic Findings Laboratory Results WBC 7.86 K/ul (4.8-10.8) 04/06/24 06:53 RBC 4.44 M/uL (4.20-5.40) 04/06/24 06:53 Hgb 10.7 g/dl (12.0-16.0) L 04/06/24 06:53 Hct 33.4 % (37.0-47.0) L 04/06/24 06:53 MCV 75.2 fL (80.0-100.0) L 04/06/24 06:53 MCH 24.1 pg (25.0-34.0) L 04/06/24 06:53 MCHC 32.0 g/dL (32.0-36.0) 04/06/24 06:53 RDW Std Deviation 49.9 fL (36.4-46.3) H 04/06/24 06:53 RDW Coeff of [place] 18.6 % (11.5-14.5) H 04/06/24 06:53 Plt Count 192 K/uL (130-400) 04/06/24 06:53 MPV 9.9 fL (9.4-12.4) 04/06/24 06:53 Immature Gran % (Auto) 0.4 % 04/05/24 07:28 Neut % (Auto) 76.1 % 04/05/24 07:28 Lymph % (Auto) 10.0 % 04/05/24 07:28 [place] % (Auto) 10.3 % 04/05/24 07:28 Eos % (Auto) 2.8 % 04/05/24 07:28 Baso % (Auto) 0.4 % 04/05/24 07:28 Neut # (Auto) 7.14 K/uL (1.40-6.50) H 04/05/24 07:28 Lymph # (Auto) 0.94 K/uL (1.20-3.40) L 04/05/24 07:28 [place] # (Auto) 0.97 K/uL (0.11-0.59) H 04/05/24 07:28 Eos # (Auto) 0.26 K/uL (0.00-0.50) 04/05/24 07:28 Baso # (Auto) 0.04 K/uL (0.00-0.20) 04/05/24 07:28 Immature Gran # (Auto) 0.04 K/uL (0.01-0.20) 04/05/24 07:28 PT 13.1 Seconds (9.0-12.0) H 04/06/24 06:53 INR 1.2 (0.9-1.1) H 04/06/24 06:53 VBG pH 7.44 (7.36-7.41) H 04/02/24 22:54 VBG pCO2 54 mmHg (38-50) H 04/02/24 22:54 VBG pO2 39 mmHg 04/02/24 22:54 VBG HCO3 37 mmol/L 04/02/24 22:54 VBG O2 Saturation 64.7 % 04/02/24 22:54 VBG Base Excess 10.8 mEq/L 04/02/24 22:54 Sodium 140 mmol/L (136-145) 04/06/24 06:53 Potassium 3.6 mmol/L (3.5-5.1) 04/06/24 06:53 Chloride 98 mmol/L (98-107) 04/06/24 06:53 Carbon Dioxide 35 mmol/L (21-32) H 04/06/24 06:53 Anion Gap 7 (3-11) 04/06/24 06:53 BUN 39 mg/dl (6-23) H 04/06/24 06:53 Creatinine 1.37 mg/dl (0.6-1.2) H 04/06/24 06:53 Est Cr Clr Drug Dosing 28.9 ml/min 04/06/24 06:53 eGFR 37.84 04/06/24 06:53 BUN/Creatinine Ratio 28.5 (10-20) H 04/06/24 06:53 Glucose 83 mg/dl (70-99(Fasting)) 04/06/24 06:53 POC Glucose 126 mg/dl (70-99) H 04/06/24 16:08 Estimat Average Glucose 160 mg/dl 03/31/24 06:00 Hemoglobin A1c 7.2 % (4.5-5.6) H 03/31/24 06:00 Calcium 8.8 mg/dl (8.6-10.3) 04/06/24 06:53 Phosphorus 3.6 mg/dl (2.5-4.9) 04/04/24 06:56 Magnesium 1.7 mg/dl (1.7-2.4) 04/06/24 06:53 Iron 21 mcg/dl (35-150) L 04/03/24 07:12 TIBC 334 mcg/dl (250-450) 04/03/24 07:12 Unsaturated IBC 313 mcg/dl (155-355) 04/03/24 07:12 Transferrin % Sat 6 % (15-50) L 04/03/24 07:12 Total Bilirubin 0.8 mg/dl (0.2-1.0) 03/30/24 18:06 Direct Bilirubin TNP 03/30/24 18:06 AST 29 U/L (13-39) 03/30/24 18:06 ALT 18 U/L (7-52) 03/30/24 18:06 Alkaline Phosphatase 143 U/L (34-104) H 03/30/24 18:06 Ammonia 39.0 umol/L (18-72) 04/02/24 22:54 Lactate Dehydrogenase 192 U/L (86-244) 04/04/24 06:56 B-Natriuretic Peptide 576 pg/ml (0-100) H 03/30/24 18:06 Total Protein 6.5 gm/dl (6.0-8.3) 04/04/24 06:56 Albumin 3.8 gm/dl (3.4-5.0) 03/30/24 18:06 Procalcitonin 0.12 ng/ml (0-0.5) 03/31/24 06:00 TSH 2.957 uIu/ml (0.300-4.500) 03/31/24 06:00 Urine Color Yellow 04/03/24 00:03 Urine Appearance Cloudy (Clear) A 04/03/24 00:03 Urine pH 6.0 (4.5-7.5) 04/03/24 00:03 Ur Specific [place] 1.010 (1.000-1.030) 04/03/24 00:03 Urine Protein Negative (Negative) 04/03/24 00:03 Urine Glucose (UA) Negative (Negative) 04/03/24 00:03 Urine Ketones Negative (Negative) 04/03/24 00:03 Urine Blood Negative (Negative) 04/03/24 00:03 Urine Nitrite Negative (Negative) 04/03/24 00:03 Urine Bilirubin Negative (Negative) 04/03/24 00:03 Urine Urobilinogen Negative (Negative) 04/03/24 00:03 Ur Leukocyte Esterase Negative (Negative) 04/03/24 00:03 Urine WBC (Auto) 0-5 /hpf (0-5) 04/03/24 00:03 Urine RBC (Auto) 0-2 /hpf (0-2) 04/03/24 00:03 U Hyaline Cast (Auto) 3-5 /lpf (0-2) H 04/03/24 00:03 U Epithel Cells (Auto) 0-2 /hpf (0-2) 04/03/24 00:03 Urine Bacteria (Auto) None Seen (None Seen) 04/03/24 00:03 Fluid Neutrophils % 6 % 04/04/24 10:00 Fluid Lymphocytes % 46 % 04/04/24 10:00 Fluid [place] % 48 % 04/04/24 10:00 Fluid Comment 04/04/24 10:00 Pleural Fluid Source Right Lung 04/04/24 10:00 Pleural Color Yellow 04/04/24 10:00 Pleural Appearance Cloudy 04/04/24 10:00 Pleural pH 7.52 (7.3-7.4) H 04/04/24 10:00 Pleural WBC (Auto) 366 /uL 04/04/24 10:00 Pleural RBC (Auto) 4000 /uL 04/04/24 10:00 Pleural Total Protein 3.1 gm/dl 04/04/24 10:00 Pleural LDH 75 U/L 04/04/24 10:00 Pleural Glucose 143 mg/dl 04/04/24 10:00 Pleural Amylase 16 U/L 04/04/24 10:00 Adenovirus (PCR) Not Detected (NotDetected) 04/03/24 01:35 B. pertussis DNA (PCR) Not Detected (NotDetected) 04/03/24 01:35 B.parapertussis DNA PCR Not Detected (NotDetected) 04/03/24 01:35 C. pneumoniae DNA (PCR) Not Detected (NotDetected) 04/03/24 01:35 Coronavirus OC43 (PCR) Not Detected (NotDetected) 04/03/24 01:35 Coronavirus HKU1 (PCR) Not Detected (NotDetected) 04/03/24 01:35 Coronavirus 229E (PCR) Not Detected (NotDetected) 04/03/24 01:35 SARS-CoV-2 (PCR) Not Detected (NotDetected) 04/03/24 01:35 Coronavirus NL63 (PCR) Not Detected (NotDetected) 04/03/24 01:35 Human Metapneumovir PCR Not Detected (NotDetected) 04/03/24 01:35 Influenza Type A (PCR) Not Detected (NotDetected) 04/03/24 01:35 Influenza Type B (PCR) Not Detected (NotDetected) 04/03/24 01:35 M. pneumoniae (PCR) Not Detected (NotDetected) 04/03/24 01:35 Parainfluenza 1 (PCR) Not Detected (NotDetected) 04/03/24 01:35 Parainfluenza 2 (PCR) Not Detected (NotDetected) 04/03/24 01:35 Parainfluenza 3 (PCR) Not Detected (NotDetected) 04/03/24 01:35 Parainfluenza 4 (PCR) Not Detected (NotDetected) 04/03/24 01:35 RSV (PCR) Not Detected (NotDetected) 04/03/24 01:35 Entero/Rhino (PCR) Not Detected (NotDetected) 04/03/24 01:35 Impressions Abdomen Ultrasound 03/31/24 00:00 US abdomen ltd ascites HISTORY: 83 years-old Female Abdominal distention acute generalized abdominal pain with distention COMPARISON: None TECHNIQUE: Multiple real-time sonography images of the abdomen were obtained assessing grayscale appearance FINDINGS/IMPRESSION: There is only trace ascites within the lower abdomen. ACT 112: Negative or not required by law. The above report was generated using voice recognition software. It may contain grammatical, syntax or spelling errors. Electronically signed by: Morris Andrews M.D. 03/31/2024 11:02 AM Thoracentesis/Paracentesis US 04/04/24 09:30 Ultrasound-guided right thoracentesis INDICATION: Right pleural effusion PROCEDURE: Procedure and risks were explained. Informed consent was obtained. A final timeout was completed. The right posterior thorax was prepped and draped in sterile fashion. 1% lidocaine was utilized for skin anesthesia. Utilizing ultrasound guidance, a 5 [place] safety centesis catheter was advanced into the right pleural effusion. Ultrasound images were obtained. 1400 mL of whelan fluid was removed and sent to lab for analysis. The catheter was removed and Band-Aid applied. The patient tolerated the procedure well. A chest x-ray will be obtained and vital signs will be monitored on the floor. IMPRESSION: Right thoracentesis as above. Performed, dictated, and signed by Gera Delgado PA-C; to be co-signed by Dr. Morris Andrews. Electronically signed by: Morris Andrews M.D. 04/04/2024 12:36 PM Chest X-Ray 04/04/24 09:38 XR chest 1V not portable HISTORY: 83 years-old Female s/p right thora follow-up study in patient with pleural effusion COMPARISON: Chest CT 04/02/2024 TECHNIQUE: AP view of the chest FINDINGS: Cardiac silhouette is enlarged. Mitral annular calcifications. Pulmonary vascular congestion with interstitial coarsening. Decreased size of the right pleural effusion status post thoracentesis. No postprocedural pneumothorax identified. Scattered left lung pulmonary nodules are again noted. Minimal bibasilar consolidation. There is a fourth similar focus of nodular consolidation within the lateral right lung base. Bones appear grossly intact. IMPRESSION: 1. Decreased size of the right pleural effusion status post thoracentesis. 2. No definite pneumothorax. 3. Cardiomegaly with pulmonary vascular congestion. 4. Left lung pulmonary nodules are redemonstrated, better evaluate on prior chest CT. Additionally, there is a 4 cm focus of nodular consolidation within the right lung base. Attention on follow-up recommended. ACT 112: Negative or not required by law. The above report was generated using voice recognition software. It may contain grammatical, syntax or spelling errors. Electronically signed by: Morris Andrews M.D. 04/04/2024 10:[address] 04/04/24 10:46 CT OF THE CHEST WITHOUT IV CONTRAST CLINICAL HISTORY: RLL mass s/p thora COMPARISON STUDY: Chest CT April 02, 2024. Chest radiograph performed earlier today. CT DOSE: 460.35 mGy.cm TECHNIQUE: Axial images of the chest were obtained without IV contrast. Images were reviewed in the axial, sagittal, and coronal planes. IV contrast was not administered for this examination. Automated exposure control was utilized for the study. A dose lowering technique was utilized adhering to the principles of ALARA. FINDINGS: No enlarged axillary, mediastinal or hilar lymph nodes are present. A prominent right paratracheal lymph node on image 79 of 233 measures 1.5 x 0.9 cm. The heart is moderately enlarged. There is no pericardial effusion. A 2.4 cm exophytic left lobe thyroid nodule is incidentally noted. There is no pneumothorax following right thoracentesis. The right pleural effusion has significantly decreased in size since CT of April 02, 2024. There is a small residual right pleural effusion. There is a trace left pleural effusion. Extensive alveolar opacities within the right middle and right lower lobes with interlobular septal thickening have developed. Aeration of the right lower lobe and right middle lobe has significantly improved. Residual opacities within the right lower lobe favor atelectasis. No right lower lobe mass is identified. There are secretions within right lower lobe and right middle lobe bronchi. Multiple noncalcified solid pulmonary nodules are present. The largest is a 9 mm left upper lobe nodule on image 50 of 233. There are healing bilateral rib fractures. Calcified granulomas within the spleen are incidentally noted. IMPRESSION: 1. Significant decrease in size of the right pleural effusion following thoracentesis. Small residual right pleural effusion with no pneumothorax. 2. Alveolar opacities and interlobular septal thickening within the right lower and right middle lobes suggestive of reexpansion pulmonary edema. 3. No right lower lobe mass identified. Right lower lobe opacities favor residual atelectasis but can be assessed on follow-up chest CT in 3 months to ensure resolution. 4. Multiple indeterminate pulmonary nodules measuring up to 9 mm which can be assessed on follow-up CT to ensure stability. A neoplastic etiology cannot be excluded. ACT 112: Positive. There are findings on this exam that require communication between the performing entity and the patient following Patient Test Result Information Act ([place] Act 112) guidelines. Electronically signed by: Haris Romero M.D. 04/04/2024 11:34 AM Medications Administered Current Inpatient Medications Acetaminophen (Acetaminophen 325 Mg Tab) 650 mg PO Q4H PRN PRN Reason: Pain or Fever Stop: 04/29/24 21:14 Atorvastatin Calcium (Atorvastatin 20 Mg Tab) 20 mg PO DAILY [facility] Stop: 04/30/24 08:59 Last Admin: 04/06/24 09:11 Dose: 20 mg Dextrose (Dextrose 50% 50 Ml Syringe) 25 - 50 ml IV UD PRN; Protocol PRN Reason: Hypoglycemia Protocol Stop: 04/29/24 21:14 Diltiazem HCl (Diltiazem Hcl 120 Mg Capcr) 120 mg PO DAILY [facility] Stop: 05/03/24 08:59 Last Admin: 04/06/24 09:11 Dose: 120 mg Glucagon (Glucagon For Inj 1 Mg Vial) 1 mg SQ UD PRN; Protocol PRN Reason: Hypoglycemia Protocol Stop: 04/29/24 21:14 Glucose (Glucose 40% Gel 15 Gm Tube) 15 - 30 gm PO UD PRN; Protocol PRN Reason: Hypoglycemia Protocol Stop: 04/29/24 21:14 Glucose (Glucose 10 Tab/Tube) 4 - 8 tab PO UD PRN; Protocol PRN Reason: Hypoglycemia Protocol Stop: 04/29/24 21:14 Insulin Aspart (Insulin Aspart Per Unit Charge) 0 units SC ACHS [facility] Stop: 04/29/24 21:14 Last Admin: 04/06/24 12:25 Dose: 3 units Insulin Glargine (Lantus Per Unit Charge) 7 units SQ BID [facility] Stop: 05/04/24 08:59 Last Admin: 04/06/24 08:17 Dose: 7 units Levothyroxine Sodium (Levothyroxine Sodium 88 Mcg Tablet) 88 mcg PO DAILYBB [facility] Stop: 04/30/24 06:29 Last Admin: 04/06/24 05:35 Dose: 88 mcg Metoprolol Succinate (Metoprolol Succ 50mg Ext Rel Tab) 125 mg PO BID [facility] Stop: 05/03/24 08:59 Last Admin: 04/06/24 09:11 Dose: 125 mg Miscellaneous (Carbohydrates For Hypoglycemia ) 15 - 30 gm PO UD PRN PRN Reason: Hypoglycemia Protocol Stop: 04/29/24 21:14 Ondansetron HCl (Ondansetron Inj 2 Mg/Ml 2 Ml Vial) 4 mg IV Q6H PRN PRN Reason: Nausea Stop: 04/29/24 21:14 Last Admin: 04/02/24 02:46 Dose: 4 mg Polyethylene Glycol (Polyethylene (Miralax) 17 Gm Pack) 17 gm PO DAILY PRN PRN Reason: Constipation Stop: 04/29/24 21:14 Spironolactone (Spironolactone 12.5 Mg Tab) 12.5 mg PO DAILY [facility] Stop: 05/06/24 09:44 Last Admin: 04/06/24 09:54 Dose: 12.5 mg Torsemide (Torsemide 20 Mg Tab) 20 mg PO QAM [facility] Stop: 05/06/24 09:44 Last Admin: 04/06/24 09:54 Dose: 20 mg Warfarin Sodium (Warfarin Sod 2 Mg Tab) 2 mg PO DAILY@1600 [facility] Stop: 05/05/24 17:44 Last Admin: 04/06/24 16:32 Dose: 2 mg
[2024-04-06] MEDS: IRON SUCROSE 200 MG in SODIUM CHLORIDE 0.9% 100 ML IV ONE (18:07)
[2024-04-07 06:46] LABS: Hematocrit (blood only) 35.2 % (37.0-47.0); Hemoglobin 11.2 g/dl (12.0-16.0); Mean Corpuscular Hemoglobin 23.9 pg (25.0-34.0); Mean Corpuscular Hgb Conc 31.8 g/dL (32.0-36.0); Mean Corpuscular Volume 75.1 fL (80.0-100.0); Mean Platelet Volume 9.8 fL (9.4-12.4); Platelet Count 216 K/uL (130-400); RDW Coefficient of Variation 18.6 % (11.5-14.5); RDW Standard Deviation 49.7 fL (36.4-46.3); Red Blood Count 4.69 M/uL (4.20-5.40); White Blood Count 7.42 K/ul (4.8-10.8)
[2024-04-07 07:12] LABS: Creatinine Clr Calc Pharmacy 34.2 ml/min; Magnesium 1.8 mg/dl (1.7-2.4); Potassium 3.7 mmol/L (3.5-5.1)
[2024-04-07 10:41] VITALS: RESP 17; TEMP 98.1; O2SAT 91
--- NOTE | 2024-04-07 11:49 | Discharge Summary ---
Date of Service April 07, 2024 Admission HPI Per Admitting Provider This is an 83yo F with a PMH of HFpEF, atrial fibrillation on coumadin, DM II, CKD III and other medical problems listed below who presents with swelling of lower extremities over the past few weeks. Patient notes that she has had fluid accumulating in legs over the past month. Endorses SOB at all times, occasional cough. Sleeping in a chair, + orthopnea and PND. Has been compliant with Bumex 1mg PO BID. Was seen by Dr. De Dios in cardiology clinic today and he sent her to ED for diuresis of decompensated heart failure. No F/C, CP, N/V, abd pain, dysuria, diarrhea or constipation. Occasional lightheadedness. Ambulates with a walker at baseline. Per cardiology note today, patient was admitted at [facility] in early February with R heart failure, requiring 11 lb weight loss. Since discharge has continued to have difficulty with>20# from baseline. Admission Exam Per Admitting Provider General Appearance:Moderately built and nourished, no apparent distress Head: normocephalic, Atraumatic Eyes: normal inspection, EOMI Neck: supple, Trachea midline Respiratory/Chest: Significantly decreased breath sounds, CTA, No accessory muscle use Cardiovascular: Irregularly irregular, +murmur Abdomen/GI:Soft, Non tender, protuberant, bowel sounds present Extremities/Musculoskeletal:normal inspection, 2=3+ B/L LE edema Neurologic/Psych:AAOX3, grossly no focal neurological deficits Skin: normal color, warm Principal Diagnosis Right sided decompensated heart failure Pleural effusion on right Atrial Fibrillation Ambulatory dysfunction Discharge Exam General- adult elderly female seen sitting in chair. Chronic ill appearance but improved over admission Eyes- PERRL, EOMI, anicteric ENT- oropharynx clear Neck- supple, no JVD, no adenopathy, no thyromegaly; carotids +2/2, no bruits appreciated Lungs- diminished BS in bases. clear to auscultation and percussion Heart-irregular rhythm with controlled rate; Abdomen- normal bowel sounds, soft, nontender, no masses or hepatosplenomegaly Extremities- no pretibial edema, no calf tenderness; peripheral pulses intact Neuro- alert, oriented x 3; PERRL, EOMI; Skin- warm & dry Discharge Data Allergies Allergy/AdvReac Type Severity Reaction Status Date / Time Sulfa (Sulfonamide Allergy Swelling Verified 11/10/24 09:43 Antibiotics) of the Eye Consultations 03/30/24 19:03 ED Decision to Admit Stat 03/30/24 20:18 Consult Cardiology Routine 04/03/24 08:04 Consult Pulmonology Routine Procedures Performed Right-sided thoracentesis Ordered Studies Laboratory Results WBC 7.42 K/ul (4.8-10.8) 04/07/24 06:13 RBC 4.69 M/uL (4.20-5.40) 04/07/24 06:13 Hgb 11.2 g/dl (12.0-16.0) L 04/07/24 06:13 Hct 35.2 % (37.0-47.0) L 04/07/24 06:13 MCV 75.1 fL (80.0-100.0) L 04/07/24 06:13 MCH 23.9 pg (25.0-34.0) L 04/07/24 06:13 MCHC 31.8 g/dL (32.0-36.0) L 04/07/24 06:13 RDW Std Deviation 49.7 fL (36.4-46.3) H 04/07/24 06:13 RDW Coeff of [place] 18.6 % (11.5-14.5) H 04/07/24 06:13 Plt Count 216 K/uL (130-400) 04/07/24 06:13 MPV 9.8 fL (9.4-12.4) 04/07/24 06:13 Immature Gran % (Auto) 0.4 % 04/05/24 07:28 Neut % (Auto) 76.1 % 04/05/24 07:28 Lymph % (Auto) 10.0 % 04/05/24 07:28 [place] % (Auto) 10.3 % 04/05/24 07:28 Eos % (Auto) 2.8 % 04/05/24 07:28 Baso % (Auto) 0.4 % 04/05/24 07:28 Neut # (Auto) 7.14 K/uL (1.40-6.50) H 04/05/24 07:28 Lymph # (Auto) 0.94 K/uL (1.20-3.40) L 04/05/24 07:28 [place] # (Auto) 0.97 K/uL (0.11-0.59) H 04/05/24 07:28 Eos # (Auto) 0.26 K/uL (0.00-0.50) 04/05/24 07:28 Baso # (Auto) 0.04 K/uL (0.00-0.20) 04/05/24 07:28 Immature Gran # (Auto) 0.04 K/uL (0.01-0.20) 04/05/24 07:28 PT 13.1 Seconds (9.0-12.0) H 04/06/24 06:53 INR 1.2 (0.9-1.1) H 04/06/24 06:53 VBG pH 7.44 (7.36-7.41) H 04/02/24 22:54 VBG pCO2 54 mmHg (38-50) H 04/02/24 22:54 VBG pO2 39 mmHg 04/02/24 22:54 VBG HCO3 37 mmol/L 04/02/24 22:54 VBG O2 Saturation 64.7 % 04/02/24 22:54 VBG Base Excess 10.8 mEq/L 04/02/24 22:54 Sodium 140 mmol/L (136-145) 04/07/24 06:13 Potassium 3.7 mmol/L (3.5-5.1) 04/07/24 06:13 Chloride 100 mmol/L (98-107) 04/07/24 06:13 Carbon Dioxide 34 mmol/L (21-32) H 04/07/24 06:13 Anion Gap 6 (3-11) 04/07/24 06:13 BUN 36 mg/dl (6-23) H 04/07/24 06:13 Creatinine 1.16 mg/dl (0.6-1.2) 04/07/24 06:13 Est Cr Clr Drug Dosing 34.2 ml/min 04/07/24 06:13 eGFR 46.20 04/07/24 06:13 BUN/Creatinine Ratio 31.0 (10-20) H 04/07/24 06:13 Glucose 76 mg/dl (70-99(Fasting)) 04/07/24 06:13 POC Glucose 149 mg/dl (70-99) H 04/07/24 11:27 Estimat Average Glucose 160 mg/dl 03/31/24 06:00 Hemoglobin A1c 7.2 % (4.5-5.6) H 03/31/24 06:00 Calcium 9.0 mg/dl (8.6-10.3) 04/07/24 06:13 Phosphorus 3.6 mg/dl (2.5-4.9) 04/04/24 06:56 Magnesium 1.8 mg/dl (1.7-2.4) 04/07/24 06:13 Iron 21 mcg/dl (35-150) L 04/03/24 07:12 TIBC 334 mcg/dl (250-450) 04/03/24 07:12 Unsaturated IBC 313 mcg/dl (155-355) 04/03/24 07:12 Transferrin % Sat 6 % (15-50) L 04/03/24 07:12 Total Bilirubin 0.8 mg/dl (0.2-1.0) 03/30/24 18:06 Direct Bilirubin TNP 03/30/24 18:06 AST 29 U/L (13-39) 03/30/24 18:06 ALT 18 U/L (7-52) 03/30/24 18:06 Alkaline Phosphatase 143 U/L (34-104) H 03/30/24 18:06 Ammonia 39.0 umol/L (18-72) 04/02/24 22:54 Lactate Dehydrogenase 192 U/L (86-244) 04/04/24 06:56 B-Natriuretic Peptide 576 pg/ml (0-100) H 03/30/24 18:06 Total Protein 6.5 gm/dl (6.0-8.3) 04/04/24 06:56 Albumin 3.8 gm/dl (3.4-5.0) 03/30/24 18:06 Procalcitonin 0.12 ng/ml (0-0.5) 03/31/24 06:00 TSH 2.957 uIu/ml (0.300-4.500) 03/31/24 06:00 Urine Color Yellow 04/03/24 00:03 Urine Appearance Cloudy (Clear) A 04/03/24 00:03 Urine pH 6.0 (4.5-7.5) 04/03/24 00:03 Ur Specific [place] 1.010 (1.000-1.030) 04/03/24 00:03 Urine Protein Negative (Negative) 04/03/24 00:03 Urine Glucose (UA) Negative (Negative) 04/03/24 00:03 Urine Ketones Negative (Negative) 04/03/24 00:03 Urine Blood Negative (Negative) 04/03/24 00:03 Urine Nitrite Negative (Negative) 04/03/24 00:03 Urine Bilirubin Negative (Negative) 04/03/24 00:03 Urine Urobilinogen Negative (Negative) 04/03/24 00:03 Ur Leukocyte Esterase Negative (Negative) 04/03/24 00:03 Urine WBC (Auto) 0-5 /hpf (0-5) 04/03/24 00:03 Urine RBC (Auto) 0-2 /hpf (0-2) 04/03/24 00:03 U Hyaline Cast (Auto) 3-5 /lpf (0-2) H 04/03/24 00:03 U Epithel Cells (Auto) 0-2 /hpf (0-2) 04/03/24 00:03 Urine Bacteria (Auto) None Seen (None Seen) 04/03/24 00:03 Fluid Neutrophils % 6 % 04/04/24 10:00 Fluid Lymphocytes % 46 % 04/04/24 10:00 Fluid [place] % 48 % 04/04/24 10:00 Fluid Comment 04/04/24 10:00 Pleural Fluid Source Right Lung 04/04/24 10:00 Pleural Color Yellow 04/04/24 10:00 Pleural Appearance Cloudy 04/04/24 10:00 Pleural pH 7.52 (7.3-7.4) H 04/04/24 10:00 Pleural WBC (Auto) 366 /uL 04/04/24 10:00 Pleural RBC (Auto) 4000 /uL 04/04/24 10:00 Pleural Total Protein 3.1 gm/dl 04/04/24 10:00 Pleural LDH 75 U/L 04/04/24 10:00 Pleural Glucose 143 mg/dl 04/04/24 10:00 Pleural Amylase 16 U/L 04/04/24 10:00 Adenovirus (PCR) Not Detected (NotDetected) 04/03/24 01:35 B. pertussis DNA (PCR) Not Detected (NotDetected) 04/03/24 01:35 B.parapertussis DNA PCR Not Detected (NotDetected) 04/03/24 01:35 C. pneumoniae DNA (PCR) Not Detected (NotDetected) 04/03/24 01:35 Coronavirus OC43 (PCR) Not Detected (NotDetected) 04/03/24 01:35 Coronavirus HKU1 (PCR) Not Detected (NotDetected) 04/03/24 01:35 Coronavirus 229E (PCR) Not Detected (NotDetected) 04/03/24 01:35 SARS-CoV-2 (PCR) Not Detected (NotDetected) 04/03/24 01:35 Coronavirus NL63 (PCR) Not Detected (NotDetected) 04/03/24 01:35 Human Metapneumovir PCR Not Detected (NotDetected) 04/03/24 01:35 Influenza Type A (PCR) Not Detected (NotDetected) 04/03/24 01:35 Influenza Type B (PCR) Not Detected (NotDetected) 04/03/24 01:35 M. pneumoniae (PCR) Not Detected (NotDetected) 04/03/24 01:35 Parainfluenza 1 (PCR) Not Detected (NotDetected) 04/03/24 01:35 Parainfluenza 2 (PCR) Not Detected (NotDetected) 04/03/24 01:35 Parainfluenza 3 (PCR) Not Detected (NotDetected) 04/03/24 01:35 Parainfluenza 4 (PCR) Not Detected (NotDetected) 04/03/24 01:35 RSV (PCR) Not Detected (NotDetected) 04/03/24 01:35 Entero/Rhino (PCR) Not Detected (NotDetected) 04/03/24 01:35 Impressions Abdomen Ultrasound 03/31/24 00:00 US abdomen ltd ascites HISTORY: 83 years-old Female Abdominal distention acute generalized abdominal pain with distention COMPARISON: None TECHNIQUE: Multiple real-time sonography images of the abdomen were obtained assessing grayscale appearance FINDINGS/IMPRESSION: There is only trace ascites within the lower abdomen. ACT 112: Negative or not required by law. The above report was generated using voice recognition software. It may contain grammatical, syntax or spelling errors. Electronically signed by: Morris Andrews M.D. 03/31/2024 11:02 AM Thoracentesis/Paracentesis US 04/04/24 09:30 Ultrasound-guided right thoracentesis INDICATION: Right pleural effusion PROCEDURE: Procedure and risks were explained. Informed consent was obtained. A final timeout was completed. The right posterior thorax was prepped and draped in sterile fashion. 1% lidocaine was utilized for skin anesthesia. Utilizing ultrasound guidance, a 5 Italian safety centesis catheter was advanced into the right pleural effusion. Ultrasound images were obtained. 1400 mL of whelan fluid was removed and sent to lab for analysis. The catheter was removed and Band-Aid applied. The patient tolerated the procedure well. A chest x-ray will be obtained and vital signs will be monitored on the floor. IMPRESSION: Right thoracentesis as above. Performed, dictated, and signed by Gera Delgado PA-C; to be co-signed by Dr. Morris Andrews. Electronically signed by: Morris Andrews M.D. 04/04/2024 12:36 PM Chest X-Ray 04/04/24 09:38 XR chest 1V not portable HISTORY: 83 years-old Female s/p right thora follow-up study in patient with pleural effusion COMPARISON: Chest CT 04/02/2024 TECHNIQUE: AP view of the chest FINDINGS: Cardiac silhouette is enlarged. Mitral annular calcifications. Pulmonary vascular congestion with interstitial coarsening. Decreased size of the right pl eural effusion status post thoracentesis. No postprocedural pneumothorax identified. Scattered left lung pulmonary nodules are again noted. Minimal bibasilar consolidation. There is a fourth similar focus of nodular consolidation within the lateral right lung base. Bones appear grossly intact. IMPRESSION: 1. Decreased size of the right pleural effusion status post thoracentesis. 2. No definite pneumothorax. 3. Cardiomegaly with pulmonary vascular congestion. 4. Left lung pulmonary nodules are redemonstrated, better evaluate on prior chest CT. Additionally, there is a 4 cm focus of nodular consolidation within the right lung base. Attention on follow-up recommended. ACT 112: Negative or not required by law. The above report was generated using voice recognition software. It may contain grammatical, syntax or spelling errors. Electronically signed by: Morris Andrews M.D. 04/04/2024 10:[address] 04/04/24 10:46 CT OF THE CHEST WITHOUT IV CONTRAST CLINICAL HISTORY: RLL mass s/p thora COMPARISON STUDY: Chest CT April 02, 2024. Chest radiograph performed earlier today. CT DOSE: 460.35 mGy.cm TECHNIQUE: Axial images of the chest were obtained without IV contrast. Images were reviewed in the axial, sagittal, and coronal planes. IV contrast was not administered for this examination. Automated exposure control was utilized for the study. A dose lowering technique was utilized adhering to the principles of ALARA. FINDINGS: No enlarged axillary, mediastinal or hilar lymph nodes are present. A prominent right paratracheal lymph node on image 79 of 233 measures 1.5 x 0.9 cm. The heart is moderately enlarged. There is no pericardial effusion. A 2.4 cm exophytic left lobe thyroid nodule is incidentally noted. There is no pneumothorax following right thoracentesis. The right pleural effusion has significantly decreased in size since CT of April 02, 2024. There is a small residual right pleural effusion. There is a trace left pleural effusion. Extensive alveolar opacities within the right middle and right lower lobes with interlobular septal thickening have developed. Aeration of the right lower lobe and right middle lobe has significantly improved. Residual opacities within the right lower lobe favor atelectasis. No right lower lobe mass is identified. There are secretions within right lower lobe and right middle lobe bronchi. Multiple noncalcified solid pulmonary nodules are present. The largest is a 9 mm left upper lobe nodule on image 50 of 233. There are healing bilateral rib fractures. Calcified granulomas within the spleen are incidentally noted. IMPRESSION: 1. Significant decrease in size of the right pleural effusion following thoracentesis. Small residual right pleural effusion with no pneumothorax. 2. Alveolar opacities and interlobular septal thickening within the right lower and right middle lobes suggestive of reexpansion pulmonary edema. 3. No right lower lobe mass identified. Right lower lobe opacities favor residual atelectasis but can be assessed on follow-up chest CT in 3 months to ensure resolution. 4. Multiple indeterminate pulmonary nodules measuring up to 9 mm which can be assessed on follow-up CT to ensure stability. A neoplastic etiology cannot be excluded. ACT 112: Positive. There are findings on this exam that require communication between the performing entity and the patient following Patient Test Result Information Act ([place] Act 112) guidelines. Electronically signed by: Haris Romero M.D. 04/04/2024 11:34 AM Hospital Course (1) Acute decompensated heart failure: (2) DM (diabetes mellitus), type 2: (3) Atrial fibrillation: (4) Dyslipidemia: (5) CKD (chronic kidney disease), stage III: (6) Hypertension: (7) Hypothyroidism: Plan This is an 83yo F with a PMH of HFpEF, atrial fibrillation on coumadin, bifascicular block, DM II, CKD III and other medical problems listed below who presents with swelling of lower extremities over the past few weeks and was found to have acutely decompensated diastolic heart failure. Acute decompensated diastolic heart failure Admit to telemetry unit. IV lasix started. Daily wts and strict I&O's were recorded Cardiology was consulted. Warfarin was held because of supratherapeutic INR Aldactone was not started due to renal dysfunction Right pleural effusion S/P thoracentesis on 04/04/2024 with 1400 mL of fluid removed. CT chest aguirre bsequent to the thoracentesis revealed reexpansion pulmonary edema. Pleural fluid studies suggest a transudate. Some lymphocytic predominance noted which may be related to CHF. Fluid cytology pending. Please follow-up on the fluid cytology. Abdominal ultrasound did not show any significant ascites Repeat CT scan of the chest did not show any evidence of consolidation/mass in the right lower lobe Repeat CT was advised in 3 months Persistent atrial fibrillation HR controlled Continue diltiazem, Toprol Warfarin restarted DM II A1c 8.8 in July 2023 Home agents were held Basal/bolus insulin while in-patient BSG AC HS CKD III Nephrotoxins avoided Cre 1.16 on discharge Dyslipidemia Continue statin Iron deficiency anemia Discussed with cardiology. She may benefit from an iron infusion. IV Venofer given follow Hgb and iron levels. Started on oral iron Ambulatory dysfunction Patient was evaluated by PT. She declined inpatient rehab. At the time of discharge pt was tolerating a diet and ambulating with a walker per her baseline. She declined inpatient rehab. Home with her daughter or family member present 14/12, home health and PT/OT Home Health Attestation I certify that this patient is under my care and that I, or a physicians esol teacher assistant working with me, had a face to-face encounter that meets the home health [id number] encounter requirements with this patient. The encounter with the patient was in whole, or in part, for the following medical condition, which is the primary reason for home health care (list medical condition): CHF I certify that, based on my findings, the following services are medically necessary home health services: My clinical findings support the need for the above services because: OT Assess ADL Status and Restore Function w ADLs PT Assessment for Endurance / Balance / Strength PT Eval for Safety and Mobility PT Eval for Safety, Gait Training, Assistive Devices PT Gait and Balance Training, Strengthening and Safety Skilled Nsg Assessment Further, I certify that my clinical findings support that this patient is homebound (i.e. absences from home require considerable and taxing effort and are for medical reasons or anglican services or infrequently or of short duration when for other reasons) because: Transportation Assistance/Unable to Leave Home Unassisted Certification for Home Health Services: Based on the above findings, I certify that this patient is confined to the home and needs intermittent chcf care, physical therapy and/or speech therapy or continues to need occupational therapy. The patient is under my care, and I have initiated the establishment of the plan of care. This patient will be followed by a physician who will periodically review the plan of care. Total Time Total Time Spent Total Time Spent (In Minutes): Total 55 minutes spent in discharge planning and care coordination Discharge Plan Discharge Items Patient Disposition: Home - Home Health Services Reason For Visit: CHF Discharge Diagnosis: Acute decompensated heart failure: Large right pleural effusion Iron deficiency anemia Ambulatroy dysfunction DM (diabetes mellitus), type 2: Atrial fibrillation: Dyslipidemia: CKD (chronic kidney disease), stage III: Hypertension: Hypothyroidism: Activity: Resume your previous activity Activity Comment: Use a walker or cane Non-emergency contact: Primary Care Provider and Bag Worker Follow-up/Referrals: Nadia Cuevas PA-C [Primary Care Provider] - 04/12/24 12:00 pm (This appointment is with Dr Dang.) Diet: Carb Consistent or DM2 and Heart Healthy Fluids: 1800ml (7 cups) Addtl Attending Provider Instructions: Continue home health services Check BMP, PT/INR and CBC in 3 to 7 days Follow-up with cardiology Repeat CT scan of the chest in 3 months for pulmonary nodule follow-up Follow-up with pleural fluid cytology results Pending Studies at Discharge: Yes Studies:: Pleural fluid cytology results Stand-Alone Forms: My [facility] Medications and DC Order Prescriptions: New torsemide 20 mg Tablet 20 mg PO QAM Qty: 30 1RF metoprolol succinate 50 mg Tablet Extended Release 24 Hr 125 mg PO BID Qty: 60 1RF spironolactone 25 mg Tablet 12.5 mg PO DAILY Qty: 30 1RF ferrous sulfate [Feosol] 325 mg (65 mg iron) tablet 325 mg PO DAILY Qty: 30 0RF Continued atorvastatin 20 mg tablet 20 mg PO DAILY diltiazem HCl [DILT-XR] 120 mg capsule,ext.rel 24h degradable 240 mg PO DAILY insulin asp prt-insulin aspart [Novolog Mix 70-30FlexPen U-100] 100 unit/mL (70-30) insulin pen 25 unit SUBCUT BID lisinopril 20 mg tablet 20 mg PO DAILY levothyroxine 88 mcg tablet 88 mcg PO DAILY warfarin 1 mg tablet 2 mg PO DAILY potassium chloride 20 mEq Tablet Extended Release 20 meq PO DAILY Discontinued metoprolol succinate 100 mg tablet extended release 24 hr 100 mg PO BID bumetanide 1 mg tablet 1 mg PO BID Discharge Orders: Discharge Order (Routine); Ordered 04/07/24 Ordered By: Arthur Shay/Other Patient Handouts: Managing Type 2 Diabetes, Coping with Heart Failure, AFib Preventing Stroke, ED Right-Sided Heart Failure, ED Pleural Effusion Admission Data Admit Date/Time: 03/30/24 19:30 Attending Provider: Arthur Mohan Admit Provider: Torsten Olivas Primary Care Provider: Nadia Cuevas Other Providers: [place]; Torsten Olivas; Brayan Marinelli; Saul Gonzalez
--- NOTE | 2024-04-07 12:29 | Cardiology Progress Note ---
Date of Service April 07, 2024 Assessment & Plan (1) Acute on chronic heart failure with preserved ejection fraction (HFpEF): (2) Moderate sized pleural effusion: (3) Permanent atrial fibrillation: (4) Mitral regurgitation: (5) Tricuspid regurgitation: (6) Supratherapeutic INR: Plan 83-year-old female admitted with acute on chronic heart failure with preserved ejection fraction in the setting of mixed valvular heart disease, CKD, and permanent atrial fibrillation. Rate controlled on telemetry. Recommend continue IV diuresis. Monitor fluid balance, daily weight, GFR, and electrolytes. I would not add spironolactone at this time due to renal insufficiency. Sup plement potassium and magnesium as indicated. Monitor telemetry. Moderate to large right-sided pleural effusion noted. May require thoracentesis during hospitalization, however, continue to treat medically at this time. Hold warfarin due to supratherapeutic INR. Repeat PT/INR in AM. 04/01/2024: -Patient demonstrates clinical improvement. diuresing well -2660cc. Creatine with slight improvement -Continue IV diuresis -Strict I&O, Daily weights with standing scale and close monitoring of renal function/serum electrolytes. Goal serum K> 4.0 and serum Mag > 2.0. -Will continue to hold off on starting spironolactone due to renal insufficiency. -Monitor on telemetry. -INR today remains supratherapeutic. Continue to hold warfarin, Repeat PT/INR in the AM 04/02/2024: -Patient continues to show clinical improvement from a cardiac perspective. - 1160ml. -3kg weight deficit. -Continue IV diuresis, Cr continues to show improvement -Spironolactone on hold, reassess renal function in the AM -Continue to monitor on telemetry. No acute events overnight. -INR 2.5, Resume warfarin. Repeat PT/INR in AM 04/03/2024 Issues outlined as above. Concerns today 1. Acute decompensated diastolic heart failure right greater than left, Chronic right heart dilatation with hyperdynamic left ventricular function: Patient improving with diuresis 2. Large right pleural effusion with anticipated thoracentesis: Warfarin placed on hold 3. Atrial fibrillation, persistent with difficult rate control issues: Diltiazem in past has aggravated right heart failure in this patient. Will reduce dose today possibly discontinue if rate can be controlled. Will increase metoprolol succinate to 125 mg p.o. twice daily. Consider addition of digoxin. May ultimately require AV junction ablation pacemaker if rate control issues persist. Heart rate control may improve with thoracentesis, diuresis 4. Anemia with microcytic indices: Iron screen will be ordered Patient continues to manifest diuresis. Atrial fibrillation rates trending towards slightly better control. Respiratory status stable and patient comfortable having undergone thoracentesis earlier today Will hold IV furosemide until BMP known today Consider treating iron deficiency 04/05/2024 Continues to demonstrate improvement though still with oxygen demands and dyspn ea with minimal activity. Concerns are as listed below 1. Acute decompensated diastolic heart failure right greater than left, Chronic right heart dilatation with hyperdynamic left ventricular function: Patient improving with diuresis. Will plan additional IV diuretic this morning possible switch to torsemide plus or minus spironolactone. Still residual rales at the bases of lungs and presacral edema 2. Large right pleural effusion status postthoracentesis 3. Atrial fibrillation, persistent with difficult rate control issues: Diltiazem in past has aggravated right heart failure in this patient. Heart rates improved postthoracentesis and treatment of heart failure. Will continue increased dose metoprolol succinate and reduced dose diltiazem 4. Anemia with microcytic indices: Supplementation iron oral versus IV suggested 04/06/2024 Clinically improving. Acute on chronic decompensated diastolic heart failure multifactorial. Will switch to torsemide today at 20 mg daily with spironolactone 12.5 mg daily Continue all other medications as prescribed 04/07/2024 Patient is continued to demonstrate improvement after adjustments in medications as noted. Patient currently on oral regimen CHF instructions discussed with Daily weights recommended Consider nocturnal oximetry as part of long-term management either in-house or post discharge Admission and Anticipated Discharge Date Admission Date: March 30, 2024 Subjective Patient seen and examined, chart, medications, telemetry reviewed. Patient breathing comfortably on room air. Tolerating current oral regimen Review of Systems Review of Systems: All systems reviewed & are unremarkable except as noted in Subjective Physical Exam Constitutional: well developed and well nourished; no acute distress ENMT: external ear and nose normal, oropharynx normal Neck: normal visual inspection and trachea midline Respiratory: normal respiratory effort and + cough (non productive); no respiratory distress and no labored breathing Auscultation: + diminished lung sounds (Mildly right base); no crackles, no rales, no rhonchi and no wheezes Cardiovascular: Rate/Rhythm: regular rate, regular rhythm and + irregularly irregular Heart Sounds: normal S1, normal S2 and + murmur (2/6 Midsystolic murmur heard at apex and LSB) Vessels: dorsalis pedis pulses present; no JVD and no carotid bruit Extremities: no edema Gastrointestinal (Abdomen): Inspection/Auscultation: normal bowel sounds; abdomen not distended Percussion/Palpation: abdomen soft; abdomen nontender, no guarding and abdomen not rigid Skin: no rashes, warm and dry Neurologic: CN's II-XI intact bilaterally and moves all extremities Psychiatric: A+Ox3, euthymic affect Results & Data Vital Signs (Past 12 Hours) Vital Signs Temp Pulse Resp BP Pulse Ox O2 Del Method O2 Flow Rate 04/07/24 10:39 36.7 C 95 H 17 140/83 91 Room Air 04/07/24 08:33 92 Room Air 04/07/24 08:05 36.6 C 80 16 143/84 H 95 Nasal Cannula 1 04/07/24 08:00 Nasal Cannula 1 Laboratory Results Laboratory Results - last 24 hr 04/06/24 04/06/24 04/07/24 16:08 20:20 06:13 WBC 7.42 RBC 4.69 Hgb 11.2 L Hct 35.2 L MCV 75.1 L MCH 23.9 L MCHC 31.8 L RDW Std Deviation 49.7 H RDW Coeff of Vinny 18.6 H Plt Count 216 MPV 9.8 Sodium 140 Potassium 3.7 Chloride 100 Carbon Dioxide 34 H Anion Gap 6 BUN 36 H Creatinine 1.16 Est Cr Clr Drug Dosing 34.2 eGFR 46.20 BUN/Creatinine Ratio 31.0 H Glucose 76 POC Glucose 126 H 168 H Calcium 9.0 Magnesium 1.8 04/07/24 04/07/24 07:13 11:27 WBC RBC Hgb Hct MCV MCH MCHC RDW Std Deviation RDW Coeff of Vinny Plt Count MPV Sodium Potassium Chloride Carbon Dioxide Anion Gap BUN Creatinine Est Cr Clr Drug Dosing eGFR BUN/Creatinine Ratio Glucose POC Glucose 96 149 H Calcium Magnesium (4) Mitral regurgitation Cardiac valve disease etiology: nonrheumatic Qualified Code(s): I34.0 - Nonrheumatic mitral (valve) insufficiency (5) Tricuspid regurgitation Cardiac valve disease etiology: nonrheumatic Qualified Code(s): I36.1 - Nonrheumatic tricuspid (valve) insufficiency
[2024-04-07 12:36] VITALS: BP 108/79; PULSE 80
== END 2024-04-07 14:11 | disposition home health service (06) | DRG 291 ==
LOC: ED 16:44 → 2S 19:30 → SUATTDRO 19:30 → 2S 20:31